=== PATIENT | female | born 1985 | race Caucasian/White ===

== ENCOUNTER → 2016-07-05 | Outpatient (CLI) | payer OTHER ==
[~2016-07-05] MED LIST: ACET-1256 PO; ACET160S78 PO; ALBINS/ INH; ALBU1NEB10 NEB; ALBUAER INH; ASCO100T PO; BUTA1CAP20 PO; CEFT600I IV; CTF50 PO; CYAN10004 PO; CYCL10TA6 PO; DLSUDL60 PO; DOXY100C76 PO; DOXY100T17 PO; DOXYPOW IV; DXY100 PO; ESZO1TAB16 PO; FLUO20CA35 PO; FLUO20CA36 PO; FRCT/ PO; GABA-112 PO; GDN40 PO; GUAI1TAB69 PO; HYDR25CA PO; HYDR25TA5 PO; IBUP-1050 PO; IBUP-1428 PO; LAMO200T PO; LAMO200T38 PO; LEVO1TAB35 PO; MAGN1CAP2 PO; MELATAB2 PO; MELO7.5T5 PO; MULTTAB58 PO; NRN100 PO; PRZ/40 PO; PSEU30TA20 PO; PSEU60TA80 PO; PYRI50TA77 PO; TOPI25TA99 PO; ZIPR1CAP4 PO; ZIPR60CA PO
--- NOTE | 2016-07-12 17:05 | EEG Procedure Note ---
EEG Procedure Note Date of Service Jul 05, 2016. Start / End Times Start Time: 07/05/2016 at 1:49 PM End Time: 07/07/2016 at 10:49 AM Referring Physician Jennifer Fenton History This is a 30-year-old female with episodes of syncope. EEG for further evaluation of possible seizure etiology. Home Medication List Scheduled Ascorbic Acid (Vitamin C), 1 TAB PO HS Eszopiclone (Lunesta), 3 MG PO HS Fluoxetine (Prozac), 20 MG PO DAILY Fluoxetine Hcl (Prozac), 40 MG PO DAILY Magnesium Oxide (Mg Supplement (Magnesium), 400 MG PO DAILY Melatonin (Melatonin Maximum Strengt), 1 TAB PO HS Meloxicam (Mobic), 15 MG PO QAM Multiple Vitamin (Multivitamin), 1 TAB PO DAILY Pyridoxine Hcl (Vitamin B 6), 50 MG PO DAILY Topiramate (Topamax ), 25 MG PO BID Ziprasidone Hcl (Geodon), 40 MG PO QPM Ziprasidone Hcl (Geodon), 60 MG PO QPM Scheduled PRN Acetamin/Butalbital/Caffeine (Fioricet), 1 TAB PO Q4-6 PRN for Migraine Albuterol Soln (Ventolin Soln), 1 VIAL NEB UD PRN for SOB/Wheezing Diclofenac Potassium (Diclofenac Potassium), 50 MG PO Q8 PRN for PRN Hydroxyzine Pamoate (Vistaril), 25 MG PO QID PRN for Anxiety Ibuprofen (Motrin), 800 MG PO Q8H PRN for Pain Description This is a 21 electrode ambulatory EEG with a single channel dedicated to limited EKG. The electrodes were placed in accordance with the International 10- 20 system. Fp1 and Fp2 noted to have disconnection artifact after 7 PM on July 06 and there was multiple lead disconnection artifact after 4 AM on July 07. At the start of the recording the patient was in an awake state. Background was well organized and composed of symmetric mixed alpha and beta frequencies. There was a symmetric well-formed moderate amplitude 11-12 Hz posterior dominant rhythm that was reactive to eye opening and closure. Sleep was indicated by vertex waves, symmetric sleep spindles, and slow wave sleep. Patient journal was returned and reviewed. No clinical events reported. Interpretation This is a normal 48hr ambulatory EEG There was no electrographic seizures or epileptiform discharges. Clinical Correlation A normal EEG does not rule out epilepsy if there is a strong clinical suspicion or for clinical events not captured.
== END | disposition home or self-care (01) ==
LOC: C.NEUR 13:16
PROVIDERS: ATTEND Psychiatry & Neurology Neurology
DX: R55 Syncope and collapse (principal)

== ENCOUNTER 2016-07-10 14:27 | Emergency (ER) | payer OTHER ==
[~2016-07-10] VITALS: Ht 165.1 cm; Wt 120.8 kg
[~2016-07-10 14:27] MED LIST changes: -ACET-1256 PO; -ACET160S78 PO; -ALBINS/ INH; -ALBUAER INH; -BUTA1CAP20 PO; -CEFT600I IV; -CTF50 PO; -CYAN10004 PO; -CYCL10TA6 PO; -DLSUDL60 PO; -DOXY100C76 PO; -DOXY100T17 PO; -DOXYPOW IV; -DXY100 PO; -FLUO20CA36 PO; -GABA-112 PO; -GDN40 PO; -GUAI1TAB69 PO; -HYDR25CA PO; -HYDR25TA5 PO; -IBUP-1050 PO; -LAMO200T PO; -LAMO200T38 PO; -LEVO1TAB35 PO; -MULTTAB58 PO; -NRN100 PO; -PRZ/40 PO; -PSEU30TA20 PO; -PSEU60TA80 PO; -PYRI50TA77 PO
[2016-07-10 14:30] VITALS: TEMP 36.9; Ht 165.1 cm; Wt 120.8 kg
--- NOTE | 2016-07-10 15:48 | EMERGENCY ROOM VISIT NOTE ---
History Report prepared by Mauri: Alfonso Oscar Under the Supervision of: Dr. Roger Mercado M.D. First contact with patient: 15:36 Chief Complaint: HEADACHE Stated Complaint: MIGRAINE, BLURRY VISION History of Present Illness The patient is a 30 year old female who presents to the Emergency Room with complaints of a headache that began last night. She rates her pain a 6/10 in severity. The patient had an anxiety attack last night, which is what started her symptoms. She then took her regular medication Vistaril and felt better. She then began to get a headache when she went to bed. She notes that she then began to feel intoxicated with alcohol even though she did not drink at all. She learned today that she is not supposed to take Lamictal and Vistaril close together, which she did. She tried other medications for her headache with no relief. She denies any fevers. Source of History: patient Onset: last night Position: head Symptom Intensity: 6/10 Quality: ache Timing: other (persistent) Associated Symptoms: No fevers Note: She had a feeling of intoxication. Review of Systems See HPI for pertinent positives & negatives. A total of 10 systems reviewed and were otherwise negative. Past Medical & Surgical Medical Problems: (1) Acute bronchitis (2) Anxiety (3) Asthma, Unspecified (4) Benzodiazepine abuse (5) Bipolar disorder (6) Chronic GERD (7) Contusion of right hip (8) Esophageal Reflux (9) Fall due to slipping on ice or snow (10) MAXIMUS (generalized anxiety disorder) (11) Headache (12) Hyperlipidemia Nec/Nos (13) Low back strain (14) Migraine (15) Migraines (16) Occipital neuralgia (17) Opiate misuse (18) Shortness of breath (19) Syncope and collapse Surgical Problems: (1) Hx of cholecystectomy Family History Cancer Diabetes mellitus FH: heart disease High cholesterol Hypertension Ovarian cyst Social History Smoking Status: Never Smoker Alcohol Use: occasionally Drug Use: none Marital Status: Housing Status: lives with family Occupation Status: unemployed Current/Historical Medications Scheduled Ascorbic Acid (Vitamin C), 1 TAB PO HS Eszopiclone (Lunesta), 3 MG PO HS Fluoxetine (Prozac), 20 MG PO DAILY Fluoxetine Hcl (Prozac), 40 MG PO DAILY Magnesium Oxide (Mg Supplement (Magnesium), 400 MG PO DAILY Melatonin (Melatonin Maximum Strengt), 1 TAB PO HS Meloxicam (Mobic), 15 MG PO QAM Multiple Vitamin (Multivitamin), 1 TAB PO DAILY Pyridoxine Hcl (Vitamin B 6), 50 MG PO DAILY Topiramate (Topamax ), 25 MG PO BID Ziprasidone Hcl (Geodon), 40 MG PO QPM Ziprasidone Hcl (Geodon), 60 MG PO QPM Scheduled PRN Acetamin/Butalbital/Caffeine (Fioricet), 1 TAB PO Q4-6 PRN for Migraine Albuterol Soln (Ventolin Soln), 1 VIAL NEB UD PRN for SOB/Wheezing Diclofenac Potassium (Diclofenac Potassium), 50 MG PO Q8 PRN for PRN Hydroxyzine Pamoate (Vistaril), 25 MG PO QID PRN for Anxiety Ibuprofen (Motrin), 800 MG PO Q8H PRN for Pain Allergies Coded Allergies: Cephalosporins (Verified Allergy, Intermediate, HIVES, 05/31/16) Sumatriptan (Verified Allergy, Intermediate, RASH, 05/31/16) INJ OF IMITREX, RASH @ INJECTION SITE Cephalexin (Verified Allergy, Unknown, HIVES, 05/31/16) Metoclopramide (Verified Allergy, Unknown, ANXIETY, 05/31/16) Physical Exam Vital Signs Date Time Temp Pulse Resp B/P Pulse Ox O2 Delivery O2 Flow Rate FiO2 07/10/16 17:05 86 18 129/90 98 07/10/16 14:30 36.9 109 18 139/89 97 Physical Exam GENERAL: Patient is a healthy-appearing well-nourished HEAD: Normocephalic atraumatic EYES: Ocular movements intact pupils equal and react to light OROPHARYNX mucous membranes are moist no exudates present no erythema or edema present NECK: Supple no nuchal rigidity CHEST: Good equal expansion LUNGS: Clear and equal to auscultation CARDIAC: Normal S1 and S2 ABDOMEN: Soft nontender no guarding BACK: No CVA tenderness EXTREMITIES: No pain upon palpation normal muscle strength in all groups no clubbing cyanosis or edema NEURO: Patient is following commands is answering questions appropriately. Alert and oriented x3 Cranial Nerves 2-12 grossly intact Medical Decision & Procedures Medications Administered Medications (Trade) Dose Ordered Sig/Theodore Route Start Time Stop Time Status Last Admin Dose Admin Sodium Chloride (Nss 1000ml) 1,000 ml @ 999 mls/hr Q1H1M STAT IV 07/10/16 15:51 07/10/16 16:51 DC 07/10/16 16:00 999 MLS/HR Ketorolac Tromethamine (Toradol Inj) 30 mg NOW STAT IV 07/10/16 15:51 07/10/16 15:54 DC 07/10/16 16:01 30 MG Prochlorperazine Edisylate (Compazine Inj) 10 mg NOW STAT IV 07/10/16 15:51 07/10/16 15:54 DC 07/10/16 16:01 10 MG Diphenhydramine HCl (Benadryl Inj) 50 mg NOW STAT IV 07/10/16 15:51 07/10/16 15:54 DC 07/10/16 16:01 50 MG Dexamethasone Sodium Phosphate (Decadron Inj) 10 mg NOW ONCE IV 07/10/16 16:00 07/10/16 16:01 DC 07/10/16 16:00 10 MG ED Course 1536: Past medical records reviewed. The patient was evaluated in room A4. A complete history and physical examination was performed. 1551: Benadryl Inj 50 mg IV, Compazine Inj 10 mg IV, Toradol Inj 30 mg IV, Sodium Chloride 1000 ml @ 999 mls/hr 1600: Decadron Inj 10 mg IV 1700: The patient is feeling better. She would like to go home. 1706: Upon reexamination the patient is resting. I discussed results and treatment plan with the patient. She verbalizes agreement and understanding. The patient is ready for discharge. Medical Decision Etiologies such as migraine headache, meningitis, sinusitis, CO exposure, ICH, SAH, infection, tumor, headache, sinus thrombosis, arterial dissection, as well as others were entertained. This is a 30-year-old female who presents emergency department complaining of a normal migraine headache. The patient has had a history of migraines in the past. She has no evidence of meningitis encephalitis on examination. The patient is requesting her normal migraine cocktail which consisted of Toradol Compazine and Benadryl. She was also given Decadron. I believe the patient as well as to be discharged home for follow-up with her primary care physician. Patient was in agreement with the treatment plan. Impression Primary Impression: Migraine Scribe Attestation The scribe's documentation has been prepared under my direction and personally reviewed by me in its entirety. I confirm that the note above accurately reflects all work, treatment, procedures, and medical decision making performed by me. Departure Information Dispostion Home / Self-Care Referrals Lisa Cervantes DO (PCP) Forms HOME CARE DOCUMENTATION FORM, IMPORTANT VISIT INFORMATION, School Instructions, Work Instructions Patient Instructions ED Headache Migraine, My [facility] Additional Instructions You have been examined and treated today on an emergency basis only. This is not a substitute for, or an effort to provide, complete comprehensive medical care. It is impossible to recognize and treat all injuries or illnesses in a single emergency department visit. It is therefore important that you follow up closely with Dr Cervantes. Call as soon as possible for an appointment. Thank you for your time and consideration. I look forward to speaking with you again soon. Please don't hesitate to call us if you have any questions. Problem Qualifiers Primary Impression: Migraine Migraine type: without aura Status migrainosus presence: without status migrainosus Intractability: not intractable Qualified Codes: G43.009 - Migraine without aura, not intractable, without status migrainosus
[2016-07-10] MEDS ORDERED: KETOROLAC TROMETHAMINE 30 MG/ML VIAL IV STA (15:51)
[2016-07-10] MEDS ORDERED: SODIUM CHLORIDE 0.9% 1000ML 1,000 ML IV STA (15:51)
[2016-07-10] MEDS ORDERED: PROCHLORPERAZINE 5 MG/ML 2 ML VIAL IV STA (15:51)
[2016-07-10] MEDS ORDERED: DiphenhydrAMINE HCL 50 MG/ML VIAL IV STA (15:51)
[2016-07-10] MEDS ORDERED: HYDR25CA PO (15:58)
[2016-07-10] MEDS ORDERED: DEXAMETHASONE SOD INJ 10 MG/ML VIAL IV ONE (16:00)
[2016-07-10 17:05] VITALS: BP 129/90; PULSE 86; O2SAT 98
[2016-12-08] MEDS ORDERED: MULTTAB58 PO (10:42)
[2016-12-08] MEDS ORDERED: PYRI50TA77 PO (15:35)
[2016-12-08] MEDS ORDERED: PRZ/40 PO (18:29)
[2016-12-08] MEDS ORDERED: ACET-1256 PO (19:46)
== END 2016-07-10 17:05 | disposition home or self-care (01) ==
LOC: C.EDB 14:28 → C.EDA 17:05
DX: G43.909 Migraine, unspecified, not intractable, without status migrainosus (principal); J45.909 Unspecified asthma, uncomplicated; K21.9 Gastro-esophageal reflux disease without esophagitis; E78.5 Hyperlipidemia, unspecified; Z79.899 Other long term (current) drug therapy

== ENCOUNTER 2016-07-28 06:59 | Emergency (ER) | payer OTHER ==
[~2016-07-28] VITALS: Ht 165.1 cm; Wt 121.3 kg
[~2016-07-28 06:59] MED LIST changes: +HYDR25CA PO
[2016-07-28 07:05] VITALS: TEMP 36.4; Ht 165.1 cm; Wt 121.3 kg
[2016-07-28] MEDS ORDERED: ALBINS/ INH (07:20)
[2016-07-28] MEDS ORDERED: LAMO200T PO (07:20)
[2016-07-28] MEDS ORDERED: GABA-112 PO (07:20)
[2016-07-28] MEDS ORDERED: KETOROLAC TROMETHAMINE 30 MG/ML VIAL IV STA (07:25)
--- NOTE | 2016-07-28 07:30 | EMERGENCY ROOM VISIT NOTE ---
History Report prepared by Mauri: Clifford Gomez Under the Supervision of: Dr. Robyn Garcia M.D. First contact with patient: 07:09 Chief Complaint: CHEST PAIN Stated Complaint: CHEST PAIN,TROUBLE BREATHING Nursing Triage Summary: Pt presents with substeranl chest pain "shooting into back" that began during the night. Difficulty breathing. Lightheaded, weak, nausea. Pt took Phenegran at midnight without relief. States feels similar to last time she had pnx. "I was hoping it was an asthma attack. I used my inhaler and it didn't work." History of Present Illness The patient is a 30 year old female who presents to the Emergency Room with complaints of persistent chest pain that started last night. The patient also complains of back pain. She notes that both of these are worsened with taking deep breaths. When the symptoms started, the patient thought she was having an asthma flare and used her inhaler. However, this did not help relieve her symptoms. The patient had pneumonia a year and a half ago and notes that her symptoms are similar. She denies control, smoking, chance of , or swelling in her legs. Source of History: patient Onset: last night Position: chest Timing: other (persistent) Modifying Factors (Worsening): breathing (deep breaths) Associated Symptoms: + back pain Note: Denies: swelling in her legs Review of Systems See HPI for pertinent positives & negatives. A total of 10 systems reviewed and were otherwise negative. Past Medical & Surgical Medical Problems: (1) Acute bronchitis (2) Anxiety (3) Asthma, Unspecified (4) Benzodiazepine abuse (5) Bipolar disorder (6) Chronic GERD (7) Contusion of right hip (8) Esophageal Reflux (9) Fall due to slipping on ice or snow (10) MAXIMUS (generalized anxiety disorder) (11) Headache (12) Hyperlipidemia Nec/Nos (13) Low back strain (14) Migraine (15) Migraines (16) Occipital neuralgia (17) Opiate misuse (18) Shortness of breath (19) Syncope and collapse Surgical Problems: (1) Hx of cholecystectomy Family History Cancer Diabetes mellitus FH: heart disease High cholesterol Hypertension Ovarian cyst Social History Smoking Status: Never Smoker Alcohol Use: occasionally Drug Use: none Marital Status: Housing Status: lives with family Occupation Status: unemployed Current/Historical Medications Scheduled Albuterol Sulfate (Proventil Hfa), 2 PUFFS INH Q4H Ascorbic Acid (Vitamin C), 1 TAB PO HS Eszopiclone (Lunesta), 3 MG PO HS Fluoxetine (Prozac), 20 MG PO DAILY Fluoxetine Hcl (Prozac), 40 MG PO DAILY Lamotrigine (Lamictal), 200 MG PO QAM Levofloxacin (Levaquin), 750 MG PO DAILY Magnesium Oxide (Mg Supplement (Magnesium), 400 MG PO DAILY Melatonin (Melatonin Maximum Strengt), 1 TAB PO HS Multiple Vitamin (Multivitamin), 1 TAB PO DAILY Pyridoxine Hcl (Vitamin B 6), 50 MG PO DAILY Ziprasidone Hcl (Geodon), 40 MG PO QPM Scheduled PRN Acetamin/Butalbital/Caffeine (Fioricet), 1 TAB PO Q4-6 PRN for Migraine Albuterol Sulf (Proventil 0.083% 2.5MG/3ML), 1 VIAL INH UD PRN for SOB/Wheezing Diclofenac Potassium (Diclofenac Potassium), 50 MG PO Q8 PRN for PRN Gabapentin (Neurontin), 100 MG PO TID PRN for PRN Allergies Coded Allergies: Cephalosporins (Verified Allergy, Intermediate, HIVES, 05/31/16) Sumatriptan (Verified Allergy, Intermediate, RASH, 05/31/16) INJ OF IMITREX, RASH @ INJECTION SITE Cephalexin (Verified Allergy, Unknown, HIVES, 05/31/16) Metoclopramide (Verified Allergy, Unknown, ANXIETY, 05/31/16) Physical Exam Vital Signs Date Time Temp Pulse Resp B/P Pulse Ox O2 Delivery O2 Flow Rate FiO2 07/28/16 09:21 78 07/28/16 09:10 88 18 111/71 98 Room Air 07/28/16 07:43 99 Room Air 07/28/16 07:43 81 18 130/80 99 Room Air 07/28/16 07:35 83 07/28/16 07:05 36.4 90 18 158/103 98 Room Air Physical Exam Vital signs reviewed. General: Well-appearing, obese, in no significant distress. HEENT: No scleral icterus, PERRLA, neck supple. Atraumatic. Cardiovascular: Regular rate and rhythm, no extra sounds. Pulmonary: Clear to auscultation bilaterally, normal work of breathing. Abdomen: Soft, nontender, nondistended, positive bowel sounds. Musculoskeletal: Atraumatic, no peripheral edema. Neurologic: Patient awake alert and oriented x 3, full strength in all 4 extremities. Cranial nerves 2 through 12 grossly intact. Skin: Warm, dry, no rash Medical Decision & Procedures ER Provider Diagnostic Interpretation: X-ray results as stated below per interpretation by me and the radiologist: CHEST 2 VIEWS ROUTINE CLINICAL HISTORY: cough, back pain dyspnea COMPARISON STUDY: 03/17/2016 FINDINGS: Minimal parenchymal infiltrate medial aspect left base. This assumes a left lower lobe distribution. No consolidative changes. Lungs otherwise are clear. IMPRESSION: Minimal parenchymal infiltrate medial aspect left lower lobe Electronically signed by: Sergio Ahmadi M.D. 07/28/2016 8:26 AM Dictated Date/Time: 07/28/2016 8:25 AM Laboratory Results 07/28/16 07:42 Red Blood Count 4.15, Mean Corpuscular Volume 92.8, Mean Corpuscular Hemoglobin 31.1, Mean Corpuscular Hemoglobin Concent 33.5, Mean Platelet Volume 8.9, Neutrophils (%) (Auto) 68.0, Lymphocytes (%) (Auto) 25.2, Monocytes (%) (Auto) 5.0, Eosinophils (%) (Auto) 1.4, Basophils (%) (Auto) 0.2, Neutrophils # (Auto) 7.39, Lymphocytes # (Auto) 2.73, Monocytes # (Auto) 0.54, Eosinophils # (Auto) 0.15, Basophils # (Auto) 0.02 07/28/16 07:42 Test 07/28/16 07:42 07/28/16 07:51 White Blood Count 10.85 K/uL (4.8-10.8) Red Blood Count 4.15 M/uL (4.2-5.4) Hemoglobin 12.9 g/dL (12.0-16.0) Hematocrit 38.5 % (37-47) Mean Corpuscular Volume 92.8 fL (80-100) Mean Corpuscular Hemoglobin 31.1 pg (25-34) Mean Corpuscular Hemoglobin Concent 33.5 g/dl (32-36) Platelet Count 284 K/uL (130-400) Mean Platelet Volume 8.9 fL (7.4-10.4) Neutrophils (%) (Auto) 68.0 % Lymphocytes (%) (Auto) 25.2 % Monocytes (%) (Auto) 5.0 % Eosinophils (%) (Auto) 1.4 % Basophils (%) (Auto) 0.2 % Neutrophils # (Auto) 7.39 K/uL (1.4-6.5) Lymphocytes # (Auto) 2.73 K/uL (1.2-3.4) Monocytes # (Auto) 0.54 K/uL (0.11-0.59) Eosinophils # (Auto) 0.15 K/uL (0-0.5) Basophils # (Auto) 0.02 K/uL (0-0.2) RDW Standard Deviation 43.1 fL (36.4-46.3) RDW Coefficient of Variation 12.7 % (11.5-14.5) Immature Granulocyte % (Auto) 0.2 % Immature Granulocyte # (Auto) 0.02 K/uL (0.00-0.02) Anion Gap 8.0 mmol/L (3-11) Est Creatinine Clear Calc Drug Dose 143.9 ml/min Estimated GFR () 123.7 Estimated GFR (Non- 106.8 BUN/Creatinine Ratio 14.5 (10-20) Calcium Level 8.8 mg/dl (8.5-10.1) Total Bilirubin 0.2 mg/dl (0.2-1) Direct Bilirubin < 0.1 mg/dl (0-0.2) Aspartate Amino Transf (AST/SGOT) 14 U/L (15-37) Alanine Aminotransferase (ALT/SGPT) 25 U/L (12-78) Alkaline Phosphatase 106 U/L (45-117) Total Protein 7.8 gm/dl (6.4-8.2) Albumin 3.7 gm/dl (3.4-5.0) Human Chorionic Gonadotropin, Qual NEG (NEG) Bedside D-Dimer 219 ng/mlFEU (0-450) Bedside Troponin I 0.000 ng/ml (0-0.045) Laboratory results per my review. Medications Administered Medications (Trade) Dose Ordered Sig/Theodore Route Start Time Stop Time Status Last Admin Dose Admin Ketorolac Tromethamine (Toradol Inj) 30 mg NOW STAT IV 07/28/16 07:25 07/28/16 07:28 DC 07/28/16 07:48 30 MG Levofloxacin (Levaquin Tab) 750 mg NOW ONCE PO 07/28/16 09:00 07/28/16 09:01 DC 07/28/16 09:10 750 MG Acetaminophen/ Hydrocodone Bitart ([place] 5/325 Tab) 2 tab NOW STAT PO 07/28/16 08:54 07/28/16 08:56 DC 07/28/16 09:09 2 TAB ECG Indication: chest pain Rate (beats per minute): 84 Rhythm: normal sinus Findings: no acute ischemic change, no ectopy ED Course 07: Past medical records reviewed. The patient was evaluated in room B9. A complete history and physical examination was performed. 07: Ordered Toradol Inj 30 mg IV. 54: Ordered [place] 5/325 tab 2 tab PO. 899: Ordered Levaquin Tab 750 mg. PO. 913: Upon reevaluation, the patient appeared to have improvement of her symptoms. I discussed findings with her. She verbalized agreement of the treatment plan. The patient was discharged home. Medical Decision Differential diagnosis: Etiologies such as infections, reactive airway disease, pneumonia, pneumothorax , COPD, CHF, cardiac ischemia, pulmonary embolism, musculoskeletal, gastrointestinal, as well as others were entertained. This pt was evaluated and appeared to be in no distress. PE is fairly unrevealing. CXR was performed and is concerning of a L pulmonary infiltrate. WBC is slightly elevated and pt is afebrile. Pt was medicated with IV toradol for pain and oral levaquin 750 mg. She was d/c with a Rx for 6 more days as well as a ventolin inhaler. She will f/u with her PCP this week for reevaluation and return to the ED for worsening of symptoms or any medical concerns. Impression Primary Impression: Pneumonia Scribe Attestation The scribe's documentation has been prepared under my direction and personally reviewed by me in its entirety. I confirm that the note above accurately reflects all work, treatment, procedures, and medical decision making performed by me. Departure Information Dispostion Home / Self-Care Prescriptions Albuterol Sulfate (Proventil Hfa) 108 Mcg/Act Aer 2 PUFFS INH Q4H for 5 Days, #1 INHALER Prov: Robyn Garcia M.D. 07/28/16 Levofloxacin (Levaquin) 750 Mg Tab 750 MG PO DAILY for 6 Days, #6 TAB Prov: Robny Garcia M.D. 07/28/16 Referrals Lisa Casanova DO (PCP) Forms HOME CARE DOCUMENTATION FORM, IMPORTANT VISIT INFORMATION Patient Instructions My [facility] Additional Instructions Diagnosis: Pneumonia Levaquin 750 mg daily for 6 more days. Drink plenty of clear fluids. Albuterol 2 puffs every 4 hours as needed for cough or wheezing. Tylenol 650 mg every 6 hours as needed for pain or fever. Follow-up with your physician this week for reevaluation and return to the ER for worsening of symptoms or any medical concerns. Problem Qualifiers Primary Impression: Pneumonia Pneumonia type: due to unspecified organism Laterality: left Lung location : lower lobe of lung Qualified Codes: J18.1 - Lobar pneumonia, unspecified organism
[2016-07-28 07:43] VITALS: O2SAT 99
[2016-07-28 07:51] LABS: BASO % 0.2 %; BASO ABS # 0.02 K/uL (0-0.2); COMPLETE YES; EOS % 1.4 %; HEMATOCRIT 38.5 % (37-47); IG% 0.2 %; LYMPH % 25.2 %; LYMPH ABS # 2.73 K/uL (1.2-3.4); MEAN CELL VOLUME 92.8 fL (80-100); MEAN CORPUSCULAR HEMOGLOBIN 31.1 pg (25-34); MEAN CORPUSCULAR HGB CONC 33.5 g/dl (32-36); MEAN PLATELET VOLUME 8.9 fL (7.4-10.4); PLATELET COUNT 284 K/uL (130-400); RED BLOOD COUNT 4.15 M/uL (4.2-5.4); WHITE BLOOD COUNT 10.85 K/uL (4.8-10.8)
[2016-07-28 08:03] LABS: ALT/SGPT 25 U/L (12-78); BLOOD UREA NITROGEN 11 mg/dl (7-18); BUN/CREATININE RATIO 14.5 (10-20); CALCIUM 8.8 mg/dl (8.5-10.1); CARBON DIOXIDE 28 mmol/L (21-32); CHLORIDE 104 mmol/L (98-107); CREATININE 0.76 mg/dl (0.60-1.20); GLUCOSE 90 mg/dl (70-99); POTASSIUM 3.9 mmol/L (3.5-5.1); SODIUM 140 mmol/L (136-145)
[2016-07-28 08:06] LABS: ALKALINE PHOSPHATASE 106 U/L (45-117); AST/SGOT 14 U/L (15-37)
[2016-07-28 08:17] LABS: PREG INTERNAL NEGATIVE QC NEG CLEAR BACKGROUND; PREG INTERNAL POSITIVE QC POS CONTROL LINE
--- NOTE | 2016-07-28 08:27 | DIAGNOSTIC IMAGING REPORT ---
CHEST 2 VIEWS ROUTINE CLINICAL HISTORY: cough, back pain dyspnea COMPARISON STUDY: 03/17/2016 FINDINGS: Minimal parenchymal infiltrate medial aspect left base. This assumes a left lower lobe distribution. No consolidative changes. Lungs otherwise are clear. IMPRESSION: Minimal parenchymal infiltrate medial aspect left lower lobe Electronically signed by: Sergio Ahmadi M.D. 07/28/2016 8:26 AM Dictated Date/Time: 07/28/2016 8:25 AM
[2016-07-28] MEDS ORDERED: HYDROCODONE/ACETAMOPHEN 5/325MG TAB PO STA (08:54)
[2016-07-28] MEDS ORDERED: LEVOFLOXACIN 250 MG TAB PO ONE (09:00)
[2016-07-28 09:10] VITALS: BP 111/71; O2SAT 98
[2016-07-28] MEDS ORDERED: ALBUAER INH (09:20)
[2016-07-28] MEDS ORDERED: LEVO1TAB35 PO (09:20)
[2016-07-28 09:21] VITALS: PULSE 78
[2016-12-08] MEDS ORDERED: MULTTAB58 PO (10:42)
[2016-12-08] MEDS ORDERED: PYRI50TA77 PO (15:35)
[2016-12-08] MEDS ORDERED: PRZ/40 PO (18:29)
[2016-12-08] MEDS ORDERED: ACET-1256 PO (19:46)
== END 2016-07-28 09:34 | disposition home or self-care (01) ==
LOC: C.EDB 07:00
DX: J18.1 Lobar pneumonia, unspecified organism (principal); F31.9 Bipolar disorder, unspecified; K21.9 Gastro-esophageal reflux disease without esophagitis; E78.5 Hyperlipidemia, unspecified; Z83.3 Family history of diabetes mellitus; Z82.49 Family history of ischemic heart disease and other diseases of the circulatory system

== ENCOUNTER → 2016-08-03 | Outpatient (CLI) | payer OTHER ==
[~2016-08-03] MED LIST changes: +ACET-1256 PO; +ACET160S78 PO; +ALBINS/ INH; -ALBU1NEB10 NEB; +ALBUAER INH; +BUTA1CAP20 PO; +CEFT600I IV; +CTF50 PO; +CYAN10004 PO; +CYCL10TA6 PO; +DLSUDL60 PO; +DOXY100C76 PO; +DOXY100T17 PO; +DOXYPOW IV; +DXY100 PO; +FLUO20CA36 PO; +GABA-112 PO; +GDN40 PO; +GUAI1TAB69 PO; -HYDR25CA PO; +HYDR25TA5 PO; +IBUP-1050 PO; -IBUP-1428 PO; +LAMO200T PO; +LAMO200T38 PO; +LEVO1TAB35 PO; -MELO7.5T5 PO; +MULTTAB58 PO; +NRN100 PO; +PRZ/40 PO; +PSEU30TA20 PO; +PSEU60TA80 PO; +PYRI50TA77 PO; -TOPI25TA99 PO; -ZIPR60CA PO
[2016-08-03 12:51] LABS: BASO % 0.3 %; BASO ABS # 0.03 K/uL (0-0.2); COMPLETE YES; EOS % 1.1 %; HEMATOCRIT 37.9 % (37-47); IG% 0.2 %; LYMPH % 24.2 %; MEAN CELL VOLUME 93.1 fL (80-100); MEAN CORPUSCULAR HEMOGLOBIN 30.5 pg (25-34); MEAN CORPUSCULAR HGB CONC 32.7 g/dl (32-36); MEAN PLATELET VOLUME 9.5 fL (7.4-10.4); MONO % 5.4 %; NEUT % 68.8 %; PLATELET COUNT 311 K/uL (130-400); RED BLOOD COUNT 4.07 M/uL (4.2-5.4); WHITE BLOOD COUNT 11.55 K/uL (4.8-10.8)
[2016-08-03 13:12] LABS: BLOOD UREA NITROGEN 15 mg/dl (7-18); BUN/CREATININE RATIO 20.8 (10-20); CALCIUM 9.1 mg/dl (8.5-10.1); CARBON DIOXIDE 27 mmol/L (21-32); CHLORIDE 104 mmol/L (98-107); CHOLESTEROL 284 mg/dl (0-200); CREATININE 0.72 mg/dl (0.60-1.20); GLUCOSE 84 mg/dl (70-99); POTASSIUM 3.8 mmol/L (3.5-5.1); SODIUM 141 mmol/L (136-145); TRIGLYCERIDES 190 mg/dl (0-150); VERY LOW DENSITY LIPOPROT CALC 38 mg/dl
[2016-08-03 13:23] LABS: CHOLESTEROL/HDL RATIO 3.8; HDL CHOLESTEROL 75 mg/dl; LDL CHOLESTEROL CALCULATED 171 mg/dl
[2016-08-03 13:51] LABS: ESTIMATED AVERAGE GLUCOSE 105 mg/dl; HA1C FLAG Normal (Normal)
== END | disposition home or self-care (01) ==
LOC: C.LABPBG 07:30
PROVIDERS: ATTEND Psychiatry & Neurology Psychiatry
DX: Z79.899 Other long term (current) drug therapy (principal); Z51.81 Encounter for therapeutic drug level monitoring

== ENCOUNTER 2016-09-17 19:17 | Inpatient (IN) | payer OTHER ==
[~2016-09-17] VITALS: Ht 165.1 cm; Wt 125.0 kg
[~2016-09-17 19:17] MED LIST changes: -ACET-1256 PO; -ACET160S78 PO; -BUTA1CAP20 PO; -CEFT600I IV; -CTF50 PO; -CYAN10004 PO; -CYCL10TA6 PO; -DLSUDL60 PO; -DOXY100C76 PO; -DOXY100T17 PO; -DOXYPOW IV; -DXY100 PO; -FLUO20CA36 PO; -GDN40 PO; -GUAI1TAB69 PO; -HYDR25TA5 PO; -IBUP-1050 PO; -LAMO200T38 PO; -LEVO1TAB35 PO; -MULTTAB58 PO; -NRN100 PO; -PRZ/40 PO; -PSEU30TA20 PO; -PSEU60TA80 PO; -PYRI50TA77 PO
--- NOTE | 2016-09-17 19:36 | EMERGENCY ROOM VISIT NOTE ---
History First contact with patient: 19:24 Chief Complaint: SORETHROAT Stated Complaint: SORE THROAT, SOB History of Present Illness The patient is a 30 year old female who presents to the Emergency Room with complaints of upper respiratory symptoms. The patient states that her symptoms started earlier this week. She reports cough, sore throat and trouble breathing. She states that her children have similar symptoms. She was seen at urgent care earlier this week and had a negative strep test. She has been using her inhaler, nebulizer, ibuprofen and Tylenol. She states that she seems to be worsening. She states she now has laryngitis and is having difficulty breathing. The patient denies any abdominal pain, nausea or vomiting. She denies any extremity pain or swelling. The patient was brought to the emergency department by [facility]. She did have a nebulizer en route. The patient was seen last month and diagnosed with pneumonia. She completed a course of Levaquin. Review of Systems A 10 system review of systems was completed with positives and pertinent negatives listed in the HPI. Past Medical/Surgical History Medical Problems: (1) Acute bronchitis (2) Anxiety (3) Asthma, Unspecified (4) Benzodiazepine abuse (5) Bipolar disorder (6) Chronic GERD (7) Contusion of right hip (8) Esophageal Reflux (9) Fall due to slipping on ice or snow (10) MAXIMUS (generalized anxiety disorder) (11) Headache (12) Hyperlipidemia Nec/Nos (13) Low back strain (14) Migraine (15) Migraines (16) Occipital neuralgia (17) Opiate misuse (18) Shortness of breath (19) Syncope and collapse Surgical Problems: (1) Hx of cholecystectomy Family History Cancer Diabetes mellitus FH: heart disease High cholesterol Hypertension Ovarian cyst Social History Smoking Status: Never Smoker Alcohol Use: occasionally Drug Use: none Marital Status: Housing Status: lives with family Occupation Status: unemployed Current/Historical Medications Scheduled Acetaminophen (Tylenol Children's Susp), 30 ML PO DIRECTED Albuterol Sulfate (Proventil Hfa), 2 PUFFS INH Q4H Ascorbic Acid (Vitamin C), 1 TAB PO HS Dextromethorphan Polymr Complx (Delsym), 10 ML PO DIRECTED Eszopiclone (Lunesta), 3 MG PO HS Fluoxetine (Prozac), 20 MG PO DAILY Fluoxetine Hcl (Prozac), 40 MG PO DAILY Ibuprofen (Advil), 200-600 MG PO Q4H Lamotrigine (Lamictal), 200 MG PO QAM Magnesium Oxide (Mg Supplement (Magnesium), 400 MG PO DAILY Melatonin (Melatonin Maximum Strengt), 1 TAB PO HS Multiple Vitamin (Multivitamin), 1 TAB PO DAILY Pseudoephedrine (Sudafed), 30 MG PO Q12 Pyridoxine Hcl (Vitamin B 6), 50 MG PO DAILY Ziprasidone Hcl (Geodon), 80 MG PO QPM Scheduled PRN Acetamin/Butalbital/Caffeine (Fioricet), 1 TAB PO Q4-6 PRN for Migraine Acetaminophen (Tylenol), 1,000 MG PO DIRECTED PRN for Pain Albuterol Sulf (Proventil 0.083% 2.5MG/3ML), 1 VIAL INH UD PRN for SOB/Wheezing Diclofenac Potassium (Diclofenac Potassium), 50 MG PO Q8 PRN for PRN Gabapentin (Neurontin), 100 MG PO TID PRN for PRN Allergies Coded Allergies: Cephalosporins (Verified Allergy, Intermediate, HIVES, 09/17/16) Sumatriptan (Verified Allergy, Intermediate, RASH, 09/17/16) INJ OF IMITREX, RASH @ INJECTION SITE Cephalexin (Verified Allergy, Unknown, HIVES, 09/17/16) Metoclopramide (Verified Allergy, Unknown, ANXIETY, 09/17/16) Physical Exam Vital Signs Date Time Temp Pulse Resp B/P Pulse Ox O2 Delivery O2 Flow Rate FiO2 09/17/16 22:19 105 18 120/90 98 Room Air 09/17/16 19:43 121 09/17/16 19:27 98 Room Air 09/17/16 19:27 36.9 128 20 132/73 98 Room Air Physical Exam VITALS: Vitals are noted on the nurse's note and reviewed by myself. Vital signs stable. The patient was tachycardic GENERAL: This is a 30-year-old female, in no acute distress, nondiaphoretic, well-developed well-nourished. SKIN: The skin was without rashes, erythema, edema, or bruising. There is no tenting of the skin. Capillary reflex less than 2 seconds. HEAD: Normocephalic atraumatic. EARS: External auditory canals clear, tympanic membranes pearly arndt without erythema or effusion bilaterally. EYES: Pupils equal round and reactive to light and accommodation. Conjunctivae without injection, sclerae without icterus. Extraocular movements intact. NOSE: Patent, turbinates without inflammation or discharge. No sinus tenderness. MOUTH: Mucous membranes moist. Tonsils are not enlarged. Moderate posterior pharyngeal erythema. Uvula midline. Airway patent. Tongue does not deviate. NECK: Supple without nuchal rigidity. No lymphadenopathy. No thyromegaly. Cervical spine is nontender. No JVD. HEART: Regular rate and rhythm without murmurs gallops or rubs. LUNGS: Clear to auscultation bilaterally without wheezes, rales or rhonchi. No retractions or accessory muscle use. MUSCULOSKELETAL: No muscle atrophy, erythema, or edema noted. Full range of motion in all extremities. Normal gait. Strength 5/5 throughout. NEURO: Patient was alert and oriented to person place and time. No focal neurological deficits. Medical Decision & Procedures ER Provider Diagnostic Interpretation: SOFT TISSUE NECK TECHNIQUE: AP and lateral soft tissue neck FINDINGS: Normal prevertebral soft tissues. No distention of the hypopharynx. The epiglottis is normal. IMPRESSION: Normal study. CHEST ONE VIEW PORTABLE CLINICAL HISTORY: dyspnea COMPARISON STUDY: 07/28/2016 FINDINGS: Moderate stable cardiomegaly. Lungs are clear. Diaphragms smooth. IMPRESSION: Moderate stable cardiomegaly. CHEST CTA for PULMONARY ARTERIES CT DOSE: 657.77 mGy.cm HISTORY: Chest pain dyspnea TECHNIQUE: Multiaxial CT images of the chest were performed following the intravenous administration of contrast to evaluate the pulmonary arteries. Maximal intensity projection images were also obtained. COMPARISON STUDY: None. FINDINGS: There is a normal caliber thoracic aorta with no evidence for dissection. There is no evidence for pulmonary embolus. No pleural effusions. No pneumothorax. The liver and spleen are unremarkable. No mediastinal or hilar lymphadenopathy. The central airways are patent. The lungs demonstrate a similar nodular infiltrate infiltrative process of the right upper lobe. This should be followed to resolution. Lungs otherwise appear clear. IMPRESSION: No evidence for pulmonary embolus. Infiltrative change right apical region with an underlying nodular component. An atypical inflammatory process must be considered. Follow-up to resolution with a repeat CT study is suggested. Laboratory Results 09/17/16 19:44 Red Blood Count 3.73, Mean Corpuscular Volume 90.6, Mean Corpuscular Hemoglobin 31.1, Mean Corpuscular Hemoglobin Concent 34.3, Mean Platelet Volume 8.8, Neutrophils (%) (Auto) 84.7, Lymphocytes (%) (Auto) 8.9, Monocytes (%) (Auto) 5.1, Eosinophils (%) (Auto) 0.9, Basophils (%) (Auto) 0.1, Neutrophils # (Auto) 15.34, Lymphocytes # (Auto) 1.62, Monocytes # (Auto) 0.93, Eosinophils # (Auto) 0.16, Basophils # (Auto) 0.02 09/17/16 19:44 Test 09/17/16 19:40 09/17/16 19:44 09/17/16 19:50 Influenza Type A Antigen Neg for Influ A (NEG) Influenza Type B Antigen Neg for Influ B (NEG) White Blood Count 18.12 K/uL (4.8-10.8) Red Blood Count 3.73 M/uL (4.2-5.4) Hemoglobin 11.6 g/dL (12.0-16.0) Hematocrit 33.8 % (37-47) Mean Corpuscular Volume 90.6 fL (80-100) Mean Corpuscular Hemoglobin 31.1 pg (25-34) Mean Corpuscular Hemoglobin Concent 34.3 g/dl (32-36) Platelet Count 241 K/uL (130-400) Mean Platelet Volume 8.8 fL (7.4-10.4) Neutrophils (%) (Auto) 84.7 % Lymphocytes (%) (Auto) 8.9 % Monocytes (%) (Auto) 5.1 % Eosinophils (%) (Auto) 0.9 % Basophils (%) (Auto) 0.1 % Neutrophils # (Auto) 15.34 K/uL (1.4-6.5) Lymphocytes # (Auto) 1.62 K/uL (1.2-3.4) Monocytes # (Auto) 0.93 K/uL (0.11-0.59) Eosinophils # (Auto) 0.16 K/uL (0-0.5) Basophils # (Auto) 0.02 K/uL (0-0.2) RDW Standard Deviation 43.7 fL (36.4-46.3) RDW Coefficient of Variation 13.4 % (11.5-14.5) Immature Granulocyte % (Auto) 0.3 % Immature Granulocyte # (Auto) 0.05 K/uL (0.00-0.02) Dohle Bodies OCCASIONAL Red Blood Cell Morphology Unremarkable Anion Gap 7.0 mmol/L (3-11) Est Creatinine Clear Calc Drug Dose 144.9 ml/min Estimated GFR () 121.8 Estimated GFR (Non- 105.1 BUN/Creatinine Ratio 8.4 (10-20) Calcium Level 9.0 mg/dl (8.5-10.1) Total Bilirubin 0.4 mg/dl (0.2-1) Aspartate Amino Transf (AST/SGOT) 23 U/L (15-37) Alanine Aminotransferase (ALT/SGPT) 36 U/L (12-78) Alkaline Phosphatase 118 U/L (45-117) Total Protein 8.1 gm/dl (6.4-8.2) Albumin 3.8 gm/dl (3.4-5.0) Globulin 4.3 gm/dl (2.5-4.0) Albumin/Globulin Ratio 0.9 (0.9-2) Monoscreen NEG (NEG) Bedside D-Dimer > 450 ng/mlFEU (0-450) Bedside Troponin I 0.000 ng/ml (0-0.045) Date/Time Source Procedure Growth Status 09/17/16 19:30 Throat Group A Streptococcus Screen - Final SPECIMEN POSITIVE FOR GROUP A BETA ST... Complete 09/17/16 19:30 Throat Group A Streptococcus Screen (MARY) - Final Complete Medications Administered Medications (Trade) Dose Ordered Sig/Theodore Route Start Time Stop Time Status Last Admin Dose Admin Ketorolac Tromethamine (Toradol Inj) 30 mg NOW STAT IV 09/17/16 21:39 09/17/16 21:40 DC 09/17/16 22:15 30 MG Piperacillin Sod/ Tazobactam Sod (Zosyn Iv) 3.375 gm NOW STAT IV 09/17/16 21:44 09/17/16 21:45 DC 09/17/16 22:14 3.375 GM Procedure The patient was monitored on a supervisor type photography. This revealed a sinus tachycardia. ECG Indication: chest pain Rate (beats per minute): 119 Rhythm: sinus tachycardia Findings: T-wave inversion (Anterior) Change: T-wave inversion in the anterior leads is new compared to previous ED Course The patient was seen and examined. Previous visits were reviewed. The patient was afebrile. She does have a leukocytosis of 18,000 with a left shift. There are also Dohle bodies present on the CBC. She does not have any significant electrolyte abnormalities. Troponin was not elevated. D-dimer was elevated. Rapid strep was positive. [place] was negative. Influenza was negative. Chest x-ray does not reveal any acute abnormality CT of the chest was negative for PE but does reveal a right apical infiltrative change The patient does meet Sirs criteria. She has a leukocytosis with left shift, tachycardia and findings of infiltrate on CT of the chest. The patient was recently treated with Levaquin for a left basilar pneumonia. She also has a positive strep. She was hydrated with normal saline. She was given IV Zosyn. She was given 30 mg IV Toradol. The patient would benefit from further evaluation and management in the hospital. The case was discussed with Dr. Dumont and he will evaluate the patient The case was also discussed with Dr. Long who agrees with the assessment and management plan Medical Decision DIFFERENTIAL DIAGNOSIS: Aortic dissection, myocarditis, pericarditis, cervical disc disease, costochondritis, herpes zoster, rib fracture, pleuritis, pneumonia , pulmonary embolus, tension pneumothorax, anxiety disorder, somatoform disorder , choledocholithiasis, status, esophagitis, esophageal spasm, esophageal reflux , esophageal rupture, pancreatitis, peptic ulcer disease, cardiac ischemia, ST elevation VT, acute coronary syndrome, arrhythmia, coronary artery vasospasm. vavular heart disease, coronary artery disease, among others. Impression Primary Impression: SIRS (systemic inflammatory response syndrome) Additional Impressions: Pneumonia Strep pharyngitis Departure Information Referrals Lisa Casanova DO (PCP) Patient Instructions My [facility] Problem Qualifiers
[2016-09-17] MEDS ORDERED: ACET160S78 PO (19:46)
[2016-09-17] MEDS ORDERED: DLSUDL60 PO (19:46)
[2016-09-17] MEDS ORDERED: IBUP-1050 PO (19:46)
[2016-09-17] MEDS ORDERED: PSEU30TA20 PO (19:46)
[2016-09-17 19:53] LABS: HEMATOCRIT 33.8 % (37-47); MEAN CELL VOLUME 90.6 fL (80-100); MEAN CORPUSCULAR HEMOGLOBIN 31.1 pg (25-34); MEAN CORPUSCULAR HGB CONC 34.3 g/dl (32-36); MEAN PLATELET VOLUME 8.8 fL (7.4-10.4); PLATELET COUNT 241 K/uL (130-400); RED BLOOD COUNT 3.73 M/uL (4.2-5.4); WHITE BLOOD COUNT 18.12 K/uL (4.8-10.8)
[2016-09-17 20:11] LABS: BUN/CREATININE RATIO 8.4 (10-20); CREATININE 0.77 mg/dl (0.60-1.20); POTASSIUM 3.3 mmol/L (3.5-5.1)
[2016-09-17 20:14] LABS: ALB/GLOB RATIO 0.9 (0.9-2)
[2016-09-17 20:18] LABS: BASO % 0.1 %; BASO ABS # 0.02 K/uL (0-0.2); COMPLETE YES; DOHLE BODIES OCCASIONAL; EOS % 0.9 %; IG% 0.3 %; LYMPH % 8.9 %; LYMPH ABS # 1.62 K/uL (1.2-3.4); MONO % 5.1 %; NEUT % 84.7 %
--- NOTE | 2016-09-17 20:53 | DIAGNOSTIC IMAGING REPORT ---
CHEST CTA for PULMONARY ARTERIES CT DOSE: 657.77 mGy.cm HISTORY: Chest pain dyspnea TECHNIQUE: Multiaxial CT images of the chest were performed following the intravenous administration of contrast to evaluate the pulmonary arteries. Maximal intensity projection images were also obtained. COMPARISON STUDY: None. FINDINGS: There is a normal caliber thoracic aorta with no evidence for dissection. There is no evidence for pulmonary embolus. No pleural effusions. No pneumothorax. The liver and spleen are unremarkable. No mediastinal or hilar lymphadenopathy. The central airways are patent. The lungs demonstrate a similar nodular infiltrate infiltrative process of the right upper lobe. This should be followed to resolution. Lungs otherwise appear clear. IMPRESSION: No evidence for pulmonary embolus. Infiltrative change right apical region with an underlying nodular component. An atypical inflammatory process must be considered. Follow-up to resolution with a repeat CT study is suggested. Electronically signed by: Sergio Ahmadi M.D. 09/17/2016 8:52 PM Dictated Date/Time: 09/17/2016 8:50 PM
[2016-09-17] MEDS ORDERED: OPTIRAY 320 IV PRN (21:00)
--- NOTE | 2016-09-17 21:27 | DIAGNOSTIC IMAGING REPORT ---
CHEST ONE VIEW PORTABLE CLINICAL HISTORY: dyspnea COMPARISON STUDY: 07/28/2016 FINDINGS: Moderate stable cardiomegaly. Lungs are clear. Diaphragms smooth. IMPRESSION: Moderate stable cardiomegaly. Electronically signed by: Sergio Ahmadi M.D. 09/17/2016 9:26 PM Dictated Date/Time: 09/17/2016 9:25 PM
--- NOTE | 2016-09-17 21:29 | DIAGNOSTIC IMAGING REPORT ---
SOFT TISSUE NECK TECHNIQUE: AP and lateral soft tissue neck FINDINGS: Normal prevertebral soft tissues. No distention of the hypopharynx. The epiglottis is normal. IMPRESSION: Normal study. Electronically signed by: Sergio Ahmadi M.D. 09/17/2016 9:28 PM Dictated Date/Time: 09/17/2016 9:27 PM
[2016-09-17] MEDS ORDERED: KETOROLAC TROMETHAMINE 30 MG/ML VIAL IV STA (21:39)
[2016-09-17] MEDS ORDERED: PIPERACILLIN/TAZOBACTAM 3.375 GM/100ML D5W IV STA (21:44)
--- NOTE | 2016-09-17 22:12 | History and Physical ---
History & Physical Date & Time of Service: Sep 17, 2016 at 22:12 Chief Complaint: Sore Throat, Sob Primary Care Physician: Lisa Casanova DO History of Present Illness Source: patient, partner The patient is a 30-year-old female who presents emergency department via ALS with complaint of sore throat, cough and shortness of breath in spite of using her inhaler, nebulizer, ibuprofen and Tylenol. She had been seen in urgent care earlier in the week with a negative strep test, he reports that her children similar symptoms. She was seen in the emergency department on 2016 and treated for left lower lobe pneumonia with levofloxacin which she reports symptoms did resolve. She has not had any recent travel. Past Medical/Surgical History Medical Problems: (1) Acute bronchitis Status: Resolved (2) Anxiety Status: Chronic (3) Benzodiazepine abuse Status: Chronic (4) Bipolar disorder Status: Chronic (5) Chronic GERD Status: Chronic (6) Contusion of right hip Status: Resolved (7) Fall due to slipping on ice or snow Status: Resolved (8) MAXIMUS (generalized anxiety disorder) Status: Chronic (9) Headache Status: Chronic (10) Low back strain Status: Resolved (11) Migraine Status: Chronic (12) Migraines Status: Chronic (13) Occipital neuralgia Status: Resolved (14) Opiate misuse Status: Chronic (15) Shortness of breath Status: Resolved Surgical Problems: (1) Hx of cholecystectomy Status: Resolved Family History Cancer Diabetes mellitus FH: heart disease High cholesterol Hypertension Ovarian cyst Social History Smoking Status: Never Smoker Smokeless Tobacco Use: No Alcohol Use: none Drug Use: none Marital Status: Housing status: lives with family Occupational Status: unemployed Immunizations History of Influenza Vaccine: Yes Influenza Vaccine Date: Apr 24, 2009 History of Tetanus Vaccine?: Unknown History of Pneumococcal: No History of Hepatitis B Vaccine: Unknown Multi-Drug Resistant Organisms History of MDRO: No Allergies Coded Allergies: Cephalosporins (Verified Allergy, Intermediate, HIVES, 09/17/16) Sumatriptan (Verified Allergy, Intermediate, RASH, 09/17/16) INJ OF IMITREX, RASH @ INJECTION SITE Cephalexin (Verified Allergy, Unknown, HIVES, 09/17/16) Metoclopramide (Verified Allergy, Unknown, ANXIETY, 09/17/16) Home Medications Scheduled Acetaminophen (Tylenol Children's Susp), 30 ML PO DIRECTED Albuterol Sulfate (Proventil Hfa), 2 PUFFS INH Q4H Ascorbic Acid (Vitamin C), 1 TAB PO HS Dextromethorphan Polymr Complx (Delsym), 10 ML PO DIRECTED Eszopiclone (Lunesta), 3 MG PO HS Fluoxetine (Prozac), 20 MG PO DAILY Fluoxetine Hcl (Prozac), 40 MG PO DAILY Ibuprofen (Advil), 200-600 MG PO Q4H Lamotrigine (Lamictal), 200 MG PO QAM Magnesium Oxide (Mg Supplement (Magnesium), 400 MG PO DAILY Melatonin (Melatonin Maximum Strengt), 1 TAB PO HS Multiple Vitamin (Multivitamin), 1 TAB PO DAILY Pseudoephedrine (Sudafed), 30 MG PO Q12 Pyridoxine Hcl (Vitamin B 6), 50 MG PO DAILY Ziprasidone Hcl (Geodon), 80 MG PO QPM Scheduled PRN Acetamin/Butalbital/Caffeine (Fioricet), 1 TAB PO Q4-6 PRN for Migraine Acetaminophen (Tylenol), 1,000 MG PO DIRECTED PRN for Pain Albuterol Sulf (Proventil 0.083% 2.5MG/3ML), 1 VIAL INH UD PRN for SOB/Wheezing Diclofenac Potassium (Diclofenac Potassium), 50 MG PO Q8 PRN for PRN Gabapentin (Neurontin), 100 MG PO TID PRN for PRN Review of Systems The patient denies chest pain, palpitations, lower extremity swelling, vision change, hearing change, chills, sweats, weight change, nausea, vomiting, abdominal pain, pelvic pain, blood in urine or stool, dysuria, urinary frequency or urgency, lightheadedness, dizziness, headache, memory loss, rash, abnormal bruising or bleeding, imbalance, focal or generalized weakness, numbness or tingling in arms or legs, arthralgias or myalgias, back or neck pain , night sweats. The review of systems is otherwise negative other than for that already noted above, and at least 10 systems have been reviewed. Physical Exam Vital Signs Date Time Temp Pulse Resp B/P Pulse Ox O2 Delivery O2 Flow Rate FiO2 09/17/16 19:43 121 09/17/16 19:27 98 Room Air 09/17/16 19:27 36.9 128 20 132/73 98 Room Air The patient is awake, well-developed and adequately nourished, alert and oriented 3, normocephalic and atraumatic, lying in bed and in no acute distress. HEENT--PERRL, EOMI, mucous membranes and oropharynx dry and erythematous. Neck--supple, no JVD or bruits, thyroid normal, trachea midline, no adenopathy. Heart--normal S1 and S2, no extra beats, no murmurs, rubs or gallops. Lungs--few coarse breath sounds bilaterally, no respiratory distress, no accessory muscle use. Abdomen--normal bowel sounds and soft, nontender and nondistended, no hernias or masses, no organomegaly. Extremities--no cyanosis, clubbing or edema. There are good distal pulses b/l. Dermatologic--normal skin turgor, normal color, warm and dry, no abnormal lymph nodes, no rash. Neurologic--cranial nerves II through XII grossly intact, motor and sensory examination normal. Rheumatologic--normal range of motion, nontender, muscles and joints. Psychiatric--normal affect. Diagnostics Laboratory Results Results Past 24 Hours Test 09/17/16 19:40 09/17/16 19:44 09/17/16 19:50 Range/Units Influenza Type A Antigen Neg for Influ A NEG Influenza Type B Antigen Neg for Influ B NEG White Blood Count 18.12 4.8-10.8 K/uL Red Blood Count 3.73 4.2-5.4 M/uL Hemoglobin 11.6 12.0-16.0 g/dL Hematocrit 33.8 37-47 % Mean Corpuscular Volume 90.6 80-100 fL Mean Corpuscular Hemoglobin 31.1 25-34 pg Mean Corpuscular Hemoglobin Concent 34.3 32-36 g/dl Platelet Count 241 130-400 K/uL Mean Platelet Volume 8.8 7.4-10.4 fL Neutrophils (%) (Auto) 84.7 % Lymphocytes (%) (Auto) 8.9 % Monocytes (%) (Auto) 5.1 % Eosinophils (%) (Auto) 0.9 % Basophils (%) (Auto) 0.1 % Neutrophils # (Auto) 15.34 1.4-6.5 K/uL Lymphocytes # (Auto) 1.62 1.2-3.4 K/uL Monocytes # (Auto) 0.93 0.11-0.59 K/uL Eosinophils # (Auto) 0.16 0-0.5 K/uL Basophils # (Auto) 0.02 0-0.2 K/uL RDW Standard Deviation 43.7 36.4-46.3 fL RDW Coefficient of Variation 13.4 11.5-14.5 % Immature Granulocyte % (Auto) 0.3 % Immature Granulocyte # (Auto) 0.05 0.00-0.02 K/uL Dohle Bodies OCCASIONAL Red Blood Cell Morphology Unremarkable Sodium Level 142 136-145 mmol/L Potassium Level 3.3 3.5-5.1 mmol/L Chloride Level 104 98-107 mmol/L Carbon Dioxide Level 31 21-32 mmol/L Anion Gap 7.0 3-11 mmol/L Blood Urea Nitrogen 6 7-18 mg/dl Creatinine 0.77 0.60-1.20 mg/dl Est Creatinine Clear Calc Drug Dose 144.9 ml/min Estimated GFR () 121.8 Estimated GFR (Non- 105.1 BUN/Creatinine Ratio 8.4 10-20 Random Glucose 108 70-99 mg/dl Calcium Level 9.0 8.5-10.1 mg/dl Total Bilirubin 0.4 0.2-1 mg/dl Aspartate Amino Transf (AST/SGOT) 23 15-37 U/L Alanine Aminotransferase (ALT/SGPT) 36 12-78 U/L Alkaline Phosphatase 118 45-117 U/L Total Protein 8.1 6.4-8.2 gm/dl Albumin 3.8 3.4-5.0 gm/dl Globulin 4.3 2.5-4.0 gm/dl Albumin/Globulin Ratio 0.9 0.9-2 Monoscreen NEG NEG Bedside D-Dimer > 450 0-450 ng/mlFEU Bedside Troponin I 0.000 0-0.045 ng/ml Microbiology Results 09/17/16 Group A Streptococcus Screen - Final, Complete SPECIMEN POSITIVE FOR GROUP A BETA ST... 09/17/16 Group A Streptococcus Screen (MARY) - Final, Complete Diagnostic Radiology Patient Name: DIRK FINCH Unit Number: [id number] Dictated: 09/17/162126 Transcribed: 09/17/162126 MS Printed Date/Time: [~ rep prt dt]/[~ rep prt tm] [~ rep ct labl] - [~ rep ct ivnm] [facility] [place] [address] Dictated: 09/17/162126 Transcribed: 09/17/162126 MS Printed Date/Time: [~ rep prt dt]/[~ rep prt tm] [~ rep ct labl] - [~ rep ct ivnm] SOFT TISSUE NECK TECHNIQUE: AP and lateral soft tissue neck FINDINGS: Normal prevertebral soft tissues. No distention of the hypopharynx. The epiglottis is normal. IMPRESSION: Normal study. Electronically signed by: Sergio Ahmadi M.D. 09/17/2016 9:28 PM Dictated Date/Time: 09/17/2016 9:27 PM The status of this report is Signed. Draft = Not yet reviewed or approved by Radiologist. Signed = Reviewed and approved by Radiologist. <AttendingPhy></AttendingPhy> <FamilyPhy>Lisa Casanova DO</FamilyPhy> < PrimaryPhy>Lisa Casanova DO</PrimaryPhy> <UnitNumber>[id number]</UnitNumber > <VisitNumber>[id number]</VisitNumber> <PatientName>JOSETTEDIRK</ PatientName> <DateOfBirth>1985</DateOfBirth> <Location>[facility]</Location> < ServiceDate>09/17/16</ServiceDate> <MNE>ESINDI</MNE> <OrderingPhy>Kiana Smith PA-C</OrderingPhy> <OrderingPhyMNE>f rep ord dr bermudez</OrderingPhyMNE > <DictatingPhyMNE>f rep dict dr bermudez</DictatingPhyMNE> <CCListMNE>f rep ct aidan</ CCListMNE> <AdmittingPhyMNE>f pt admit dr bermudez</AdmittingPhyMNE> <AttendingPhyMNE >f pt attend dr bermudez</AttendingPhyMNE> <ConsultingPhyMNE>f pt consult dr bermudez</ConsultingPhyMNE> <FamilyPhyMNE>f pt fam dr bermudez</FamilyPhyMNE> <OtherPhyMNE>f pt other dr bermudez</OtherPhyMNE> < PrimaryPhyMNE>f pt prim care dr bermudez</PrimaryPhyMNE> <ReferringPhyMNE>f pt referring dr bermudez</ReferringPhyMNE> Patient Name: DIRK FINCH Unit Number: [id number] Dictated: 09/17/162124 Transcribed: 09/17/162124 MS Printed Date/Time: [~ rep prt dt]/[~ rep prt tm] [~ rep ct labl] - [~ rep ct ivnm] [facility] [place] [address] Dictated: 09/17/162124 Transcribed: 09/17/162124 MS Printed Date/Time: [~ rep prt dt]/[~ rep prt tm] [~ rep ct labl] - [~ rep ct ivnm] [~ rep ct add3]] CHEST ONE VIEW PORTABLE CLINICAL HISTORY: dyspnea COMPARISON STUDY: 07/28/2016 FINDINGS: Moderate stable cardiomegaly. Lungs are clear. Diaphragms smooth. IMPRESSION: Moderate stable cardiomegaly. Electronically signed by: Sergio Ahmadi M.D. 09/17/2016 9:26 PM Dictated Date/Time: 09/17/2016 9:25 PM The status of this report is Signed. Draft = Not yet reviewed or approved by Radiologist. Signed = Reviewed and approved by Radiologist. <AttendingPhy></AttendingPhy> <FamilyPhy>Lisa Casanova DO</FamilyPhy> < PrimaryPhy>Lisa Casanova, </PrimaryPhy> <UnitNumber>[id number]</UnitNumber > <VisitNumber>[id number]</VisitNumber> <PatientName>DIRK FINCH</ PatientName> <DateOfBirth>1985</DateOfBirth> <Location>[facility]</Location> < ServiceDate>09/17/16</ServiceDate> <MNE>ESINDI</MNE> <OrderingPhy>Kiana Smith PA-C</OrderingPhy> <OrderingPhyMNE>f rep ord dr bermudez</OrderingPhyMNE > <DictatingPhyMNE>f rep dict dr bermudez</DictatingPhyMNE> <CCListMNE>f rep ct mne</ CCListMNE> <AdmittingPhyMNE>f pt admit dr bermudez</AdmittingPhyMNE> <AttendingPhyMNE >f pt attend dr bermudez</AttendingPhyMNE> <ConsultingPhyMNE>f pt consult dr bermudez</ConsultingPhyMNE> <FamilyPhyMNE>f pt fam dr bermudez</FamilyPhyMNE> <OtherPhyMNE>f pt other dr bermudez</OtherPhyMNE> < PrimaryPhyMNE>f pt prim care dr bermudez</PrimaryPhyMNE> <ReferringPhyMNE>f pt referring dr bermudez</ReferringPhyMNE> [~ rep ct add3]] CHEST CTA for PULMONARY ARTERIES CT DOSE: 657.77 mGy.cm HISTORY: Chest pain dyspnea TECHNIQUE: Multiaxial CT images of the chest were performed following the intravenous administration of contrast to evaluate the pulmonary arteries. Maximal intensity projection images were also obtained. COMPARISON STUDY: None. FINDINGS: There is a normal caliber thoracic aorta with no evidence for dissection. There is no evidence for pulmonary embolus. No pleural effusions. No pneumothorax. The liver and spleen are unremarkable. No mediastinal or hilar lymphadenopathy. The central airways are patent. The lungs demonstrate a similar nodular infiltrate infiltrative process of the right upper lobe. This should be followed to resolution. Lungs otherwise appear clear. IMPRESSION: No evidence for pulmonary embolus. Infiltrative change right apical region with an underlying nodular component. An atypical inflammatory process must be considered. Follow-up to resolution with a repeat CT study is suggested. Electronically signed by: Sergio Ahmadi M.D. 09/17/2016 8:52 PM Dictated Date/Time: 09/17/2016 8:50 PM Impression Assessment and Plan Atypical nodular right apical infiltrate--the patient will be admitted to the medical floor in respiratory isolation with droplet precautions. Will place on vancomycin IV per renal dosing, Zosyn 3.375 mg IV every 6 hours, duonebs every 4 hours while awake and every 2 hours when necessary, nasal cannula 2 L O2 titrated to keep pulse ox greater than or equal to 92%. We'll order AFB cultures 3. We'll consult infectious disease and pulmonology. Strep pharyngitis--we will cover with antibiotics as noted above. Bipolar disorder--continue fluoxetine 60 mg by mouth daily, Lamictal 20 mg by mouth every morning, Geodon 80 mg by mouth every afternoon, Lunesta 3 mg by mouth at bedtime, melatonin maximum strength by mouth at bedtime, gabapentin 100 mg by mouth 3 times a day. Migraine--Fioricet 1 by mouth every 4 hours when necessary. Opiate misuse--noted. Benzodiazepine abuse--noted. Level of Care Med/Surg Advanced Directives Existing Advance Directive: No Existing Living Will: No Existing Power of Licensed Audiologist: No Resuscitation Status FULL RESUSCITATION VTE Prophylaxis Risk Level: Low Given or contraindicated: SCD's
[2016-09-17] MEDS ORDERED: TUBERCULIN SKIN TEST 5 TU in SYRINGE 0 ML ID STA (22:42)
[2016-09-17] MEDS ORDERED: ZOLPIDEM TARTRATE 5 MG TAB PO PRN (23:00)
[2016-09-17] MEDS ORDERED: ACETAMINOPHEN INFANTS SOLN 160MG/5ML PO PRN (23:00)
[2016-09-17] MEDS ORDERED: ALBUTEROL 0.083% NEBU SOLN 3 ML VIAL INH PRN (23:00)
[2016-09-17] MEDS ORDERED: BUTALBITAL/ACETAMIN/CAFFEINE TAB PO PRN (23:00)
[2016-09-17] MEDS ORDERED: VANCOMYCIN INJ 1,000 MG in SODIUM CHLORIDE 0.9% 250ML 250 ML IV STA (23:09)
[2016-09-17] MEDS ORDERED: ZIPRASIDONE 80 MG CAP PO STA (23:32)
[2016-09-18] MEDS: ACETAMINOPHEN 325 MG TAB PO PRN ×2 (00:09→05:52)
[2016-09-18] MEDS ORDERED: VANCOMYCIN INJ 2,800 MG in SODIUM CHLORIDE 0.9% 500ML 500 ML IV SCH (00:30)
[2016-09-18] MEDS ORDERED: NURSING VERBAL MED ORDER ONE (00:45)
[2016-09-18] MEDS ORDERED: VANCOMYCIN CONSULT ACTIVE PRN (00:45)
[2016-09-18] MEDS ORDERED: PIPERACILL/TAZOBAC CONSULT ACTIVE PRN (00:45)
[2016-09-18] MEDS: PIPERACILL/TAZOBAC IV 4.5 GM in DEXTROSE 5% 100ML IV SCH ×3 (02:19→17:38)
[2016-09-18] MEDS: ALBUTEROL HFA 8 GM INHALER INH SCH ×6 (02:23→23:21)
[2016-09-18] MEDS ORDERED: SODIUM CHLORIDE 0.65% NA SOLN 45 ML (OCEAN) ONE (02:25)
[2016-09-18] MEDS ORDERED: NURSING DECISION MEDICATION ORDER SCH (02:30)
[2016-09-18 02:33] VITALS: BP 140/82; PULSE 86; TEMP 38; O2SAT 98; Ht 165.1 cm; Wt 125.0 kg
[2016-09-18 02:45] VITALS: TEMP 36.6
[2016-09-18] MEDS ORDERED: SODIUM CHLORIDE 0.65% NA SOLN 45 ML (OCEAN) PRN (02:45)
[2016-09-18] MEDS ORDERED: PIPERACILL/TAZOBAC IV 3.375 GM in DEXTROSE 5% 100ML 100 ML IV SCH (06:00)
[2016-09-18 07:21] VITALS: BP 166/99; PULSE 97; TEMP 37.1; O2SAT 91
--- NOTE | 2016-09-18 08:01 | PULMONARY CONSULTATION ---
DATE OF CONSULTATION: 09/18/2016 HISTORY OF PRESENT ILLNESS: The patient is a 30-year-old female who was admitted to the hospital today and Dr. Calle has asked me to evaluate the patient from a pulmonary standpoint. She has never had any problems with her lungs in the past. Both her 1- and 6-year-old child have been sick with a sore throat and rhinitis. She developed a sore throat Tuesday, about 4 days ago, and was seen at the urgent care center in [place] where her exam including an ear, nose and throat exam was unremarkable. No films were done, no antibiotics were prescribed. She continued to have worsening shortness of breath associated with cough which she developed yesterday which is nonproductive. She does have a history of asthma, has been using her inhalers and the nebulizer with no improvement, and she called the ALS and was brought to the hospital. She was seen by Kiana Smith PA-C, in the Emergency Room, and apparently, she had a negative strep at the urgent care center last Tuesday, 4 days ago. She denies aspiration, hoarseness, hemoptysis, chest pain. She has some mild shortness of breath. Has not had any wheezing or orthopnea. She generally sleeps on the right and left side, does not have any significant vomiting. Her travel history and environmental histories have been unremarkable. She has a cat and a dog at home and several children. No birds. No one has been ill. She states reflux is under good control. In the Emergency Room, her oxygen saturation 98%, pulse is 128 initially, respiratory rate 20. Because of the slight infiltrative process and leukocytosis, she was seen by Dr. Calle and admitted. Presently, the patient is comfortable, respiratory rate is 16, does not appear to be ill. PAST MEDICAL HISTORY: Positive for anxiety, benzodiazepine abuse, obesity, bipolar disorder, chronic reflux is under good control, low back pain, migraine headaches, opiate misuse, syncope, occipital neuralgia. PAST SURGICAL HISTORY: Cholecystectomy. FAMILY HISTORY: Heart disease, hyperlipidemia, and hypertension. SOCIAL HISTORY: She has never been a tobacco or alcohol user. 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 She had a PPD placed today as well. She is not an alcohol user. 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 ALLERGIES: TO CEPHALOSPORINS, SUMATRIPTAN AND METOCLOPRAMIDE. She is not an illicit drug user. There is no history or exposure to tuberculosis or any fungal disease. There has not been any construction around her home. PHYSICAL EXAMINATION: VITAL SIGNS: Temperature is 38, her pulse is 80 and regular, respiratory rate 20, oxygen saturation 98% on room air, blood pressure 140/82. Her weight is 125 kilograms. HEENT: Unremarkable with a small nose, small posterior pharynx, large tongue, normal pendulous uvula, with no evidence of exudate or adenopathy noted. Thyroid nonpalpable. No nodes are palpable. Trachea is midline. HEART: Regular rate and rhythm. No murmurs are heard. LUNGS: Clear. Careful attention to the right upper lobe produced no crackles or rales. ABDOMEN: Soft and massively obese, nontender. EXTREMITIES: She has no cyanosis, clubbing or edema. LABORATORY DATA: White count is 18.12, hemoglobin 11.6, with 85% segmented neutrophils. PRP is unremarkable, potassium of 3.3, glucose of 108, alkaline phosphatase is slightly elevated. D-dimer was elevated. Influenza A and B and mono screens were negative. Chest x-ray was unremarkable. Soft tissues of the neck were normal. CT of the chest was reviewed, shows very minimal nodular density in the right upper lobe, posterior. No significant adenopathy was noted. No other abnormalities were noted. This was quite minimal. Blood cultures are pending. Sputum for AFB is pending. Throat culture last night at 1930 was positive for group A beta strep. IMPRESSION: 1. Right upper lobe pneumonia. This probably is related to strep. It may be just starting of a pneumonia since she has cough, mild shortness of breath, but no other significant symptoms. She has not had any rigors at home. There is no history of aspiration. There is some minimal infiltrate in the right upper lobe. I think it is unlikely this is tuberculosis or an atypical infection. 2. Asthma. 3. Strep pharyngitis. RECOMMENDATIONS: 1. Continue with her present medications. I would think vancomycin and Zosyn give tremendous coverage and may not be needed in the next 24-48 hours depending on the sputum. This appears to be strep and I would think Zithromax intravenously along with metronidazole or even p.o. Levaquin just as a single agent would be appropriate. 2. Antireflux regimen. 3. Follow up on the PPD. 4. Good DVT prophylaxis. From an asthma standpoint, she is stable, I would just continue on her present medications. She has a history of opiate abuse in the past. I see she is on Fioricet and that may need to be followed very carefully. Thanks for asking me to evaluate Ms. Coates and I will be glad to see her again in the future if you desire. If the chest x-ray next week does not reveal resolution of the infiltrative processes or worsening process, then bronchoscopy may be warranted.
[2016-09-18] MEDS: FLUOXETINE HCL 20 MG CAP PO SCH (08:04)
[2016-09-18] MEDS: GABAPENTIN 100 MG CAP PO SCH ×3 (08:05→19:51)
[2016-09-18] MEDS: MAGNESIUM OXIDE 400 MG TAB PO SCH (08:05)
[2016-09-18] MEDS: PYRIDOXINE HCL 50 MG TAB PO SCH (08:05)
[2016-09-18] MEDS: MULTIVITAMIN TAB PO SCH (08:05)
[2016-09-18] MEDS: DEXTROMETHORPHAN POLYMR COMPLX 30MG/5 ML PO PRN ×2 (08:06→19:54)
[2016-09-18] MEDS: ONDANSETRON INJ 2 MG/ML 2 ML VIAL IV PRN ×2 (10:10→15:39)
--- NOTE | 2016-09-18 10:28 | Hospitalist Progress Note ---
Hospitalist Progress Note Date of Service Sep 18, 2016. Subjective Pt evaluation today including: conversation w/ patient, physical exam, chart review, lab review, review of studies, review of inpatient medication list Patient was admitted with +strep pharyngitis and Right upper lung infiltrate. She is receiving IV Zosyn and IV Vanco. She is feeling nauseated this am and vomited which she reports is due to a migraine headache. Fioricet is what she uses at home, but dose her did not relieve. She also complains of pain in b/l throat. She was able to eat breakfast. There is no stridor or airway compromise. Additional Comments: A 10 system review was performed and all were negative. Positives were placed in the subjective section. Objective Vital Signs Date Time Temp Pulse Resp B/P Pulse Ox O2 Delivery O2 Flow Rate FiO2 09/18/16 07:21 37.1 97 16 166/99 91 Room Air 09/18/16 02:45 36.6 09/18/16 02:33 38.0 86 20 140/82 98 Room Air 09/17/16 23:40 36.9 98 18 122/75 98 09/17/16 22:19 105 18 120/90 98 Room Air 09/17/16 19:43 121 09/17/16 19:27 98 Room Air 09/17/16 19:27 36.9 128 20 132/73 98 Room Air Physical Exam Notes: GEN: Awake, alert, and oriented x 3. Not in acute distress HEENT: Tm's intact, no inflammation, EOMI, PERRLA, MMM, erythema posterior pharynx Neck: Soft, supple Lungs: CTA b/l, minimal expiratory wheezes. Heart: REG, nrl S1S2 without murmurs, rubs or gallops Abdomen: Soft, NT, ND, + BS EXT: No C/C/E NEURO: CN's II-XII grossly intact, non-focal Skin: warm, dry, no rashes PSYCH: pleasant, cooperative. Laboratory Results Last 24 Hours Test 09/17/16 19:40 09/17/16 19:44 09/17/16 19:50 Influenza Type A Antigen Neg for Influ A Influenza Type B Antigen Neg for Influ B White Blood Count 18.12 K/uL Red Blood Count 3.73 M/uL Hemoglobin 11.6 g/dL Hematocrit 33.8 % Mean Corpuscular Volume 90.6 fL Mean Corpuscular Hemoglobin 31.1 pg Mean Corpuscular Hemoglobin Concent 34.3 g/dl Platelet Count 241 K/uL Mean Platelet Volume 8.8 fL Neutrophils (%) (Auto) 84.7 % Lymphocytes (%) (Auto) 8.9 % Monocytes (%) (Auto) 5.1 % Eosinophils (%) (Auto) 0.9 % Basophils (%) (Auto) 0.1 % Neutrophils # (Auto) 15.34 K/uL Lymphocytes # (Auto) 1.62 K/uL Monocytes # (Auto) 0.93 K/uL Eosinophils # (Auto) 0.16 K/uL Basophils # (Auto) 0.02 K/uL RDW Standard Deviation 43.7 fL RDW Coefficient of Variation 13.4 % Immature Granulocyte % (Auto) 0.3 % Immature Granulocyte # (Auto) 0.05 K/uL Dohle Bodies OCCASIONAL Red Blood Cell Morphology Unremarkable Sodium Level 142 mmol/L Potassium Level 3.3 mmol/L Chloride Level 104 mmol/L Carbon Dioxide Level 31 mmol/L Anion Gap 7.0 mmol/L Blood Urea Nitrogen 6 mg/dl Creatinine 0.77 mg/dl Est Creatinine Clear Calc Drug Dose 144.9 ml/min Estimated GFR () 121.8 Estimated GFR (Non- 105.1 BUN/Creatinine Ratio 8.4 Random Glucose 108 mg/dl Calcium Level 9.0 mg/dl Total Bilirubin 0.4 mg/dl Aspartate Amino Transf (AST/SGOT) 23 U/L Alanine Aminotransferase (ALT/SGPT) 36 U/L Alkaline Phosphatase 118 U/L Total Protein 8.1 gm/dl Albumin 3.8 gm/dl Globulin 4.3 gm/dl Albumin/Globulin Ratio 0.9 Monoscreen NEG Bedside D-Dimer > 450 ng/mlFEU Bedside Troponin I 0.000 ng/ml Assessment and Plan 1) Right upper lobe pneumonia - IV Zosyn and IV Vancomycin 2) Strep pharyngitis - antibiotics as above. 3) Migraine headache - I added Toradol and Dilaudid prn. She lists allergy to Sumatriptan. Fioricet did not relieve her symptoms. 4) Vomiting - secondary to Migraine 5) Bipolar disorder - seems stable on meds. 6) Obesity DVT prophylaxis TEDs, SCDs and sub-q Lovenox.
[2016-09-18] MEDS: VANCOMYCIN INJ 1,900 MG in SODIUM CHLORIDE 0.9% 500ML 500 ML IV SCH ×2 (10:35→19:50)
[2016-09-18] MEDS: HYDROmorphone INJ 1 MG/ML SYR IV PRN ×2 (11:32→16:30)
[2016-09-18] MEDS: ENOXAPARIN 40 MG/0.4 ML SYR SQ SCH (14:05)
[2016-09-18 15:36] VITALS: BP 135/79; PULSE 97; TEMP 37.5; O2SAT 93
[2016-09-18] MEDS ORDERED: NON-FORMULARY MEDICATION (Melatonin (Melatonin Maximum Strengt) 1 TAB) PO SCH (21:00)
[2016-09-18] MEDS: ESZOPICLONE 1 MG TAB PO SCH (21:01)
[2016-09-18] MEDS: ZIPRASIDONE 80 MG CAP PO SCH (21:01)
[2016-09-18] MEDS: KETOROLAC TROMETHAMINE 30 MG/ML VIAL IV. PRN (21:07)
[2016-09-18 23:39] VITALS: BP 130/83; PULSE 92; TEMP 37.1; O2SAT 90
[2016-09-19] MEDS: PIPERACILL/TAZOBAC IV 4.5 GM in DEXTROSE 5% 100ML IV SCH ×3 (01:46→19:38)
[2016-09-19] MEDS: ALBUTEROL HFA 8 GM INHALER INH SCH ×6 (04:06→23:59)
[2016-09-19] MEDS ORDERED: VANCOMYCIN TROUGH SCH (05:30)
[2016-09-19] MEDS: KETOROLAC TROMETHAMINE 30 MG/ML VIAL IV. PRN ×2 (05:45→21:14)
[2016-09-19] MEDS: VANCOMYCIN INJ 1,900 MG in SODIUM CHLORIDE 0.9% 500ML 500 ML IV SCH ×2 (05:45→16:02)
[2016-09-19 06:23] LABS: BASO % 0.2 %; BASO ABS # 0.02 K/uL (0-0.2); COMPLETE YES; EOS % 2.1 %; HEMATOCRIT 29.6 % (37-47); IG% 0.3 %; LYMPH % 12.8 %; LYMPH ABS # 1.53 K/uL (1.2-3.4); MEAN CELL VOLUME 92.5 fL (80-100); MEAN CORPUSCULAR HEMOGLOBIN 30.6 pg (25-34); MEAN CORPUSCULAR HGB CONC 33.1 g/dl (32-36); MEAN PLATELET VOLUME 9.1 fL (7.4-10.4); MONO % 6.5 %; NEUT % 78.1 %; PLATELET COUNT 239 K/uL (130-400); WHITE BLOOD COUNT 11.93 K/uL (4.8-10.8)
[2016-09-19 06:52] LABS: BUN/CREATININE RATIO 8.1 (10-20); CALCIUM 8.4 mg/dl (8.5-10.1); CREATININE 1.1 mg/dl (0.60-1.20); POTASSIUM 3.2 mmol/L (3.5-5.1)
[2016-09-19 06:55] LABS: ALB/GLOB RATIO 0.8 (0.9-2)
[2016-09-19 07:18] VITALS: BP 123/90; PULSE 86; TEMP 36.9; O2SAT 97
[2016-09-19] MEDS: ONDANSETRON INJ 2 MG/ML 2 ML VIAL IV PRN ×3 (08:10→21:14)
[2016-09-19] MEDS: GABAPENTIN 100 MG CAP PO SCH ×3 (08:10→21:15)
[2016-09-19] MEDS: MULTIVITAMIN TAB PO SCH (08:11)
[2016-09-19] MEDS: FLUOXETINE HCL 20 MG CAP PO SCH (08:11)
[2016-09-19] MEDS: MAGNESIUM OXIDE 400 MG TAB PO SCH (08:11)
[2016-09-19] MEDS: PYRIDOXINE HCL 50 MG TAB PO SCH (08:12)
[2016-09-19] MEDS: DEXTROMETHORPHAN POLYMR COMPLX 30MG/5 ML PO PRN ×2 (10:29→23:58)
[2016-09-19] MEDS: ENOXAPARIN 40 MG/0.4 ML SYR SQ SCH (12:38)
[2016-09-19] MEDS ORDERED: POTASSIUM CHLORIDE 20 MEQ TABCR PO ONE (13:00)
[2016-09-19] MEDS: ACETAMINOPHEN 325 MG TAB PO PRN (13:39)
[2016-09-19 15:46] VITALS: BP 143/89; PULSE 92; TEMP 36.8; O2SAT 91
[2016-09-19] MEDS: HYDROmorphone INJ 1 MG/ML SYR IV PRN (16:02)
--- NOTE | 2016-09-19 17:08 | Hospitalist Progress Note ---
Hospitalist Progress Note Date of Service Sep 19, 2016. Subjective Pt evaluation today including: conversation w/ patient, physical exam, chart review, lab review, review of studies, review of inpatient medication list Patient is feeling much better. Her migraine has resolved. Sore throat is reduced to mild pain. She would like to go home tomorrow if possible. No fever or chills. Additional Comments: A 10 system review was performed and all were negative. Positives were placed in the subjective section. Objective Vital Signs Date Time Temp Pulse Resp B/P Pulse Ox O2 Delivery O2 Flow Rate FiO2 09/19/16 16:00 Room Air 09/19/16 15:46 36.8 92 16 143/89 91 Room Air 09/19/16 08:30 Nasal Cannula 09/19/16 07:18 36.9 86 16 123/90 97 Room Air 09/18/16 23:39 37.1 92 20 130/83 90 Room Air 09/18/16 23:20 Nasal Cannula 2.0 Physical Exam Notes: GEN: Awake, alert, and oriented x 3. Not in acute distress HEENT: Tm's intact, no inflammation, EOMI, PERRLA, MMM Neck: Soft, supple Lungs: CTA b/l, no r/r/w Heart: REG, nrl S1S2 without murmurs, rubs or gallops Abdomen: Soft, NT, ND, + BS EXT: No C/C/E NEURO: CN's II-XII grossly intact, non-focal Skin: warm, dry, no rashes PSYCH: pleasant, cooperative. Laboratory Results Last 24 Hours Test 09/19/16 05:35 White Blood Count 11.93 K/uL Red Blood Count 3.20 M/uL Hemoglobin 9.8 g/dL Hematocrit 29.6 % Mean Corpuscular Volume 92.5 fL Mean Corpuscular Hemoglobin 30.6 pg Mean Corpuscular Hemoglobin Concent 33.1 g/dl Platelet Count 239 K/uL Mean Platelet Volume 9.1 fL Neutrophils (%) (Auto) 78.1 % Lymphocytes (%) (Auto) 12.8 % Monocytes (%) (Auto) 6.5 % Eosinophils (%) (Auto) 2.1 % Basophils (%) (Auto) 0.2 % Neutrophils # (Auto) 9.31 K/uL Lymphocytes # (Auto) 1.53 K/uL Monocytes # (Auto) 0.78 K/uL Eosinophils # (Auto) 0.25 K/uL Basophils # (Auto) 0.02 K/uL RDW Standard Deviation 45.3 fL RDW Coefficient of Variation 13.4 % Immature Granulocyte % (Auto) 0.3 % Immature Granulocyte # (Auto) 0.04 K/uL Sodium Level 140 mmol/L Potassium Level 3.2 mmol/L Chloride Level 102 mmol/L Carbon Dioxide Level 32 mmol/L Anion Gap 6.0 mmol/L Blood Urea Nitrogen 9 mg/dl Creatinine 1.10 mg/dl Est Creatinine Clear Calc Drug Dose 101.2 ml/min Estimated GFR () 79.1 Estimated GFR (Non- 68.3 BUN/Creatinine Ratio 8.1 Random Glucose 102 mg/dl Calcium Level 8.4 mg/dl Total Bilirubin 0.4 mg/dl Aspartate Amino Transf (AST/SGOT) 33 U/L Alanine Aminotransferase (ALT/SGPT) 41 U/L Alkaline Phosphatase 124 U/L Total Protein 7.1 gm/dl Albumin 3.1 gm/dl Globulin 4.0 gm/dl Albumin/Globulin Ratio 0.8 Vancomycin Level Trough 18.2 mcg/ml Assessment and Plan 1) Right upper lobe pneumonia - IV Zosyn and IV Vancomycin 2) Strep pharyngitis - antibiotics as above. 3) Migraine headache - Resolved. 4) Vomiting - resolved. Can advance diet to reg. 5) Bipolar disorder - stable on meds. 6) Obesity DVT prophylaxis TEDs, SCDs and sub-q Lovenox.
--- NOTE | 2016-09-19 17:30 | Pharmacy Progress Note ---
Pharmacy Antibiotic Consult Date of Service: Sep 19, 2016. Pharmacy Dosing Scope Pharmacy is consulted to initiate vancomycin and Zosyn IV dosing therapy, order appropriate labs and adjust drug dose/frequency. Subjective The patient is a 30 year old female admitted on Sep 17, 2016 at 23:01 with pharyngitis and RUL pneumonia. Objective Height (Feet): 5 Height (Inches): 5.00 Weight (Kilograms): 125.000 Lab Results (24hrs): Laboratory Tests Test 09/19/16 05:35 BUN/Creatinine Ratio 8.1 Blood Urea Nitrogen 9 mg/dl Creatinine 1.10 mg/dl White Blood Count 11.93 K/uL Red Blood Count 3.20 M/uL Hemoglobin 9.8 g/dL Hematocrit 29.6 % Mean Corpuscular Volume 92.5 fL Mean Corpuscular Hemoglobin 30.6 pg Mean Corpuscular Hemoglobin Concent 33.1 g/dl Platelet Count 239 K/uL Mean Platelet Volume 9.1 fL Neutrophils (%) (Auto) 78.1 % Lymphocytes (%) (Auto) 12.8 % Monocytes (%) (Auto) 6.5 % Eosinophils (%) (Auto) 2.1 % Basophils (%) (Auto) 0.2 % Neutrophils # (Auto) 9.31 K/uL Lymphocytes # (Auto) 1.53 K/uL Monocytes # (Auto) 0.78 K/uL Eosinophils # (Auto) 0.25 K/uL Basophils # (Auto) 0.02 K/uL Micro Results: 09/17 throat (+) Group A beta strep 09/17 blood - no AFB seen, culture pending 09/18 blood x2 NGTD Recent Pertinent Medications Item Value Date Time Vancomycin HCl 538 ml @ 200 mls/hr 09/18/16 1000 1900 mg/Sodium Q10H/IV 09/19/16 1602 Chloride Piperacillin Sod/ 120 ml @ 30 mls/hr 09/18/16 0200 Tazobactam Sod Q8H/IV 09/19/16 1029 4.5 gm/Dextrose Vancomycin HCl 556 ml @ 200 mls/hr 09/18/16 0030 2800 mg/Sodium TODAY@0030/IV 09/18/16 0055 Chloride Piperacillin Sod/ 3.375 gm 09/17/16 2144 Tazobactam Sod NOW STAT/IV 3/24/17 2214 (Zosyn Iv) Assessment & Plan Loading dose: vancomycin 2800 mg IV X 1 dose (~22 mg/kg) then: vancomycin 1900 mg IV every 10 hours. Goal peak level estimate: between 25-40 mcg/mL. Goal trough level estimate: between 15 - 20 mcg/mL. Trough was ordered for: 09/19/16 before 0600 dose. Trough measured 18.2, which is therapeutic. If vancomycin is to be continued more than a few days, recommend rechecking trough in 3 days to assess for accumulation. Zosyn 3.375 Gm given in ED, then Zosyn 4.5 Gm IV (infused over 4 hr) every 8 hr. for CrCl greater than 20 ml/min. More aggressive regimen recommended for obese patient. Pharmacy will continue to follow and will adjust dose/frequency as necessary. Thank you
--- NOTE | 2016-09-19 18:15 | Medical Consult ---
Consultation Date of Consultation: Sep 19, 2016. Attending Physician: Jimmy Calle M.D. Reason for Consultation: Right apical lung lesion History of Present Illness 30-year-old female with history of bipolar disorder and morbid obesity, otherwise in good health was well until last week when after her 2 young children became ill with fever and respiratory symptoms, she developed severe sore throat, earache, along with cough and fever. She was seen at an urgent care center and told she had upper respiratory virus and was advised symptomatic treatment only. Her symptoms progressively worsened and she came to the emergency department where she was found to have evidence of right upper lobe pneumonia and was admitted to the hospital. She has been treated with combination of vancomycin and Zosyn with clinical improvement. Cultures have been unrevealing so far. She is currently afebrile. No significant travel or other exposure history. Has a dog and cat at home. Past Medical/Surgical History Medical Problems: (1) Abdominal pain Status: Acute (2) Bradycardia Status: Acute (3) Chest pain Status: Acute (4) Contusion of right shoulder Status: Acute (5) Diffuse abdominal pain Status: Acute (6) Headache Status: Chronic (7) Intentional benzodiazepine overdose Status: Acute (8) Knee contusion Status: Acute (9) Left hip pain Status: Acute (10) Leg pain, left Status: Acute (11) Low back pain Status: Acute (12) Nausea vomiting and diarrhea Status: Acute (13) Pneumonia Status: Acute (14) Postconcussion syndrome Status: Acute (15) Postconcussive syndrome Status: Acute (16) SIRS (systemic inflammatory response syndrome) Status: Acute (17) Strep pharyngitis Status: Acute (18) Syncope Status: Acute (19) Syncope Status: Acute (20) Syncope Status: Acute (21) Urinary tract infection Status: Acute Medical Problems: (1) Acute bronchitis (2) Anxiety (3) Asthma, Unspecified (4) Benzodiazepine abuse (5) Bipolar disorder (6) Chronic GERD (7) Contusion of right hip (8) Esophageal Reflux (9) Fall due to slipping on ice or snow (10) MAXIMUS (generalized anxiety disorder) (11) Headache (12) Hyperlipidemia Nec/Nos (13) Low back strain (14) Migraine (15) Migraines (16) Occipital neuralgia (17) Opiate misuse (18) Shortness of breath (19) Syncope and collapse Surgical Problems: (1) Hx of cholecystectomy Family History Cancer Diabetes mellitus FH: heart disease High cholesterol Hypertension Ovarian cyst Social History Smoking Status: Never Smoker Smokeless Tobacco Use: No Alcohol Use: none Drug Use: none Marital Status: Housing Status: lives with family Occupation Status: unemployed Allergies Coded Allergies: Cephalosporins (Verified Allergy, Intermediate, HIVES, 09/17/16) Sumatriptan (Verified Allergy, Intermediate, RASH, 09/17/16) INJ OF IMITREX, RASH @ INJECTION SITE Cephalexin (Verified Allergy, Unknown, HIVES, 09/17/16) Metoclopramide (Verified Allergy, Unknown, ANXIETY, 09/17/16) Current Inpatient Medications Current Inpatient Medications Medications (Trade) Dose Ordered Sig/Theodore Route Start Time Stop Time Status Last Admin Dose Admin Ioversol (Optiray 320) 100 ml UD PRN IV 09/17/16 21:00 09/21/16 20:59 Acetaminophen (Tylenol Tab) 650 mg Q4H PRN PO 09/17/16 23:00 10/17/16 22:59 09/19/16 13:39 650 MG Acetaminophen/ Butalbital/ Caffeine (Fioricet Tab) 1 tab Q4H PRN PO 09/17/16 23:00 10/17/16 22:59 09/18/16 04:14 1 TAB Albuterol Sulfate (Ventolin 0.083% 2.5MG/3ML Neb) 2.5 mg QID PRN INH 09/17/16 23:00 10/17/16 22:59 Albuterol (Ventolin Hfa Inhaler) 2 puffs Q4H INH 09/18/16 04:00 10/18/16 03:59 09/19/16 16:03 2 PUFFS Dextromethorphan Polymer Complex (Delsym Susp) 60 mg Q4H PRN PO 09/17/16 23:00 10/17/16 22:59 09/19/16 10:29 60 MG Eszopiclone (Lunesta Tab) 3 mg HS PO 09/18/16 21:00 10/18/16 20:59 09/18/16 21:01 3 MG Fluoxetine HCl (Prozac Cap) 60 mg DAILY PO 09/18/16 08:00 10/18/16 08:59 09/19/16 08:11 60 MG Gabapentin (Neurontin Cap) 100 mg TID PO 09/18/16 08:00 10/18/16 08:59 09/19/16 13:39 100 MG Multivitamins (Multivitamin Tab) 1 tab DAILY PO 09/18/16 08:00 10/18/16 08:59 09/19/16 08:11 1 TAB Pyridoxine HCl (Vitamin B-6 Tab) 50 mg DAILY PO 09/18/16 08:00 10/18/16 08:59 09/19/16 08:12 50 MG Miscellaneous Information (Order Awaiting Action) 1 ea QS N/A 09/18/16 08:00 10/18/16 07:59 Lamotrigine (Lamictal Tab) 200 mg QAM PO 09/18/16 08:00 10/18/16 08:59 09/19/16 08:11 200 MG Magnesium Oxide (Mag-Ox Tab) 400 mg QAM PO 09/18/16 08:00 10/18/16 08:59 09/19/16 08:11 400 MG Ziprasidone (Geodon Cap) 80 mg QPM PO 09/18/16 21:00 10/18/16 20:59 09/18/16 21:01 80 MG Piperacillin Sod/ Tazobactam Sod (Consult) 1 ea UD PRN N/A 09/18/16 00:45 10/18/16 00:44 Vancomycin HCl 1 ea 1 ea UD PRN N/A 09/18/16 00:45 10/18/16 00:44 Piperacillin Sod/ Tazobactam Sod/ Dextrose (Zosyn Iv/D5 100ml) 120 ml @ 30 mls/hr Q8H IV 09/18/16 02:00 09/25/16 01:59 09/19/16 10:29 30 MLS/HR Diphenhydramine HCl (Benadryl Cap) 75 mg HS PRN PO 09/18/16 00:45 10/18/16 00:44 09/18/16 21:07 75 MG Miscellaneous (Ppd Check) 1 ea Q48H N/A 09/19/16 23:00 09/19/16 23:01 Sodium Chloride 1 sprays 1 sprays PRN PRN NA 09/18/16 02:45 10/18/16 02:44 Vancomycin HCl/ Sodium Chloride (Vancomycin Inj/ Nss 500ml) 538 ml @ 200 mls/hr Q10H IV 09/18/16 10:00 09/25/16 09:59 09/19/16 16:02 200 MLS/HR Ondansetron HCl (Zofran Inj) 4 mg Q4H PRN IV 09/18/16 09:45 10/18/16 09:44 09/19/16 14:24 4 MG Ketorolac Tromethamine (Toradol Inj) 30 mg Q6H PRN IV. 09/18/16 10:15 09/23/16 10:14 09/19/16 05:45 30 MG Hydromorphone HCl (Dilaudid Inj) 1 mg Q3H PRN IV 09/18/16 10:15 10/02/16 10:14 09/19/16 16:02 1 MG Enoxaparin Sodium (Lovenox Inj) 40 mg Q24H SQ 09/18/16 12:00 10/18/16 11:59 09/19/16 12:38 40 MG Review of Systems all systems were reviewed and are negative except as per HPI Physical Exam Date Time Temp Pulse Resp B/P Pulse Ox O2 Delivery O2 Flow Rate FiO2 09/19/16 16:00 Room Air 09/19/16 15:46 36.8 92 16 143/89 91 Room Air 09/19/16 08:30 Nasal Cannula 09/19/16 07:18 36.9 86 16 123/90 97 Room Air 09/18/16 23:39 37.1 92 20 130/83 90 Room Air 09/18/16 23:20 Nasal Cannula 2.0 General Appearance: WD/WN, no apparent distress Head: normocephalic, atraumatic Eyes: normal inspection, sclerae normal ENT: normal ENT inspection, hearing grossly normal, pharynx normal Neck: supple, no adenopathy, thyroid normal, trachea midline Respiratory/Chest: chest non-tender, lungs clear, normal breath sounds, no respiratory distress ( cap) Cardiovascular: regular rate, rhythm ( eadache), no edema, no gallop, no murmur ( help tele) Abdomen/GI: normal bowel sounds, non tender, soft, no organomegaly Back: normal inspection, no CVA tenderness Extremities/Musculoskelatal: normal inspection, no calf tenderness, non-tender Neurologic/Psych: alert, normal mood/affect, oriented x 3 Skin: normal color, warm/dry, no rash Lymphatic: no adenopathy Laboratory Results RUN DATE: 09/17/16 [facility] LAB PAGE 1 RUN TIME: 2008 Specimen Inquiry PATIENT: DIRK FINCH LOC: [facility] U # : [id number] AGE/SX: 30/F ROOM: REG : 09/17/[address]: Joel Long DO : 1985 BED: DIS : STATUS: REG ER TLOC: SPEC #: [id number] MADHAVI: 09/17/16 STATUS: COMP REQ #: [id number] RECD: 09/17/[address]: Kiana Smith PA-C SOURCE: THROAT ENTR: 09/17/[address]: Lisa Casanova DO SPDESC: Joel Long DO ORDERED: GRP A STRP SCN COMMENTS: Has Specimen Been Obtained/Collected? Y Procedure Result Verified Site RAPID GRP A BETA STREP SCREEN Final 09/17/16-2008 SPECIMEN POSITIVE FOR GROUP A BETA STREP. BY RAPID METHOD, NO CULTURE REPORT TO FOLLOW. Phoned results to RENATO MORENO on 09/17/16 at 2007 by Trena Levine. Results were verbalized back to HEATHER. GRP A STREP BACKUP CULTURE Final 09/17/16-2008 Test not performed Last 24 Hours Test 09/19/16 05:35 White Blood Count 11.93 K/uL Red Blood Count 3.20 M/uL Hemoglobin 9.8 g/dL Hematocrit 29.6 % Mean Corpuscular Volume 92.5 fL Mean Corpuscular Hemoglobin 30.6 pg Mean Corpuscular Hemoglobin Concent 33.1 g/dl Platelet Count 239 K/uL Mean Platelet Volume 9.1 fL Neutrophils (%) (Auto) 78.1 % Lymphocytes (%) (Auto) 12.8 % Monocytes (%) (Auto) 6.5 % Eosinophils (%) (Auto) 2.1 % Basophils (%) (Auto) 0.2 % Neutrophils # (Auto) 9.31 K/uL Lymphocytes # (Auto) 1.53 K/uL Monocytes # (Auto) 0.78 K/uL Eosinophils # (Auto) 0.25 K/uL Basophils # (Auto) 0.02 K/uL RDW Standard Deviation 45.3 fL RDW Coefficient of Variation 13.4 % Immature Granulocyte % (Auto) 0.3 % Immature Granulocyte # (Auto) 0.04 K/uL Sodium Level 140 mmol/L Potassium Level 3.2 mmol/L Chloride Level 102 mmol/L Carbon Dioxide Level 32 mmol/L Anion Gap 6.0 mmol/L Blood Urea Nitrogen 9 mg/dl Creatinine 1.10 mg/dl Est Creatinine Clear Calc Drug Dose 101.2 ml/min Estimated GFR () 79.1 Estimated GFR (Non- 68.3 BUN/Creatinine Ratio 8.1 Random Glucose 102 mg/dl Calcium Level 8.4 mg/dl Total Bilirubin 0.4 mg/dl Aspartate Amino Transf (AST/SGOT) 33 U/L Alanine Aminotransferase (ALT/SGPT) 41 U/L Alkaline Phosphatase 124 U/L Total Protein 7.1 gm/dl Albumin 3.1 gm/dl Globulin 4.0 gm/dl Albumin/Globulin Ratio 0.8 Vancomycin Level Trough 18.2 mcg/ml Patient Name: DIRK FINCH Unit Number: [id number] Dictated: 09/17/162049 Transcribed: 09/17/162049 MS Printed Date/Time: [~ rep prt dt]/[~ rep prt tm] [~ rep ct labl] - [~ rep ct ivnm] [facility] [place] [address] Dictated: 09/17/162049 Transcribed: 09/17/162049 MS Printed Date/Time: [~ rep prt dt]/[~ rep prt tm] [~ rep ct labl] - [~ rep ct ivnm] CC: Joel Long, Lisa Drew, Kiana Saucedo PA-C Endcc: [~ rep ct add3]] CHEST CTA for PULMONARY ARTERIES CT DOSE: 657.77 mGy.cm HISTORY: Chest pain dyspnea TECHNIQUE: Multiaxial CT images of the chest were performed following the intravenous administration of contrast to evaluate the pulmonary arteries. Maximal intensity projection images were also obtained. COMPARISON STUDY: None. FINDINGS: There is a normal caliber thoracic aorta with no evidence for dissection. There is no evidence for pulmonary embolus. No pleural effusions. No pneumothorax. The liver and spleen are unremarkable. No mediastinal or hilar lymphadenopathy. The central airways are patent. The lungs demonstrate a similar nodular infiltrate infiltrative process of the right upper lobe. This should be followed to resolution. Lungs otherwise appear clear. IMPRESSION: No evidence for pulmonary embolus. Infiltrative change right apical region with an underlying nodular component. An atypical inflammatory process must be considered. Follow-up to resolution with a repeat CT study is suggested. Electronically signed by: Sergio Ahmadi M.D. 09/17/2016 8:52 PM Dictated Date/Time: 09/17/2016 8:50 PM The status of this report is Signed. Draft = Not yet reviewed or approved by Radiologist. Signed = Reviewed and approved by Radiologist. <AttendingPhy></AttendingPhy> <FamilyPhy>Lisa Casanova DO</FamilyPhy> < PrimaryPhy>Lisa Casanova DO</PrimaryPhy> <UnitNumber>[id number]</UnitNumber > <VisitNumber>[id number]</VisitNumber> <PatientName>DIRK FINCH</ PatientName> <DateOfBirth>1985</DateOfBirth> <Location>[facility]</Location> < ServiceDate>09/17/16</ServiceDate> <MNE>ESINDI</MNE> <OrderingPhy>Kiana Smith PA-C</OrderingPhy> <OrderingPhyMNE>f rep ord dr bermudez</OrderingPhyMNE > <DictatingPhyMNE>f rep dict dr bermudez</DictatingPhyMNE> <CCListMNE>f rep ct aidan</ CCListMNE> <AdmittingPhyMNE>f pt admit dr bermudez</AdmittingPhyMNE> <AttendingPhyMNE >f pt attend dr bermudez</AttendingPhyMNE> <ConsultingPhyMNE>f pt consult dr bermudez</ConsultingPhyMNE> <FamilyPhyMNE>f pt fam dr bermudez</FamilyPhyMNE> <OtherPhyMNE>f pt other dr bermudez</OtherPhyMNE> < PrimaryPhyMNE>f pt prim care dr bermudez</PrimaryPhyMNE> <ReferringPhyMNE>f pt referring dr bermudez</ReferringPhyMNE> Assessment & Plan 30-year-old healthy female with right upper lobe pneumonia, with 2 will children, also complaining of sore throat and earache, raising suspicion for mycoplasma infection. coverage for atypical infection added, and will adjust antibiotics tomorrow depending on clinical response. Appropriate serology ordered. Will follow.
[2016-09-19] MEDS: ZIPRASIDONE 80 MG CAP PO SCH (21:16)
[2016-09-19] MEDS: ESZOPICLONE 1 MG TAB PO SCH (21:32)
[2016-09-19] MEDS: DOXYCYCLINE HYCLATE 100 MG CAP PO SCH (21:33)
[2016-09-19] MEDS ORDERED: PPD CHECK SCH (23:00)
[2016-09-19 23:40] VITALS: BP 153/88; PULSE 95; TEMP 37; O2SAT 94
[2016-09-20 00:13] VITALS: O2SAT 94
[2016-09-20] MEDS: PIPERACILL/TAZOBAC IV 4.5 GM in DEXTROSE 5% 100ML IV SCH ×3 (02:19→18:15)
[2016-09-20] MEDS: VANCOMYCIN INJ 1,900 MG in SODIUM CHLORIDE 0.9% 500ML 500 ML IV SCH ×2 (02:19→13:11)
[2016-09-20] MEDS: ALBUTEROL HFA 8 GM INHALER INH SCH ×6 (04:00→23:43)
[2016-09-20 05:55] LABS: CREATININE 1.5 mg/dl (0.60-1.20)
[2016-09-20 07:03] VITALS: BP 105/68; PULSE 83; TEMP 36.6; O2SAT 93
--- NOTE | 2016-09-20 07:15 | PROGRESS NOTE ---
DATE: 09/19/2016 PULMONARY PROGRESS NOTE HISTORY OF PRESENT ILLNESS: The patient is comfortable this morning. She states she feels fairly well. Her cough is considerably improved, which is nonproductive. She denies any night sweats, not been febrile, slept fairly well. She has no significant symptoms today. PHYSICAL EXAMINATION: VITAL SIGNS: Stable and she is afebrile, oxygen saturation 90% to 93% on room air. Blood pressure 130/83, temperature 37.1, weight is 125 kilograms. I\T\O 2538 in and 2500 out. According to nurses' note, she had a fairly good night last night, had a headache and received some IV Dilaudid. HEENT: Posterior pharynx is unremarkable. NECK: There is no neck vein distention or HJR. HEART: Regular rate and rhythm. No murmurs are heard. LUNGS: Clear. ABDOMEN: Soft and obese, nontender. EXTREMITIES: She has no cyanosis, clubbing or edema. LABORATORY DATA: White count is 11.93 down from 18,000, hemoglobin 9.8, hematocrit 29.6%, low platelet count of 239,000. Chemistry profile is pending. Blood cultures are pending. Throat culture was positive for group B strep. IMPRESSION: 1. Right upper lobe nodular type infiltrates. It is quite minimal on the CT scan. It could be consistent with possible strep pneumonia, hence the symptoms and improvement with IV antibiotics. 2. Strep pharyngitis. RECOMMENDATIONS: 1. Continue with her present medications and activity. 2. We will reevaluate the PPD in 24 hours. The PPD in the right forearm is negative today. I do not think this is tuberculosis. If the PPD is unremarkable, she could be taken out of respiratory isolation. She will be followed by Dr. Peralta starting tomorrow.
[2016-09-20 07:16] VITALS: BP 132/83; PULSE 81; TEMP 36.7; O2SAT 93
[2016-09-20] MEDS: DOXYCYCLINE HYCLATE 100 MG CAP PO SCH ×2 (07:55→20:07)
[2016-09-20] MEDS: PYRIDOXINE HCL 50 MG TAB PO SCH (07:55)
[2016-09-20] MEDS: MULTIVITAMIN TAB PO SCH (07:55)
[2016-09-20] MEDS: MAGNESIUM OXIDE 400 MG TAB PO SCH (07:55)
[2016-09-20] MEDS: GABAPENTIN 100 MG CAP PO SCH ×3 (07:56→20:08)
[2016-09-20] MEDS: FLUOXETINE HCL 20 MG CAP PO SCH (07:57)
[2016-09-20] MEDS: DEXTROMETHORPHAN POLYMR COMPLX 30MG/5 ML PO PRN ×2 (08:03→20:14)
[2016-09-20 08:30] VITALS: O2SAT 93
[2016-09-20] MEDS: ONDANSETRON INJ 2 MG/ML 2 ML VIAL IV PRN (09:44)
--- NOTE | 2016-09-20 12:14 | Pulmonology Progress Note ---
Pulmonary Progress Note Date of Service Sep 20, 2016. Attending Dr. Peralta Subjective Able to expectorate x 1 brown thick sputum yesterday with some relief. Otherwise , continued cough with chest congestion. [place] improved yesterday but more run- down today. Reports significant nausea whenever they "hang that bag" referring to pip-tazo. No fevers, chills, wheeze or dyspnea but reports chest congestion. States her is currently in the ER with same symptoms. Objective 30-yo female admitted through the [facility] ER 09/17/16 with 1-week history of otalgia , pharyngitis, laryngitis, and chest congestion. PMHx: mild intermittent asthma x 15-years provoked with cold air ([facility]OSPITAL NURSING [facility]ISTANT Proventil) , h/o pneumonia annually x 5-years (last LLL 07/2016), GERD, BiPolar, migraine headache, and obesity. On ER evaluation D-dimer elevated and CTA described RUL nodular patchy infiltrative changes. No PE or adenopathy. Soft tissue neck: unremarkable. WBC: 18.12, influenza: negative. She was treated with vancomycin (day #3), pip-tazo (#3) and doxycycline (#2) with ID consult. Respiratory culture: + Group A - Beta Strep. WBC improved to 11.93 on 09/19. Today: - O2: 93-94% RA - Afebrile, HD stable - Creatine elevated 1.5 (from 0.77 on admission) Physical Exam: Constitutional: Well developed obese female lying in hospital bed, no acute distress Head: + facial symmetry Eyes: EOMi, PERRLA, no conjunctival injection Mouth: moist mucous membranes Respiratory: non-labored respirations. No wheeze, rales or rhonchi. No cough on exam. CV: RRR, no MRG appreciated. Warm and perfused peripherally MSK/extremities: Moving and developed symmetrically. Good UE/LE strength. No peripheral edema Neurologic: A&O x 3. Cooperative with appropriate affect. Assessment & Plan 30-yo female with h/o sick contacts and mild intermittent asthma hospital day # 4 with RUL pneumonia. She is clinically improving but course complicated by Cr elevation today and nausea: 1. Narrow ABX - per ID 2. Avoid nephrotoxins 3. Mucinex 600mg BID to aid in expectoration 4. Recommend 1L NSS IVF 5. Will need repeat CXR 6-weeks post discharge Discussed with Dr. Peralta Data Medications: Current Inpatient Medications Medications (Trade) Dose Ordered Sig/Theodore Route Start Time Stop Time Status Last Admin Dose Admin Ioversol (Optiray 320) 100 ml UD PRN IV 09/17/16 21:00 09/21/16 20:59 Acetaminophen (Tylenol Tab) 650 mg Q4H PRN PO 09/17/16 23:00 10/17/16 22:59 09/19/16 13:39 650 MG Acetaminophen/ Butalbital/ Caffeine (Fioricet Tab) 1 tab Q4H PRN PO 09/17/16 23:00 10/17/16 22:59 09/18/16 04:14 1 TAB Albuterol Sulfate (Ventolin 0.083% 2.5MG/3ML Neb) 2.5 mg QID PRN INH 09/17/16 23:00 10/17/16 22:59 Albuterol (Ventolin Hfa Inhaler) 2 puffs Q4H INH 09/18/16 04:00 10/18/16 03:59 09/20/16 07:57 2 PUFFS Dextromethorphan Polymer Complex (Delsym Susp) 60 mg Q4H PRN PO 09/17/16 23:00 10/17/16 22:59 09/20/16 08:03 60 MG Eszopiclone (Lunesta Tab) 3 mg HS PO 09/18/16 21:00 10/18/16 20:59 09/19/16 21:32 3 MG Fluoxetine HCl (Prozac Cap) 60 mg DAILY PO 09/18/16 08:00 10/18/16 08:59 09/20/16 07:57 60 MG Gabapentin (Neurontin Cap) 100 mg TID PO 09/18/16 08:00 10/18/16 08:59 09/20/16 07:56 100 MG Multivitamins (Multivitamin Tab) 1 tab DAILY PO 09/18/16 08:00 10/18/16 08:59 09/20/16 07:55 1 TAB Pyridoxine HCl (Vitamin B-6 Tab) 50 mg DAILY PO 09/18/16 08:00 10/18/16 08:59 09/20/16 07:55 50 MG Miscellaneous Information (Order Awaiting Action) 1 ea QS N/A 09/18/16 08:00 10/18/16 07:59 Lamotrigine (Lamictal Tab) 200 mg QAM PO 09/18/16 08:00 10/18/16 08:59 09/20/16 07:56 200 MG Magnesium Oxide (Mag-Ox Tab) 400 mg QAM PO 09/18/16 08:00 10/18/16 08:59 09/20/16 07:55 400 MG Ziprasidone (Geodon Cap) 80 mg QPM PO 09/18/16 21:00 10/18/16 20:59 09/19/16 21:16 80 MG Piperacillin Sod/ Tazobactam Sod (Consult) 1 ea UD PRN N/A 09/18/16 00:45 10/18/16 00:44 Vancomycin HCl 1 ea 1 ea UD PRN N/A 09/18/16 00:45 10/18/16 00:44 Piperacillin Sod/ Tazobactam Sod/ Dextrose (Zosyn Iv/D5 100ml) 120 ml @ 30 mls/hr Q8H IV 09/18/16 02:00 09/25/16 01:59 09/20/16 09:41 30 MLS/HR Diphenhydramine HCl (Benadryl Cap) 75 mg HS PRN PO 09/18/16 00:45 10/18/16 00:44 09/19/16 21:32 75 MG Sodium Chloride 1 sprays 1 sprays PRN PRN NA 09/18/16 02:45 10/18/16 02:44 Vancomycin HCl/ Sodium Chloride (Vancomycin Inj/ Nss 500ml) 538 ml @ 200 mls/hr Q10H IV 09/18/16 10:00 09/25/16 09:59 09/20/16 02:19 200 MLS/HR Ondansetron HCl (Zofran Inj) 4 mg Q4H PRN IV 09/18/16 09:45 10/18/16 09:44 09/20/16 09:44 4 MG Ketorolac Tromethamine (Toradol Inj) 30 mg Q6H PRN IV. 09/18/16 10:15 09/23/16 10:14 09/19/16 21:14 30 MG Hydromorphone HCl (Dilaudid Inj) 1 mg Q3H PRN IV 09/18/16 10:15 10/02/16 10:14 09/19/16 16:02 1 MG Enoxaparin Sodium (Lovenox Inj) 40 mg Q24H SQ 09/18/16 12:00 10/18/16 11:59 09/19/16 12:38 40 MG Doxycycline Hyclate (Vibramycin Cap) 100 mg BID PO 09/19/16 20:00 09/26/16 19:59 09/20/16 07:55 100 MG I & O: 24-Hour Column 09/20/16 07:59 Intake Total 840 ml Output Total 1000 ml Balance -160 ml Vital Signs: Date Time Temp Pulse Resp B/P Pulse Ox O2 Delivery O2 Flow Rate FiO2 09/20/16 08:30 93 Room Air 09/20/16 07:16 36.7 81 16 132/83 93 Room Air 09/20/16 07:03 09/20/16 00:13 94 Room Air 09/19/16 23:40 37.0 95 16 153/88 94 Room Air 09/19/16 16:00 Room Air 09/19/16 15:46 36.8 92 16 143/89 91 Room Air Laboratory Results: Last 24 Hours Test 09/20/16 04:55 09/20/16 11:50 Creatinine 1.50 mg/dl Est Creatinine Clear Calc Drug Dose 74.2 ml/min Estimated GFR () 54.4 Estimated GFR (Non- 46.9
[2016-09-20] MEDS: KETOROLAC TROMETHAMINE 30 MG/ML VIAL IV. PRN ×2 (12:42→18:18)
[2016-09-20] MEDS: ENOXAPARIN 40 MG/0.4 ML SYR SQ SCH (12:43)
[2016-09-20] MEDS: PROCHLORPERAZINE INJ 10 MG in SYRINGE 8 ML IV PRN ×2 (13:11→20:04)
--- NOTE | 2016-09-20 14:29 | Pharmacy Progress Note ---
Pharmacy Antibiotic Prog Note Date of Service: Sep 20, 2016. Subjective: The patient is currently receiving Vancomycin 1900 mg (~15mg/kg) IV every 10 hours for pneumonia in an obese patient (BMI greater than 35kg/m2; BMI= 46kg/m2) . The patient is currently on day # 4/7 of Vancomycin IV therapy. Objective: Height (Feet): 5 Height (Inches): 5.00 Weight (Kilograms): 125.000 Levels: Item Value Date Time Vancomycin Level Trough 30.1 mcg/ml 09/20/16 1150 Vancomycin Level Trough 18.2 mcg/ml 09/19/16 0535 Lab Results (24hrs): Laboratory Tests Test 09/20/16 04:55 Creatinine 1.50 mg/dl Micro Results: Item Value Date Time Blood Culture - Preliminary Resulted 09/18/16 0136 Blood NO GROWTH TO DATE. Blood Culture - Preliminary Resulted 09/18/16 0129 Blood NO GROWTH TO DATE. Acid Fast Stain - Final Results Pending 09/18/16 0129 Blood Group A Streptococcus Screen - Final Complete 09/17/16 1930 Throat SPECIMEN POSITIVE FOR GROUP A BETA ST... Recent Pertinent Medications: Item Value Date Time Piperacillin Sod/ 3.375 gm 09/17/16 2144 Tazobactam Sod NOW STAT/IV 09/17/16 2214 (Zosyn Iv) Piperacillin Sod/ 120 ml @ 30 mls/hr 09/18/16 0200 Tazobactam Sod Q8H/IV 09/20/16 0941 4.5 gm/Dextrose Vancomycin HCl 556 ml @ 200 mls/hr 09/18/16 0030 2800 mg/Sodium TODAY@0030/IV 09/18/16 0055 Chloride Vancomycin HCl 538 ml @ 200 mls/hr 09/18/16 1000 1900 mg/Sodium Q10H/IV 09/20/16 1311 Chloride Assessment & Plan: Pharmacy has been consulted to dose and monitor Vancomycin for the treatment of pneumonia in an obese patient (BMI greater than 35kg/m2; BMI= 46kg/m2). Vancomycin trough level of 30.1mcg/mL is: Supratherapeutic. * Vancomycin placed on hold as of 09/20/16 @1400. * Serum creat. doubled from 0.77mg/dL to 1.5mg/dL in 3 days, which is attributing to Vancomycin accumulation. * Vancomycin to be on hold until serum concentrations decrease to therapeutic levels (~18mcg/mL). * Goal trough level estimate: between 15 - 20 mcg/mL. * Random level has been ordered for: with AM labs. * Pharmacy to redose Vancomycin once serum concentrations are around 18mcg/mL. Pharmacy will continue to follow and will adjust dose/frequency as necessary. Thank you
[2016-09-20] MEDS ORDERED: SODIUM CHLORIDE 0.9% 1000ML 1,000 ML IV SCH (15:00)
[2016-09-20 15:12] LABS: BUN/CREATININE RATIO 4.1 (10-20); CALCIUM 8.2 mg/dl (8.5-10.1); CREATININE 1.6 mg/dl (0.60-1.20); POTASSIUM 3.5 mmol/L (3.5-5.1)
[2016-09-20 15:52] VITALS: BP 120/69; PULSE 88; TEMP 37.3; O2SAT 92
--- NOTE | 2016-09-20 17:33 | Infectious Disease Progress Nt ---
Progress Note Date of Service Sep 20, 2016. Subjective Pt evaluation today including: conversation w/ patient, physical exam, chart review, lab review, review of studies, conversation w/ datastage consultant, review of inpatient medication list patient complaining of nausea and vomiting after Zosyn. Remains afebrile. White count improved. All Other Systems: Reviewed and Negative Medications Reported Home Medications Medications Dose Route/Sig Max Daily Dose Days Date Category Dose Instructions Tylenol Children's Susp (Acetaminophen) 160 Mg/5 Ml Susp 30 Ml PO DIRECTED 09/17/16 Reported Sudafed (Pseudoephedrine HCl) 30 Mg Tab 30 Mg PO Q12 09/17/16 Reported Delsym (Dextromethorphan Polymr Complx) 60 Mg/10 Ml Liqcr 10 Ml PO DIRECTED 09/17/16 Reported Tylenol (Acetaminophen) 500 Mg Tab 1,000 Mg PO DIRECTED PRN 09/17/16 Reported Advil (Ibuprofen) 200 Mg Tab 200-600 Mg PO Q4H 09/17/16 Reported Proventil Hfa (Albuterol Sulfate) 108 Mcg/Act Aer 2 Puffs INH Q4H 5 07/28/16 Rx Proventil 0.083% 2.5MG/3ML (Albuterol Sulf) 2.5 Mg/3 Ml Nebu 1 Vial INH UD PRN 07/28/16 Reported Lamictal (Lamotrigine) 200 Mg Tab 200 Mg PO QAM 07/28/16 Reported Neurontin (Gabapentin) 100 Mg Cap 100 Mg PO TID PRN 07/28/16 Reported Diclofenac Potassium 50 Mg Tab 50 Mg PO Q8 PRN 05/31/16 Reported Fioricet (Acetaminophen/Butalbital/Caffeine) 1 Ea Tab 1 Tab PO Q4-6 PRN 05/20/16 Reported Vitamin C (Ascorbic Acid) 100 Mg Tab 1 Tab PO HS 05/20/16 Reported Lunesta (Eszopiclone) 3 Mg Tab 3 Mg PO HS 05/20/16 Reported Geodon (Ziprasidone Hcl) 40 Mg Cap 80 Mg PO QPM 04/13/16 Reported with evening meal Prozac (Fluoxetine HCl) 20 Mg Cap 20 Mg PO DAILY 03/02/16 Reported TAKE WITH THE 40MG TABLET FOR A TOTAL DOSE OF 60MG Magnesium (Magnesium Oxide (Mg Supplement) 400 Mg Cap 400 Mg PO DAILY 8/19/16 Reported Melatonin Maximum Strengt (Melatonin) 5 Mg Tab 1 Tab PO HS 30 12/28/15 Reported Prozac (Fluoxetine Hcl) 40 Mg Cap 40 Mg PO DAILY 12/16/15 Reported TAKE WITH THE 20MG TABLET FOR A TOTAL DOSE OF 60MG Vitamin B 6 (Pyridoxine Hcl) 50 Mg Tab 50 Mg PO DAILY 03/28/15 Reported Multivitamin (Multiple Vitamin) 1 Tab Tab 1 Tab PO DAILY 03/27/12 Reported Objective Vital Signs Date Time Temp Pulse Resp B/P Pulse Ox O2 Delivery O2 Flow Rate FiO2 09/20/16 15:52 37.3 88 16 120/69 92 Room Air 09/20/16 15:03 Room Air 09/20/16 08:30 93 Room Air 09/20/16 07:16 36.7 81 16 132/83 93 Room Air 09/20/16 07:03 09/20/16 00:13 94 Room Air 09/19/16 23:40 37.0 95 16 153/88 94 Room Air Physical Exam General Appearance: WD/WN, no apparent distress Eyes: normal inspection, sclerae normal ENT: normal ENT inspection, pharynx normal Neck: supple, no adenopathy, trachea midline Respiratory/Chest: chest non-tender, no respiratory distress, no accessory muscle use Cardiovascular: regular rate, rhythm, no gallop, no murmur Abdomen: normal bowel sounds, non tender, soft, no organomegaly Extremities: non-tender, no calf tenderness Neurologic/Psychiatric: alert, oriented x 3 Skin: normal color, no rash Lymphatic: no adenopathy Laboratory Results Last 24 Hours Test 09/20/16 04:55 09/20/16 11:50 09/20/16 14:44 Creatinine 1.50 mg/dl 1.60 mg/dl Est Creatinine Clear Calc Drug Dose 74.2 ml/min 69.6 ml/min Estimated GFR () 54.4 50.3 Estimated GFR (Non- 46.9 43.4 Vancomycin Level Trough 30.1 mcg/ml Sodium Level 142 mmol/L Potassium Level 3.5 mmol/L Chloride Level 108 mmol/L Carbon Dioxide Level 27 mmol/L Anion Gap 7.0 mmol/L Blood Urea Nitrogen 7 mg/dl BUN/Creatinine Ratio 4.1 Random Glucose 127 mg/dl Calcium Level 8.2 mg/dl Assessment and Plan 30-year-old healthy female with right upper lobe pneumonia, with 2 will children, also complaining of sore throat and earache, raising suspicion for mycoplasma infection But with positive culture for group a strep.. coverage for atypical infection added, She will be continued on current antibiotics pending serologic studies. Will discuss with all involved.
--- NOTE | 2016-09-20 18:59 | Hospitalist Progress Note ---
Hospitalist Progress Note Date of Service Sep 20, 2016. Subjective Pt evaluation today including: conversation w/ patient, physical exam, chart review, lab review, review of studies, review of inpatient medication list The patient is convinced she is having nausea and vomiting with Zosyn. Furthermore Vanco has been held due to increasing creat to 1.6. I am giving her 1L NSS overnight. Sore throat has resolved. No fever or chills. Minimal cough. Thus far no reaction at PPD site. Additional Comments: A 10 system review was performed and all were negative. Positives were placed in the subjective section. Objective Vital Signs Date Time Temp Pulse Resp B/P Pulse Ox O2 Delivery O2 Flow Rate FiO2 09/20/16 15:52 37.3 88 16 120/69 92 Room Air 09/20/16 15:03 Room Air 09/20/16 08:30 93 Room Air 09/20/16 07:16 36.7 81 16 132/83 93 Room Air 09/20/16 07:03 09/20/16 00:13 94 Room Air 09/19/16 23:40 37.0 95 16 153/88 94 Room Air Physical Exam Notes: GEN: Awake, alert, and oriented x 3. Not in acute distress HEENT: Tm's intact, no inflammation, EOMI, PERRLA, MMM Neck: Soft, supple Lungs: CTA b/l, no r/r/w Heart: REG, nrl S1S2 without murmurs, rubs or gallops Abdomen: Soft, NT, ND, + BS EXT: No C/C/E NEURO: CN's II-XII grossly intact, non-focal Skin: warm, dry, no rashes PSYCH: pleasant, cooperative. Laboratory Results Last 24 Hours Test 09/20/16 04:55 09/20/16 11:50 09/20/16 14:44 Creatinine 1.50 mg/dl 1.60 mg/dl Est Creatinine Clear Calc Drug Dose 74.2 ml/min 69.6 ml/min Estimated GFR () 54.4 50.3 Estimated GFR (Non- 46.9 43.4 Vancomycin Level Trough 30.1 mcg/ml Sodium Level 142 mmol/L Potassium Level 3.5 mmol/L Chloride Level 108 mmol/L Carbon Dioxide Level 27 mmol/L Anion Gap 7.0 mmol/L Blood Urea Nitrogen 7 mg/dl BUN/Creatinine Ratio 4.1 Random Glucose 127 mg/dl Calcium Level 8.2 mg/dl Assessment and Plan 1) Right upper lobe pneumonia - IV Zosyn and IV Vancomycin - both on hold at this time will re-evaluate tomorrow. I did acquire consent for PICC line in the event she will need terminal clerk IV antibiotics. 2) Acute kidney injury - likely secondary to Vanco which is held at this time. given 1 L IVF overnight. 3) Migraine headache - Resolved. 4) Vomiting - patient is convinced that it occurs every time that the Zosyn is running in. The vomiting is confirmed by nursing. 5) Bipolar disorder - stable on meds. 6) Obesity DVT prophylaxis TEDs, SCDs and sub-q Lovenox.
[2016-09-20] MEDS: ZIPRASIDONE 80 MG CAP PO SCH (20:07)
[2016-09-20] MEDS: GUAIFENESIN 600 MG TABCR PO SCH (20:07)
[2016-09-20] MEDS: ESZOPICLONE 1 MG TAB PO SCH (20:14)
[2016-09-20] MEDS: ACETAMINOPHEN 325 MG TAB PO PRN (23:43)
[2016-09-21] VITALS (7 sets, daily range): BP systolic 123–169; BP diastolic 74–101; PULSE 84–106; TEMP 36.4–39.5; O2SAT 90–97
[2016-09-21] MEDS: ALBUTEROL HFA 8 GM INHALER INH SCH ×4 (04:00→16:18)
[2016-09-21 06:14] LABS: BASO % 0.3 %; BASO ABS # 0.03 K/uL (0-0.2); COMPLETE YES; EOS % 1.8 %; HEMATOCRIT 29.5 % (37-47); IG% 0.7 %; LYMPH % 14.6 %; LYMPH ABS # 1.72 K/uL (1.2-3.4); MEAN CELL VOLUME 91.6 fL (80-100); MEAN CORPUSCULAR HEMOGLOBIN 30.1 pg (25-34); MEAN CORPUSCULAR HGB CONC 32.9 g/dl (32-36); MEAN PLATELET VOLUME 8.5 fL (7.4-10.4); MONO % 8.4 %; NEUT % 74.2 %; PLATELET COUNT 271 K/uL (130-400); RED BLOOD COUNT 3.22 M/uL (4.2-5.4)
[2016-09-21 06:45] LABS: BUN/CREATININE RATIO 4.4 (10-20); CALCIUM 8.1 mg/dl (8.5-10.1); CREATININE 1.6 mg/dl (0.60-1.20); POTASSIUM 3.5 mmol/L (3.5-5.1)
[2016-09-21] MEDS: KETOROLAC TROMETHAMINE 30 MG/ML VIAL IV. PRN (08:41)
[2016-09-21] MEDS: MULTIVITAMIN TAB PO SCH (08:42)
[2016-09-21] MEDS: MAGNESIUM OXIDE 400 MG TAB PO SCH (08:42)
[2016-09-21] MEDS: GABAPENTIN 100 MG CAP PO SCH ×2 (08:43→12:10)
[2016-09-21] MEDS: DOXYCYCLINE HYCLATE 100 MG CAP PO SCH (08:43)
[2016-09-21] MEDS: GUAIFENESIN 600 MG TABCR PO SCH (08:44)
[2016-09-21] MEDS: PYRIDOXINE HCL 50 MG TAB PO SCH (08:44)
[2016-09-21] MEDS: FLUOXETINE HCL 20 MG CAP PO SCH (08:44)
--- NOTE | 2016-09-21 08:55 | Pharmacy Progress Note ---
Pharmacy Antibiotic Prog Note Date of Service: Sep 21, 2016. Subjective: The patient is currently receiving vancomycin, zosyn, and doxycycline for possible pneumonia The patient is currently on day # 5 of IV therapy. Objective: Height (Feet): 5 Height (Inches): 5.00 Weight (Kilograms): 125.000 Levels: Item Value Date Time Random Vancomycin Level 17.2 mcg/ml 09/21/16 0530 Vancomycin Level Trough 30.1 mcg/ml 09/20/16 1150 Lab Results (24hrs): Laboratory Tests Test 09/20/16 14:44 09/21/16 05:30 BUN/Creatinine Ratio 4.1 4.4 Blood Urea Nitrogen 7 mg/dl 7 mg/dl Creatinine 1.60 mg/dl 1.60 mg/dl White Blood Count 11.80 K/uL Red Blood Count 3.22 M/uL Hemoglobin 9.7 g/dL Hematocrit 29.5 % Mean Corpuscular Volume 91.6 fL Mean Corpuscular Hemoglobin 30.1 pg Mean Corpuscular Hemoglobin Concent 32.9 g/dl Platelet Count 271 K/uL Mean Platelet Volume 8.5 fL Neutrophils (%) (Auto) 74.2 % Lymphocytes (%) (Auto) 14.6 % Monocytes (%) (Auto) 8.4 % Eosinophils (%) (Auto) 1.8 % Basophils (%) (Auto) 0.3 % Neutrophils # (Auto) 8.77 K/uL Lymphocytes # (Auto) 1.72 K/uL Monocytes # (Auto) 0.99 K/uL Eosinophils # (Auto) 0.21 K/uL Basophils # (Auto) 0.03 K/uL Assessment & Plan: Pharmacy receiving vancomycin, zosyn and doxycycline (oral) for possible pneumonia. ID is consulted to follow the patient. Vancomycin: * Random level this am was therapeutic at ~17 mcg/ml (goal 15-20 mcg/ml for PNA) * Trough level yesterday am was supratherapeutic at ~30 therefore further doses were put on hold; last dose patient received was 09/20 at @1300 after level was collected * Will now redose patient since level therapeutic, will give vancomycin 1500 mg (~12mg/kg) iv q 14 hrs to achieve an estimated trough ~16 mcg/ml * Estimated kinetics based upon previous trough: t1/2~12 hrs, ke~0.054 hr-1, CrCl ~70 ml/min * Patient also with elevated BMI ~46 kg/m2 (>35 kg/m2) therefore at risk for accumulation * Will plan to recheck a level 09/22 prior to the 1300 dose to ensure therapeutic ; will continue to monitor Scr as it is still continuing to increase Pharmacy will continue to follow and will adjust dose/frequency as necessary. Thank you
[2016-09-21] MEDS ORDERED: VANCOMYCIN INJ 1,500 MG in SODIUM CHLORIDE 0.9% 500ML 500 ML IV SCH (09:00)
[2016-09-21] MEDS: HYDROmorphone INJ 1 MG/ML SYR IV PRN ×2 (10:15→16:17)
--- NOTE | 2016-09-21 11:15 | PULMONARY PROGRESS NOTE ---
DATE: 09/21/2016 TIME: 10:30 a.m. SUBJECTIVE: The patient states that she was short of breath this morning. She thought it was from lying back. She states they had to call for a breathing treatment. She is not expectorating any sputum. She has been running a fever today. Her temperature overnight peaked at 39.5. She did not complain of any specific problems related to the fever. She is not having chest pains. OBJECTIVE: GENERAL: The patient looks comfortable. She is mildly flushed. Current temperature is 38 degrees. She does have a large neck. No lymph nodes palpable. VITAL SIGNS: Heart rate was 90 per minute. The rhythm was regular. Most recent blood pressure 142/80. LUNGS: Lung kendall were clear bilaterally. I heard no wheezes, rales or rhonchi. Her respiratory rate was 18 breaths per minute. The saturation was 96% on room air. EXTREMITIES: Showed no cyanosis, clubbing or edema. LABORATORY DATA: White count today is 11.8. On the 24th, it had been 18.12. Hemoglobin is down to 9.7. On the 24th, it was 11.6. Platelets are 271,000. Electrolytes show sodium 145, potassium 3.5, chloride 110, and bicarb 28. BUN is ____ with a creatinine of 1.6. The random vancomycin level today was 17.2. The immunoglobulins, cold agglutinins, and mycoplasma titers are pending. IMPRESSIONS: 1. Pneumonia, right upper lobe. 2. Fevers overnight -- etiology unclear. 3. Asthma by history. 4. Renal insufficiency. COMMENTS AND RECOMMENDATIONS: The patient seems clinically well on exam. However, she has been spiking fevers overnight. The exact etiology is not clear. I would be reluctant to discharge her currently in light of these fevers. She is on vancomycin and doxycycline. Infectious disease is taking care of the antibiotic therapy. I would give consideration to some IV hydration in light of the creatinine levels. Would follow the fever pattern carefully. We will repeat an x-ray today since it has been 4 days since her last one. The patient is still in respiratory isolation. Her PPD reportedly was negative. I am doubtful that the isolation is necessary at present.
[2016-09-21] MEDS: ENOXAPARIN 40 MG/0.4 ML SYR SQ SCH (12:10)
--- NOTE | 2016-09-21 12:14 | DIAGNOSTIC IMAGING REPORT ---
CHEST 2 VIEWS ROUTINE CLINICAL HISTORY: f/u on pneumonia pneumonia COMPARISON STUDY: 09/17/2016 FINDINGS: Interval development of a right midlung parenchymal infiltrative process. Slight increased accentuation left basilar parenchymal markings. Diaphragms are smooth.. IMPRESSION: Interval development of a parenchymal infiltrate right mid lung and to a lesser extent left base. Electronically signed by: Sergio Ahmadi M.D. 09/21/2016 12:13 PM Dictated Date/Time: 09/21/2016 12:12 PM
--- NOTE | 2016-09-21 16:03 | Infectious Disease Progress Nt ---
Progress Note Date of Service Sep 21, 2016. 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 Some shortness of breath this morning, improved now. No other new complaints. All Other Systems: Reviewed and Negative Medications Current Inpatient Medications Medications (Trade) Dose Ordered Sig/Theodore Route Start Time Stop Time Status Last Admin Dose Admin Ioversol (Optiray 320) 100 ml UD PRN IV 09/17/16 21:00 09/21/16 20:59 Acetaminophen (Tylenol Tab) 650 mg Q4H PRN PO 09/17/16 23:00 10/17/16 22:59 09/20/16 23:43 650 MG Acetaminophen/ Butalbital/ Caffeine (Fioricet Tab) 1 tab Q4H PRN PO 09/17/16 23:00 10/17/16 22:59 09/18/16 04:14 1 TAB Albuterol Sulfate (Ventolin 0.083% 2.5MG/3ML Neb) 2.5 mg QID PRN INH 09/17/16 23:00 10/17/16 22:59 09/21/16 06:00 2.5 MG Albuterol (Ventolin Hfa Inhaler) 2 puffs Q4H INH 09/18/16 04:00 10/18/16 03:59 09/21/16 12:10 2 PUFFS Dextromethorphan Polymer Complex (Delsym Susp) 60 mg Q4H PRN PO 09/17/16 23:00 10/17/16 22:59 09/20/16 20:14 60 MG Eszopiclone (Lunesta Tab) 3 mg HS PO 09/18/16 21:00 10/18/16 20:59 09/20/16 20:14 3 MG Fluoxetine HCl (Prozac Cap) 60 mg DAILY PO 09/18/16 08:00 10/18/16 08:59 09/21/16 08:44 60 MG Gabapentin (Neurontin Cap) 100 mg TID PO 09/18/16 08:00 10/18/16 08:59 09/21/16 12:10 100 MG Multivitamins (Multivitamin Tab) 1 tab DAILY PO 09/18/16 08:00 10/18/16 08:59 09/21/16 08:42 1 TAB Pyridoxine HCl (Vitamin B-6 Tab) 50 mg DAILY PO 09/18/16 08:00 10/18/16 08:59 09/21/16 08:44 50 MG Miscellaneous Information (Order Awaiting Action) 1 ea QS N/A 09/18/16 08:00 10/18/16 07:59 Lamotrigine (Lamictal Tab) 200 mg QAM PO 09/18/16 08:00 10/18/16 08:59 09/21/16 08:42 200 MG Magnesium Oxide (Mag-Ox Tab) 400 mg QAM PO 09/18/16 08:00 10/18/16 08:59 09/21/16 08:42 400 MG Ziprasidone (Geodon Cap) 80 mg QPM PO 09/18/16 21:00 10/18/16 20:59 09/20/16 20:07 80 MG Piperacillin Sod/ Tazobactam Sod (Consult) 1 ea UD PRN N/A 09/18/16 00:45 10/18/16 00:44 Future Hold Vancomycin HCl 1 ea 1 ea UD PRN N/A 09/18/16 00:45 10/18/16 00:44 Piperacillin Sod/ Tazobactam Sod/ Dextrose (Zosyn Iv/D5 100ml) 120 ml @ 30 mls/hr Q8H IV 09/18/16 02:00 09/25/16 01:59 Future Hold 09/20/16 09:41 30 MLS/HR Diphenhydramine HCl (Benadryl Cap) 75 mg HS PRN PO 09/18/16 00:45 10/18/16 00:44 09/20/16 20:13 75 MG Sodium Chloride (Davison Nasal [place]) 1 sprays PRN PRN NA 09/18/16 02:45 10/18/16 02:44 Ondansetron HCl (Zofran Inj) 4 mg Q4H PRN IV 09/18/16 09:45 10/18/16 09:44 09/20/16 09:44 4 MG Ketorolac Tromethamine (Toradol Inj) 30 mg Q6H PRN IV. 09/18/16 10:15 09/23/16 10:14 09/21/16 08:41 30 MG Hydromorphone HCl (Dilaudid Inj) 1 mg Q3H PRN IV 09/18/16 10:15 10/02/16 10:14 09/21/16 10:15 1 MG Enoxaparin Sodium (Lovenox Inj) 40 mg Q24H SQ 09/18/16 12:00 10/18/16 11:59 09/21/16 12:10 40 MG Doxycycline Hyclate 100 mg 100 mg BID PO 09/19/16 20:00 09/26/16 19:59 09/21/16 08:43 100 MG Prochlorperazine Edisylate/Syringe (Compazine Inj/ Syringe) 10 ml @ 5 mls/min Q6 PRN IV 09/20/16 12:15 10/20/16 12:14 09/20/16 20:04 5 MLS/MIN Guaifenesin 600 mg 600 mg Q12 PO 09/20/16 21:00 10/20/16 20:59 09/21/16 08:44 600 MG Vancomycin HCl/ Sodium Chloride (Vancomycin Inj/ Nss 500ml) 530 ml @ 200 mls/hr Q14H IV 09/21/16 09:00 09/25/16 08:59 09/21/16 12:06 200 MLS/HR Objective Vital Signs Date Time Temp Pulse Resp B/P Pulse Ox O2 Delivery O2 Flow Rate FiO2 09/21/16 15:29 37.1 104 20 154/95 97 Room Air 09/21/16 08:30 Room Air 09/21/16 07:33 38.0 99 18 142/80 96 Room Air 09/21/16 06:00 84 16 97 Room Air 09/21/16 06:00 36.4 09/21/16 03:00 37.0 09/21/16 00:30 39.5 99 22 123/74 90 Room Air 09/21/16 00:00 Room Air 09/20/16 20:00 Room Air Physical Exam General Appearance: WD/WN, no apparent distress Eyes: normal inspection, EOMI, sclerae normal ENT: normal ENT inspection, hearing grossly normal, pharynx normal Neck: supple, no adenopathy, trachea midline Respiratory/Chest: lungs clear, no respiratory distress, + rales Cardiovascular: regular rate, rhythm, no gallop, no murmur Abdomen: normal bowel sounds, non tender, soft, no organomegaly Extremities: non-tender, no calf tenderness Neurologic/Psychiatric: alert, oriented x 3 Skin: normal color, no rash Lymphatic: no adenopathy Laboratory Results Last 24 Hours Test 09/21/16 05:30 White Blood Count 11.80 K/uL Red Blood Count 3.22 M/uL Hemoglobin 9.7 g/dL Hematocrit 29.5 % Mean Corpuscular Volume 91.6 fL Mean Corpuscular Hemoglobin 30.1 pg Mean Corpuscular Hemoglobin Concent 32.9 g/dl Platelet Count 271 K/uL Mean Platelet Volume 8.5 fL Neutrophils (%) (Auto) 74.2 % Lymphocytes (%) (Auto) 14.6 % Monocytes (%) (Auto) 8.4 % Eosinophils (%) (Auto) 1.8 % Basophils (%) (Auto) 0.3 % Neutrophils # (Auto) 8.77 K/uL Lymphocytes # (Auto) 1.72 K/uL Monocytes # (Auto) 0.99 K/uL Eosinophils # (Auto) 0.21 K/uL Basophils # (Auto) 0.03 K/uL RDW Standard Deviation 44.9 fL RDW Coefficient of Variation 13.4 % Immature Granulocyte % (Auto) 0.7 % Immature Granulocyte # (Auto) 0.08 K/uL Sodium Level 145 mmol/L Potassium Level 3.5 mmol/L Chloride Level 110 mmol/L Carbon Dioxide Level 28 mmol/L Anion Gap 7.0 mmol/L Blood Urea Nitrogen 7 mg/dl Creatinine 1.60 mg/dl Est Creatinine Clear Calc Drug Dose 69.6 ml/min Estimated GFR () 50.3 Estimated GFR (Non- 43.4 BUN/Creatinine Ratio 4.4 Random Glucose 88 mg/dl Calcium Level 8.1 mg/dl Random Vancomycin Level 17.2 mcg/ml Assessment and Plan 30-year-old healthy female with right upper lobe pneumonia, with 2 will children, also complaining of sore throat and earache, raising suspicion for mycoplasma infection but with positive culture for group A strep. Now with recurrent fever after several days of being afebrile. This raises suspicion for potential of drug fever. Agree with discontinuation of Zosyn, and I have substituted levofloxacin for doxycycline to provide broader coverage. Hopefully will be able to transition to oral therapy soon. Await further cultures.
--- NOTE | 2016-09-21 16:52 | Discharge Summary ---
Discharge Summary Date of Service Sep 21, 2016. Discharge Summary Admission Date: Sep 17, 2016 at 23:01 Discharge Date: Sep 21, 2016 Discharge Disposition: Home Principal Diagnosis: Strep pharyngitis Problems/Secondary Diagnoses: (1) Headache Status: Chronic Immunizations: Have You Had Influenza Vaccine: Yes Influenza Vaccine Date: Apr 24, 2009 History of Tetanus Vaccine?: Unknown History of Pneumococcal: No History of Hepatitis B Vaccine: Unknown Consultations: ID and Pulmonary Medication Reconciliation Continued Medications: Acetamin/Butalbital/Caffeine (Fioricet) 1 Ea Tab 1 TAB PO Q4-6 PRN for Migraine, TAB Acetaminophen (Tylenol) 500 Mg Tab 1000 MG PO DIRECTED PRN for Pain, TAB Albuterol Sulfate (Proventil Hfa) 108 Mcg/Act Aer 2 PUFFS INH Q4H for 5 Days, #1 INHALER Ascorbic Acid (Vitamin C) 100 Mg Tab 1 TAB PO HS Dextromethorphan Polymr Complx (Delsym) 60 Mg/10 Ml Liqcr 10 ML PO DIRECTED Diclofenac Potassium (Diclofenac Potassium) 50 Mg Tab 50 MG PO Q8 PRN for PRN, #30 Eszopiclone (Lunesta) 3 Mg Tab 3 MG PO HS, TAB Fluoxetine (Prozac) 20 Mg Cap 20 MG PO DAILY, CAP TAKE WITH THE 40MG TABLET FOR A TOTAL DOSE OF 60MG Fluoxetine Hcl (Prozac) 40 Mg Cap 40 MG PO DAILY TAKE WITH THE 20MG TABLET FOR A TOTAL DOSE OF 60MG Gabapentin (Neurontin) 100 Mg Cap 100 MG PO TID PRN for PRN, CAP Lamotrigine (Lamictal) 200 Mg Tab 200 MG PO QAM, TAB Magnesium Oxide (Mg Supplement (Magnesium) 400 Mg Cap 400 MG PO DAILY Melatonin (Melatonin Maximum Strengt) 5 Mg Tab 1 TAB PO HS for 30 Days, #30 TAB 1 Refill Multiple Vitamin (Multivitamin) 1 Tab Tab 1 TAB PO DAILY, TAB Pseudoephedrine (Sudafed) 30 Mg Tab 30 MG PO Q12, TAB Pyridoxine Hcl (Vitamin B 6) 50 Mg Tab 50 MG PO DAILY Ziprasidone Hcl (Geodon) 40 Mg Cap 80 MG PO QPM, CAP with evening meal Discontinued Medications: Acetaminophen (Tylenol Children's Susp) 160 Mg/5 Ml Susp 30 ML PO DIRECTED Albuterol Sulf (Proventil 0.083% 2.5MG/3ML) 2.5 Mg/3 Ml Nebu 1 VIAL INH UD PRN for SOB/Wheezing, EA Ibuprofen (Advil) 200 Mg Tab 200-600 MG PO Q4H, TAB Discharge Exam Physical Exam: General Appearance: WD/WN, no apparent distress Eyes: normal inspection, PERRL, EOMI ENT: normal ENT inspection, hearing grossly normal, TMs normal Neck: supple, no adenopathy, thyroid normal Respiratory/Chest: chest non-tender, lungs clear, normal breath sounds, no respiratory distress Cardiovascular: regular rate, rhythm, no edema, no gallop, no JVD, no murmur Abdomen / GI: normal bowel sounds, non tender, soft Extremities: normal inspection, no calf tenderness, normal capillary refill Neurologic/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 She had been seen in urgent care earlier in the week with a negative strep test, he reports that her children similar symptoms. She was seen in the emergency department on 2016 and treated for left lower lobe pneumonia with levofloxacin which she reports symptoms did resolve. She has not had any recent travel. Pt rapid Strep throat was + and hence she was started on IV Vancocin and IV Ceftriaxone. Pt symptoms responded well to antibiotics and she was dc'ed on oral doxycycline 100mg bid (14 day course) and recommended follow up with ID and Pulmonary medicine CT chest was negative for PE. Total Time Spent: Greater than 30 minutes This includes examination of the patient, discharge planning, medication reconciliation, and communication with other providers. Discharge Instructions Please refer to the electronic Patient Visit Report (Discharge Instructions) for additional information.
[2016-09-21] MEDS ORDERED: LEVOFLOXACIN / D5W 750 MG in PREMIXED IN D5W 150 ML IV SCH (17:00)
--- NOTE | 2016-09-21 18:50 | Discharge Instructions ---
Discharge Instructions Date of Service Sep 21, 2016. Admission Reason for Admission: Pneumonia, Sirs Discharge Discharge Diagnosis / Problem: Strep. pharyngitis Discharge Goals Goal(s): Improve function Activity Recommendations Activity Limitations: resume your previous activity Lifting Limitations: none Exercise/Sports Limitations: none May Resume Sexual Activity: when tolerated Shower/Bathe: no limitations Driving or Machine Use: no limitations . Current Hospital Diet Patient's current hospital diet: Regular Diet Discharge Diet Recommended Diet: AHA Diet (Heart Healthy) Pending Studies Studies pending at discharge: no Laboratory Results Hemoglobin A1c Test 08/03/16 07:33 Range/Units Estimated Average Glucose 105 mg/dl Hemoglobin A1c 5.3 4.5-5.6 % Lipid Panel Test 08/03/16 07:33 Range/Units Triglycerides Level 190 H 0-150 mg/dl Cholesterol Level 284 H 0-200 mg/dl HDL Cholesterol 75 mg/dl Cholesterol/HDL Ratio 3.8 LDL Cholesterol, Calculated 171 mg/dl Medical Emergencies . Who to Call and When: Medical Emergencies: If at any time you feel your situation is an emergency, please call 911 immediately. . Non-Emergent Contact Non-Emergency issues call your: Primary Care Provider . . "Provider Documentation" section prepared by Shiv Cortez. VTE Core Measure Inpt VTE Proph given/why not?: SCD's
[2016-09-22] MEDS ORDERED: VANCOMYCIN TROUGH ONE (12:30)
[2016-09-22] MEDS ORDERED: PSEU60TA80 PO (13:34)
[2016-09-22] MEDS ORDERED: DOXY100C76 PO (13:34)
[2016-09-22] MEDS ORDERED: GUAI1TAB69 PO (13:36)
[2016-12-08] MEDS ORDERED: MULTTAB58 PO (10:42)
[2016-12-08] MEDS ORDERED: PYRI50TA77 PO (15:35)
[2016-12-08] MEDS ORDERED: PRZ/40 PO (18:29)
[2016-12-08] MEDS ORDERED: ACET-1256 PO (19:46)
== END 2016-09-21 19:15 | disposition home or self-care (01) | DRG 194 ==
LOC: ENRESERVDT → ENRESERVTM → EDBD 19:17 → C.EDA 19:20 → C.4E 23:01
PROVIDERS: ADMIT Hospitalist; ATTEND Hospitalist
DX: J18.9 Pneumonia, unspecified organism (principal); Z68.42 Body mass index [BMI] 45.0-49.9, adult; N17.9 Acute kidney failure, unspecified; J02.0 Streptococcal pharyngitis; T36.8X5A Adverse effect of other systemic antibiotics, initial encounter; Y92.230 Patient room in hospital as the place of occurrence of the external cause; G43.909 Migraine, unspecified, not intractable, without status migrainosus; R11.11 Vomiting without nausea; J45.20 Mild intermittent asthma, uncomplicated; K21.9 Gastro-esophageal reflux disease without esophagitis; F31.9 Bipolar disorder, unspecified; F41.9 Anxiety disorder, unspecified; F13.10 Sedative, hypnotic or anxiolytic abuse, uncomplicated; F11.90 Opioid use, unspecified, uncomplicated; E66.01 Morbid (severe) obesity due to excess calories; Z79.899 Other long term (current) drug therapy

== ENCOUNTER 2016-09-22 13:03 | Inpatient (IN) | payer OTHER ==
[~2016-09-22] VITALS: Ht 165.1 cm; Wt 125.0 kg
[~2016-09-22 13:03] MED LIST changes: -ALBINS/ INH; -ASCO100T PO; +ASCO100T4 PO; +DLSUDL60 PO; +PSEU30TA20 PO
[2016-09-22] MEDS ORDERED: DOXY100C76 PO (13:34)
[2016-09-22] MEDS ORDERED: PSEU60TA80 PO (13:34)
[2016-09-22] MEDS ORDERED: GUAI1TAB69 PO (13:36)
[2016-09-22] MEDS ORDERED: ONDANSETRON INJ 2 MG/ML 2 ML VIAL IV STA (13:44)
[2016-09-22] MEDS ORDERED: SODIUM CHLORIDE 0.9% 1000ML 1,000 ML IV STA (13:44)
[2016-09-22 14:17] LABS: BASO % 0.2 %; BASO ABS # 0.02 K/uL (0-0.2); COMPLETE YES; EOS % 2.4 %; HEMATOCRIT 26.7 % (37-47); IG% 0.6 %; LYMPH % 12.1 %; LYMPH ABS # 1.43 K/uL (1.2-3.4); MEAN CELL VOLUME 92.1 fL (80-100); MEAN CORPUSCULAR HGB CONC 33.7 g/dl (32-36); MEAN PLATELET VOLUME 8.2 fL (7.4-10.4); MONO % 5.1 %; NEUT % 79.6 %; PLATELET COUNT 258 K/uL (130-400); WHITE BLOOD COUNT 11.81 K/uL (4.8-10.8)
--- NOTE | 2016-09-22 14:34 | DIAGNOSTIC IMAGING REPORT ---
TWO VIEW CHEST CLINICAL HISTORY: Cough and fever. FINDINGS: PA and lateral chest radiographs are compared to study dated 09/21/2016 and correlated with chest CT dated 09/17/2016. The examination is degraded by large body habitus. The cardiomediastinal silhouette is unremarkable. Patchy airspace consolidation is again seen in the right upper lobe and at the left lung base. No pleural effusion is identified. There is no pneumothorax. The bony thorax appears intact. IMPRESSION: Patchy airspace consolidation is again seen in the right upper lobe and at the left lung base. This is typical for pneumonia and not significantly changed from yesterday's examination. Electronically signed by: Willy Romo M.D. 09/22/2016 2:32 PM Dictated Date/Time: 09/22/2016 2:31 PM
[2016-09-22 14:42] LABS: BUN/CREATININE RATIO 5.6 (10-20); CALCIUM 8.2 mg/dl (8.5-10.1); CREATININE 1.4 mg/dl (0.60-1.20); POTASSIUM 3.5 mmol/L (3.5-5.1)
[2016-09-22] MEDS ORDERED: OPTIRAY 320 IV PRN (15:00)
[2016-09-22] MEDS ORDERED: KETOROLAC TROMETHAMINE 30 MG/ML VIAL IV STA (15:47)
[2016-09-22] MEDS ORDERED: ALBUTEROL 0.083% NEBU SOLN 3 ML VIAL INH STA (15:47)
--- NOTE | 2016-09-22 16:07 | DIAGNOSTIC IMAGING REPORT ---
CT ANGIOGRAPHY OF THE CHEST, PULMONARY EMBOLUS PROTOCOL CLINICAL HISTORY: Shortness of breath and chest discomfort. Elevated d-dimer. COMPARISON STUDY: Chest radiograph performed earlier today and chest CT September 17, 2016. TECHNIQUE: Following IV administration of 96 mL of Optiray-320, helical axial images of the chest were obtained utilizing the pulmonary embolus protocol. Maximal intensity projections and sagittal and coronal reformats were viewed on an independent 3D workstation. IV contrast was administered without complication. CT DOSE: 810.79 mGy.cm FINDINGS: No pulmonary emboli are identified. The heart is mildly enlarged. There is no pericardial effusion. No enlarged thoracic lymph nodes are present. A few prominent right hilar lymph nodes are likely reactive. There has been significant progression of consolidation within the posterior segment of the right upper lobe. This has progressed since exam of September 17, 2016. There has been interval development of mild right lower lobe airspace opacity. Trace bilateral pleural effusions have developed. Upper abdomen is unremarkable. Bony thorax is unremarkable. IMPRESSION: 1. No pulmonary emboli identified. 2. Significant progression of consolidation within the posterior segment of the right upper lobe since chest CT of September 17, 2016 and interval development of mild right middle and lower lobe airspace opacity. The findings represent multifocal pneumonia. 3. Trace bilateral pleural effusions. Electronically signed by: Tushar Vera M.D. 09/22/2016 4:05 PM Dictated Date/Time: 09/22/2016 3:53 PM
[2016-09-22] MEDS ORDERED: PIPERACILLIN/TAZOBACTAM 4.5 GM/100ML D5W IV STA (17:55)
--- NOTE | 2016-09-22 18:29 | History and Physical ---
History & Physical Date & Time of Service: Sep 22, 2016 at 18:22 Chief Complaint: Sob/Chest Discomfort Primary Care Physician: Lisa Casanova DO History of Present Illness Source: patient Patient is a30 yr old woman with a PMH significant for recent PNA, bipolar admitted to the hospital for evaluation of worsening SOB and reduced exer.tolerance. Recent admit for PNA and discharged on oral antibiotics. Post dc c/o DURAN , reduced ex.tolerance. Denies fevers, wheezing, abd pain, diarrhea. Min non prod cough. No hemoptysis. In ER CT chest done shows no PE, worsening consolidation (see below) Past Medical/Surgical History Medical Problems: (1) Acute bronchitis Status: Resolved (2) Anxiety Status: Chronic (3) Benzodiazepine abuse Status: Chronic (4) Bipolar disorder Status: Chronic (5) Chronic GERD Status: Chronic (6) Contusion of right hip Status: Resolved (7) Fall due to slipping on ice or snow Status: Resolved (8) MAXIMUS (generalized anxiety disorder) Status: Chronic (9) Headache Status: Chronic (10) Low back strain Status: Resolved (11) Migraine Status: Chronic (12) Migraines Status: Chronic (13) Occipital neuralgia Status: Resolved (14) Opiate misuse Status: Chronic (15) Shortness of breath Status: Resolved Surgical Problems: (1) Hx of cholecystectomy Status: Resolved Family History Cancer Diabetes mellitus FH: heart disease High cholesterol Hypertension Ovarian cyst Social History Smoking Status: Never Smoker Drug Use: none Marital Status: Housing status: lives with family Occupational Status: unemployed Immunizations History of Influenza Vaccine: Yes Influenza Vaccine Date: Apr 24, 2009 History of Tetanus Vaccine?: Unknown History of Pneumococcal: No History of Hepatitis B Vaccine: Unknown Multi-Drug Resistant Organisms History of MDRO: No Allergies Coded Allergies: Cephalosporins (Verified Allergy, Intermediate, HIVES, 09/22/16) Sumatriptan (Verified Allergy, Intermediate, RASH, 09/22/16) INJ OF IMITREX, RASH @ INJECTION SITE Cephalexin (Verified Allergy, Unknown, HIVES, 09/22/16) Metoclopramide (Verified Allergy, Unknown, ANXIETY, 09/22/16) Home Medications Scheduled Albuterol Sulfate (Proventil Hfa), 2 PUFFS INH Q4H Ascorbic Acid (Vitamin C), 1 TAB PO HS Dextromethorphan Polymr Complx (Delsym), 10 ML PO DIRECTED Doxycycline Monohydrate (Monodox), 100 MG PO BID Eszopiclone (Lunesta), 3 MG PO HS Fluoxetine (Prozac), 20 MG PO DAILY Fluoxetine Hcl (Prozac), 40 MG PO DAILY Guaifenesin (Mucinex Maximum Strength), 1 TAB PO Q4H Lamotrigine (Lamictal), 200 MG PO QAM Magnesium Oxide (Mg Supplement (Magnesium), 400 MG PO DAILY Melatonin (Melatonin Maximum Strengt), 1 TAB PO HS Multiple Vitamin (Multivitamin), 1 TAB PO DAILY Pseudoephedrine (Sudafed), 30 MG PO Q12 Pyridoxine Hcl (Vitamin B 6), 50 MG PO DAILY Ziprasidone Hcl (Geodon), 80 MG PO QPM Scheduled PRN Acetamin/Butalbital/Caffeine (Fioricet), 1 TAB PO Q4-6 PRN for Migraine Acetaminophen (Tylenol), 1,000 MG PO DIRECTED PRN for Pain Diclofenac Potassium (Diclofenac Potassium), 50 MG PO Q8 PRN for PRN Gabapentin (Neurontin), 100 MG PO TID PRN for PRN Review of Systems Constitutional: + fatigue, + weakness Eyes: No diplopia, No discharge, No eye pain, No problem reported, No redness, No worsening of vision ENT: No dental problems, No hearing loss, No nasal symptoms, No problem reported, No sore throat, No tinnitus, No trouble swallowing, No unusual epistaxis Respiratory: + dyspnea on exertion Cardiovascular: No PND, No chest pain, No claudication, No edema, No orthopnea , No palpitations, No problem reported Abdomen: No GI bleeding, No constipation, No diarrhea, No nausea, No pain, No problem reported, No vomiting Musculoskeletal: No calf pain, No joint pain, No muscle pain, No problem reported, No swelling Genitourinary - Female: No dysmenorrhea, No dysuria, No hematuria, No menorrhagia, No metrorrhagia, No , No problem reported, No rash, No urinary frequency, No urinary incontinence, No urinary retention, No urinary urgency, No vaginal bleeding, No vaginal discharge, No vaginal itching, No vulvodynia Neurologic: No balance problems, No memory loss, No numbness/tingling, No paralysis, No problem reported, No vertigo, No weakness Psychiatric: No anhedonism, No anxiety, No depression symptoms, No insomnia, No problem reported, No substance abuse Endocrine: No excessive thirst, No excessive urination, No fatigue, No problem reported Hematologic / Lymphatic: No abnormal bleeding/bruising, No clotting problems, No night sweats, No problem reported, No swollen lymph nodes Integumentary: No bleeding, No color change, No itch, No new/changing skin lesions, No problem reported, No rash Physical Exam Vital Signs Date Time Temp Pulse Resp B/P Pulse Ox O2 Delivery O2 Flow Rate FiO2 09/22/16 16:06 75 20 148/100 93 Room Air 09/22/16 14:10 83 16 149/94 94 Room Air 09/22/16 13:30 86 09/22/16 13:21 36.6 84 16 137/90 95 Room Air General Appearance: WD/WN Head: normocephalic Eyes: normal inspection ENT: normal ENT inspection, hearing grossly normal Neck: supple, no adenopathy Respiratory/Chest: chest non-tender, lungs clear Cardiovascular: regular rate, rhythm, no edema, no gallop, no JVD Abdomen/GI: normal bowel sounds, non tender, soft, no organomegaly Back: normal inspection Extremities/Musculoskelatal: normal inspection 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, oriented x 3 Skin: warm/dry Diagnostics Laboratory Results Results Past 24 Hours Test 09/22/16 14:05 Range/Units White Blood Count 11.81 4.8-10.8 K/uL Red Blood Count 2.90 4.2-5.4 M/uL Hemoglobin 9.0 12.0-16.0 g/dL Hematocrit 26.7 37-47 % Mean Corpuscular Volume 92.1 80-100 fL Mean Corpuscular Hemoglobin 31.0 25-34 pg Mean Corpuscular Hemoglobin Concent 33.7 32-36 g/dl Platelet Count 258 130-400 K/uL Mean Platelet Volume 8.2 7.4-10.4 fL Neutrophils (%) (Auto) 79.6 % Lymphocytes (%) (Auto) 12.1 % Monocytes (%) (Auto) 5.1 % Eosinophils (%) (Auto) 2.4 % Basophils (%) (Auto) 0.2 % Neutrophils # (Auto) 9.41 1.4-6.5 K/uL Lymphocytes # (Auto) 1.43 1.2-3.4 K/uL Monocytes # (Auto) 0.60 0.11-0.59 K/uL Eosinophils # (Auto) 0.28 0-0.5 K/uL Basophils # (Auto) 0.02 0-0.2 K/uL RDW Standard Deviation 45.2 36.4-46.3 fL RDW Coefficient of Variation 13.5 11.5-14.5 % Immature Granulocyte % (Auto) 0.6 % Immature Granulocyte # (Auto) 0.07 0.00-0.02 K/uL D-Dimer 1780 0-500 ug/L FEU Sodium Level 143 136-145 mmol/L Potassium Level 3.5 3.5-5.1 mmol/L Chloride Level 108 98-107 mmol/L Carbon Dioxide Level 29 21-32 mmol/L Anion Gap 6.0 3-11 mmol/L Blood Urea Nitrogen 8 7-18 mg/dl Creatinine 1.40 0.60-1.20 mg/dl Est Creatinine Clear Calc Drug Dose 79.5 ml/min Estimated GFR () 59.1 Estimated GFR (Non- 51.0 BUN/Creatinine Ratio 5.6 10-20 Random Glucose 85 70-99 mg/dl Calcium Level 8.2 8.5-10.1 mg/dl Total Bilirubin 0.6 0.2-1 mg/dl Direct Bilirubin 0.1 0-0.2 mg/dl Aspartate Amino Transf (AST/SGOT) 16 15-37 U/L Alanine Aminotransferase (ALT/SGPT) 38 12-78 U/L Alkaline Phosphatase 109 45-117 U/L Troponin I 0.022 0-0.045 ng/ml Total Protein 7.0 6.4-8.2 gm/dl Albumin 3.0 3.4-5.0 gm/dl Diagnostic Radiology Patient Name: DIRK FINCH Unit Number: [id number] Dictated: 09/22/[id number] Transcribed: 09/22/161552 RIVER Printed Date/Time: [~ rep prt dt]/[~ rep prt tm] [~ rep ct labl] - [~ rep ct ivnm] [facility] [place] [address] Dictated: 09/22/161552 Transcribed: 09/22/16 1553 JA Printed Date/Time: [~ rep prt dt]/[~ rep prt tm] [~ rep ct labl] - [~ rep ct ivnm] [~ rep ct add3]] CT ANGIOGRAPHY OF THE CHEST, PULMONARY EMBOLUS PROTOCOL CLINICAL HISTORY: Shortness of breath and chest discomfort. Elevated d-dimer. COMPARISON STUDY: Chest radiograph performed earlier today and chest CT September 17, 2016. TECHNIQUE: Following IV administration of 96 mL of Optiray-320, helical axial images of the chest were obtained utilizing the pulmonary embolus protocol. Maximal intensity projections and sagittal and coronal reformats were viewed on an independent 3D workstation. IV contrast was administered without complication. CT DOSE: 810.79 mGy.cm FINDINGS: No pulmonary emboli are identified. The heart is mildly enlarged. There is no pericardial effusion. No enlarged thoracic lymph nodes are present. A few prominent right hilar lymph nodes are likely reactive. There has been significant progression of consolidation within the posterior segment of the right upper lobe. This has progressed since exam of September 17, 2016. There has been interval development of mild right lower lobe airspace opacity. Trace bilateral pleural effusions have developed. Upper abdomen is unremarkable. Bony thorax is unremarkable. IMPRESSION: 1. No pulmonary emboli identified. 2. Significant progression of consolidation within the posterior segment of the right upper lobe since chest CT of September 17, 2016 and interval development of mild right middle and lower lobe airspace opacity. The findings represent multifocal pneumonia. 3. Trace bilateral pleural effusions. Electronically signed by: Tushar Vera M.D. 09/22/2016 4:05 PM Dictated Date/Time: 09/22/2016 3:53 PM The status of this report is Signed. Draft = Not yet reviewed or approved by Radiologist. Signed = Reviewed and approved by Radiologist. <AttendingPhy></AttendingPhy> <FamilyPhy>Lisa Casanova, DO</FamilyPhy> < PrimaryPhy>Lisa Casanova, DO</PrimaryPhy> <UnitNumber>[id number]</UnitNumber > <VisitNumber>[id number]</VisitNumber> <PatientName>DIRK FINCH</ PatientName> <DateOfBirth>1985</DateOfBirth> <Location>[facility]</Location> < ServiceDate>09/22/16</ServiceDate> <MNE>ESINDI</MNE> <OrderingPhy>Jason Cervantes DO</OrderingPhy> <OrderingPhyMNE>f rep ord dr bermudez</OrderingPhyMNE> < DictatingPhyMNE>f rep dict dr bermudez</DictatingPhyMNE> <CCListMNE>f rep ct mne</ CCListMNE> <AdmittingPhyMNE>f pt admit dr bermudez</AdmittingPhyMNE> <AttendingPhyMNE >f pt attend dr bermudez</AttendingPhyMNE> <ConsultingPhyMNE>f pt consult dr bermudez</ConsultingPhyMNE> <FamilyPhyMNE>f pt fam dr bermudez</FamilyPhyMNE> <OtherPhyMNE>f pt other dr bermudez</OtherPhyMNE> < PrimaryPhyMNE>f pt prim care dr bermudez</PrimaryPhyMNE> <ReferringPhyMNE>f pt referring dr bermudez</ReferringPhyMNE> Normal EKG, other (non specific T wave abnormality) Impression Assessment and Plan RML PNA Will readmit to [facility]. IV Zosyn, Nebs, Oxygen. Blood and sputum cultures. Consult ID DVT prophylaxis Restart all other OP medications.
[2016-09-22] MEDS ORDERED: ZOLPIDEM TARTRATE 5 MG TAB PO PRN (18:45)
[2016-09-22] MEDS ORDERED: ACETAMINOPHEN 325 MG TAB PO PRN (18:45)
[2016-09-22] MEDS: ALBUTEROL 0.083% NEBU SOLN 3 ML VIAL INH SCH (21:00)
--- NOTE | 2016-09-22 21:20 | EMERGENCY ROOM VISIT NOTE ---
History Report prepared by Mauri: Kiana Miller Under the Supervision of: Dr. Jason Cervantes D.O. First contact with patient: 13:32 Chief Complaint: SHORTNESS OF BREATH Stated Complaint: SOB/CHEST DISCOMFORT Nursing Triage Summary: pt here with increased sob, non prod cough, chest discomfort. pt was discharged from here last pm after being admitted on tuesday for pneumonia. lungs diminished History of Present Illness The patient is a 30 year old female who presents to the Emergency Room with complaints of persistent shortness of breath that began several days ago. She currently rates her discomfort as a 6/10 in severity. The patient states that she was evaluated in the hospital since Tuesday for pneumonia and strep throat, noting that she was also tachycardic. She states that she was discharged from the hospital last evening, but states prior to discharge she began experiencing chest tightness. The patient states that she thought it was related to her bra strap, but states that even after she took her bra off, her pain persisted. She associates lightheadedness and dizziness. The patient notes difficulty keeping her food down, but states that she has been keeping up on her fluids. The patient states that she felt syncopal today when she went to get up to get Gatorade. She notes a history of asthma and states that this is her second bout with pneumonia. The patient states that she is unsure when her last bowel movement was. She associates fevers and a productive cough bringing up brown sputum. The patient states that she took a breathing treatment without relief of her symptoms today. Pt denies headache, change in vision, nausea, vomiting, diarrhea, pain with urination, and melena. Source of History: patient Onset: several days ago Position: other (global) Symptom Intensity: 6/10 Quality: other (shortness of breath) Timing: other (persistent) Associated Symptoms: + chest pain, + cough, + fevers Note: Associated Symptoms: lightheadedness, dizziness Review of Systems See HPI for pertinent positives & negatives. A total of 10 systems reviewed and were otherwise negative. Past Medical & Surgical Medical Problems: (1) Acute bronchitis (2) Anxiety (3) Asthma, Unspecified (4) Benzodiazepine abuse (5) Bipolar disorder (6) Chronic GERD (7) Contusion of right hip (8) Esophageal Reflux (9) Fall due to slipping on ice or snow (10) MAXIMUS (generalized anxiety disorder) (11) Headache (12) Hyperlipidemia Nec/Nos (13) Low back strain (14) Migraine (15) Migraines (16) Occipital neuralgia (17) Opiate misuse (18) Shortness of breath (19) Syncope and collapse Surgical Problems: (1) Hx of cholecystectomy Family History Cancer Diabetes mellitus FH: heart disease High cholesterol Hypertension Ovarian cyst Social History Smoking Status: Never Smoker Alcohol Use: occasionally Drug Use: none Marital Status: Housing Status: lives with family Occupation Status: unemployed Current/Historical Medications Scheduled Albuterol Sulfate (Proventil Hfa), 2 PUFFS INH Q4H Ascorbic Acid (Vitamin C), 1 TAB PO HS Dextromethorphan Polymr Complx (Delsym), 10 ML PO DIRECTED Doxycycline Monohydrate (Monodox), 100 MG PO BID Eszopiclone (Lunesta), 3 MG PO HS Fluoxetine (Prozac), 20 MG PO DAILY Fluoxetine Hcl (Prozac), 40 MG PO DAILY Guaifenesin (Mucinex Maximum Strength), 1 TAB PO Q4H Lamotrigine (Lamictal), 200 MG PO QAM Magnesium Oxide (Mg Supplement (Magnesium), 400 MG PO DAILY Melatonin (Melatonin Maximum Strengt), 1 TAB PO HS Multiple Vitamin (Multivitamin), 1 TAB PO DAILY Pseudoephedrine (Sudafed), 30 MG PO Q12 Pyridoxine Hcl (Vitamin B 6), 50 MG PO DAILY Ziprasidone Hcl (Geodon), 80 MG PO QPM Scheduled PRN Acetamin/Butalbital/Caffeine (Fioricet), 1 TAB PO Q4-6 PRN for Migraine Acetaminophen (Tylenol), 1,000 MG PO DIRECTED PRN for Pain Diclofenac Potassium (Diclofenac Potassium), 50 MG PO Q8 PRN for PRN Gabapentin (Neurontin), 100 MG PO TID PRN for PRN Allergies Coded Allergies: Cephalosporins (Verified Allergy, Intermediate, HIVES, 09/22/16) Sumatriptan (Verified Allergy, Intermediate, RASH, 09/22/16) INJ OF IMITREX, RASH @ INJECTION SITE Cephalexin (Verified Allergy, Unknown, HIVES, 09/22/16) Metoclopramide (Verified Allergy, Unknown, ANXIETY, 09/22/16) Physical Exam Vital Signs Date Time Temp Pulse Resp B/P Pulse Ox O2 Delivery O2 Flow Rate FiO2 3/29/17 20:00 100 20 162/98 97 Room Air 09/22/16 18:05 91 20 140/108 95 Room Air 09/22/16 16:06 75 20 148/100 93 Room Air 09/22/16 14:10 83 16 149/94 94 Room Air 09/22/16 13:30 86 09/22/16 13:21 36.6 84 16 137/90 95 Room Air Physical Exam GENERAL: Sitting up in bed, obese, disheveled, nontoxic, alert. EYE EXAM: normal conjunctiva. OROPHARYNX: no exudate, no erythema, lips, buccal mucosa, and tongue normal and mucous membranes are moist NECK: supple, no nuchal rigidity, no adenopathy, non-tender LUNGS: Clear to auscultation. Normal chest wall mechanics HEART: Distant heart sounds. no murmurs, S1 normal and S2 normal ABDOMEN: abdomen soft, non-tender, normo-active bowel sounds, no masses, no rebound or guarding. BACK: Back is symmetrical on inspection and there is no deformity, no midline tenderness, no CVA tenderness. RECTAL: Heme negative scant stool. SKIN: no rashes and no bruising UPPER EXTREMITIES: upper extremities are grossly normal. LOWER EXTREMITIES: No pitting edema. Calves are equal bilaterally. NEURO EXAM: Normal sensorium, cranial nerves II-XII grossly intact, normal speech, no gross weakness of arms, no gross weakness of legs. Medical Decision & Procedures ER Provider Diagnostic Interpretation: Xray results per the radiologist and my interpretation. Other results have been interpreted by the radiologist and reviewed by me. CT ANGIOGRAPHY OF THE CHEST, PULMONARY EMBOLUS PROTOCOL CLINICAL HISTORY: Shortness of breath and chest discomfort. Elevated d-dimer. COMPARISON STUDY: Chest radiograph performed earlier today and chest CT September 17, 2016. TECHNIQUE: Following IV administration of 96 mL of Optiray-320, helical axial images of the chest were obtained utilizing the pulmonary embolus protocol. Maximal intensity projections and sagittal and coronal reformats were viewed on an independent 3D workstation. IV contrast was administered without complication. CT DOSE: 810.79 mGy.cm FINDINGS: No pulmonary emboli are identified. The heart is mildly enlarged. There is no pericardial effusion. No enlarged thoracic lymph nodes are present. A few prominent right hilar lymph nodes are likely reactive. There has been significant progression of consolidation within the posterior segment of the right upper lobe. This has progressed since exam of September 17, 2016. There has been interval development of mild right lower lobe airspace opacity. Trace bilateral pleural effusions have developed. Upper abdomen is unremarkable. Bony thorax is unremarkable. IMPRESSION: 1. No pulmonary emboli identified. 2. Significant progression of consolidation within the posterior segment of the right upper lobe since chest CT of September 17, 2016 and interval development of mild right middle and lower lobe airspace opacity. The findings represent multifocal pneumonia. 3. Trace bilateral pleural effusions. Electronically signed by: Tushar Vera M.D. 09/22/2016 4:05 PM Dictated Date/Time: 09/22/2016 3:53 PM TWO VIEW CHEST CLINICAL HISTORY: Cough and fever. FINDINGS: PA and lateral chest radiographs are compared to study dated 09/21/2016 and correlated with chest CT dated 09/17/2016. The examination is degraded by large body habitus. The cardiomediastinal silhouette is unremarkable. Patchy airspace consolidation is again seen in the right upper lobe and at the left lung base. No pleural effusion is identified. There is no pneumothorax. The bony thorax appears intact. IMPRESSION: Patchy airspace consolidation is again seen in the right upper lobe and at the left lung base. This is typical for pneumonia and not significantly changed from yesterday's examination. Electronically signed by: Willy Romo M.D. 09/22/2016 2:32 PM Dictated Date/Time: 09/22/2016 2:31 PM The status of this report is Signed. Draft = Not yet reviewed or approved by Radiologist. Signed = Reviewed and approved by Radiologist. Laboratory Results 09/22/16 14:05 Red Blood Count 2.90, Mean Corpuscular Volume 92.1, Mean Corpuscular Hemoglobin 31.0, Mean Corpuscular Hemoglobin Concent 33.7, Mean Platelet Volume 8.2, Neutrophils (%) (Auto) 79.6, Lymphocytes (%) (Auto) 12.1, Monocytes (%) (Auto) 5.1, Eosinophils (%) (Auto) 2.4, Basophils (%) (Auto) 0.2, Neutrophils # (Auto) 9.41, Lymphocytes # (Auto) 1.43, Monocytes # (Auto) 0.60, Eosinophils # (Auto) 0.28, Basophils # (Auto) 0.02 09/22/16 14:05 Test 09/22/16 14:05 White Blood Count 11.81 K/uL (4.8-10.8) Red Blood Count 2.90 M/uL (4.2-5.4) Hemoglobin 9.0 g/dL (12.0-16.0) Hematocrit 26.7 % (37-47) Mean Corpuscular Volume 92.1 fL (80-100) Mean Corpuscular Hemoglobin 31.0 pg (25-34) Mean Corpuscular Hemoglobin Concent 33.7 g/dl (32-36) Platelet Count 258 K/uL (130-400) Mean Platelet Volume 8.2 fL (7.4-10.4) Neutrophils (%) (Auto) 79.6 % Lymphocytes (%) (Auto) 12.1 % Monocytes (%) (Auto) 5.1 % Eosinophils (%) (Auto) 2.4 % Basophils (%) (Auto) 0.2 % Neutrophils # (Auto) 9.41 K/uL (1.4-6.5) Lymphocytes # (Auto) 1.43 K/uL (1.2-3.4) Monocytes # (Auto) 0.60 K/uL (0.11-0.59) Eosinophils # (Auto) 0.28 K/uL (0-0.5) Basophils # (Auto) 0.02 K/uL (0-0.2) RDW Standard Deviation 45.2 fL (36.4-46.3) RDW Coefficient of Variation 13.5 % (11.5-14.5) Immature Granulocyte % (Auto) 0.6 % Immature Granulocyte # (Auto) 0.07 K/uL (0.00-0.02) D-Dimer 1780 ug/L FEU (0-500) Anion Gap 6.0 mmol/L (3-11) Est Creatinine Clear Calc Drug Dose 79.5 ml/min Estimated GFR () 59.1 Estimated GFR (Non- 51.0 BUN/Creatinine Ratio 5.6 (10-20) Calcium Level 8.2 mg/dl (8.5-10.1) Total Bilirubin 0.6 mg/dl (0.2-1) Direct Bilirubin 0.1 mg/dl (0-0.2) Aspartate Amino Transf (AST/SGOT) 16 U/L (15-37) Alanine Aminotransferase (ALT/SGPT) 38 U/L (12-78) Alkaline Phosphatase 109 U/L (45-117) Troponin I 0.022 ng/ml (0-0.045) Total Protein 7.0 gm/dl (6.4-8.2) Albumin 3.0 gm/dl (3.4-5.0) Laboratory results per my review. Medications Administered Medications (Trade) Dose Ordered Sig/Theodore Route Start Time Stop Time Status Last Admin Dose Admin Sodium Chloride (Nss 1000ml) 1,000 ml @ 999 mls/hr Q1H1M STAT IV 09/22/16 13:44 09/22/16 14:44 DC 09/22/16 14:10 999 MLS/HR Ondansetron HCl (Zofran Inj) 4 mg NOW STAT IV 09/22/16 13:44 09/22/16 13:46 DC 09/22/16 14:09 4 MG Ketorolac Tromethamine (Toradol Inj) 30 mg NOW STAT IV 09/22/16 15:47 09/22/16 15:48 DC 09/22/16 16:06 30 MG Albuterol Sulfate (Ventolin 0.083% 2.5MG/3ML Neb) 2.5 mg NOW STAT INH 09/22/16 15:47 09/22/16 15:48 DC 09/22/16 16:06 2.5 MG Piperacillin Sod/ Tazobactam Sod (Zosyn Iv) 4.5 gm NOW STAT IV 09/22/16 17:55 09/22/16 17:57 DC 09/22/16 18:52 4.5 GM ECG Indication: chest pain, SOB/dyspnea Rate (beats per minute): 84 Rhythm: sinus rhythm Findings: other (normal axis, poor baseline, flipped T wave anterior leads) Comparison ECG Date: 09/17/16 Change: When compared to EKG done on 09/17/16 flipped T waves are old and ST changes have improved. ED Course ED COURSE: Vital signs were reviewed and showed normal vitals The patients medical record was reviewed The above diagnostic studies were performed and reviewed. ED treatments and interventions as stated above. 1334: The patient was evaluated in room A12B. A complete history and physical examination was performed. 1344: Ordered Zofran INj 4 mg IV, Sodium Chloride 1000 ml @ 999 mls/hr IV. 1547: Ordered Albuterol Sulfate 2.5 mg INH, Toradol Inj 30 mg IV. 1610: I reevaluated the patient at this time and she is resting comfortably. She states that she exerted herself more than usual yesterday in hopes to getting back to normal and that is when her shortness of breath worsened. I did a rectal exam at this time. See procedure note for further detail. 1755: Upon reevaluation, the patient is resting comfortably.I discussed my findings with the patient and she understands and agrees with the treatment plan. Based on the patients age, coexisting illnesses, exam and lab findings the decision to treat as an inpatient was made. The patient remained stable while under my care. The patient will be evaluated for further management. Ordered Zosyn IV 4.5 gm IV. 180: I discussed the patient's case with KATHERINE Palma. She is going to evaluate the patient for further treatment. Medical Decision Differential diagnoses includes but is not limited to pneumonia, bronchitis, COPD/Asthma exacerbation, pneumothorax, pulmonary embolism, congestive heart failure, acute coronary syndrome Patient is a 30-year-old female who was recently admitted to the hospital and discharged for pneumonia and strep throat. She has a history of asthma. Today she notes that she has become significant and more short of breath with ambulation. Labs show a mild leukocytosis of 11.8 thousand. Hemoglobin history down to 9 from her baseline of 12. Rectal was heme-negative. BMP along with LFTs bilirubin and troponin were unremarkable. D-dimer was elevated consequently CT PE was performed which showed worsening of her bilateral pneumonia. She was given a dose of cefepime and admitted to internal medicine with worsening bilateral pneumonia. Consults Time Called: 1757 Consulting Physician: KATHERINE Palma Returned Call: [phone] I discussed the patient's case with KATHERINE Palma. She is going to evaluate the patient for further treatment. Impression Primary Impression: Bilateral pneumonia Additional Impression: Chronic anemia Scribe Attestation The scribe's documentation has been prepared under my direction and personally reviewed by me in its entirety. I confirm that the note above accurately reflects all work, treatment, procedures, and medical decision making performed by me. Departure Information Dispostion Being Evaluated By Hospitalist Lisa Andre., DO (PCP) Problem Qualifiers Primary Impression: Bilateral pneumonia Pneumonia type: due to unspecified organism Lung location: unspecified part of lung Qualified Codes: J18.9 - Pneumonia, unspecified organism
[2016-09-22 21:58] VITALS: BP 140/88; PULSE 74; TEMP 36.7; O2SAT 96
[2016-09-22] MEDS ORDERED: NON-FORMULARY MEDICATION (Melatonin (Melatonin Maximum Strengt) 1 TAB) PO SCH (22:00)
[2016-09-22] MEDS ORDERED: LEVOFLOXACIN / D5W 750 MG in PREMIXED IN D5W 150 ML IV SCH (22:00)
[2016-09-22] MEDS ORDERED: DEXTROMETHORPHAN POLYMR COMPLX 60 MG/10 ML UDP PO PRN (22:00)
[2016-09-22] MEDS ORDERED: ACETAMINOPHEN 500 MG TAB PO PRN (22:00)
[2016-09-22] MEDS ORDERED: ALBUTEROL HFA 8 GM INHALER INH PRN (22:00)
[2016-09-22] MEDS: ALUMINUM/MAGNESIUM/SIMETH (MAALOX MAX) 30 ML UDC PO PRN (22:11)
[2016-09-22] MEDS: MAGNESIUM HYDROXIDE SUSP 30 ML UDC PO PRN (22:11)
[2016-09-22 23:35] VITALS: BP 154/97; PULSE 93; TEMP 36.6; O2SAT 96
[2016-09-22] MEDS: ESZOPICLONE 3 MG TAB PO SCH (23:35)
[2016-09-22] MEDS: BUTALBITAL/ACETAMIN/CAFFEINE TAB PO PRN (23:35)
[2016-09-22] MEDS: ZIPRASIDONE 80 MG CAP PO SCH (23:36)
[2016-09-22 23:48] VITALS: BP 154/97; PULSE 93; TEMP 36.6; O2SAT 96; Ht 165.1 cm; Wt 125.0 kg
[2016-09-23] MEDS ORDERED: NURSING VERBAL MED ORDER ONE ×2 (00:15)
[2016-09-23] MEDS ORDERED: DEXTROMETHORPHAN POLYMR COMPLX 60 MG/10 ML UDP PO PRN (00:45)
[2016-09-23] MEDS: PROCHLORPERAZINE INJ 10 MG in SYRINGE 8 ML IV PRN ×4 (01:04→22:16)
[2016-09-23] MEDS: ALBUTEROL 0.083% NEBU SOLN 3 ML VIAL INH SCH ×4 (02:01→20:00)
[2016-09-23] MEDS: DOXYCYCLINE IV 100 MG in DEXTROSE 5% 100ML 100 ML IV SCH ×2 (05:03→16:04)
[2016-09-23] MEDS: ALUMINUM/MAGNESIUM/SIMETH (MAALOX MAX) 30 ML UDC PO PRN (05:11)
[2016-09-23 07:03] VITALS: BP 136/85; PULSE 70; TEMP 36.9; O2SAT 93
[2016-09-23 07:55] VITALS: PULSE 61; O2SAT 98
[2016-09-23] MEDS ORDERED: FLUOXETINE HCL 20 MG CAP PO SCH (08:00)
[2016-09-23] MEDS: FLUOXETINE HCL 20 MG CAP PO SCH (09:03)
[2016-09-23] MEDS: PSEUDOEPHEDRINE HCL 30 MG TAB PO SCH ×2 (09:03→21:41)
[2016-09-23] MEDS: GUAIFENESIN 600 MG TABCR PO SCH ×2 (09:03→21:41)
[2016-09-23] MEDS: MAGNESIUM HYDROXIDE SUSP 30 ML UDC PO PRN (11:00)
--- NOTE | 2016-09-23 11:44 | Medical Consult ---
Consultation Date of Consultation: Sep 23, 2016. Attending Physician: Shiv Cortez M.D. Reason for Consultation: pneumonia History of Present Illness 30-year-old female well known to me from recent hospitalization, with history of asthma and bipolar disorder, recently diagnosed with pneumonia, discharged on oral antibiotics after improvement, but now readmitted with 1 day history of progressively worsening chest tightness and shortness of breath with difficulty breathing. She has not had fever since discharge. No significant sputum production. Has been started on doxycycline. As per recent consultation, patient has no significant travel history, but did have 2 ill children with respiratory infections prior to onset of her illness. Both are improving. Past Medical/Surgical History Medical Problems: (1) Abdominal pain Status: Acute (2) Bilateral pneumonia Status: Acute (3) Bradycardia Status: Acute (4) Chest pain Status: Acute (5) Chronic anemia Status: Acute (6) Contusion of right shoulder Status: Acute (7) Diffuse abdominal pain Status: Acute (8) Headache Status: Chronic (9) Intentional benzodiazepine overdose Status: Acute (10) Knee contusion Status: Acute (11) Left hip pain Status: Acute (12) Leg pain, left Status: Acute (13) Low back pain Status: Acute (14) Nausea vomiting and diarrhea Status: Acute (15) Postconcussion syndrome Status: Acute (16) Postconcussive syndrome Status: Acute (17) SIRS (systemic inflammatory response syndrome) Status: Acute (18) Strep pharyngitis Status: Acute (19) Syncope Status: Acute (20) Syncope Status: Acute (21) Syncope Status: Acute (22) Urinary tract infection Status: Acute Medical Problems: (1) Acute bronchitis (2) Anxiety (3) Asthma, Unspecified (4) Benzodiazepine abuse (5) Bipolar disorder (6) Chronic GERD (7) Contusion of right hip (8) Esophageal Reflux (9) Fall due to slipping on ice or snow (10) MAXIMUS (generalized anxiety disorder) (11) Headache (12) Hyperlipidemia Nec/Nos (13) Low back strain (14) Migraine (15) Migraines (16) Occipital neuralgia (17) Opiate misuse (18) Shortness of breath (19) Syncope and collapse Surgical Problems: (1) Hx of cholecystectomy Family History Cancer Diabetes mellitus FH: heart disease High cholesterol Hypertension Ovarian cyst Social History Smoking Status: Never Smoker Drug Use: none Marital Status: Housing Status: lives with family Occupation Status: unemployed Allergies Coded Allergies: Cephalosporins (Verified Allergy, Intermediate, HIVES, 09/22/16) Sumatriptan (Verified Allergy, Intermediate, RASH, 09/22/16) INJ OF IMITREX, RASH @ INJECTION SITE Cephalexin (Verified Allergy, Unknown, HIVES, 09/22/16) Metoclopramide (Verified Allergy, Unknown, ANXIETY, 09/22/16) Current Inpatient Medications Current Inpatient Medications Medications (Trade) Dose Ordered Sig/Theodore Route Start Time Stop Time Status Last Admin Dose Admin Ioversol (Optiray 320) 125 ml UD PRN IV 09/22/16 15:00 09/26/16 14:59 Albuterol Sulfate (Ventolin 0.083% 2.5MG/3ML Neb) 2.5 mg Q6R INH 09/22/16 21:00 10/22/16 20:59 09/23/16 07:53 2.5 MG Acetaminophen (Tylenol Tab) 650 mg Q4H PRN PO 09/22/16 18:45 10/22/16 18:44 Al Hydrox/Mg Hydrox/Simethicone (Maalox Max Susp) 15 ml Q4H PRN PO 09/22/16 18:45 10/22/16 18:44 09/23/16 05:11 15 ML Magnesium Hydroxide (Milk Of Magnesia Susp) 30 ml Q6H PRN PO 09/22/16 18:45 10/22/16 18:44 09/23/16 11:00 30 ML Zolpidem Tartrate (Ambien Tab) 5 mg HSZ PRN PO 09/22/16 18:45 10/22/16 18:44 09/23/16 01:11 5 MG Acetaminophen/ Butalbital/ Caffeine (Fioricet Tab) 1 tab Q6H PRN PO 09/22/16 22:00 10/22/16 21:59 09/22/16 23:35 1 TAB Albuterol (Ventolin Hfa Inhaler) 2 puffs Q4H PRN INH 09/22/16 22:00 10/22/16 21:59 Eszopiclone (Lunesta Tab) 3 mg HS PO 09/22/16 22:00 10/22/16 21:59 3/29/17 23:35 3 MG Fluoxetine HCl (Prozac Cap) 60 mg DAILY PO 09/23/16 08:00 10/23/16 07:59 09/23/16 09:03 60 MG Gabapentin (Neurontin Cap) 100 mg TID PRN PO 09/22/16 22:00 10/22/16 21:59 Pseudoephedrine HCl (Sudafed Tab) 30 mg Q12 PO 09/23/16 09:00 10/23/16 08:59 09/23/16 09:03 30 MG Guaifenesin (Mucinex Contr Rel Tab) 1,200 mg Q12 PO 09/23/16 09:00 10/23/16 08:59 09/23/16 09:03 1,200 MG Lamotrigine (Lamictal Tab) 200 mg QAM PO 09/23/16 08:00 10/23/16 07:59 09/23/16 09:03 200 MG Ziprasidone 80 mg 80 mg HS PO 09/23/16 22:00 10/23/16 21:59 09/22/16 23:36 80 MG Doxycycline Hyclate 100 mg/ Dextrose 110 ml @ 50 mls/hr Q12H IV 09/23/16 04:00 09/30/16 03:59 09/23/16 05:03 50 MLS/HR Prochlorperazine Edisylate/Syringe (Compazine Inj/ Syringe) 10 ml @ 5 mls/min Q6H PRN IV 09/23/16 00:45 10/23/16 00:44 09/23/16 07:35 5 MLS/MIN Diphenhydramine HCl (Benadryl Cap) 25 mg HS PRN PO 09/23/16 00:45 10/23/16 00:44 09/23/16 01:08 25 MG Dextromethorphan Polymer Complex (Delsym Susp) 60 mg DAILY PRN PO 09/23/16 00:45 10/23/16 00:44 09/23/16 01:08 60 MG Review of Systems Patient with episode of nausea and vomiting, otherwise all systems were reviewed and are negative except as per HPI Physical Exam Date Time Temp Pulse Resp B/P Pulse Ox O2 Delivery O2 Flow Rate FiO2 09/23/16 07:55 61 12 98 Room Air 09/23/16 07:45 Room Air 09/23/16 07:03 36.9 70 16 136/85 93 Room Air 09/23/16 01:44 Room Air 09/22/16 23:48 36.6 93 20 154/97 96 Room Air 09/22/16 23:35 36.6 93 20 154/97 96 Room Air 09/22/16 21:58 36.7 74 18 140/88 96 Room Air 09/22/16 20:00 100 20 162/98 97 Room Air 09/22/16 18:05 91 20 140/108 95 Room Air 09/22/16 16:06 75 20 148/100 93 Room Air 09/22/16 14:10 83 16 149/94 94 Room Air 09/22/16 13:30 86 09/22/16 13:21 36.6 84 16 137/90 95 Room Air General Appearance: WD/WN, no apparent distress, + obese Head: normocephalic, atraumatic Eyes: normal inspection, EOMI, sclerae normal ENT: normal ENT inspection, hearing grossly normal, pharynx normal Neck: supple, no adenopathy, trachea midline Respiratory/Chest: chest non-tender, no respiratory distress, + rales Cardiovascular: regular rate, rhythm, no gallop, no murmur Abdomen/GI: normal bowel sounds, non tender, soft, no organomegaly Back: normal inspection, no CVA tenderness Extremities/Musculoskelatal: normal inspection, no calf tenderness, non-tender Neurologic/Psych: alert, oriented x 3 Skin: normal color, warm/dry, no rash Lymphatic: no adenopathy Laboratory Results Date/Time Source Procedure Growth Status 09/22/16 19:47 Blood Blood Culture Pending Received 09/22/16 19:40 Blood Blood Culture Pending Received Last 24 Hours Test 09/22/16 14:05 White Blood Count 11.81 K/uL Red Blood Count 2.90 M/uL Hemoglobin 9.0 g/dL Hematocrit 26.7 % Mean Corpuscular Volume 92.1 fL Mean Corpuscular Hemoglobin 31.0 pg Mean Corpuscular Hemoglobin Concent 33.7 g/dl Platelet Count 258 K/uL Mean Platelet Volume 8.2 fL Neutrophils (%) (Auto) 79.6 % Lymphocytes (%) (Auto) 12.1 % Monocytes (%) (Auto) 5.1 % Eosinophils (%) (Auto) 2.4 % Basophils (%) (Auto) 0.2 % Neutrophils # (Auto) 9.41 K/uL Lymphocytes # (Auto) 1.43 K/uL Monocytes # (Auto) 0.60 K/uL Eosinophils # (Auto) 0.28 K/uL Basophils # (Auto) 0.02 K/uL RDW Standard Deviation 45.2 fL RDW Coefficient of Variation 13.5 % Immature Granulocyte % (Auto) 0.6 % Immature Granulocyte # (Auto) 0.07 K/uL D-Dimer 1780 ug/L FEU Sodium Level 143 mmol/L Potassium Level 3.5 mmol/L Chloride Level 108 mmol/L Carbon Dioxide Level 29 mmol/L Anion Gap 6.0 mmol/L Blood Urea Nitrogen 8 mg/dl Creatinine 1.40 mg/dl Est Creatinine Clear Calc Drug Dose 79.5 ml/min Estimated GFR () 59.1 Estimated GFR (Non- 51.0 BUN/Creatinine Ratio 5.6 Random Glucose 85 mg/dl Calcium Level 8.2 mg/dl Total Bilirubin 0.6 mg/dl Direct Bilirubin 0.1 mg/dl Aspartate Amino Transf (AST/SGOT) 16 U/L Alanine Aminotransferase (ALT/SGPT) 38 U/L Alkaline Phosphatase 109 U/L Troponin I 0.022 ng/ml Total Protein 7.0 gm/dl Albumin 3.0 gm/dl [~ rep ct add3]] CT ANGIOGRAPHY OF THE CHEST, PULMONARY EMBOLUS PROTOCOL CLINICAL HISTORY: Shortness of breath and chest discomfort. Elevated d-dimer. COMPARISON STUDY: Chest radiograph performed earlier today and chest CT September 17, 2016. TECHNIQUE: Following IV administration of 96 mL of Optiray-320, helical axial images of the chest were obtained utilizing the pulmonary embolus protocol. Maximal intensity projections and sagittal and coronal reformats were viewed on an independent 3D workstation. IV contrast was administered without complication. CT DOSE: 810.79 mGy.cm FINDINGS: No pulmonary emboli are identified. The heart is mildly enlarged. There is no pericardial effusion. No enlarged thoracic lymph nodes are present. A few prominent right hilar lymph nodes are likely reactive. There has been significant progression of consolidation within the posterior segment of the right upper lobe. This has progressed since exam of September 17, 2016. There has been interval development of mild right lower lobe airspace opacity. Trace bilateral pleural effusions have developed. Upper abdomen is unremarkable. Bony thorax is unremarkable. IMPRESSION: Assessment & Plan 30-year-old female with history of asthma now with progressive infiltrates, clinically not responding to prior antibiotic therapy. I have added IV ceftaroline to cover typical community-acquired pathogens as her cephalosporin allergy is actually gastrointestinal upset with oral cephalexin. Waiting serologic studies from recent admission. We will continue to follow.
[2016-09-23] MEDS: CEFTAROLINE FOSAMIL INJ 600 MG in SODIUM CHLORIDE 0.9% 250ML 250 ML IV SCH (12:49)
[2016-09-23 14:40] VITALS: PULSE 61; O2SAT 98
[2016-09-23 14:51] VITALS: BP 131/78; PULSE 75; TEMP 36.8; O2SAT 96
[2016-09-23] MEDS: HYDROmorphone INJ 1 MG/ML SYR IV PRN ×2 (15:32→22:38)
--- NOTE | 2016-09-23 17:29 | Hospitalist Progress Note ---
Hospitalist Progress Note Date of Service Sep 23, 2016. Subjective Pt evaluation today including: conversation w/ patient Respiratory: + cough, + dyspnea on exertion Cardiovascular: No PND, No chest pain, No claudication, No edema, No orthopnea, No palpitations, No problem reported, No see HPI Abdomen: No GI bleeding, No constipation, No diarrhea, No nausea, No pain, No problem reported, No see HPI, No vomiting Medications Medications (Trade) Dose Ordered Sig/Theodore Route Start Time Stop Time Status Last Admin Dose Admin Piperacillin Sod/ Tazobactam Sod (Zosyn Iv) 4.5 gm NOW STAT IV 09/22/16 17:55 09/22/16 17:57 DC 09/22/16 18:52 4.5 GM Albuterol Sulfate (Ventolin 0.083% 2.5MG/3ML Neb) 2.5 mg Q6R INH 09/22/16 21:00 10/22/16 20:59 09/23/16 14:40 2.5 MG Al Hydrox/Mg Hydrox/Simethicone (Maalox Max Susp) 15 ml Q4H PRN PO 09/22/16 18:45 10/22/16 18:44 09/23/16 05:11 15 ML Magnesium Hydroxide (Milk Of Magnesia Susp) 30 ml Q6H PRN PO 09/22/16 18:45 10/22/16 18:44 09/23/16 11:00 30 ML Zolpidem Tartrate 5 mg 5 mg HSZ PRN PO 09/22/16 18:45 10/22/16 18:44 09/23/16 01:11 5 MG Levofloxacin/Prmx (Levaquin / D5W/ Premixed D5W) 150 ml @ 100 mls/hr Q24H IV 09/22/16 22:00 09/23/16 02:58 DC 09/22/16 22:11 100 MLS/HR Acetaminophen/ Butalbital/ Caffeine (Fioricet Tab) 1 tab Q6H PRN PO 09/22/16 22:00 10/22/16 21:59 09/22/16 23:35 1 TAB Eszopiclone (Lunesta Tab) 3 mg HS PO 09/22/16 22:00 10/22/16 21:59 09/22/16 23:35 3 MG Fluoxetine HCl (Prozac Cap) 60 mg DAILY PO 09/23/16 08:00 10/23/16 07:59 09/23/16 09:03 60 MG Pseudoephedrine HCl (Sudafed Tab) 30 mg Q12 PO 09/23/16 09:00 10/23/16 08:59 09/23/16 09:03 30 MG Guaifenesin (Mucinex Contr Rel Tab) 1,200 mg Q12 PO 09/23/16 09:00 10/23/16 08:59 09/23/16 09:03 1,200 MG Lamotrigine (Lamictal Tab) 200 mg QAM PO 09/23/16 08:00 10/23/16 07:59 09/23/16 09:03 200 MG Ziprasidone 80 mg 80 mg HS PO 09/23/16 22:00 10/23/16 21:59 09/22/16 23:36 80 MG Doxycycline Hyclate 100 mg/ Dextrose 110 ml @ 50 mls/hr Q12H IV 09/23/16 04:00 09/30/16 03:59 09/23/16 16:04 50 MLS/HR Prochlorperazine Edisylate/Syringe (Compazine Inj/ Syringe) 10 ml @ 5 mls/min Q6H PRN IV 09/23/16 00:45 10/23/16 00:44 09/23/16 15:31 5 MLS/MIN Diphenhydramine HCl (Benadryl Cap) 25 mg HS PRN PO 09/23/16 00:45 10/23/16 00:44 09/23/16 01:08 25 MG Dextromethorphan Polymer Complex 60 mg 60 mg DAILY PRN PO 09/23/16 00:45 10/23/16 00:44 09/23/16 01:08 60 MG Ceftaroline Fosamil/Sodium Chloride (Teflaro Inj/Nss 250ml) 270 ml @ 250 mls/hr Q12H IV 09/23/16 12:00 09/30/16 11:44 09/23/16 12:49 250 MLS/HR Hydromorphone HCl (Dilaudid Inj) 1 mg Q4HWA PRN IV 09/23/16 14:30 10/07/16 14:29 09/23/16 15:32 1 MG Objective Vital Signs Date Time Temp Pulse Resp B/P Pulse Ox O2 Delivery O2 Flow Rate FiO2 09/23/16 16:00 Room Air 09/23/16 14:51 36.8 75 16 131/78 96 Room Air 09/23/16 14:40 61 12 98 Room Air 09/23/16 07:55 61 12 98 Room Air 09/23/16 07:45 Room Air 09/23/16 07:03 36.9 70 16 136/85 93 Room Air 09/23/16 01:44 Room Air 09/22/16 23:48 36.6 93 20 154/97 96 Room Air 09/22/16 23:35 36.6 93 20 154/97 96 Room Air 09/22/16 21:58 36.7 74 18 140/88 96 Room Air 09/22/16 20:00 100 20 162/98 97 Room Air 09/22/16 18:05 91 20 140/108 95 Room Air Physical Exam General Appearance: WD/WN Eyes: normal inspection ENT: normal ENT inspection, hearing grossly normal Neck: supple, no adenopathy Respiratory/Chest: chest non-tender, lungs clear, normal breath sounds Cardiovascular: regular rate, rhythm, no edema, no gallop Abdomen: normal bowel sounds, non tender, soft Extremities: normal range of motion 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 IV Ceftaroline, Nebs, Oxygen. Blood and sputum cultures. ID consult appreciated. DVT prophylaxis
[2016-09-23 20:01] VITALS: PULSE 76; O2SAT 96
[2016-09-23] MEDS: ZIPRASIDONE 80 MG CAP PO SCH (21:41)
[2016-09-23] MEDS: ESZOPICLONE 3 MG TAB PO SCH (21:41)
[2016-09-23] MEDS: GABAPENTIN 100 MG CAP PO PRN (21:41)
[2016-09-24 00:22] VITALS: BP 163/95; PULSE 82; TEMP 36.5; O2SAT 95
[2016-09-24] MEDS: CEFTAROLINE FOSAMIL INJ 600 MG in SODIUM CHLORIDE 0.9% 250ML 250 ML IV SCH ×2 (00:38→11:25)
[2016-09-24] MEDS: ALBUTEROL 0.083% NEBU SOLN 3 ML VIAL INH SCH ×4 (01:38→19:10)
[2016-09-24] MEDS: DOXYCYCLINE IV 100 MG in DEXTROSE 5% 100ML 100 ML IV SCH ×2 (04:42→16:45)
[2016-09-24] MEDS: FLUOXETINE HCL 20 MG CAP PO SCH (08:11)
[2016-09-24] MEDS: GUAIFENESIN 600 MG TABCR PO SCH ×2 (08:12→21:17)
[2016-09-24] MEDS: PSEUDOEPHEDRINE HCL 30 MG TAB PO SCH ×2 (08:12→21:18)
[2016-09-24 08:50] VITALS: BP 143/84; PULSE 62; TEMP 36.7; O2SAT 94
[2016-09-24] MEDS: HYDROmorphone INJ 1 MG/ML SYR IV PRN ×2 (11:23→18:27)
--- NOTE | 2016-09-24 14:11 | Infectious Disease Progress Nt ---
Progress Note Date of Service Sep 24, 2016. Subjective Pt evaluation today including: conversation w/ patient, physical exam, chart review, lab review, review of studies, conversation w/ travel sales consultant, review of inpatient medication list Feels much better today. Less cough, less SOB. Tolerating Abx. No fever. No other new complaints. All Other Systems: Reviewed and Negative Medications Current Inpatient Medications Medications (Trade) Dose Ordered Sig/Theodore Route Start Time Stop Time Status Last Admin Dose Admin Ioversol (Optiray 320) 125 ml UD PRN IV 09/22/16 15:00 09/26/16 14:59 Albuterol Sulfate (Ventolin 0.083% 2.5MG/3ML Neb) 2.5 mg Q6R INH 09/22/16 21:00 10/22/16 20:59 09/23/16 20:00 2.5 MG Acetaminophen (Tylenol Tab) 650 mg Q4H PRN PO 09/22/16 18:45 10/22/16 18:44 Al Hydrox/Mg Hydrox/Simethicone (Maalox Max Susp) 15 ml Q4H PRN PO 09/22/16 18:45 10/22/16 18:44 09/23/16 05:11 15 ML Magnesium Hydroxide (Milk Of Magnesia Susp) 30 ml Q6H PRN PO 09/22/16 18:45 10/22/16 18:44 09/23/16 11:00 30 ML Zolpidem Tartrate (Ambien Tab) 5 mg HSZ PRN PO 09/22/16 18:45 10/22/16 18:44 09/23/16 01:11 5 MG Acetaminophen/ Butalbital/ Caffeine (Fioricet Tab) 1 tab Q6H PRN PO 09/22/16 22:00 10/22/16 21:59 09/22/16 23:35 1 TAB Albuterol (Ventolin Hfa Inhaler) 2 puffs Q4H PRN INH 09/22/16 22:00 10/22/16 21:59 Eszopiclone (Lunesta Tab) 3 mg HS PO 09/22/16 22:00 10/22/16 21:59 09/23/16 21:41 3 MG Fluoxetine HCl (Prozac Cap) 60 mg DAILY PO 09/23/16 08:00 10/23/16 07:59 09/24/16 08:11 60 MG Gabapentin (Neurontin Cap) 100 mg TID PRN PO 09/22/16 22:00 10/22/16 21:59 09/23/16 21:41 100 MG Pseudoephedrine HCl (Sudafed Tab) 30 mg Q12 PO 09/23/16 09:00 10/23/16 08:59 09/24/16 08:12 30 MG Guaifenesin (Mucinex Contr Rel Tab) 1,200 mg Q12 PO 09/23/16 09:00 10/23/16 08:59 09/24/16 08:12 1,200 MG Lamotrigine (Lamictal Tab) 200 mg QAM PO 09/23/16 08:00 10/23/16 07:59 09/24/16 08:11 200 MG Ziprasidone 80 mg 80 mg HS PO 09/23/16 22:00 10/23/16 21:59 09/23/16 21:41 80 MG Doxycycline Hyclate 100 mg/ Dextrose 110 ml @ 50 mls/hr Q12H IV 09/23/16 04:00 09/30/16 03:59 09/24/16 04:42 50 MLS/HR Prochlorperazine Edisylate/Syringe (Compazine Inj/ Syringe) 10 ml @ 5 mls/min Q6H PRN IV 09/23/16 00:45 10/23/16 00:44 09/23/16 22:16 5 MLS/MIN Dextromethorphan Polymer Complex 60 mg 60 mg DAILY PRN PO 09/23/16 00:45 10/23/16 00:44 09/23/16 01:08 60 MG Ceftaroline Fosamil/Sodium Chloride (Teflaro Inj/Nss 250ml) 270 ml @ 250 mls/hr Q12H IV 09/23/16 12:00 09/30/16 11:44 09/24/16 11:25 250 MLS/HR Hydromorphone HCl (Dilaudid Inj) 1 mg Q4HWA PRN IV 09/23/16 14:30 10/07/16 14:29 09/24/16 11:23 1 MG Diphenhydramine HCl (Benadryl Cap) 75 mg HS PRN PO 09/23/16 22:00 10/23/16 21:59 09/23/16 21:41 75 MG Objective Vital Signs Date Time Temp Pulse Resp B/P Pulse Ox O2 Delivery O2 Flow Rate FiO2 09/24/16 08:50 36.7 62 15 143/84 94 Room Air 09/24/16 08:05 Room Air 09/24/16 00:22 36.5 82 16 163/95 95 Room Air 09/24/16 00:00 Room Air 09/23/16 20:01 76 16 96 Room Air 09/23/16 16:00 Room Air 09/23/16 14:51 36.8 75 16 131/78 96 Room Air 09/23/16 14:40 61 12 98 Room Air Physical Exam General Appearance: WD/WN, no apparent distress Eyes: normal inspection, EOMI, sclerae normal ENT: normal ENT inspection, hearing grossly normal, pharynx normal Neck: supple, no adenopathy, trachea midline Respiratory/Chest: chest non-tender, lungs clear, normal breath sounds, no respiratory distress Cardiovascular: regular rate, rhythm, no gallop, no murmur Abdomen: normal bowel sounds, non tender, soft, no organomegaly Extremities: non-tender, no calf tenderness Neurologic/Psychiatric: alert, normal mood/affect, oriented x 3 Skin: normal color, warm/dry, no rash Lymphatic: no adenopathy Laboratory Results Date/Time Source Procedure Growth Status 09/23/16 17:30 Nasal MRSA DNA Surveillance Screen - Final Specimen Negative for MRSA by DNA Probe Complete 09/24/16 08:57 Sputum Expectorated Sputum Gram Stain - Final Resulted 09/24/16 08:57 Sputum Expectorated Sputum Sputum Culture Pending Resulted Last 24 Hours Test 09/24/16 07:53 Bedside Glucose 109 mg/dl Assessment and Plan 30-year-old female with history of asthma with progressive infiltrates, clinically not responding to prior antibiotic therapy, now responding to combination of ceftaroline and doxycycline. Would recommend 7 day course. See no contraindication for home antibiotic therapy if can be arranged. Will discuss.
[2016-09-24 15:40] VITALS: BP 164/104; PULSE 71; TEMP 36.7; O2SAT 92
[2016-09-24 15:47] VITALS: BP 142/98
[2016-09-24] MEDS: PROCHLORPERAZINE INJ 10 MG in SYRINGE 8 ML IV PRN (16:40)
--- NOTE | 2016-09-24 17:37 | Hospitalist Progress Note ---
Hospitalist Progress Note Date of Service Sep 24, 2016. Subjective Pt evaluation today including: conversation w/ patient, physical exam, chart review Medications Medications (Trade) Dose Ordered Sig/Theodore Route Start Time Stop Time Status Last Admin Dose Admin Ziprasidone (Geodon Cap) 80 mg HS PO 09/23/16 22:00 10/23/16 21:59 09/23/16 21:41 80 MG Diphenhydramine HCl (Benadryl Cap) 75 mg HS PRN PO 09/23/16 22:00 10/23/16 21:59 09/23/16 21:41 75 MG Objective Vital Signs Date Time Temp Pulse Resp B/P Pulse Ox O2 Delivery O2 Flow Rate FiO2 09/24/16 15:47 142/98 09/24/16 15:40 36.7 71 16 164/104 92 Room Air 09/24/16 08:50 36.7 62 15 143/84 94 Room Air 09/24/16 08:05 Room Air 09/24/16 00:22 36.5 82 16 163/95 95 Room Air 09/24/16 00:00 Room Air 09/23/16 20:01 76 16 96 Room Air Physical Exam General Appearance: WD/WN Eyes: normal inspection ENT: normal ENT inspection Neck: supple, no adenopathy, thyroid normal, no JVD Respiratory/Chest: chest non-tender, lungs clear, normal breath sounds Cardiovascular: regular rate, rhythm, no edema, no gallop Abdomen: normal bowel sounds Extremities: normal range of motion 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 Blood and sputum cultures. ID consult appreciated. DVT prophylaxis
[2016-09-24] MEDS: ESZOPICLONE 3 MG TAB PO SCH (21:18)
[2016-09-24] MEDS: ZIPRASIDONE 80 MG CAP PO SCH (21:18)
[2016-09-24 23:06] VITALS: BP 119/82; PULSE 84; TEMP 36.7; O2SAT 95
[2016-09-25] MEDS: CEFTAROLINE FOSAMIL INJ 600 MG in SODIUM CHLORIDE 0.9% 250ML 250 ML IV SCH ×2 (00:13→11:33)
[2016-09-25] MEDS: ALBUTEROL 0.083% NEBU SOLN 3 ML VIAL INH SCH ×4 (01:48→19:55)
[2016-09-25] MEDS: DOXYCYCLINE IV 100 MG in DEXTROSE 5% 100ML 100 ML IV SCH ×2 (04:39→16:29)
[2016-09-25] MEDS: BUTALBITAL/ACETAMIN/CAFFEINE TAB PO PRN (07:41)
[2016-09-25 08:00] VITALS: O2SAT 95
[2016-09-25 08:12] LABS: HEMATOCRIT 27.2 % (37-47); MEAN CORPUSCULAR HEMOGLOBIN 30.4 pg (25-34); MEAN CORPUSCULAR HGB CONC 33.5 g/dl (32-36); MEAN PLATELET VOLUME 8.1 fL (7.4-10.4); PLATELET COUNT 368 K/uL (130-400); RED BLOOD COUNT 2.99 M/uL (4.2-5.4); WHITE BLOOD COUNT 10.57 K/uL (4.8-10.8)
[2016-09-25 08:13] LABS: BASO % 0.4 %; BASO ABS # 0.04 K/uL (0-0.2); COMPLETE YES; EOS % 3.4 %; IG% 1.3 %; LARGE PLATELETS 1+; LYMPH % 16.5 %; LYMPH ABS # 1.74 K/uL (1.2-3.4); MONO % 5.2 %; NEUT % 73.2 %
[2016-09-25 08:14] VITALS: BP_SYST 162; BP_SYST 163; BP_DIAS 106; BP_DIAS 110; PULSE 73; TEMP 36.7; O2SAT 90
[2016-09-25 08:16] LABS: BUN/CREATININE RATIO 6.4 (10-20); CALCIUM 8.9 mg/dl (8.5-10.1); CREATININE 1.4 mg/dl (0.60-1.20); POTASSIUM 3.6 mmol/L (3.5-5.1)
[2016-09-25] MEDS: FLUOXETINE HCL 20 MG CAP PO SCH (08:23)
[2016-09-25] MEDS: PSEUDOEPHEDRINE HCL 30 MG TAB PO SCH ×2 (08:23→21:17)
[2016-09-25] MEDS: GUAIFENESIN 600 MG TABCR PO SCH ×2 (08:24→21:17)
[2016-09-25] MEDS: PROCHLORPERAZINE INJ 10 MG in SYRINGE 8 ML IV PRN ×2 (10:46→18:01)
[2016-09-25] MEDS: HYDROmorphone INJ 1 MG/ML SYR IV PRN ×2 (10:46→18:03)
[2016-09-25 11:47] VITALS: BP 154/104; PULSE 76; TEMP 36.8; O2SAT 95
--- NOTE | 2016-09-25 13:50 | Hospitalist Progress Note ---
Hospitalist Progress Note Date of Service Sep 25, 2016. Subjective Pt evaluation today including: conversation w/ patient, physical exam, chart review Constitutional: No chills, No fatigue, No fever, No problem reported, No see HPI, No sweats, No weakness, No weight loss ENT: No dental problems, No hearing loss, No nasal symptoms, No problem reported, No see HPI, No sore throat, No tinnitus, No trouble swallowing, No unusual epistaxis Respiratory: No cough, No dyspnea at rest, No dyspnea on exertion, No hemoptysis, No problem reported, No see HPI, No shortness of breath, No sputum, No wheezing Cardiovascular: No PND, No chest pain, No claudication, No edema, No orthopnea, No palpitations, No problem reported, No see HPI Objective Vital Signs Date Time Temp Pulse Resp B/P Pulse Ox O2 Delivery O2 Flow Rate FiO2 09/25/16 11:47 36.8 76 18 154/104 95 Room Air 09/25/16 08:14 36.7 73 20 163/110 90 Room Air 162/106 09/25/16 08:00 95 Room Air 09/25/16 00:00 Room Air 09/24/16 23:06 36.7 84 18 119/82 95 Room Air 09/24/16 16:00 Room Air 09/24/16 15:47 142/98 09/24/16 15:40 36.7 71 16 164/104 92 Room Air Physical Exam General Appearance: WD/WN, no apparent distress Eyes: normal inspection, PERRL, EOMI ENT: normal ENT inspection, hearing grossly normal Neck: supple, no adenopathy, thyroid normal, no JVD Respiratory/Chest: chest non-tender, lungs clear, normal breath sounds Cardiovascular: regular rate, rhythm, no edema, no gallop, no murmur Abdomen: normal bowel sounds, non tender, soft Extremities: normal range of motion, non-tender, normal inspection 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, alert, oriented x 3 Laboratory Results Last 24 Hours Test 09/25/16 07:15 White Blood Count 10.57 K/uL Red Blood Count 2.99 M/uL Hemoglobin 9.1 g/dL Hematocrit 27.2 % Mean Corpuscular Volume 91.0 fL Mean Corpuscular Hemoglobin 30.4 pg Mean Corpuscular Hemoglobin Concent 33.5 g/dl Platelet Count 368 K/uL Mean Platelet Volume 8.1 fL Neutrophils (%) (Auto) 73.2 % Lymphocytes (%) (Auto) 16.5 % Monocytes (%) (Auto) 5.2 % Eosinophils (%) (Auto) 3.4 % Basophils (%) (Auto) 0.4 % Neutrophils # (Auto) 7.74 K/uL Lymphocytes # (Auto) 1.74 K/uL Monocytes # (Auto) 0.55 K/uL Eosinophils # (Auto) 0.36 K/uL Basophils # (Auto) 0.04 K/uL RDW Standard Deviation 44.2 fL RDW Coefficient of Variation 13.4 % Immature Granulocyte % (Auto) 1.3 % Immature Granulocyte # (Auto) 0.14 K/uL Large Platelets 1+ Sodium Level 143 mmol/L Potassium Level 3.6 mmol/L Chloride Level 108 mmol/L Carbon Dioxide Level 27 mmol/L Anion Gap 8.0 mmol/L Blood Urea Nitrogen 9 mg/dl Creatinine 1.40 mg/dl Est Creatinine Clear Calc Drug Dose 79.5 ml/min Estimated GFR () 59.1 Estimated GFR (Non- 51.0 BUN/Creatinine Ratio 6.4 Random Glucose 90 mg/dl Calcium Level 8.9 mg/dl Assessment and Plan RML PNA Reports improvement in symptoms IV Ceftaroline, Doxycycline Nebs, Oxygen. Blood and sputum cultures are negative so far. ID consult appreciated. Consider DC home today and complete course of oral antibiotics. DVT prophylaxis
[2016-09-25 15:21] VITALS: BP 140/92; PULSE 68; TEMP 36.9; O2SAT 95
[2016-09-25 16:00] VITALS: O2SAT 95
--- NOTE | 2016-09-25 20:05 | DIAGNOSTIC IMAGING REPORT ---
CHEST ONE VIEW PORTABLE CLINICAL HISTORY: Right PICC. COMPARISON STUDY: Chest radiograph and chest CT September 22, 2016. FINDINGS: The tip of the right PICC projects over the proximal SVC. There is no pneumothorax. Multifocal right lung airspace opacities persist. Cardiomediastinal silhouette is stable. IMPRESSION: 1. Tip of right PICC projects over the proximal SVC. 2. Right lung airspace opacities which suggest pneumonia, as shown on prior chest CT. Electronically signed by: Tushar Vera M.D. 09/25/2016 8:04 PM Dictated Date/Time: 09/25/2016 8:03 PM
[2016-09-25] MEDS: ZIPRASIDONE 80 MG CAP PO SCH (21:16)
[2016-09-25] MEDS: ESZOPICLONE 3 MG TAB PO SCH (21:17)
[2016-09-25 23:49] VITALS: BP 158/85; PULSE 73; TEMP 36.6; O2SAT 97
[2016-09-26] VITALS (7 sets, daily range): BP systolic 139–160; BP diastolic 86–104; PULSE 61–87; TEMP 36.5–36.9; O2SAT 91–96
[2016-09-26] MEDS: CEFTAROLINE FOSAMIL INJ 600 MG in SODIUM CHLORIDE 0.9% 250ML 250 ML IV SCH ×3 (00:08→23:50)
[2016-09-26] MEDS: HYDROmorphone INJ 1 MG/ML SYR IV PRN ×3 (00:09→21:57)
[2016-09-26] MEDS: PROCHLORPERAZINE INJ 10 MG in SYRINGE 8 ML IV PRN ×2 (00:09→22:37)
[2016-09-26] MEDS: ALBUTEROL 0.083% NEBU SOLN 3 ML VIAL INH SCH ×3 (01:58→14:18)
[2016-09-26] MEDS: DOXYCYCLINE IV 100 MG in DEXTROSE 5% 100ML 100 ML IV SCH ×2 (04:40→16:00)
[2016-09-26] MEDS: FLUOXETINE HCL 20 MG CAP PO SCH (08:38)
[2016-09-26] MEDS: GUAIFENESIN 600 MG TABCR PO SCH ×2 (08:38→20:53)
[2016-09-26] MEDS: PSEUDOEPHEDRINE HCL 30 MG TAB PO SCH ×2 (08:39→20:53)
--- NOTE | 2016-09-26 14:44 | Hospitalist Progress Note ---
Hospitalist Progress Note Date of Service Sep 26, 2016. Subjective Pt evaluation today including: conversation w/ patient, physical exam, chart review Voiding: no voiding problems Objective Vital Signs Date Time Temp Pulse Resp B/P Pulse Ox O2 Delivery O2 Flow Rate FiO2 09/26/16 07:14 36.5 74 18 139/87 91 Room Air 09/26/16 00:42 36.6 09/26/16 00:37 95 Room Air 09/25/16 23:49 36.6 73 20 158/85 97 Room Air 09/25/16 16:00 95 Room Air 09/25/16 15:21 36.9 68 16 140/92 95 Room Air 09/25/16 11:47 36.8 76 18 154/104 95 Room Air 09/25/16 08:14 36.7 73 20 163/110 90 Room Air 162/106 09/25/16 08:00 95 Room Air Physical Exam General Appearance: WD/WN, no apparent distress Eyes: normal inspection, PERRL ENT: normal ENT inspection, hearing grossly normal Neck: supple, no adenopathy, thyroid normal Respiratory/Chest: chest non-tender, lungs clear, normal breath sounds Cardiovascular: regular rate, rhythm, no edema, no gallop Abdomen: normal bowel sounds, non tender, soft Extremities: normal range of motion, non-tender, normal inspection 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, 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 Laboratory Results 09/25/16 07:15 Red Blood Count 2.99, Mean Corpuscular Volume 91.0, Mean Corpuscular Hemoglobin 30.4, Mean Corpuscular Hemoglobin Concent 33.5, Mean Platelet Volume 8.1, Neutrophils (%) (Auto) 73.2, Lymphocytes (%) (Auto) 16.5, Monocytes (%) (Auto) 5.2, Eosinophils (%) (Auto) 3.4, Basophils (%) (Auto) 0.4, Neutrophils # (Auto) 7.74, Lymphocytes # (Auto) 1.74, Monocytes # (Auto) 0.55, Eosinophils # (Auto) 0.36, Basophils # (Auto) 0.04 09/25/16 07:15 Test 09/22/16 14:05 09/24/16 07:53 09/25/16 07:15 D-Dimer 1780 ug/L FEU (0-500) Total Bilirubin 0.6 mg/dl (0.2-1) Direct Bilirubin 0.1 mg/dl (0-0.2) Aspartate Amino Transf (AST/SGOT) 16 U/L (15-37) Alanine Aminotransferase (ALT/SGPT) 38 U/L (12-78) Alkaline Phosphatase 109 U/L (45-117) Troponin I 0.022 ng/ml (0-0.045) Total Protein 7.0 gm/dl (6.4-8.2) Albumin 3.0 gm/dl (3.4-5.0) Bedside Glucose 109 mg/dl (70-90) White Blood Count 10.57 K/uL (4.8-10.8) Red Blood Count 2.99 M/uL (4.2-5.4) Hemoglobin 9.1 g/dL (12.0-16.0) Hematocrit 27.2 % (37-47) Mean Corpuscular Volume 91.0 fL (80-100) Mean Corpuscular Hemoglobin 30.4 pg (25-34) Mean Corpuscular Hemoglobin Concent 33.5 g/dl (32-36) Platelet Count 368 K/uL (130-400) Mean Platelet Volume 8.1 fL (7.4-10.4) Neutrophils (%) (Auto) 73.2 % Lymphocytes (%) (Auto) 16.5 % Monocytes (%) (Auto) 5.2 % Eosinophils (%) (Auto) 3.4 % Basophils (%) (Auto) 0.4 % Neutrophils # (Auto) 7.74 K/uL (1.4-6.5) Lymphocytes # (Auto) 1.74 K/uL (1.2-3.4) Monocytes # (Auto) 0.55 K/uL (0.11-0.59) Eosinophils # (Auto) 0.36 K/uL (0-0.5) Basophils # (Auto) 0.04 K/uL (0-0.2) RDW Standard Deviation 44.2 fL (36.4-46.3) RDW Coefficient of Variation 13.4 % (11.5-14.5) Immature Granulocyte % (Auto) 1.3 % Immature Granulocyte # (Auto) 0.14 K/uL (0.00-0.02) Large Platelets 1+ Anion Gap 8.0 mmol/L (3-11) Est Creatinine Clear Calc Drug Dose 79.5 ml/min Estimated GFR () 59.1 Estimated GFR (Non- 51.0 BUN/Creatinine Ratio 6.4 (10-20) Calcium Level 8.9 mg/dl (8.5-10.1) Date/Time Source Procedure Growth Status 09/22/16 19:47 Blood Blood Culture - Preliminary NO GROWTH TO DATE. Resulted 09/23/16 17:30 Nasal MRSA DNA Surveillance Screen - Final Specimen Negative for MRSA by DNA Probe Complete 09/24/16 08:57 Sputum Expectorated Sputum Gram Stain - Final Complete 09/24/16 08:57 Sputum Expectorated Sputum Sputum Culture - Final SCANT NORMAL JOSHUA. Complete Assessment and Plan RML PNA Reports improvement in symptoms IV Ceftaroline, Doxycycline Nebs, Oxygen. Blood and sputum cultures are negative so far. ID consult appreciated. Consider DC home tomorrow and complete course of oral antibiotics. DVT prophylaxis
[2016-09-26] MEDS ORDERED: ALBUTEROL 0.083% NEBU SOLN 3 ML VIAL INH PRN (18:00)
[2016-09-26] MEDS: ZIPRASIDONE 80 MG CAP PO SCH (20:53)
[2016-09-26] MEDS: ESZOPICLONE 3 MG TAB PO SCH (21:17)
[2016-09-27] MEDS: DOXYCYCLINE IV 100 MG in DEXTROSE 5% 100ML 100 ML IV SCH ×2 (03:44→14:40)
[2016-09-27 07:51] VITALS: BP 128/76; PULSE 98; TEMP 36.8; O2SAT 94
[2016-09-27] MEDS: PROCHLORPERAZINE INJ 10 MG in SYRINGE 8 ML IV PRN (08:32)
[2016-09-27] MEDS: FLUOXETINE HCL 20 MG CAP PO SCH (08:33)
[2016-09-27] MEDS: PSEUDOEPHEDRINE HCL 30 MG TAB PO SCH (08:33)
[2016-09-27] MEDS: BUTALBITAL/ACETAMIN/CAFFEINE TAB PO PRN (08:33)
[2016-09-27] MEDS: GUAIFENESIN 600 MG TABCR PO SCH (08:34)
[2016-09-27 10:19] LABS: HEMATOCRIT 29.4 % (37-47); MEAN CELL VOLUME 90.2 fL (80-100); MEAN CORPUSCULAR HEMOGLOBIN 30.4 pg (25-34); MEAN CORPUSCULAR HGB CONC 33.7 g/dl (32-36); MEAN PLATELET VOLUME 8.1 fL (7.4-10.4); PLATELET COUNT 332 K/uL (130-400); RED BLOOD COUNT 3.26 M/uL (4.2-5.4); WHITE BLOOD COUNT 12.25 K/uL (4.8-10.8)
[2016-09-27] MEDS ORDERED: KETOROLAC TROMETHAMINE 30 MG/ML VIAL IV PRN (10:30)
[2016-09-27] MEDS: GABAPENTIN 100 MG CAP PO PRN (10:42)
[2016-09-27 10:52] LABS: BUN/CREATININE RATIO 9.5 (10-20); CALCIUM 9.1 mg/dl (8.5-10.1); CREATININE 1.3 mg/dl (0.60-1.20); POTASSIUM 3.8 mmol/L (3.5-5.1)
[2016-09-27] MEDS: CEFTAROLINE FOSAMIL INJ 600 MG in SODIUM CHLORIDE 0.9% 250ML 250 ML IV SCH (11:35)
[2016-09-27] MEDS ORDERED: DOXYPOW IV (12:01)
[2016-09-27] MEDS ORDERED: CEFT600I IV (12:01)
--- NOTE | 2016-09-27 12:06 | Discharge Instructions ---
Discharge Instructions Date of Service Sep 27, 2016. Admission Reason for Admission: Pneumonia Discharge Discharge Diagnosis / Problem: Pneumonia Discharge Goals Goal(s): Decrease discomfort, Improve function, Increase independence Activity Recommendations Activity Limitations: as noted below Lifting Limitations: gradually increase as tolerated Exercise/Sports Limitations: as tolerated May Resume Sexual Activity: when tolerated Shower/Bathe: no limitations . Instructions / Follow-Up Instructions / Follow-Up Pneumonia: - You will be continued on antibiotics by the intravenous line in your arm. - The prescription has been given to the agency to continue as this has given you adequate response. PICC Line: - Be sure to keep this PICC line clean and dry - Watch this area for increased pain, warmth, redness, or discharge that may represent infection. -- If you see any of these signs please come to the emergency department. Follow-Up: - Recommend follow-up with your family doctor in 7-10 days Current Hospital Diet Patient's current hospital diet: Regular Diet Discharge Diet Recommended Diet: Regular Diet Pending Studies Studies pending at discharge: no Laboratory Results Hemoglobin A1c Test 08/03/16 07:33 Range/Units Estimated Average Glucose 105 mg/dl Hemoglobin A1c 5.3 4.5-5.6 % Lipid Panel Test 08/03/16 07:33 Range/Units Triglycerides Level 190 H 0-150 mg/dl Cholesterol Level 284 H 0-200 mg/dl HDL Cholesterol 75 mg/dl Cholesterol/HDL Ratio 3.8 LDL Cholesterol, Calculated 171 mg/dl Medical Emergencies . Who to Call and When: Medical Emergencies: If at any time you feel your situation is an emergency, please call 911 immediately. . Non-Emergent Contact Non-Emergency issues call your: Primary Care Provider Call Non-Emergent contact if: you have a fever, your pain is concerning you, you have any medication questions . . "Provider Documentation" section prepared by Jusitne Craig. VTE Core Measure Inpt VTE Proph given/why not?: Brittney Meredith, SCD's
--- NOTE | 2016-09-27 13:42 | Discharge Summary ---
Discharge Summary Date of Service Sep 27, 2016. (Justine Craig, LOLIS) Discharge Summary Admission Date: Sep 22, 2016 at 18:35 Discharge Date: Sep 27, 2016 Discharge Disposition: Home Principal Diagnosis: Pneumonia Problems/Secondary Diagnoses: (1) Headache Status: Chronic Immunizations: Have You Had Influenza Vaccine: Yes Influenza Vaccine Date: Apr 24, 2009 History of Tetanus Vaccine?: Unknown History of Pneumococcal: No History of Hepatitis B Vaccine: Unknown Procedures: 1. TWO VIEW CHEST CLINICAL HISTORY: Cough and fever. FINDINGS: PA and lateral chest radiographs are compared to study dated 09/21/2016 and correlated with chest CT dated 09/17/2016. The examination is degraded by large body habitus. The cardiomediastinal silhouette is unremarkable. Patchy airspace consolidation is again seen in the right upper lobe and at the left lung base. No pleural effusion is identified. There is no pneumothorax. The bony thorax appears intact. IMPRESSION: Patchy airspace consolidation is again seen in the right upper lobe and at the left lung base. This is typical for pneumonia and not significantly changed from yesterday's examination. 2. CT ANGIOGRAPHY OF THE CHEST, PULMONARY EMBOLUS PROTOCOL CLINICAL HISTORY: Shortness of breath and chest discomfort. Elevated d-dimer. COMPARISON STUDY: Chest radiograph performed earlier today and chest CT September 17, 2016. TECHNIQUE: Following IV administration of 96 mL of [id number], helical axial images of the chest were obtained utilizing the pulmonary embolus protocol. Maximal intensity projections and sagittal and coronal reformats were viewed on an independent 3D workstation. IV contrast was administered without complication. CT DOSE: 810.79 mGy.cm FINDINGS: No pulmonary emboli are identified. The heart is mildly enlarged. There is no pericardial effusion. No enlarged thoracic lymph nodes are present. A few prominent right hilar lymph nodes are likely reactive. There has been significant progression of consolidation within the posterior segment of the right upper lobe. This has progressed since exam of September 17, 2016. There has been interval development of mild right lower lobe airspace opacity. Trace bilateral pleural effusions have developed. Upper abdomen is unremarkable. Bony thorax is unremarkable. IMPRESSION: 1. No pulmonary emboli identified. 2. Significant progression of consolidation within the posterior segment of the right upper lobe since chest CT of September 17, 2016 and interval development of mild right middle and lower lobe airspace opacity. The findings represent multifocal pneumonia. 3. Trace bilateral pleural effusions. 3. CHEST ONE VIEW PORTABLE CLINICAL HISTORY: Right PICC. COMPARISON STUDY: Chest radiograph and chest CT September 22, 2016. FINDINGS: The tip of the right PICC projects over the proximal SVC. There is no pneumothorax. Multifocal right lung airspace opacities persist. Cardiomediastinal silhouette is stable. IMPRESSION: 1. Tip of right PICC projects over the proximal SVC. 2. Right lung airspace opacities which suggest pneumonia, as shown on prior chest CT. Consultations: 1. Infectious Disease (Justine Craig, LOLIS) Medication Reconciliation Continued Medications: Acetamin/Butalbital/Caffeine (Fioricet) 1 Ea Tab 1 TAB PO Q4-6 PRN for Migraine, TAB Acetaminophen (Tylenol) 500 Mg Tab 1000 MG PO DIRECTED PRN for Pain, TAB Albuterol Sulfate (Proventil Hfa) 108 Mcg/Act Aer 2 PUFFS INH Q4H for 5 Days, #1 INHALER Ascorbic Acid (Vitamin C) 100 Mg Tab 1 TAB PO HS Ceftaroline Fosamil (Teflaro) 600 Mg Inj 600 MG IV BID for 4 Days Dextromethorphan Polymr Complx (Delsym) 60 Mg/10 Ml Liqcr 10 ML PO DIRECTED Diclofenac Potassium (Diclofenac Potassium) 50 Mg Tab 50 MG PO Q8 PRN for PRN, #30 Doxycycline Hyclate (Doxycycline Hyclate) 1 Pow Pow 100 MG IV BID for 4 Days Eszopiclone (Lunesta) 3 Mg Tab 3 MG PO HS, TAB Fluoxetine (Prozac) 20 Mg Cap 20 MG PO DAILY, CAP TAKE WITH THE 40MG TABLET FOR A TOTAL DOSE OF 60MG Fluoxetine Hcl (Prozac) 40 Mg Cap 40 MG PO DAILY TAKE WITH THE 20MG TABLET FOR A TOTAL DOSE OF 60MG Gabapentin (Neurontin) 100 Mg Cap 100 MG PO TID PRN for PRN, CAP Guaifenesin (Mucinex Maximum Strength) 1,200 Mg Tab 1 TAB PO Q4H Lamotrigine (Lamictal) 200 Mg Tab 200 MG PO QAM, TAB Magnesium Oxide (Mg Supplement (Magnesium) 400 Mg Cap 400 MG PO DAILY Melatonin (Melatonin Maximum Strengt) 5 Mg Tab 1 TAB PO HS for 30 Days, #30 TAB 1 Refill Multiple Vitamin (Multivitamin) 1 Tab Tab 1 TAB PO DAILY, TAB Pseudoephedrine (Sudafed) 30 Mg Tab 30 MG PO Q12, TAB Pyridoxine Hcl (Vitamin B 6) 50 Mg Tab 50 MG PO DAILY Ziprasidone Hcl (Geodon) 40 Mg Cap 80 MG PO QPM, CAP with evening meal Discontinued Medications: Doxycycline Monohydrate (Monodox) 100 Mg Cap 100 MG PO BID, CAP Discharge Exam Review of Systems: Constitutional: + problem reported (headache), No chills, No fever Eyes: No worsening of vision ENT: No nasal symptoms, No sore throat, No trouble swallowing Respiratory: + cough, No shortness of breath Cardiovascular: No chest pain Abdomen: No constipation, No diarrhea, No nausea, No pain, No vomiting Musculoskeletal: No calf pain, No swelling Genitourinary - Female: No dysuria Physical Exam: General Appearance: WD/WN, no apparent distress, + obese Eyes: sclerae normal ENT: hearing grossly normal Neck: supple, no JVD, trachea midline Respiratory/Chest: lungs clear, normal breath sounds, no respiratory distress, no accessory muscle use Cardiovascular: regular rate, rhythm, no gallop, no murmur Abdomen / GI: normal bowel sounds, non tender, soft Extremities: no calf tenderness, no pedal edema Neurologic/Psychiatric: alert, oriented x 3 Skin: normal color, warm/dry (Justine Craig, EARLC) Hospital Course ADMISSION: Patient is a30 yr old woman with a PMH significant for recent PNA, bipolar admitted to the hospital for evaluation of worsening SOB and reduced exer.tolerance. Recent admit for PNA and discharged on oral antibiotics. Post dc c/o DURAN , reduced ex.tolerance. Denies fevers, wheezing, abd pain, diarrhea. Min non prod cough. No hemoptysis. In ER CT chest done shows no PE, worsening consolidation (see below) HOSPITAL COURSE: Ms. Coates was admitted for worsening right middle lobe pneumonia. On previous admission she was discharged home on doxycycline 100 mg BID and reports worsening of symptoms. CTA of the chest negative for pulmonary embolism however shows progression of consolidation. Please see procedure for official imaging reports. She was started on IV antibiotic therapy and infectious disease was consulted. PICC line inserted in RUE and home IV antibiotics instituted through [facility]. Recommendations to continue Ceftaroline 600 mg IV Q12H via PICC line. A prescription was provided for doxycycline 100 mg po BID to cover for atypicals. Antibiotic therapy plan to continue until 09/30/2016. Patient is afebrile and reporting marked improvement in symptoms. Blood cultures are with NGTD. Patient had pre-established PCP follow-up for 10/01/2016. Patient is optimal for discharge home at this time. Total Time Spent: Greater than 30 minutes This includes examination of the patient, discharge planning, medication reconciliation, and communication with other providers. (Justine Craig PA-C) i personally examined pt and verified all hendrix points w A Rafa PAC feeling better wants to go home IV abx being set up - per case management, appears today should be OK for discharge vitals noted, nad breathing unlabored, no pallor pneumonia refractory to previous outpt treatment - home on IV ceftalorine, on doxy as per ID outpt f/u (Jason Sanders D.O.) Discharge Instructions Please refer to the electronic Patient Visit Report (Discharge Instructions) for additional information. (Justine Craig, EARLC) Additional Copies To Lisa Casanova,
[2016-09-27] MEDS ORDERED: DXY100 PO (14:12)
[2016-09-27 14:19] VITALS: BP 128/76; PULSE 98; TEMP 36.8; O2SAT 94
[2016-12-08] MEDS ORDERED: MULTTAB58 PO (10:42)
[2016-12-08] MEDS ORDERED: PYRI50TA77 PO (15:35)
[2016-12-08] MEDS ORDERED: PRZ/40 PO (18:29)
[2016-12-08] MEDS ORDERED: ACET-1256 PO (19:46)
== END 2016-09-27 17:15 | disposition home health service (06) | DRG 195 ==
LOC: ENRESERVDT → ENRESERVTM → EDBD 13:03 → C.EDA 13:05 → C.MS4W 18:35 → C.MED 09-25 11:46
PROVIDERS: ADMIT Internal Medicine; ATTEND Family Medicine
PROC: 05HB33Z Insertion of Infusion Device into Right Basilic Vein, Percutaneous Approach (ICD-10-PCS; principal; 2016-09-25)
DX: J18.9 Pneumonia, unspecified organism (principal); J45.909 Unspecified asthma, uncomplicated; F31.9 Bipolar disorder, unspecified; Z83.3 Family history of diabetes mellitus; Z82.49 Family history of ischemic heart disease and other diseases of the circulatory system

== ENCOUNTER → 2016-10-26 | Outpatient (CLI) | payer OTHER ==
[~2016-10-26] MED LIST changes: +ACET-1256 PO; +AMT25 PO; +BUTA1CAP20 PO; +CEFT600I IV; +CTF50 PO; +CYAN10004 PO; +CYCL10TA6 PO; +DOXY100T17 PO; +DXY100 PO; +FLUO20CA36 PO; +GDN40 PO; +GUAI1TAB69 PO; +HYDR1CAP85 PO; +HYDR25TA5 PO; +LAMO200T38 PO; +METR0.757 PV; +MULTTAB58 PO; +NRN100 PO; +PRZ/40 PO; +PYRI50TA77 PO
--- NOTE | 2016-10-26 12:39 | DIAGNOSTIC IMAGING REPORT ---
CHEST 2 VIEWS ROUTINE CLINICAL HISTORY: J18.9 Pneumonia pneumonia COMPARISON STUDY: 09/25/2016 FINDINGS: Lungs are now considered clear. Mild stable cardiomegaly. Diaphragms are smooth. IMPRESSION: Lungs are now considered clear. No acute infiltrate. Electronically signed by: Sergio Ahmadi M.D. 10/26/2016 12:37 PM Dictated Date/Time: 10/26/2016 12:37 PM
== END | disposition home or self-care (01) ==
LOC: C.RAD 11:51
PROVIDERS: ATTEND Nurse Practitioner Family
DX: J18.9 Pneumonia, unspecified organism (principal)

== ENCOUNTER → 2016-11-02 | Outpatient (CLI) | payer OTHER ==
[2016-11-02 17:55] LABS: ALKALINE PHOSPHATASE 104 U/L (45-117); ALT/SGPT 26 U/L (12-78); AST/SGOT 14 U/L (15-37); BLOOD UREA NITROGEN 6 mg/dl (7-18); BUN/CREATININE RATIO 6.8 (10-20); CALCIUM 8.9 mg/dl (8.5-10.1); CARBON DIOXIDE 33 mmol/L (21-32); CHLORIDE 102 mmol/L (98-107); CREATININE 0.84 mg/dl (0.60-1.20); GLUCOSE 93 mg/dl (70-99); MAGNESIUM 2.4 mg/dl (1.8-2.4); POTASSIUM 3.2 mmol/L (3.5-5.1); SODIUM 140 mmol/L (136-145)
== END | disposition home or self-care (01) ==
LOC: C.LABPBG 11:30
PROVIDERS: ATTEND Nurse Practitioner Family
DX: R03.0 Elevated blood-pressure reading, without diagnosis of hypertension (principal)

== ENCOUNTER 2016-12-08 21:37 | Emergency (ER) | payer OTHER ==
[~2016-12-08] VITALS: Ht 165.1 cm; Wt 122.0 kg
[~2016-12-08 21:37] MED LIST changes: -AMT25 PO; -BUTA1CAP20 PO; -CTF50 PO; -CYAN10004 PO; -CYCL10TA6 PO; -DOXY100T17 PO; -FLUO20CA36 PO; -GDN40 PO; -HYDR1CAP85 PO; -HYDR25TA5 PO; -LAMO200T38 PO; -METR0.757 PV; -NRN100 PO
[2016-12-08 21:43] VITALS: TEMP 36.9; Ht 165.1 cm; Wt 122.0 kg
[2016-12-08] MEDS ORDERED: SODIUM CHLORIDE 0.9% 1000ML 1,000 ML, SODIUM CHLORIDE 0.9% 1000ML 1,000 ML IV ONE (22:15)
[2016-12-08 22:27] LABS: BASO % 0.2 %; BASO ABS # 0.02 K/uL (0-0.2); COMPLETE YES; EOS % 1.5 %; HEMATOCRIT 35.5 % (37-47); IG% 0.3 %; LYMPH % 28.2 %; LYMPH ABS # 3.31 K/uL (1.2-3.4); MEAN CORPUSCULAR HEMOGLOBIN 29.5 pg (25-34); MEAN CORPUSCULAR HGB CONC 32.1 g/dl (32-36); MEAN PLATELET VOLUME 8.7 fL (7.4-10.4); MONO % 4.4 %; NEUT % 65.4 %; PLATELET COUNT 381 K/uL (130-400); RED BLOOD COUNT 3.86 M/uL (4.2-5.4); WHITE BLOOD COUNT 11.72 K/uL (4.8-10.8)
[2016-12-08] MEDS ORDERED: CTF50 PO (22:28)
--- NOTE | 2016-12-08 22:37 | DIAGNOSTIC IMAGING REPORT ---
CHEST ONE VIEW PORTABLE CLINICAL HISTORY: Vague chest pain/weakness chest pain. Weakness. COMPARISON STUDY: 10/26/2016 FINDINGS: Mild stable cardiomegaly. Lungs are clear. Diaphragms smooth. IMPRESSION: Mild stable cardiomegaly. Electronically signed by: Sergio Ahmadi M.D. 12/08/2016 10:35 PM Dictated Date/Time: 12/08/2016 10:35 PM
[2016-12-08 22:39] LABS: POINT OF CARE TROPONIN I < 0.030 ng/ml (0-0.045)
[2016-12-08 22:39] LABS: PARTIAL THROMBOPLASTIN RATIO 1.1; PROTHROMBIN TIME (PATIENT) 10.6 SECONDS (9.0-12.0)
[2016-12-08 22:49] LABS: ALT/SGPT 22 U/L (12-78); AST/SGOT 16 U/L (15-37); BLOOD UREA NITROGEN 6 mg/dl (7-18); CALCIUM 9.1 mg/dl (8.5-10.1); CARBON DIOXIDE 29 mmol/L (21-32); CHLORIDE 103 mmol/L (98-107); CREATININE 0.93 mg/dl (0.60-1.20); GLUCOSE 93 mg/dl (70-99); MAGNESIUM 2.2 mg/dl (1.8-2.4); POTASSIUM 3.4 mmol/L (3.5-5.1); SODIUM 141 mmol/L (136-145)
--- NOTE | 2016-12-08 22:57 | DIAGNOSTIC IMAGING REPORT ---
HEAD CT NONCONTRAST CT DOSE: 537.48 mGy.cm HISTORY: Weakness/confusion TECHNIQUE: Multiaxial CT images of the head were performed without the use of intravenous contrast. Comparison: None. Findings: The paranasal sinuses and mastoid air cells are clear. The calvarium and skull base are intact. The ventricles and sulci are within normal limits. There is no mass, hematoma, midline shift, or acute infarct. Impression: No acute intracranial abnormality. Electronically signed by: Sergio Ahmadi M.D. 12/08/2016 10:56 PM Dictated Date/Time: 12/08/2016 10:55 PM
[2016-12-08 22:59] LABS: ALKALINE PHOSPHATASE 85 U/L (45-117)
[2016-12-08] MEDS ORDERED: DOXY100T17 PO (22:59)
[2016-12-08] MEDS ORDERED: GDN40 PO (22:59)
[2016-12-08] MEDS ORDERED: HYDR25TA5 PO (22:59)
[2016-12-08] MEDS ORDERED: LAMO200T38 PO (22:59)
[2016-12-08] MEDS ORDERED: FLUO20CA36 PO (22:59)
[2016-12-08] MEDS ORDERED: NRN100 PO (22:59)
[2016-12-08] MEDS ORDERED: BUTA1CAP20 PO (22:59)
[2016-12-08] MEDS ORDERED: CYAN10004 PO (23:07)
[2016-12-08] MEDS ORDERED: ALBUAER INH (23:07)
[2016-12-08 23:19] LABS: URINE APPEARANCE CLEAR (CLEAR); URINE BILIRUBIN NEG (NEG); URINE COLOR YELLOW; URINE NITRITE NEG (NEG); URINE PH 6.5 (4.5-7.5); URINE SPECIFIC GRAVITY 1.011 (1.000-1.030); UROBILINOGEN NEG (NEG); ZZUR CULT IF INDIC CLEAN CATCH NO
[2016-12-08 23:19] LABS: LYME DISEASE AB IGG NEG (NEG); LYME DISEASE AB IGM NEG (NEG)
[2016-12-08 23:22] LABS: MANUAL MICROSCOPIC REQUIRED? NO; REVIEW REQ? NO
[2016-12-08 23:38] LABS: BENZODIAZEPINE, URINE NEG (NEG); COCAINE,URINE NEG (NEG); PHENCYCLIDINE, URINE NEG (NEG)
[2016-12-08] MEDS ORDERED: ACETAMINOPHEN 500 MG TAB PO STA (23:41)
[2016-12-09 00:55] VITALS: BP 131/72; PULSE 73; O2SAT 96
--- NOTE | 2016-12-09 02:50 | EMERGENCY ROOM VISIT NOTE ---
History First contact with patient: 22:04 Chief Complaint: NEURO SYMPTOMS Stated Complaint: BLURRED VISION, CONFUSION, CHEST PAIN, L ARM NUMB Nursing Triage Summary: patient c/o not remembering events that occurred today besides the last forty five minutes. states she feels confused. patient also c/o left sided chest discomfort . patient's boyfriend also report patient is being treated for staph infection that began in right armpit. patient currently awake and alert . History of Present Illness The patient is a 31 year old female who presents to the Emergency Room with multiple complaints. The patient is accompanied to the facility by her boyfriend who provides much of the history. The patient was outside in the heat most of the day, and began feeling ill. She was reportedly confused and complaining of chest pain according to her boyfriend. The patient voiced a desire to go inside and rest. The patient did drink water once getting inside, and this did not immediately improve her symptoms. The boyfriend states that he became worried, and now brings her to the emergency department for evaluation of the confusion and chest pain. The patient herself states that she has not been feeling well for the past 45 minutes. She states that she is with history of anxiety and depression. She is on doxycycline for an axillary abscess. Today is her seventh day of the medication, and she has been tolerating this well. She rates her overall discomfort a 5/10. No recent travel history. Review of Systems More than 10 systems were reviewed and otherwise negative with the exception of history of present illness. Past Medical/Surgical History Medical Problems: (1) Acute bronchitis (2) Anxiety (3) Asthma, Unspecified (4) Benzodiazepine abuse (5) Bipolar disorder (6) Chronic GERD (7) Contusion of right hip (8) Esophageal Reflux (9) Fall due to slipping on ice or snow (10) MAXIMUS (generalized anxiety disorder) (11) Headache (12) Hyperlipidemia Nec/Nos (13) Low back strain (14) Migraine (15) Migraines (16) Occipital neuralgia (17) Opiate misuse (18) Shortness of breath (19) Syncope and collapse Surgical Problems: (1) Hx of cholecystectomy Family History Cancer Diabetes mellitus FH: heart disease High cholesterol Hypertension Ovarian cyst Social History Smoking Status: Never Smoker Alcohol Use: occasionally Drug Use: none Marital Status: Housing Status: lives with family Occupation Status: unemployed Current/Historical Medications Scheduled Cyanocobalamin (Vitamin B-12 1000 Mcg), 1,000 MCG PO DAILY Doxycycline (Monohydrate) (Doxycycline Monohydrate), 100 MG PO BID Fluoxetine HCl (Fluoxetine HCl), 20 MG PO DAILY Fluoxetine Hcl (Prozac), 40 MG PO DAILY Gabapentin (Gabapentin), 300 MG PO BID Hydrochlorothiazide (Hydrochlorothiazide), 25 MG PO DAILY Lamotrigine (Lamictal), 200 MG PO QAM Multiple Vitamin (Multivitamin), 1 TAB PO DAILY Pyridoxine Hcl (Vitamin B 6), 50 MG PO DAILY Ziprasidone (Ziprasidone HCl), 80 MG PO QPM Scheduled PRN Acetaminophen (Tylenol), 1,000 MG PO UD PRN for Pain Albuterol Sulfate (Proventil Hfa), 2 PUFFS INH Q4H PRN for SOB/Wheezing Dzimiyyudu-Qydnzntncqowp-Fzecp (Butalbital/APAP/Caffeine 50-300-40 mg), 1 CAP PO Q4-6HRS PRN for Migraine Diclofenac Potassium (Diclofenac Potassium), 50 MG PO Q8 PRN for Pain Allergies Coded Allergies: Cephalosporins (Verified Allergy, Intermediate, HIVES, 09/22/16) Sumatriptan (Verified Allergy, Intermediate, RASH, 09/22/16) INJ OF IMITREX, RASH @ INJECTION SITE Cephalexin (Verified Allergy, Unknown, HIVES, 09/22/16) Metoclopramide (Verified Allergy, Unknown, ANXIETY, 09/22/16) Physical Exam Vital Signs Date Time Temp Pulse Resp B/P (MAP) Pulse Ox O2 Delivery O2 Flow Rate FiO2 12/09/16 00:55 73 20 131/72 96 Room Air 12/08/16 23:46 95 18 143/95 97 Room Air 12/08/16 22:34 86 20 126/77 95 Room Air 12/08/16 22:10 88 12/08/16 21:43 36.9 100 18 111/75 94 Room Air Pain Rating (0-10): 6.0 Physical Exam VITALS: Vitals are noted on the nurse's note and reviewed by myself. Vital signs stable. GENERAL: Well-developed, well-nourished, white female, who is in no acute distress and resting comfortably. Patient is cooperative with the examination. HEAD: Normocephalic atraumatic. EARS: External ear normal. External auditory canals clear, tympanic membranes pearly arndt without erythema or effusion bilaterally. EYES: Pupils equal round and reactive to light and accommodation. Conjunctivae without injection, sclerae without icterus. Extraocular movements intact. NOSE: Patent, turbinates without inflammation or discharge. MOUTH: Mucous membranes moist. Tonsils are not enlarged. Pharynx without erythema, blood, or exudate. Uvula midline. Airway patent. NECK: Supple without nuchal rigidity. No lymphadenopathy. No thyromegaly. Cervical spine is nontender. HEART: Regular rate and rhythm without murmurs gallops or rubs. LUNGS: Clear to auscultation bilaterally without wheezes, rales or rhonchi. No retractions or accessory muscle use. ABDOMEN: Positive normal bowel sounds x 4. Soft, nontender, without masses or organomegaly. No guarding or rebound tenderness. MUSCULOSKELETAL: No muscle atrophy, erythema, or edema noted. Full range of motion without joint tenderness in all extremities. No tenderness to palpation. Normal gait. Strength 5/5 throughout. NEURO: Patient was alert and oriented to person place and time. CN II through XII grossly intact. Medical Decision & Procedures ER Provider Diagnostic Interpretation: CHEST ONE VIEW PORTABLE CLINICAL HISTORY: Vague chest pain/weakness chest pain. Weakness. COMPARISON STUDY: 10/26/2016 FINDINGS: Mild stable cardiomegaly. Lungs are clear. Diaphragms smooth. IMPRESSION: Mild stable cardiomegaly. HEAD CT NONCONTRAST CT DOSE: 537.48 mGy.cm HISTORY: Weakness/confusion TECHNIQUE: Multiaxial CT images of the head were performed without the use of intravenous contrast. Comparison: None. Findings: The paranasal sinuses and mastoid air cells are clear. The calvarium and skull base are intact. The ventricles and sulci are within normal limits. There is no mass, hematoma, midline shift, or acute infarct. Impression: No acute intracranial abnormality. Laboratory Results 12/08/16 22:10 Red Blood Count 3.86, Mean Corpuscular Volume 92.0, Mean Corpuscular Hemoglobin 29.5, Mean Corpuscular Hemoglobin Concent 32.1, Mean Platelet Volume 8.7, Neutrophils (%) (Auto) 65.4, Lymphocytes (%) (Auto) 28.2, Monocytes (%) (Auto) 4.4, Eosinophils (%) (Auto) 1.5, Basophils (%) (Auto) 0.2, Neutrophils # (Auto) 7.67, Lymphocytes # (Auto) 3.31, Monocytes # (Auto) 0.51, Eosinophils # (Auto) 0.17, Basophils # (Auto) 0.02 12/08/16 22:10 Test 12/08/16 21:55 12/08/16 22:10 12/08/16 22:15 12/08/16 22:20 Bedside Glucose 93 mg/dl (70-90) White Blood Count 11.72 K/uL (4.8-10.8) Red Blood Count 3.86 M/uL (4.2-5.4) Hemoglobin 11.4 g/dL (12.0-16.0) Hematocrit 35.5 % (37-47) Mean Corpuscular Volume 92.0 fL (80-100) Mean Corpuscular Hemoglobin 29.5 pg (25-34) Mean Corpuscular Hemoglobin Concent 32.1 g/dl (32-36) Platelet Count 381 K/uL (130-400) Mean Platelet Volume 8.7 fL (7.4-10.4) Neutrophils (%) (Auto) 65.4 % Lymphocytes (%) (Auto) 28.2 % Monocytes (%) (Auto) 4.4 % Eosinophils (%) (Auto) 1.5 % Basophils (%) (Auto) 0.2 % Neutrophils # (Auto) 7.67 K/uL (1.4-6.5) Lymphocytes # (Auto) 3.31 K/uL (1.2-3.4) Monocytes # (Auto) 0.51 K/uL (0.11-0.59) Eosinophils # (Auto) 0.17 K/uL (0-0.5) Basophils # (Auto) 0.02 K/uL (0-0.2) RDW Standard Deviation 44.3 fL (36.4-46.3) RDW Coefficient of Variation 13.3 % (11.5-14.5) Immature Granulocyte % (Auto) 0.3 % Immature Granulocyte # (Auto) 0.04 K/uL (0.00-0.02) Prothrombin Time 10.6 SECONDS (9.0-12.0) Prothromb Time International Ratio 1.0 (0.9-1.1) Activated Partial Thromboplast Time 27.5 SECONDS (21.0-31.0) Partial Thromboplastin Ratio 1.1 Anion Gap 9.0 mmol/L (3-11) Est Creatinine Clear Calc Drug Dose 117.0 ml/min Estimated GFR () 96.3 Estimated GFR (Non- 83.1 BUN/Creatinine Ratio 6.0 (10-20) Calcium Level 9.1 mg/dl (8.5-10.1) Magnesium Level 2.2 mg/dl (1.8-2.4) Total Bilirubin 0.3 mg/dl (0.2-1) Aspartate Amino Transf (AST/SGOT) 16 U/L (15-37) Alanine Aminotransferase (ALT/SGPT) 22 U/L (12-78) Alkaline Phosphatase 85 U/L (45-117) Total Creatine Kinase 72 U/L (26-192) Creatine Kinase MB < 0.5 ng/ml (0.5-3.6) Creatine Kinase MB Ratio (0-3.0) Total Protein 7.5 gm/dl (6.4-8.2) Albumin 3.7 gm/dl (3.4-5.0) Globulin 3.8 gm/dl (2.5-4.0) Albumin/Globulin Ratio 1.0 (0.9-2) Lipase 112 U/L (73-393) Thyroid Stimulating Hormone (TSH) 1.380 uIu/ml (0.300-4.500) Lyme Disease IgG Antibody NEG (NEG) Lyme Disease IgM Antibody NEG (NEG) Bedside Lactic Acid Venous 1.24 mmol/L (0.90-1.70) Bedside D-Dimer 220 ng/mlFEU (0-450) Bedside Troponin I < 0.030 ng/ml (0-0.045) Test 12/08/16 22:39 12/08/16 23:05 Ethyl Alcohol mg/dL < 3.0 mg/dl (0-3) Urine Color YELLOW Urine Appearance CLEAR (CLEAR) Urine pH 6.5 (4.5-7.5) Urine Specific [place] 1.011 (1.000-1.030) Urine Protein NEG (NEG) Urine Glucose (UA) NEG (NEG) Urine Ketones NEG (NEG) Urine Occult Blood NEG (NEG) Urine Nitrite NEG (NEG) Urine Bilirubin NEG (NEG) Urine Urobilinogen NEG (NEG) Urine Leukocyte Esterase NEG (NEG) Urine Test NEG (NEG) Urine Opiates Screen NEG (NEG) Urine Methadone, Qualitative NEG (NEG) Urine Barbiturates POS (NEG) Urine Phencyclidine (PCP) Level NEG (NEG) Ur Amphetamine/Methamphetamine NEG (NEG) MDMA (Ecstasy) Screen NEG (NEG) Urine Benzodiazepines Screen NEG (NEG) Urine Cocaine Metabolite NEG (NEG) Urine Marijuana (THC) NEG (NEG) Medications Administered Medications (Trade) Dose Ordered Sig/Theodore Route Start Time Stop Time Status Last Admin Dose Admin Sodium Chloride/ Sodium Chloride 2,000 ml @ 999 mls/hr Q2H1M ONCE IV 12/08/16 22:15 12/09/16 00:15 DC 12/08/16 22:15 999 MLS/HR Acetaminophen (Tylenol Tab) 1,000 mg NOW STAT PO 12/08/16 23:41 12/08/16 23:42 DC 12/08/16 23:46 1,000 MG ED Course Physical exam and history were performed. Nursing notes and EMR were reviewed. Patient appears to have several vague complaints bring her to the emergency department today. The primary complaint is a vague weakness and some confusion. On examination the patient appears well and certainly nontoxic. IV access was established and labs were obtained. EKG was normal sinus rhythm. The patient was hydrated with normal saline and given oral Tylenol. The patient was placed on the monitoring analyst. The patient's blood work is as above and was reviewed. She does not have a significantly elevated white blood cell count, gross anemia, bandemia, or significant electrolyte imbalance. Lipase and transaminases are nondiagnostic. Urine is without evidence of infection or drugs of abuse. Troponin and d- dimer are both negative. CT scan of the head was without acute findings. The patient was reevaluated multiple times with course of her stay. She did not have any worsening of her symptoms while under our care. She and I had a lengthy discussion regarding options of care. Overall she feels well for discharge home. She does not appear to have an acute life-threatening process. The patient will need to follow-up with her primary care physician a short interval for a recheck. Her symptoms today certainly could have been related to dehydration or heat exhaustion. The patient was pleased with this plan and rated her discomfort a 0/10 at the time of departure. The chart was completed utilizing Dragon Speech Voice Recognition Software. Grammatical errors, random word insertions, pronoun errors, and incomplete sentences are an occasional consequence of this system due to software limitations, ambient noise, and hardware issues. Any formal questions or concerns about the content, text, or information contained within the body of this dictation should be directly addressed to the provider for clarification. . Medical Decision Differential diagnosis: Etiologies such as metabolic, infection, hypo/hyperglycemia, electrolyte abnormalities, cardiac sources, intracerebral event, toxicologic, neurologic, as well as others were entertained. Impression Primary Impression: Malaise and fatigue Departure Information Dispostion Home / Self-Care Condition GOOD Forms HOME CARE DOCUMENTATION FORM, IMPORTANT VISIT INFORMATION Patient Instructions My [facility] Additional Instructions You were seen and evaluated today on an emergency basis only. This is not a substitute for, or an effort to provide, complete comprehensive medical care. It is not possible to recognize and treat all injuries or illnesses in a single emergency department visit. For this reason it is recommended that you followup with your primary care physician in the next 12-36 hours for recheck of your condition. Drink plenty of fluids and remain well hydrated. For baseline pain relief you may alternate ibuprofen and acetaminophen every 4 hours for pain control. Take 600 mg ibuprofen (Advil) and then 4 hours later take 1000 mg acetaminophen (Tylenol). Do not take more than 3000 mg acetaminophen in a single day. You are welcome to return to the emergency department anytime with new, worsening, or concerning symptoms.
== END 2016-12-09 01:02 | disposition home or self-care (01) ==
LOC: C.EDB 21:40 → C.EDC 12-09 01:02
DX: R53.83 Other fatigue (principal); F31.9 Bipolar disorder, unspecified; E78.5 Hyperlipidemia, unspecified; K21.9 Gastro-esophageal reflux disease without esophagitis; J45.909 Unspecified asthma, uncomplicated; F41.1 Generalized anxiety disorder; Z91.81 History of falling; Z90.49 Acquired absence of other specified parts of digestive tract; Z79.899 Other long term (current) drug therapy; Z88.8 Allergy status to other drugs, medicaments and biological substances; Z80.9 Family history of malignant neoplasm, unspecified; Z83.3 Family history of diabetes mellitus; Z82.49 Family history of ischemic heart disease and other diseases of the circulatory system

== ENCOUNTER → 2016-12-17 | Outpatient (CLI) | payer OTHER ==
[~2016-12-17] MED LIST changes: +AMT25 PO; -ASCO100T4 PO; +BUTA1CAP20 PO; -CEFT600I IV; +CTF50 PO; +CYAN10004 PO; +CYCL10TA6 PO; -DLSUDL60 PO; +DOXY100T17 PO; -DXY100 PO; -ESZO1TAB16 PO; -FLUO20CA35 PO; +FLUO20CA36 PO; -FRCT/ PO; -GABA-112 PO; +GDN40 PO; -GUAI1TAB69 PO; +HYDR1CAP85 PO; +HYDR25TA5 PO; -LAMO200T PO; +LAMO200T38 PO; -MAGN1CAP2 PO; -MELATAB2 PO; +METR0.757 PV; +NRN100 PO; -PSEU30TA20 PO; -ZIPR1CAP4 PO
[2016-12-17 16:27] LABS: IMMUNOGLOBULN M 31.8 mg/dL (40-230)
== END | disposition home or self-care (01) ==
LOC: C.LAB1850 14:27
PROVIDERS: ATTEND Internal Medicine Pulmonary Disease
DX: J18.9 Pneumonia, unspecified organism (principal)

== ENCOUNTER 2016-12-30 22:04 | Emergency (ER) | payer OTHER ==
[~2016-12-30] VITALS: Ht 165.1 cm; Wt 126.4 kg
[~2016-12-30 22:04] MED LIST changes: -AMT25 PO; -CYCL10TA6 PO; -HYDR1CAP85 PO; -METR0.757 PV
[2016-12-30 22:10] VITALS: TEMP 36.7; Ht 165.1 cm; Wt 126.4 kg
[2016-12-30] MEDS ORDERED: KETOROLAC TROMETHAMINE 60 MG/2 ML VIAL IM STA (22:46)
[2016-12-30] MEDS ORDERED: HYDROmorphone INJ 1 MG/ML SYR IM STA (22:46)
[2016-12-30] MEDS ORDERED: FLEXERIL HOME PACK 10 MG VIAL PO ONE (23:45)
[2016-12-30] MEDS ORDERED: CYCL10TA6 PO (23:57)
--- NOTE | 2016-12-30 23:58 | EMERGENCY ROOM VISIT NOTE ---
History First contact with patient: 22:17 Chief Complaint: BACK PAIN Stated Complaint: BACK PAIN History of Present Illness The patient is a 31 year old female who presents to the Emergency Room with complaints of back pain. The patient states that she has a history of chronic back pain due to a tailbone fracture which occurred several years ago. The patient states that she had been watching a parade a few days ago and sitting on a hard chair, which she feels exacerbated her pain. Tonight, the patient states that she shifted her weight and heard 3 pops in her back. She reports pain in the middle of the back. She initially had some tingling in her arms and legs but this has resolved. The pain as a 9/10 and is worse with movement. She denies numbness, weakness, or incontinence. There was no specific trauma to the back. The patient has not taken anything at home for the pain. Review of Systems A complete 10 point review of systems was reviewed with the patient with pertinent positives and negatives as per history of present illness. All else were negative. Past Medical/Surgical History Medical Problems: (1) Acute bronchitis (2) Anxiety (3) Asthma, Unspecified (4) Benzodiazepine abuse (5) Bipolar disorder (6) Chronic GERD (7) Contusion of right hip (8) Esophageal Reflux (9) Fall due to slipping on ice or snow (10) MAXIMUS (generalized anxiety disorder) (11) Headache (12) Hyperlipidemia Nec/Nos (13) Low back strain (14) Migraine (15) Migraines (16) Occipital neuralgia (17) Opiate misuse (18) Shortness of breath (19) Syncope and collapse Surgical Problems: (1) Hx of cholecystectomy Family History Cancer Diabetes mellitus FH: heart disease High cholesterol Hypertension Ovarian cyst Social History Smoking Status: Never Smoker Alcohol Use: occasionally Drug Use: none Marital Status: Housing Status: lives with family Occupation Status: unemployed Current/Historical Medications Scheduled Cyanocobalamin (Vitamin B-12 1000 Mcg), 1,000 MCG PO DAILY Cyclobenzaprine Hcl (Flexeril), 10 MG PO TID Fluoxetine HCl (Fluoxetine HCl), 20 MG PO DAILY Fluoxetine Hcl (Prozac), 40 MG PO DAILY Gabapentin (Gabapentin), 300 MG PO BID Hydrochlorothiazide (Hydrochlorothiazide), 25 MG PO DAILY Lamotrigine (Lamictal), 200 MG PO QAM Multiple Vitamin (Multivitamin), 1 TAB PO DAILY Pyridoxine Hcl (Vitamin B 6), 50 MG PO DAILY Ziprasidone (Ziprasidone HCl), 80 MG PO QPM Scheduled PRN Acetaminophen (Tylenol), 1,000 MG PO UD PRN for Pain Albuterol Sulfate (Proventil Hfa), 2 PUFFS INH Q4H PRN for SOB/Wheezing Srhxqqiire-Msxxyczrpsmhg-Boghn (Butalbital/APAP/Caffeine 50-300-40 mg), 1 CAP PO Q4-6HRS PRN for Migraine Diclofenac Potassium (Diclofenac Potassium), 50 MG PO Q8 PRN for Migraine Allergies Coded Allergies: Cephalosporins (Verified Allergy, Intermediate, HIVES, 09/22/16) Sumatriptan (Verified Allergy, Intermediate, RASH, 09/22/16) INJ OF IMITREX, RASH @ INJECTION SITE Cephalexin (Verified Allergy, Unknown, HIVES, 09/22/16) Metoclopramide (Verified Allergy, Unknown, ANXIETY, 09/22/16) Physical Exam Vital Signs Date Time Temp Pulse Resp B/P (MAP) Pulse Ox O2 Delivery O2 Flow Rate FiO2 12/31/16 00:05 74 18 128/62 97 12/30/16 22:10 36.7 79 20 130/77 93 Room Air Physical Exam VITALS: Vitals are noted on the nurse's note and reviewed by myself. Vital signs stable. GENERAL: This is a 31-year-old female, in no acute distress, nondiaphoretic, well-developed well-nourished. SKIN: No rashes noted. HEART: Regular rate and rhythm without murmurs gallops or rubs. LUNGS: Clear to auscultation bilaterally without wheezes, rales or rhonchi. ABDOMEN: Soft, nontender to palpation. MUSCULOSKELETAL: There is generalized tenderness to palpation in the lumbar and thoracic regions. Range of motion is full. Strength 5/5 in bilateral lower extremities. NEURO: Patient was alert and oriented to person place and time. Normal sensation. Medical Decision & Procedures Medications Administered Medications (Trade) Dose Ordered Sig/Theodore Route Start Time Stop Time Status Last Admin Dose Admin Hydromorphone HCl (Dilaudid Inj) 1 mg NOW STAT IM 12/30/16 22:46 12/30/16 22:48 DC 12/30/16 23:06 1 MG Ketorolac Tromethamine (Toradol Inj) 60 mg NOW STAT IM 12/30/16 22:46 12/30/16 22:48 DC 12/30/16 23:06 60 MG Medical Decision Differential diagnosis includes muscle spasm, muscle strain, compression fracture, among others. The patient is a 31-year-old female who presents today complaining of back pain. The pain had a sudden onset after positional change and seems consistent with a muscular spasm. Patient was treated with IM Dilaudid and Toradol with some relief and increased range of motion. She requested muscle relaxers for her symptoms. She states she has taken Flexeril before with relief. She was given a short course of this and instructed to follow-up with her primary care provider for further evaluation of her back pain. Based on the patient's presentation and work up, I feel the patient is stable for outpatient treatment. The patient was educated to return to the emergency department for any worsening of their current condition or new/concerning symptoms. She will follow up with her PCP. Medication reconciliation: I attest that I have personally reviewed the patient 's current medication list. Blood Pressure Screening: Patient was found to have a slightly elevated blood pressure due to circumstances. I do not believe that the patient requires hypertension monitoring. Impression Primary Impression: Thoracic back pain Departure Information Dispostion Home / Self-Care Condition GOOD Prescriptions Cyclobenzaprine Hcl (FLEXERIL) 10 Mg Tab 10 MG PO TID, #9 TAB Prov: Starr Cardona PA-C 12/30/16 Referrals Lisa Casanova DO (PCP) Patient Instructions My [facility] Additional Instructions You have been treated in the Emergency Department for Back Pain. You have received pain medicine in the emergency department which impairs your ability to operate a vehicle. It is illegal for you to drive after receiving these medicines. You have been prescribed Flexeril (cyclobenzaprine) 1-2 tabs orally, three times per day. Do NOT exceed 30 mg (6 tabs) per day. Take your first dose at bedtime as it can make you drowsy. Always take all medications as prescribed. For pain control, you can use the following eqhi-acl-rpqrfyu medicines (if >12 yo): - Regular strength (325mg/tab) Tylenol (acetaminophen) 2 tabs every 4-6 hours as needed. Do not exceed 12 tablets in a 24 hour period. Avoid taking more than 4 grams (4000 mg) of Tylenol per day. This includes any other sources of acetaminophen you may take on a regular basis. - Regular strength (200 mg/tab) Advil (ibuprofen) 1-2 tabs every 4-6 hours as needed. Do not exceed a dose of 3200 mg per day. If this is an acute injury, ice can be applied to the area of pain for the first 3 days to help decrease pain and inflammation. After the first 3 days, a heating pad can be used over the area for continued soothing relief. You should schedule a follow-up appointment in 2-3 days with your Primary Care Provider for further evaluation and treatment of your back pain. Return to the Emergency Department if your current symptoms worsen despite treatment course outlined above, or if you develop any of the following symptoms : intractable pain despite aforementioned treatment course, loss of control of your bowel or bladder, numbness or tingling in your groin, or development of a fever. Problem Qualifiers Primary Impression: Thoracic back pain Chronicity: acute Back pain laterality: midline Qualified Codes: M54.6 - Pain in thoracic spine
[2016-12-31 00:05] VITALS: BP 128/62; PULSE 74; O2SAT 97
== END 2016-12-31 00:03 | disposition home or self-care (01) ==
LOC: EDBD 22:04 → C.EDB 22:05
DX: M54.6 Pain in thoracic spine (principal); F31.9 Bipolar disorder, unspecified; F41.1 Generalized anxiety disorder; Z79.899 Other long term (current) drug therapy

== ENCOUNTER 2017-01-01 13:23 | Emergency (ER) | payer OTHER ==
[~2017-01-01] VITALS: Ht 165.1 cm; Wt 123.6 kg
[~2017-01-01 13:23] MED LIST changes: +CYCL10TA6 PO; -DOXY100T17 PO
[2017-01-01 13:27] VITALS: TEMP 37.3; Ht 165.1 cm; Wt 123.6 kg
--- NOTE | 2017-01-01 14:13 | DIAGNOSTIC IMAGING REPORT ---
RIGHT ELBOW MIN 3 VIEWS ROUTINE CLINICAL HISTORY: Right elbow pain status post trauma COMPARISON: None. DISCUSSION: The fat pads are not displaced. No fractures or dislocations are visualized. IMPRESSION: No fractures identified. Electronically signed by: Barber Phillips M.D. 01/01/2017 2:12 PM Dictated Date/Time: 01/01/2017 2:11 PM
--- NOTE | 2017-01-01 14:15 | DIAGNOSTIC IMAGING REPORT ---
RIGHT SHOULDER MIN 2 VIEWS ROUTINE CLINICAL HISTORY: Right shoulder pain status post trauma COMPARISON: 05/24/2016 DISCUSSION: No acute fractures or dislocations are visualized. There is a faint periarticular/tendonis calcification present. IMPRESSION: No acute fractures or dislocations identified. Electronically signed by: Barber Phillips M.D. 01/01/2017 2:14 PM Dictated Date/Time: 01/01/2017 2:12 PM
--- NOTE | 2017-01-01 14:16 | DIAGNOSTIC IMAGING REPORT ---
THORACIC SPINE 3 VIEWS ROUTINE CLINICAL HISTORY: fall, mid back pain COMPARISON STUDY: Chest x-ray dated 11-10 FINDINGS: The paraspinal line is not displaced. No acute fractures or traumatic subluxations are visualized. IMPRESSION: No fractures or subluxations identified. Electronically signed by: Barber Phillips M.D. 01/01/2017 2:15 PM Dictated Date/Time: 01/01/2017 2:14 PM
--- NOTE | 2017-01-01 14:19 | EMERGENCY ROOM VISIT NOTE ---
History First contact with patient: 13:38 Chief Complaint: BACK PAIN Stated Complaint: BACK AND RIGHT ARM PAIN History of Present Illness The patient is a 31 year old female who presents to the Emergency Room with complaints of fall, right shoulder and right elbow pain. The patient was seen here 2 days ago for mid back pain and spasm. She has been taking Flexeril. The patient also saw her family doctor who gave her Voltaren gel. The patient states that last night she slipped in the bathroom and fell, striking her right shoulder and elbow on the bathtub. She states that the pain in her mid back is slightly improved but is still present. She rates her discomfort an 8/10. She denies striking her head or have loss of consciousness. She denies any chest pain or trouble breathing. She denies weakness in the upper or lower extremities. She denies any low back pain. She denies any abdominal pain, nausea or vomiting. Review of Systems A 10 system review of systems was completed with positives and pertinent negatives listed in the HPI. Past Medical/Surgical History Medical Problems: (1) Acute bronchitis (2) Anxiety (3) Asthma, Unspecified (4) Benzodiazepine abuse (5) Bipolar disorder (6) Chronic GERD (7) Contusion of right hip (8) Esophageal Reflux (9) Fall due to slipping on ice or snow (10) MAXIMUS (generalized anxiety disorder) (11) Headache (12) Hyperlipidemia Nec/Nos (13) Low back strain (14) Migraine (15) Migraines (16) Occipital neuralgia (17) Opiate misuse (18) Shortness of breath (19) Syncope and collapse Surgical Problems: (1) Hx of cholecystectomy Family History Cancer Diabetes mellitus FH: heart disease High cholesterol Hypertension Ovarian cyst Social History Smoking Status: Never Smoker Alcohol Use: occasionally Drug Use: none Marital Status: Housing Status: lives with family Occupation Status: unemployed Current/Historical Medications Scheduled Cyanocobalamin (Vitamin B-12 1000 Mcg), 1,000 MCG PO DAILY Cyclobenzaprine Hcl (Flexeril), 10 MG PO TID Fluoxetine HCl (Fluoxetine HCl), 20 MG PO DAILY Fluoxetine Hcl (Prozac), 40 MG PO DAILY Gabapentin (Gabapentin), 300 MG PO BID Hydrochlorothiazide (Hydrochlorothiazide), 25 MG PO DAILY Lamotrigine (Lamictal), 200 MG PO QAM Multiple Vitamin (Multivitamin), 1 TAB PO DAILY Pyridoxine Hcl (Vitamin B 6), 50 MG PO DAILY Ziprasidone (Ziprasidone HCl), 80 MG PO QPM Scheduled PRN Acetaminophen (Tylenol), 1,000 MG PO UD PRN for Pain Albuterol Sulfate (Proventil Hfa), 2 PUFFS INH Q4H PRN for SOB/Wheezing Whwkstbkcp-Fyqdgetkscgvu-Nngxo (Butalbital/APAP/Caffeine 50-300-40 mg), 1 CAP PO Q4-6HRS PRN for Migraine Diclofenac Potassium (Diclofenac Potassium), 50 MG PO Q8 PRN for Migraine Allergies Coded Allergies: Cephalosporins (Verified Allergy, Intermediate, HIVES, 01/01/17) Sumatriptan (Verified Allergy, Intermediate, RASH, 01/01/17) INJ OF IMITREX, RASH @ INJECTION SITE Cephalexin (Verified Allergy, Unknown, HIVES, 01/01/17) Metoclopramide (Verified Allergy, Unknown, ANXIETY, 01/01/17) Physical Exam Vital Signs Date Time Temp Pulse Resp B/P (MAP) Pulse Ox O2 Delivery O2 Flow Rate FiO2 01/01/17 14:34 87 131/92 96 01/01/17 13:27 37.3 99 18 134/97 94 Room Air Physical Exam VITALS: Vitals are noted on the nurse's note and reviewed by myself. Vital signs stable. GENERAL: This is a 31-year-old female , who is sitting crosslegged in the bed in no acute distress or obvious discomfort, in no acute distress, nondiaphoretic , well-developed well-nourished. SKIN: The skin was without rashes, erythema, edema, or bruising. There is no tenting of the skin. Capillary reflex less than 2 seconds. HEAD: Normocephalic atraumatic. EARS: External auditory canals clear, tympanic membranes pearly arndt without erythema or effusion bilaterally. EYES: Pupils equal round and reactive to light and accommodation. Conjunctivae without injection, sclerae without icterus. Extraocular movements intact. NOSE: Patent, turbinates without inflammation or discharge. MOUTH: Mucous membranes moist. Tonsils are not enlarged. Pharynx without erythema or exudate. Uvula midline. Airway patent. Tongue does not deviate. NECK: Supple without nuchal rigidity. No lymphadenopathy. No thyromegaly. Cervical spine is nontender. No JVD. HEART: Regular rate and rhythm without murmurs gallops or rubs. LUNGS: Clear to auscultation bilaterally without wheezes, rales or rhonchi. No retractions or accessory muscle use. ABDOMEN: Positive bowel sounds x 4. Normal tympanic percussion. Soft, nontender, without masses or organomegaly. Herrmann sign negative. MUSCULOSKELETAL: No muscle atrophy, erythema, or edema noted. Full range of motion in all extremities. There is tenderness to palpation over the entire thoracic spine, entire right shoulder and right elbow. There is no external sign of trauma, no abrasion, ecchymosis, edema. Normal gait. Strength 5/5 throughout. NEURO: Patient was alert and oriented to person place and time. No focal neurological deficits. Medical Decision & Procedures ER Provider Diagnostic Interpretation: RIGHT ELBOW MIN 3 VIEWS ROUTINE CLINICAL HISTORY: Right elbow pain status post trauma COMPARISON: None. DISCUSSION: The fat pads are not displaced. No fractures or dislocations are visualized. IMPRESSION: No fractures identified. RIGHT SHOULDER MIN 2 VIEWS ROUTINE CLINICAL HISTORY: Right shoulder pain status post trauma COMPARISON: 05/24/2016 DISCUSSION: No acute fractures or dislocations are visualized. There is a faint periarticular/tendonis calcification present. IMPRESSION: No acute fractures or dislocations identified. THORACIC SPINE 3 VIEWS ROUTINE CLINICAL HISTORY: fall, mid back pain COMPARISON STUDY: Chest x-ray dated 11-10 FINDINGS: The paraspinal line is not displaced. No acute fractures or traumatic subluxations are visualized. IMPRESSION: No fractures or subluxations identified. Medications Administered Medications (Trade) Dose Ordered Sig/Theodore Route Start Time Stop Time Status Last Admin Dose Admin Acetaminophen/ Hydrocodone Bitart ([place] 5/325mg Home Pack) 1 homepack UD ONCE PO 01/01/17 14:30 01/01/17 14:31 DC 01/01/17 14:27 1 HOMEPACK ED Course The patient was seen and examined. Previous visits were reviewed. The patient does not have a fever. She complains of a fall with right shoulder and right elbow pain. There is no outward signs of trauma, no abrasion, ecchymosis, edema. She has also had mid back pain that has been ongoing. X-rays do not reveal any acute abnormality. She does not have any neurologic deficit on exam or by history. She has not had head or neck injury. The patient is encouraged to try Tylenol or ibuprofen. She stated she has been trying these without relief. I advised her that she should try conservative management. I did agree to give her a take-home pack of [place]. She should follow with her family doctor for further evaluation and management. She should return with any worsening symptoms. Medical Decision The differential diagnosis includes fracture, contusion, spasm, among others Impression Primary Impression: Back strain Additional Impressions: Shoulder contusion Elbow contusion Fall Departure Information Dispostion Home / Self-Care Condition GOOD Referrals No Doctor, Assigned (PCP) Patient Instructions My [facility] Additional Instructions Ibuprofen 600 mg every 6-8 hours for moderate pain [place] 1 tablet every 6 hours if needed for worse pain. Do not drink or drive while taking [place] and do not take with Tylenol. Contact your family doctor for further evaluation and management Return with worsening symptoms Problem Qualifiers Primary Impression: Back strain Encounter type: initial encounter Qualified Codes: S39.012A - Strain of muscle, fascia and tendon of lower back, initial encounter Additional Impressions: Shoulder contusion Encounter type: initial encounter Laterality: right Qualified Codes: S40.011A - Contusion of right shoulder, initial encounter Elbow contusion Encounter type: initial encounter Laterality: right Qualified Codes: S50.01XA - Contusion of right elbow, initial encounter Fall Encounter type: initial encounter Qualified Codes: W19.XXXA - Unspecified fall, initial encounter
[2017-01-01] MEDS ORDERED: NORCO 5/325MG HOME PACK PO ONE (14:30)
[2017-01-01 14:34] VITALS: BP 131/92; PULSE 87; O2SAT 96
== END 2017-01-01 14:35 | disposition home or self-care (01) ==
LOC: C.EDB 13:24 → C.EDD 14:35
DX: S39.012A Strain of muscle, fascia and tendon of lower back, initial encounter (principal); S40.011A Contusion of right shoulder, initial encounter; S50.01XA Contusion of right elbow, initial encounter; E78.5 Hyperlipidemia, unspecified; F31.9 Bipolar disorder, unspecified; F41.9 Anxiety disorder, unspecified; K21.9 Gastro-esophageal reflux disease without esophagitis; Z79.899 Other long term (current) drug therapy; Z87.09 Personal history of other diseases of the respiratory system; Z87.828 Personal history of other (healed) physical injury and trauma; Z82.49 Family history of ischemic heart disease and other diseases of the circulatory system; Z83.3 Family history of diabetes mellitus; Z84.89 Family history of other specified conditions; W01.190A Fall on same level from slipping, tripping and stumbling with subsequent striking against furniture, initial encounter; Y92.002 Bathroom of unspecified non-institutional (private) residence as the place of occurrence of the external cause

== ENCOUNTER → 2017-01-14 | Outpatient (CLI) | payer OTHER ==
[~2017-01-14] MED LIST changes: -CYCL10TA6 PO
[2017-01-14 17:17] LABS: URINE APPEARANCE CLOUDY (CLEAR); URINE BILIRUBIN NEG (NEG); URINE COLOR YELLOW; URINE EPITHELIAL CELL AUTO >30 /lpf (0-5); URINE NITRITE NEG (NEG); URINE PH 5.5 (4.5-7.5); URINE SPECIFIC GRAVITY 1.013 (1.000-1.030); UROBILINOGEN NEG (NEG); ZZUR CULT IF INDIC CLEAN CATCH YES
[2017-01-14 17:26] LABS: MANUAL MICROSCOPIC REQUIRED? NO; REVIEW REQ? NO
== END | disposition home or self-care (01) ==
LOC: C.LABSPEC 17:02
PROVIDERS: ATTEND Physician Assistant
DX: R30.0 Dysuria (principal)

== ENCOUNTER → 2017-02-04 | Outpatient (CLI) | payer OTHER ==
--- NOTE | 2017-02-04 11:32 | EEG Procedure Note ---
EEG Procedure Note Date of Service Feb 04, 2017. Start / End Times Start Time: 9:08 AM End Time: 10:08 AM Referring Physician Jennifer Fenton History This is a 31-year-old female who presents for repeat episodes of syncope concerning for possible seizures. Extended 1 hour EEG for further evaluation of possible seizure etiology. Home Medication List Scheduled Cyanocobalamin (Vitamin B-12 1000 Mcg), 1,000 MCG PO DAILY Fluoxetine HCl (Fluoxetine HCl), 20 MG PO DAILY Fluoxetine Hcl (Prozac), 40 MG PO DAILY Gabapentin (Gabapentin), 300 MG PO BID Hydrochlorothiazide (Hydrochlorothiazide), 25 MG PO DAILY Lamotrigine (Lamictal), 200 MG PO QAM Multiple Vitamin (Multivitamin), 1 TAB PO DAILY Pyridoxine Hcl (Vitamin B 6), 50 MG PO DAILY Ziprasidone (Ziprasidone HCl), 80 MG PO QPM Scheduled PRN Acetaminophen (Tylenol), 1,000 MG PO UD PRN for Pain Albuterol Sulfate (Proventil Hfa), 2 PUFFS INH Q4H PRN for SOB/Wheezing Fzeopppwzn-Unqwhxwfixcyo-Cpaoq (Butalbital/APAP/Caffeine 50-300-40 mg), 1 CAP PO Q4-6HRS PRN for Migraine Diclofenac Potassium (Diclofenac Potassium), 50 MG PO Q8 PRN for Migraine Description This is a 21 electrode EEG with a single channel dedicated to limited EKG. The electrodes were placed in accordance with the International 10-20 system. At the start of the recording the patient was in an awake state. Background was well organized and composed of symmetric mixed alpha and beta frequencies. There was a symmetric well-formed moderate amplitude 9-10 Hz posterior dominant rhythm that was reactive to eye opening and closure. Hyperventilation was not done. Intermittent photic stimulation at various frequencies produced no abnormalities. Sleep was indicated by vertex waves and symmetric sleep spindles Interpretation This is a normal one hour extended EEG. There was no electrographic seizures or epileptiform discharges. Clinical Correlation A normal EEG does not rule out epilepsy if there is a strong clinical suspicion.
== END | disposition home or self-care (01) ==
LOC: C.NEUR 08:38
PROVIDERS: ATTEND Psychiatry & Neurology Neurology
DX: R55 Syncope and collapse (principal)

== ENCOUNTER → 2017-02-21 | Outpatient (CLI) | payer OTHER ==
[2017-02-21 12:18] LABS: CHOLESTEROL/HDL RATIO 5.1
== END | disposition home or self-care (01) ==
LOC: C.LABPBG 08:40
PROVIDERS: ATTEND Family Medicine
DX: E78.5 Hyperlipidemia, unspecified (principal)

== ENCOUNTER 2017-03-23 02:20 | Emergency (ER) | payer OTHER ==
[~2017-03-23] VITALS: Ht 165.1 cm; Wt 119.7 kg
[2017-03-23 02:24] VITALS: TEMP 36.7; Ht 165.1 cm; Wt 119.7 kg
[2017-03-23] MEDS ORDERED: ZIPRASIDONE 80 MG CAP PO ONE (02:45)
[2017-03-23 03:00] VITALS: BP 128/80; PULSE 77; O2SAT 96
--- NOTE | 2017-03-23 23:20 | EMERGENCY ROOM VISIT NOTE ---
History First contact with patient: 02:29 Chief Complaint: ALLERGIC REACTION Stated Complaint: MEDICATION REACTION Nursing Triage Summary: Pt states she took Visteril 25 mg @ 1400 yesterday for an anxiety attack. Tonight at 2230 pt couldn't sleep and she took Benadryl 25 mg. Pt states she thinks she is having an allergic reaction by mixing the 2 meds and is having severe insomnia tonight. Last time she took the 2 meds together she was up for 2 days. History of Present Illness The patient is a 31 year old female who presents to the Emergency Room with complaints of increasing anxiety symptoms for the past 2-3 hours. The patient states that she takes Geodon at night to help with sleep, and she forgot to fill her prescription today. The patient states that she has a prescription at the pharmacy, but has yet to pick it up. She has difficulty sleeping without the Geodon, and took increased dose of melatonin, as well as some oral Benadryl. The patient states that this had the opposite reaction, and she is now very hyper and concerned about sleeping. She has had episodes like this in the past, and states that she was awake for 2 consecutive days. She does not wish for this to happen again. She does not have suicidal or homicidal ideation. She is unsure what she is able to do for her symptoms. Review of Systems More than 10 systems were reviewed and otherwise negative with the exception of history of present illness. Past Medical/Surgical History Medical Problems: (1) Acute bronchitis (2) Anxiety (3) Asthma, Unspecified (4) Benzodiazepine abuse (5) Bipolar disorder (6) Chronic GERD (7) Contusion of right hip (8) Esophageal Reflux (9) Fall due to slipping on ice or snow (10) MAXIMUS (generalized anxiety disorder) (11) Headache (12) Hyperlipidemia Nec/Nos (13) Low back strain (14) Migraine (15) Migraines (16) Occipital neuralgia (17) Opiate misuse (18) Shortness of breath (19) Syncope and collapse Surgical Problems: (1) Hx of cholecystectomy Family History Cancer Diabetes mellitus FH: heart disease High cholesterol Hypertension Ovarian cyst Social History Smoking Status: Never Smoker Alcohol Use: occasionally Drug Use: none Marital Status: Housing Status: lives with family Occupation Status: unemployed Current/Historical Medications Scheduled Cyanocobalamin (Vitamin B-12 1000 Mcg), 1,000 MCG PO DAILY Fluoxetine HCl (Fluoxetine HCl), 20 MG PO DAILY Fluoxetine Hcl (Prozac), 40 MG PO DAILY Gabapentin (Gabapentin), 300 MG PO BID Hydrochlorothiazide (Hydrochlorothiazide), 25 MG PO DAILY Lamotrigine (Lamictal), 200 MG PO QAM Multiple Vitamin (Multivitamin), 1 TAB PO DAILY Pyridoxine Hcl (Vitamin B 6), 50 MG PO DAILY Ziprasidone (Ziprasidone HCl), 80 MG PO QPM Scheduled PRN Acetaminophen (Tylenol), 1,000 MG PO UD PRN for Pain Albuterol Sulfate (Proventil Hfa), 2 PUFFS INH Q4H PRN for SOB/Wheezing Prvmfjapdd-Bnzlfupxfztgw-Wicta (Butalbital/APAP/Caffeine 50-300-40 mg), 1 CAP PO Q4-6HRS PRN for Migraine Diclofenac Potassium (Diclofenac Potassium), 50 MG PO Q8 PRN for Migraine Physical Exam Vital Signs Date Time Temp Pulse Resp B/P (MAP) Pulse Ox O2 Delivery O2 Flow Rate FiO2 03/23/17 03:00 77 20 128/80 96 Room Air 03/23/17 02:24 36.7 88 20 142/96 98 Room Air Physical Exam VITALS: Vitals are noted on the nurse's note and reviewed by myself. Vital signs stable. GENERAL: Well-developed, well-nourished, white female, who is in no acute distress and resting comfortably. Patient is cooperative with the examination. HEART: Regular rate and rhythm without murmurs gallops or rubs. LUNGS: Clear to auscultation bilaterally without wheezes, rales or rhonchi. No retractions or accessory muscle use. ABDOMEN: Positive normal bowel sounds x 4. Soft, nontender, without masses or organomegaly. No guarding or rebound tenderness. MUSCULOSKELETAL: No muscle atrophy, erythema, or edema noted. Full range of motion without joint tenderness in all extremities. No tenderness to palpation. Normal gait. Strength 5/5 throughout. NEURO: Patient was alert and oriented to person place and time. CN II through XII grossly intact. Medical Decision & Procedures Medications Administered Medications (Trade) Dose Ordered Sig/Theodore Route Start Time Stop Time Status Last Admin Dose Admin Ziprasidone (Geodon Cap) 80 mg NOW ONCE PO 03/23/17 02:45 03/23/17 02:46 DC 03/23/17 02:58 80 MG ED Course Physical exam and history were performed. Nursing notes, EMR, and Medication List were personally reviewed. Patient appears to have some difficulty sleeping tonight because she both forgot to pickers material handlers her Geodon and took Benadryl tonight. On examination the patient appears well. She is not suicidal or homicidal. She does not request mental health evaluation for her symptoms. Overall she appears well and I do feel comfortable providing her a dose of her Geodon here from the department, as she has been on this medication for a long time. I will have the patient go home and try to rest tonight. She is to pickers material handlers her prescription in the morning. She was certainly invited back to the ER if she has any new, worsening , or concerning symptoms. She was pleased with this plan voiced understanding. She rated her discomfort a 1/10 at the time of departure. The chart was completed utilizing [employer] Voice Recognition Software. Grammatical errors, random word insertions, pronoun errors, and incomplete sentences are an occasional consequence of this system due to software limitations, ambient noise, and hardware issues. Any formal questions or concerns about the content, text, or information contained within the body of this dictation should be directly addressed to the provider for clarification. . Medical Decision Differential diagnosis: Etiologies such as medication reaction, allergic reaction, mood disorder, infection, hypoglycemia, electrolyte abnormalities, cardiac sources, intracerebral event, toxicologic, neurologic, as well as others were entertained. Impression Primary Impression: Adverse reaction to drug Departure Information Dispostion Home / Self-Care Condition GOOD Referrals Lisa Casanova DO (PCP) Forms HOME CARE DOCUMENTATION FORM, IMPORTANT VISIT INFORMATION Patient Instructions My [facility] Additional Instructions You were seen and evaluated today on an emergency basis only. This is not a substitute for, or an effort to provide, complete comprehensive medical care. It is not possible to recognize and treat all injuries or illnesses in a single emergency department visit. For this reason it is recommended that you followup with your primary care physician with any ongoing or persistent symptoms. You are welcome to return to the emergency department anytime with new, worsening, or concerning symptoms.
== END 2017-03-23 03:08 | disposition home or self-care (01) ==
LOC: C.EDB 02:21 → C.EDA 03:08
DX: T43.595A Adverse effect of other antipsychotics and neuroleptics, initial encounter (principal); F31.9 Bipolar disorder, unspecified; K21.9 Gastro-esophageal reflux disease without esophagitis; F41.1 Generalized anxiety disorder; E78.5 Hyperlipidemia, unspecified; J45.909 Unspecified asthma, uncomplicated; Z87.828 Personal history of other (healed) physical injury and trauma; Z91.81 History of falling; Z90.49 Acquired absence of other specified parts of digestive tract; Z79.899 Other long term (current) drug therapy; Z80.9 Family history of malignant neoplasm, unspecified; Z83.3 Family history of diabetes mellitus; Z82.49 Family history of ischemic heart disease and other diseases of the circulatory system

== ENCOUNTER → 2017-04-07 | Outpatient (CLI) | payer OTHER | END | disposition home or self-care (01) | LOC: C.LABSPEC 17:25 | PROVIDERS: ATTEND Physician Assistant | DX: N94.10 Unspecified dyspareunia (principal) ==

== ENCOUNTER 2017-04-13 16:35 | Emergency (ER) | payer OTHER ==
[~2017-04-13] VITALS: Ht 165.1 cm; Wt 118.8 kg
[2017-04-13 16:44] VITALS: Ht 165.1 cm; Wt 118.8 kg
[2017-04-13] MEDS ORDERED: SODIUM CHLORIDE 0.9% 1000ML 1,000 ML IV STA (16:51)
[2017-04-13] MEDS ORDERED: ONDANSETRON INJ 2 MG/ML 2 ML VIAL IV STA (16:51)
[2017-04-13] MEDS ORDERED: MoRPHine SULFATE 4 MG/ML 1 ML CARP\\VIAL IV STA (17:07)
[2017-04-13 17:16] LABS: URINE APPEARANCE CLEAR (CLEAR); URINE BILIRUBIN NEG (NEG); URINE COLOR YELLOW; URINE NITRITE NEG (NEG); URINE SPECIFIC GRAVITY 1.014 (1.000-1.030); UROBILINOGEN NEG (NEG); ZZUR CULT IF INDIC CLEAN CATCH NO
[2017-04-13 17:23] LABS: MANUAL MICROSCOPIC REQUIRED? NO; REVIEW REQ? NO
[2017-04-13 17:26] LABS: BASO % 0.4 %; BASO ABS # 0.04 K/uL (0-0.2); COMPLETE YES; EOS % 2.4 %; HEMATOCRIT 37.9 % (37-47); IG% 0.2 %; LYMPH % 32.3 %; LYMPH ABS # 2.92 K/uL (1.2-3.4); MEAN CELL VOLUME 89.2 fL (80-100); MEAN CORPUSCULAR HEMOGLOBIN 29.4 pg (25-34); MONO % 3.8 %; NEUT % 60.9 %; PLATELET COUNT 303 K/uL (130-400); RED BLOOD COUNT 4.25 M/uL (4.2-5.4); WHITE BLOOD COUNT 9.04 K/uL (4.8-10.8)
[2017-04-13] MEDS ORDERED: AMT25 PO (17:32)
[2017-04-13] MEDS ORDERED: METR0.757 PV (17:32)
[2017-04-13] MEDS ORDERED: HYDR1CAP85 PO (17:32)
[2017-04-13 17:50] LABS: ALT/SGPT 20 U/L (12-78); BLOOD UREA NITROGEN 10 mg/dl (7-18); BUN/CREATININE RATIO 13.3 (10-20); CALCIUM 9.2 mg/dl (8.5-10.1); CARBON DIOXIDE 26 mmol/L (21-32); CHLORIDE 105 mmol/L (98-107); CREATININE 0.77 mg/dl (0.60-1.20); GLUCOSE 93 mg/dl (70-99); POTASSIUM 3.8 mmol/L (3.5-5.1); SODIUM 138 mmol/L (136-145)
[2017-04-13 17:57] LABS: ALKALINE PHOSPHATASE 108 U/L (45-117); AST/SGOT 15 U/L (15-37)
--- NOTE | 2017-04-13 18:33 | DIAGNOSTIC IMAGING REPORT ---
ULTRASOUND OF THE PELVIS CLINICAL HISTORY: Right pelvic pain. COMPARISON STUDY: Pelvic CT dated 05/31/2016. TECHNIQUE: Real-time, grayscale, and color flow sonography of the pelvis is performed both transabdominally and endovaginally. Images are reviewed in the transverse and longitudinal planes. FINDINGS: Uterus: The uterus is normal in size and heterogeneous in echotexture, measuring 8.2 x 4.4 x 5.6 cm. Endometrium: The endometrium is normal in appearance, and the endometrial stripe is normal in thickness measuring up to 0.4 cm. Ovaries: The ovaries are normal in size and morphology. The right ovary measures 3.8 x 2.0 x 2.8 cm and the left ovary measures 2.9 x 1.8 x 2.1 cm. Small follicles are seen bilaterally. Normal Doppler waveforms are shown within both ovaries. Pelvis: There is no free fluid in the cul-de-sac. No concerning adnexal lesion is seen. IMPRESSION: Unremarkable sonographic assessment of the pelvis. Electronically signed by: Willy Romo M.D. 04/13/2017 6:32 PM Dictated Date/Time: 04/13/2017 6:30 PM
[2017-04-13] MEDS ORDERED: HYDROmorphone INJ 1 MG/ML SYR IV STA (18:34)
[2017-04-13] MEDS ORDERED: ACETAMINOPHEN 500 MG TAB PO STA (18:35)
[2017-04-13] MEDS ORDERED: KETOROLAC TROMETHAMINE 30 MG/ML VIAL IV STA (18:35)
[2017-04-13] MEDS ORDERED: OPTIRAY 320 IV PRN (18:45)
[2017-04-13 19:09] VITALS: TEMP 37.1
--- NOTE | 2017-04-13 19:50 | DIAGNOSTIC IMAGING REPORT ---
CT SCAN OF THE ABDOMEN AND PELVIS WITH IV CONTRAST CLINICAL HISTORY: Right lower quadrant abdominal pain. COMPARISON STUDY: Pelvic ultrasound dated 04/13/2017. Abdominal CT dated 05/31/2016. TECHNIQUE: Following the IV administration of 116 cc of Optiray 320, CT scan of the abdomen and pelvis is performed from the lung bases to the proximal femora. Images are reviewed in the axial, sagittal, and coronal planes. IV contrast was administered without complication. A dose lowering technique was utilized adhering to the principles of ALARA. CT DOSE: 1632.24 mGy.cm FINDINGS: Lung bases: The heart is normal in size and without pericardial effusion. Trace pleural effusions are identified and there is dependent atelectasis. The lung bases are otherwise clear. Liver: The contrast-enhanced liver is enlarged, measuring 22.6 cm in length. The liver demonstrates diffusely diminished attenuation consistent with hepatic steatosis. There is minimal central intrahepatic biliary ductal dilatation. The hepatic veins and portal veins are patent. Gallbladder: Surgically absent noting clips in the gallbladder fossa. Spleen: Normal in size and attenuation. Pancreas: Unremarkable. Adrenal glands: Unremarkable. Kidneys: The contrast enhanced kidneys are normal in size and without hydronephrosis. The kidneys enhance symmetrically. There is a circumaortic left renal vein. Abdominal vasculature: The abdominal aorta is normal in course and caliber. Bowel: The small bowel and colon are normal in course and caliber. The appendix is well-visualized and normal. Peritoneum: There is no intraperitoneal free air or abdominal ascites. There is a fat-containing umbilical hernia. Lymphadenopathy: None. Pelvic viscera: The bladder, uterus, and adnexa are normal as visualized. Bilateral ovarian follicles are observed. Skeletal structures: No lytic or blastic lesions are seen. IMPRESSION: 1. There are no acute infectious or inflammatory findings in the abdomen or pelvis. 2. Hepatomegaly and hepatic steatosis. 3. Trace pleural effusions. Electronically signed by: Willy Romo M.D. 04/13/2017 7:49 PM Dictated Date/Time: 04/13/2017 7:44 PM
--- NOTE | 2017-04-13 20:07 | EMERGENCY ROOM VISIT NOTE ---
History Report prepared by Sandyibaidan: Galindo Gibson Under the Supervision of: Dr. Cesar Santos M.D. First contact with patient: 16:48 Chief Complaint: ABDOMINAL PAIN Stated Complaint: SEVERE ABDOMINAL PAIN History of Present Illness The patient is a 31 year old white female with a past medical history of ruptured ovarian cyst and tubal ligation who presents to the ED with a cc of constant right lower abdominal pain beginning yesterday. Positive nausea and low back pain. History of similar symptoms with previous ovarian cyst. Pain worsened with standing. Multiple ovarian cysts seen previously when her ruptured cyst was identified. Previous ruptured cyst was on right side. Saw OBGYN last week for yearly check up. Negative vomiting, urinary symptoms. LNMP was last week. No recent falls or trauma. No recent travel. No recent antibiotic use. Has not eaten today. Source of History: patient Onset: Yesterday Position: abdomen (right lower) Timing: constant Modifying Factors (Worsening): other (standing) Associated Symptoms: + nausea, + back pain (low), No vomiting, No urinary symptoms Review of Systems See HPI for pertinent positives and negatives. A total of ten systems were reviewed and were otherwise negative. Past Medical & Surgical Medical Problems: (1) Acute bronchitis (2) Anxiety (3) Asthma, Unspecified (4) Benzodiazepine abuse (5) Bipolar disorder (6) Chronic GERD (7) Contusion of right hip (8) Esophageal Reflux (9) Fall due to slipping on ice or snow (10) MAXIMUS (generalized anxiety disorder) (11) Headache (12) Hyperlipidemia Nec/Nos (13) Low back strain (14) Migraine (15) Migraines (16) Occipital neuralgia (17) Opiate misuse (18) Shortness of breath (19) Syncope and collapse Surgical Problems: (1) Hx of cholecystectomy Family History Cancer Diabetes mellitus FH: heart disease High cholesterol Hypertension Ovarian cyst Social History Smoking Status: Never Smoker Alcohol Use: occasionally Drug Use: none Marital Status: Housing Status: lives with family Occupation Status: unemployed Current/Historical Medications Scheduled Amitriptyline HCl (Amitriptyline HCl), 1 TAB PO HS Fluoxetine HCl (Fluoxetine HCl), 20 MG PO DAILY Fluoxetine Hcl (Prozac), 40 MG PO DAILY Gabapentin (Gabapentin), 300 MG PO BID Hydrochlorothiazide (Hydrochlorothiazide), 25 MG PO DAILY Lamotrigine (Lamictal), 200 MG PO QAM Metronidazole Vaginal (Metronidazole Vaginal), 1 APPLN PV UD Multiple Vitamin (Multivitamin), 1 TAB PO DAILY Ziprasidone (Ziprasidone HCl), 80 MG PO QPM Scheduled PRN Acetaminophen (Tylenol), 1,000 MG PO UD PRN for Pain Albuterol Sulfate (Proventil Hfa), 2 PUFFS INH Q4H PRN for SOB/Wheezing Nqiisrgrqk-Yopmkpcsnfjdb-Bckpe (Butalbital/APAP/Caffeine 50-300-40 mg), 1 CAP PO Q4-6HRS PRN for Migraine Hydroxyzine Pamoate (Vistaril), 1 TAB PO for Anxiety Allergies Coded Allergies: Cephalosporins (Verified Allergy, Intermediate, HIVES, 04/13/17) Sumatriptan (Verified Allergy, Intermediate, RASH, 04/13/17) INJ OF IMITREX, RASH @ INJECTION SITE Cephalexin (Verified Allergy, Unknown, HIVES, 04/13/17) Metoclopramide (Verified Allergy, Unknown, ANXIETY, 04/13/17) Physical Exam Vital Signs Date Time Temp Pulse Resp B/P (MAP) Pulse Ox O2 Delivery O2 Flow Rate FiO2 04/13/17 20:18 70 18 127/82 97 04/13/17 19:09 37.1 90 18 128/87 94 Room Air 04/13/17 18:28 90 18 151/98 97 Room Air 04/13/17 16:44 37.1 110 20 136/79 96 Room Air Physical Exam GENERAL: Awake, alert, well-appearing, NAD HENT: Normocephalic, atraumatic. EYES: Normal conjunctiva. Sclera non-icteric. NECK: Supple. No nuchal rigidity. FROM. RESPIRATORY: CTAB, no rhonchi, wheezing, crackles CARDIAC: RRR, no MRG ABDOMEN: Obese, soft, ND, BS+. Lower midline suprapubic TTP. Right sided pelvic pain. Negative obturators. Negative Psoas. No erythema or intertrigo noted. No CVA TTP. MSK: No chest wall TTP, no LE edema NEURO: GCS 15, CN 2-12 intact, moves all 4s on command SKIN: No rash or jaundice noted. Medical Decision & Procedures ER Provider Diagnostic Interpretation: Radiology results as stated below per my review and radiologist interpretation: ULTRASOUND OF THE PELVIS FINDINGS: Uterus: The uterus is normal in size and heterogeneous in echotexture, measuring 8.2 x 4.4 x 5.6 cm. Endometrium: The endometrium is normal in appearance, and the endometrial stripe is normal in thickness measuring up to 0.4 cm. Ovaries: The ovaries are normal in size and morphology. The right ovary measures 3.8 x 2.0 x 2.8 cm and the left ovary measures 2.9 x 1.8 x 2.1 cm. Small follicles are seen bilaterally. Normal Doppler waveforms are shown within both ovaries. Pelvis: There is no free fluid in the cul-de-sac. No concerning adnexal lesion is seen. IMPRESSION: Unremarkable sonographic assessment of the pelvis. Electronically signed by: Willy Romo M.D. 04/13/2017 6:[address] SCAN OF THE ABDOMEN AND PELVIS WITH IV CONTRAST FINDINGS: Lung bases: The heart is normal in size and without pericardial effusion. Trace pleural effusions are identified and there is dependent atelectasis. The lung bases are otherwise clear. Liver: The contrast-enhanced liver is enlarged, measuring 22.6 cm in length. The liver demonstrates diffusely diminished attenuation consistent with hepatic steatosis. There is minimal central intrahepatic biliary ductal dilatation. The hepatic veins and portal veins are patent. Gallbladder: Surgically absent noting clips in the gallbladder fossa. Spleen: Normal in size and attenuation. Pancreas: Unremarkable. Adrenal glands: Unremarkable. Kidneys: The contrast enhanced kidneys are normal in size and without hydronephrosis. The kidneys enhance symmetrically. There is a circumaortic left renal vein. Abdominal vasculature: The abdominal aorta is normal in course and caliber. Bowel: The small bowel and colon are normal in course and caliber. The appendix is well-visualized and normal. Peritoneum: There is no intraperitoneal free air or abdominal ascites. There is a fat-containing umbilical hernia. Lymphadenopathy: None. Pelvic viscera: The bladder, uterus, and adnexa are normal as visualized. Bilateral ovarian follicles are observed. Skeletal structures: No lytic or blastic lesions are seen. IMPRESSION: 1. There are no acute infectious or inflammatory findings in the abdomen or pelvis. 2. Hepatomegaly and hepatic steatosis. 3. Trace pleural effusions. Electronically signed by: Willy Romo M.D. 04/13/2017 7:49 PM Laboratory Results 04/13/17 16:56 Red Blood Count 4.25, Mean Corpuscular Volume 89.2, Mean Corpuscular Hemoglobin 29.4, Mean Corpuscular Hemoglobin Concent 33.0, Mean Platelet Volume 9.0, Neutrophils (%) (Auto) 60.9, Lymphocytes (%) (Auto) 32.3, Monocytes (%) (Auto) 3.8, Eosinophils (%) (Auto) 2.4, Basophils (%) (Auto) 0.4, Neutrophils # (Auto) 5.50, Lymphocytes # (Auto) 2.92, Monocytes # (Auto) 0.34, Eosinophils # (Auto) 0.22, Basophils # (Auto) 0.04 04/13/17 16:56 Test 04/13/17 16:50 04/13/17 16:56 Urine Color YELLOW Urine Appearance CLEAR (CLEAR) Urine pH 7.0 (4.5-7.5) Urine Specific [place] 1.014 (1.000-1.030) Urine Protein NEG (NEG) Urine Glucose (UA) NEG (NEG) Urine Ketones NEG (NEG) Urine Occult Blood NEG (NEG) Urine Nitrite NEG (NEG) Urine Bilirubin NEG (NEG) Urine Urobilinogen NEG (NEG) Urine Leukocyte Esterase NEG (NEG) Urine Test NEG (NEG) White Blood Count 9.04 K/uL (4.8-10.8) Red Blood Count 4.25 M/uL (4.2-5.4) Hemoglobin 12.5 g/dL (12.0-16.0) Hematocrit 37.9 % (37-47) Mean Corpuscular Volume 89.2 fL (80-100) Mean Corpuscular Hemoglobin 29.4 pg (25-34) Mean Corpuscular Hemoglobin Concent 33.0 g/dl (32-36) Platelet Count 303 K/uL (130-400) Mean Platelet Volume 9.0 fL (7.4-10.4) Neutrophils (%) (Auto) 60.9 % Lymphocytes (%) (Auto) 32.3 % Monocytes (%) (Auto) 3.8 % Eosinophils (%) (Auto) 2.4 % Basophils (%) (Auto) 0.4 % Neutrophils # (Auto) 5.50 K/uL (1.4-6.5) Lymphocytes # (Auto) 2.92 K/uL (1.2-3.4) Monocytes # (Auto) 0.34 K/uL (0.11-0.59) Eosinophils # (Auto) 0.22 K/uL (0-0.5) Basophils # (Auto) 0.04 K/uL (0-0.2) RDW Standard Deviation 43.6 fL (36.4-46.3) RDW Coefficient of Variation 13.4 % (11.5-14.5) Immature Granulocyte % (Auto) 0.2 % Immature Granulocyte # (Auto) 0.02 K/uL (0.00-0.02) Anion Gap 7.0 mmol/L (3-11) Est Creatinine Clear Calc Drug Dose 139.1 ml/min Estimated GFR () 120.9 Estimated GFR (Non- 104.3 BUN/Creatinine Ratio 13.3 (10-20) Calcium Level 9.2 mg/dl (8.5-10.1) Total Bilirubin 0.3 mg/dl (0.2-1) Direct Bilirubin < 0.1 mg/dl (0-0.2) Aspartate Amino Transf (AST/SGOT) 15 U/L (15-37) Alanine Aminotransferase (ALT/SGPT) 20 U/L (12-78) Alkaline Phosphatase 108 U/L (45-117) Total Protein 7.9 gm/dl (6.4-8.2) Albumin 4.0 gm/dl (3.4-5.0) Lipase 117 U/L (73-393) Laboratory results reviewed by me Medications Administered Medications (Trade) Dose Ordered Sig/Theodore Route Start Time Stop Time Status Last Admin Dose Admin Sodium Chloride 1,000 ml @ 999 mls/hr Q1H1M STAT IV 04/13/17 16:51 04/13/17 17:51 DC 04/13/17 17:09 999 MLS/HR Ondansetron HCl (Zofran Inj) 4 mg NOW STAT IV 04/13/17 16:51 04/13/17 16:53 DC 04/13/17 17:20 4 MG Morphine Sulfate (MoRPHine SULFATE INJ) 4 mg NOW STAT IV 04/13/17 17:07 04/13/17 17:10 DC 04/13/17 17:21 4 MG Hydromorphone HCl (Dilaudid Inj) 1 mg NOW STAT IV 04/13/17 18:34 04/13/17 18:35 DC 04/13/17 18:57 1 MG Ketorolac Tromethamine (Toradol Inj) 30 mg NOW STAT IV 04/13/17 18:35 04/13/17 18:36 DC 04/13/17 18:57 30 MG Acetaminophen (Tylenol Tab) 1,000 mg NOW STAT PO 04/13/17 18:35 04/13/17 18:36 DC 04/13/17 18:56 1,000 MG ED Course 1701: The patient was evaluated in room B11B. A complete history and physical exam was performed. 1650: Ordered Zofran Inj 4 mg IV, Sodium Chloride 1000 ml @ 999 mls/hr IV. 1706: Ordered Morphine Sulfate 4 mg IV. 1833: Ordered Dilaudid Inj 1 mg IV, Tylenol Tab 1000 mg PO, Toradol Inj 30 mg IV. 1952: I reevaluated the patient. Discussed results and discharge instructions: she verbalized understanding and agreement. The patient is ready for discharge. Medical Decision The patient is a 31 year old white female with a past medical history of ruptured ovarian cyst and tubal ligation who presents to the ED with a cc of constant lower abdominal pain beginning yesterday. Differential diagnosis: Etiologies such as appendicitis, diverticulitis, PUD, biliary pathology, UTI, pancreatitis, obstruction, mesenteric ischemia, aortic pathology, infections, inflammatory bowel disease, renal colic, as well as others were entertained. Patient was seen and evaluated at the bedside. Patient had been in complaining of some right-sided pelvic pain. She does state that she felt this is more pelvic pain related to right abdominal pain. She stated it was fairly severe sharp in nature. Patient states she does take gabapentin for chronic abdominal pain. Patient was recently seen by her RESERVATIONS SPECIALIST but did not have any physical complaints. Patient was being treated for bacterial infection which she receiving some sort of intravaginal cream. Patient denies any vaginal discharge or bleeding. Patient denied any urinary symptoms. Patient symptoms are similar to when she had a ruptured ovarian cyst prior. Patient did have blood work that was completed. Patient's white blood cell count was within normal limits. Patient had good kidney function. Patient's LFTs and lipase fairly benign. Patient did have a pelvic ultrasound completed that was fairly unremarkable. Patient furthermore had a CT of the abdomen pelvis and additional pain control given that her pain was not improved. His pain was mildly improved thereafter and a CT the abdomen pelvis did not show any acute abnormality that required any surgical intervention or medical management. Patient was told of these findings total follow-up with her PCP and or her OB/ DIESEL MECHANIC APPRENTICE. Patient was agreeable with plan of care. Patient vital signs stable afebrile. Patient was safely discharged home. Medication Reconcilliation Current Medication List: was personally reviewed by me Blood Pressure Screening Patient's blood pressure: Elevated blood pressure Blood pressure disposition: Elevated BP felt to be situational Impression Primary Impression: Right lower quadrant abdominal pain Scribe Attestation The scribe's documentation has been prepared under my direction and personally reviewed by me in its entirety. I confirm that the note above accurately reflects all work, treatment, procedures, and medical decision making performed by me. Departure Information Dispostion Home / Self-Care Referrals Lisa Casanova DO (PCP) Patient Instructions Abdominal Pain - [facility], Formerly [facility], [facility]–1983 Additional Instructions Please return to the emergency department if you have worsening or recurrent symptoms not amenable to at-home treatment. Please call for a follow-up appointment with her primary care physician. Please take your medications as prescribed. If you have other concerns and/or complaints please feel free to also call your primary care physician's office or return the ED for further evaluation, management, and treatment. You may take 600 mg Ibuprofen every 6 hours as needed for pain with food for no more than 2 consecutive days. You may take tylenol 1000mg every 6 hours as needed for pain. You may take motrin and tylenol separately or at the same time. You have been examined and treated today on an emergency basis only. This is not a substitute for, or an effort to provide, complete comprehensive medical care. It is impossible to recognize and treat all injuries or illnesses in a single emergency department visit. It is therefore important that you follow up closely with [facility]. Call as soon as possible for an appointment. Thank you for your time and consideration. I look forward to speaking with you again soon. Please don't hesitate to call us if you have any questions.
[2017-04-13 20:18] VITALS: BP 127/82; PULSE 70; O2SAT 97
== END 2017-04-13 20:19 | disposition home or self-care (01) ==
LOC: C.EDB 16:36
DX: R10.31 Right lower quadrant pain (principal); N83.209 Unspecified ovarian cyst, unspecified side; E78.5 Hyperlipidemia, unspecified; F41.1 Generalized anxiety disorder; F31.9 Bipolar disorder, unspecified; K21.9 Gastro-esophageal reflux disease without esophagitis; J45.909 Unspecified asthma, uncomplicated; Z90.49 Acquired absence of other specified parts of digestive tract; Z79.899 Other long term (current) drug therapy; Z88.8 Allergy status to other drugs, medicaments and biological substances; Z80.9 Family history of malignant neoplasm, unspecified; Z83.3 Family history of diabetes mellitus; Z82.49 Family history of ischemic heart disease and other diseases of the circulatory system

== ENCOUNTER → 2017-05-21 | Outpatient (CLI) | payer OTHER ==
[~2017-05-21] MED LIST changes: +AMT25 PO; -CTF50 PO; -CYAN10004 PO; +HYDR1CAP85 PO; +METR0.757 PV; -PYRI50TA77 PO
--- NOTE | 2017-05-21 16:21 | DIAGNOSTIC IMAGING REPORT ---
KNEES, AP STANDING CLINICAL HISTORY: Bilateral knee pain. COMPARISON: MRI of the left knee December 01, 2015 and left knee radiograph February 13, 2016. FINDINGS: An AP radiograph of the knees demonstrates no abnormality. Joint spaces are preserved within the medial and lateral compartments. No fracture or suspicious osseous lesion is identified. IMPRESSION: No abnormality on standing AP radiograph of the knee. Electronically signed by: Tushar Vera M.D. 05/21/2017 4:20 PM Dictated Date/Time: 05/21/2017 4:19 PM
--- NOTE | 2017-05-21 16:25 | DIAGNOSTIC IMAGING REPORT ---
R KNEE 1 OR 2 VIEWS ROUTINE CLINICAL HISTORY: Bilateral knee pain. COMPARISON: None FINDINGS: This study is viewed in conjunction with the AP exam which was performed concurrently. No fracture or osseous lesion is identified. No joint effusion is identified. There is minimal osteophytosis of the right knee. IMPRESSION: 1. No acute fracture or joint effusion of the right knee. 2. Preserved joint spaces with minimal osteophytosis. Electronically signed by: Tushar Vera M.D. 05/21/2017 4:24 PM Dictated Date/Time: 05/21/2017 4:23 PM
--- NOTE | 2017-05-21 16:30 | DIAGNOSTIC IMAGING REPORT ---
L KNEE 1 OR 2 VIEWS ROUTINE CLINICAL HISTORY: Bilateral knee pain. COMPARISON: Left knee radiographs October 06, 2015. FINDINGS: This study is viewed in conjunction with the standing AP exam which was performed concurrently. Alignment of the left knee is anatomic. There is no acute fracture or joint effusion. No osseous lesion is identified. Joint spaces are preserved. There is minimal osteophytosis of the patellofemoral compartment with slight lateral patellar tilt. IMPRESSION: 1. No acute fracture or joint effusion of the left knee. 2. Preserved joint spaces with mild osteophytosis within the patellofemoral compartment. Electronically signed by: uTshar Vera M.D. 05/21/2017 4:28 PM Dictated Date/Time: 05/21/2017 4:27 PM
== END | disposition home or self-care (01) ==
LOC: C.RAD 14:07
PROVIDERS: ATTEND Physician Assistant
DX: M25.561 Pain in right knee (principal); M25.562 Pain in left knee

== ENCOUNTER → 2017-05-31 | Outpatient (CLI) | payer OTHER ==
--- NOTE | 2017-05-31 13:49 | DIAGNOSTIC IMAGING REPORT ---
ULTRASOUND LEFT LOWER EXTREMITY VENOUS CLINICAL HISTORY: Left leg pain. COMPARISON STUDY: No priors. TECHNIQUE: Real-time, grayscale, and color Doppler sonography of the deep veins of the left lower extremity was performed from the inguinal crease to the calf. Compression and augmentation were utilized. FINDINGS: There is no sonographic evidence of deep venous thrombosis identified in the left lower extremity. The common femoral, superficial femoral, and popliteal veins are patent and normally compressible. The greater saphenous vein and the profunda femoris vein at the junction with the common femoral vein are clear. The visualized calf veins are patent. IMPRESSION: There is no sonographic evidence of deep venous thrombosis identified in the left lower extremity. Electronically signed by: Willy Romo M.D. 05/31/2017 1:48 PM Dictated Date/Time: 05/31/2017 1:47 PM
== END | disposition home or self-care (01) ==
LOC: C.ULTRBC 13:16
PROVIDERS: ATTEND Family Medicine
DX: M79.605 Pain in left leg (principal)

== ENCOUNTER 2017-07-08 20:38 | Emergency (ER) | payer OTHER ==
[~2017-07-08] VITALS: Ht 165.1 cm; Wt 123.8 kg
[~2017-07-08 20:38] MED LIST changes: -BUTA1CAP20 PO; -GDN40 PO; -LAMO200T38 PO; -NRN100 PO
[2017-07-08 20:52] VITALS: TEMP 36.7; Ht 165.1 cm; Wt 123.8 kg
[2017-07-08] MEDS ORDERED: VNTHFA/IN INH (21:06)
[2017-07-08] MEDS ORDERED: MEDR150I19 IM (21:06)
[2017-07-08] MEDS ORDERED: MELO15TA4 PO (21:06)
[2017-07-08] MEDS ORDERED: RBX500 PO (21:07)
[2017-07-08] MEDS ORDERED: DIAZEPAM INJ 5 MG/ML 2 ML CARP IM STA (21:17)
[2017-07-08] MEDS ORDERED: KETOROLAC TROMETHAMINE 60 MG/2 ML VIAL IM STA (21:17)
[2017-07-08] MEDS ORDERED: KETOROLAC TROMETHAMINE 30 MG/ML VIAL IV STA (21:20)
--- NOTE | 2017-07-08 21:23 | EMERGENCY ROOM VISIT NOTE ---
ED Visit Note First contact with patient: 21:06 CHIEF COMPLAINT: Back pain HISTORY OF PRESENT ILLNESS: This 31-year-old female presents to the emergency department via EMS with complaints of pain in her upper and lower back began immediately after her 35 pound toddler jumped on her back around 5 PM today. She states that she was lying on her stomach in her bed her toddler jumped on her back, hitting her lower back with his knees, and hitting her upper back with his head and hands. She experienced some "popping" in her upper back and immediate pain all over the back. She took Mobic with minimal relief. She did not try any ice or heat or any other medications. She reports since the injury that her pain has gotten worse, spasming and shooting in all directions, worse with movement, better with rest and serum positioning, 8/10. She reports some associated tingling in her hands and feet since the injury. She reports a history of chronic back pain, she has received physical therapy for this, but she denies any back surgeries, back fractures, or disc problems. She has been able to walk since the injury, but states she has a lot of pain. She states that EMS gave her fentanyl on the way here, which did help her pain somewhat. She denies any bowel or bladder difficulties. There has been no leg numbness or weakness, no saddle paresthesias. No vomiting or abdominal pain. No other associated injuries. REVIEW OF SYSTEMS: NA complete 10 point review of systems was reviewed with the patient with pertinent positives and negatives as per history of present illness. All else were negative. PMH: Reviewed in chart SOCIAL HISTORY: Patient lives at home. She denies tobacco use, alcohol or recreational drug use. PHYSICAL EXAM: Vital Signs: Reviewed Nurse's notes. CONSTITUTIONAL: Pleasant and cooperative. No acute distress, but appears uncomfortable and in pain throughout the exam. HEENT: Normocephalic, atraumatic. Pupils equal, round and reactive to light, EOMI. TMs normal. Pharynx normal. NECK: Supple, full active range of motion without discomfort. RESPIRATORY: Clear to auscultation bilaterally with no wheezing, crackles, rhonchi or stridor. Equal expansion bilaterally. CARDIOVASCULAR: Regular rate and rhythm with no murmurs, rubs or gallops. Normal peripheral perfusion. No edema. GASTROINTESTINAL: Soft, nontender, nondistended. No palpable masses or HSM. Bowel sounds present in all quadrants. BACK: There is diffuse midline and paraspinous tenderness extending from the top of the thoracic spine all the way to the sacrum, no pointed area of tenderness, no step-offs, no crepitus, no ecchymosis or abrasions,swelling. Limited range of motion of the back due to pain. LEGS: Normal strength including dorsi-flexion and plantar flexion of the feet. Negative bilateral straight leg raising, normal and symmetrical knee and ankle reflexes. MUSCULOSKELETAL: Full range of motion of all joints without discomfort. INTEGUMENTARY: No rash or other significant dermatologic conditions noted. NEUROLOGIC: Alert and oriented X 4 with normal affect. Cranial nerves II-XII grossly intact. No focal neurologic deficits noted. Sensation intact to all 4 extremities to light touch. EMERGENCY DEPARTMENT COURSE: I examined the patient. Differential diagnosis includes back sprain/strain, contusion, muscle spasm, vertebral fracture, subluxation, among others. Patient was given a dose of fentanyl for her pain by EMS, she still complains of severe pain. There is diffuse tenderness of the upper and lower back to palpation, no pointed area of tenderness or step-off of the spine to concern for fracture, and mechanism of injury seems very low. I had this discussion with the patient, decision was made not to do any imaging at this time, as her pain is diffuse and her neurologic exam is normal. Patient was given IV Toradol and IM Valium. Nursing staff notified me that the patient is now complaining of pointed tenderness in the middle of her back, I reassessed her, she states that her overall pain is improving after medications , but now she feels one spot that is more painful and she would like to have an x-ray done. Thoracic spine x-ray was ordered and reviewed by myself, no acute fractures or subluxations noted, good alignment. Formal radiologist's read pending. I discussed all results with the patient, she states that her pain is improved. Rx for Valium provided for continued management of back spasms and pain, and she was educated on its use. I encouraged her to follow closely with her primary care provider if her symptoms do not improve in the next few days, and that she may benefit from physical therapy. I also gave her strict return precautions should her symptoms worsen, she verbalized understanding. The patient was discharged home in stable condition and ambulatory. Problem List Medical Problems: (1) Acute bronchitis Status: Resolved (2) Anxiety Status: Chronic (3) Benzodiazepine abuse Status: Chronic (4) Bipolar disorder Status: Chronic (5) Chronic GERD Status: Chronic (6) Contusion of right hip Status: Resolved (7) Fall due to slipping on ice or snow Status: Resolved (8) MAXIMUS (generalized anxiety disorder) Status: Chronic (9) Headache Status: Chronic (10) Low back strain Status: Resolved (11) Migraine Status: Chronic (12) Migraines Status: Chronic (13) Occipital neuralgia Status: Resolved (14) Opiate misuse Status: Chronic (15) Shortness of breath Status: Resolved Surgical Problems: (1) Hx of cholecystectomy Status: Resolved Current/Historical Medications Scheduled Amitriptyline HCl (Amitriptyline HCl), 25 MG PO HS Diazepam (Valium), 5 MG PO TID Fluoxetine Hcl (Prozac), 80 MG PO DAILY Gabapentin (Gabapentin), 300 MG PO BID Lamotrigine (Lamictal), 200 MG PO QAM Medroxyprogesterone Acetate (C (Medroxyprogesterone Aceta), 150 MG IM UD Meloxicam (Meloxicam), 15 MG PO DAILY Multiple Vitamin (Multivitamin), 1 TAB PO DAILY Ziprasidone (Ziprasidone HCl), 80 MG PO QPM Scheduled PRN Albuterol Hfa (Ventolin Hfa), 2 PUFFS INH Q4H PRN for SOB/Wheezing Rfcikqmolf-Mnklwcaormkkg-Xqymv (Butalbital/APAP/Caffeine 50-300-40 mg), 1 CAP PO Q4-6HRS PRN for Migraine Hydroxyzine Pamoate (Vistaril), 25 MG PO DAILY PRN for Anxiety Methocarbamol (Methocarbamol), 500 MG PO UD PRN for Muscle Spasm Allergies Coded Allergies: Cephalosporins (Verified Allergy, Intermediate, HIVES, 04/13/17) Sumatriptan (Verified Allergy, Intermediate, RASH, 04/13/17) INJ OF IMITREX, RASH @ INJECTION SITE Cephalexin (Verified Allergy, Unknown, HIVES, 04/13/17) Metoclopramide (Verified Allergy, Unknown, ANXIETY, 04/13/17) Vital Signs Date Time Temp Pulse Resp B/P (MAP) Pulse Ox O2 Delivery O2 Flow Rate FiO2 07/08/17 23:15 99 18 122/80 95 07/08/17 20:52 36.7 104 18 127/85 94 Room Air Medications Administered Medications (Trade) Dose Ordered Sig/Theodore Route Start Time Stop Time Status Last Admin Dose Admin Diazepam (Valium Inj) 10 mg NOW STAT IM 07/08/17 21:17 07/08/17 21:19 DC 07/08/17 21:28 10 MG Ketorolac Tromethamine (Toradol Inj) 15 mg NOW STAT IV 07/08/17 21:20 07/08/17 21:22 DC 07/08/17 21:27 15 MG Departure Information Impression Primary Impression: Back contusion Dispostion Home / Self-Care Condition GOOD Prescriptions Diazepam (Valium) 5 Mg Tab 5 MG PO TID for Muscle Spasms, #10 TAB Prov: Rosita Rodriguez, INVERTEBRATE PALEONTOLOGIST 07/08/17 Referrals Lisa Casanova DO (PCP) Patient Instructions ED Contusion Back, ED Exercises Lumbar Muscles, [facility] Additional Instructions Take it easy for the next few days, no strenuous activity, heavy lifting, or bending/twisting motions, to allow your back to rest. Alternate heat and ice for comfort. After heat, you may do gentle stretching and massage to the low back. Take your prescribed Mobic as directed once a day for the next two weeks to treat your pain and inflammation in your back. Do not take other NSAIDs while you are taking this medication. Valium muscle relaxer as prescribed, as needed for muscle tightness and spasms. This may make you drowsy. Do not drive or drink alcohol while taking. Follow up with your PCP in the next few days for further management. You may benefit from additional treatment or physical therapy. Please return to the ER if any problems with bowel or bladder function, numbness in your groin, high fevers, severe abdominal pain or worsening back pain, or if loss of feeling/movement of arms or legs. Work Instructions Return To Work: 2 days Problem Qualifiers Primary Impression: Back contusion Encounter type: initial encounter Laterality: unspecified laterality Qualified Codes: S20.229A - Contusion of unspecified back wall of thorax, initial encounter
[2017-07-08] MEDS ORDERED: DIAZ-165 PO (22:58)
[2017-07-08] MEDS ORDERED: LAMO200T35 PO (22:59)
[2017-07-08] MEDS ORDERED: GDN40 PO (22:59)
[2017-07-08] MEDS ORDERED: BUTA1CAP20 PO (22:59)
[2017-07-08] MEDS ORDERED: NRN100 PO (22:59)
[2017-07-08 23:15] VITALS: BP 122/80; PULSE 99; O2SAT 95
--- NOTE | 2017-07-08 23:21 | DIAGNOSTIC IMAGING REPORT ---
THORACIC SPINE 3 VIEWS HISTORY: midline back pain between T8-T12, eval fx COMPARISON: Thoracic spine 01/01/2017. FINDINGS: There is no fracture. No subluxation. Mild degenerative disease within the upper thoracic spine. IMPRESSION: No fracture or subluxation within the thoracic spine. Electronically signed by: Harpal Mosquera M.D. 07/08/2017 11:20 PM Dictated Date/Time: 07/08/2017 11:19 PM
== END 2017-07-08 23:16 | disposition home or self-care (01) ==
LOC: EDBD 20:38 → C.EDB 20:40
DX: S20.229A Contusion of unspecified back wall of thorax, initial encounter (principal); X58.XXXA Exposure to other specified factors, initial encounter; K21.9 Gastro-esophageal reflux disease without esophagitis; F41.1 Generalized anxiety disorder; Z87.828 Personal history of other (healed) physical injury and trauma; Z91.81 History of falling; Z90.49 Acquired absence of other specified parts of digestive tract; Z79.899 Other long term (current) drug therapy; Z88.8 Allergy status to other drugs, medicaments and biological substances

== ENCOUNTER 2017-07-24 19:38 | Emergency (ER) | payer OTHER ==
[~2017-07-24] VITALS: Ht 165.1 cm; Wt 126.3 kg
[~2017-07-24 19:38] MED LIST changes: -ACET-1256 PO; -ALBUAER INH; +BUTA1CAP20 PO; +DIAZ-165 PO; -FLUO20CA36 PO; +GDN40 PO; -HYDR25TA5 PO; +LAMO200T35 PO; +MEDR150I19 IM; +MELO15TA4 PO; -METR0.757 PV; +NRN100 PO; +RBX500 PO; +VNTHFA/IN INH
[2017-07-24 19:45] VITALS: TEMP 36.3; Ht 165.1 cm; Wt 126.3 kg
[2017-07-24] MEDS ORDERED: DIPH1TAB87 PO (19:52)
[2017-07-24] MEDS ORDERED: MELA1TAB3 PO (19:52)
[2017-07-24] MEDS ORDERED: HYDROmorphone INJ 1 MG/ML SYR IV ONE ×2 (20:15→22:15)
--- NOTE | 2017-07-24 20:29 | EMERGENCY ROOM VISIT NOTE ---
History First contact with patient: 19:57 Chief Complaint: FALL Stated Complaint: FALL, BACK, ARM & LEG PAIN History of Present Illness The patient is a 31 year old female who presents to the Emergency Room with complaints of 2 falls prior to arrival. The first fall was down 5 wooden steps. She reports hitting her head. There is no loss of consciousness. The patient is experiencing left-sided arm and leg pain. She also complains of low back pain. After her fall, she felt lightheaded and dizzy and fell down striking her head off of the cabinet. This fall was witnessed. She denies any chest pain or difficulty breathing at any point. She reports a moderate migraine headache, which she has chronically. She reports numbness and tingling in her lower extremities. No saddle paresthesias. No urinary or bowel incontinence. The patient came to the emergency department by ALS. She received 100 g of fentanyl with minimal relief. Review of Systems 10 system review performed and negative unless noted in HPI or below Past Medical/Surgical History Medical Problems: (1) Acute bronchitis (2) Anxiety (3) Asthma, Unspecified (4) Benzodiazepine abuse (5) Bipolar disorder (6) Chronic GERD (7) Contusion of right hip (8) Esophageal Reflux (9) Fall due to slipping on ice or snow (10) MAXIMUS (generalized anxiety disorder) (11) Headache (12) Hyperlipidemia Nec/Nos (13) Low back strain (14) Migraine (15) Migraines (16) Occipital neuralgia (17) Opiate misuse (18) Shortness of breath (19) Syncope and collapse Surgical Problems: (1) Hx of cholecystectomy Family History Cancer Diabetes mellitus FH: heart disease High cholesterol Hypertension Ovarian cyst Social History Smoking Status: Never Smoker Alcohol Use: occasionally Drug Use: none Marital Status: Housing Status: lives with family Occupation Status: unemployed Current/Historical Medications Scheduled Amitriptyline HCl (Amitriptyline HCl), 25 MG PO HS Cyclobenzaprine Hcl (Flexeril), 10 MG PO TID Diphenhydramine Hcl (Benadryl Allergy), 50 MG PO HS Fluoxetine Hcl (Prozac), 40 MG PO BID Gabapentin (Gabapentin), 400 MG PO BID Lamotrigine (Lamictal), 200 MG PO QAM Melatonin-Pyridoxine (Melatonin), 10 MG PO HS Meloxicam (Meloxicam), 15 MG PO DAILY Multiple Vitamin (Multivitamin), 1 TAB PO DAILY Ziprasidone (Ziprasidone HCl), 80 MG PO QPM Scheduled PRN Albuterol Hfa (Ventolin Hfa), 2 PUFFS INH Q4H PRN for SOB/Wheezing Zzexzipdhi-Gkpbeumdgtimj-Eqbhd (Butalbital/APAP/Caffeine 50-300-40 mg), 1 CAP PO Q4-6HRS PRN for Migraine Hydroxyzine Pamoate (Vistaril), 25 MG PO DAILY PRN for Anxiety Methocarbamol (Methocarbamol), 500 MG PO UD PRN for Muscle Spasm Oxycodone/Acetaminophen 5MG/325MG (Percocet 5MG/325MG), 1 TAB PO Q4H PRN for Pain Physical Exam Vital Signs Date Time Temp Pulse Resp B/P (MAP) Pulse Ox O2 Delivery O2 Flow Rate FiO2 07/25/17 00:01 94 18 135/94 97 Room Air 07/24/17 22:42 84 18 160/120 96 Room Air 07/24/17 21:55 94 18 161/109 97 Room Air 07/24/17 19:45 36.3 73 18 147/91 97 Room Air Physical Exam VITALS: Vitals are noted on the nurse's note and reviewed by myself. Vital signs stable. GENERAL: 31-year-old female, cervical collar in place, on a backboard, SKIN: The skin was without rashes, erythema, edema, or bruising. HEAD: Normocephalic atraumatic. EYES: Pupils equal round and reactive to light and accommodation. Conjunctivae without injection, sclerae without icterus. Extraocular movements intact. MOUTH: Mucous membranes moist. NECK: Supple without nuchal rigidity. . Cervical spine is nontender. HEART: Regular rate and rhythm without murmurs gallops or rubs. No tenderness over the thorax appreciated LUNGS: Clear to auscultation bilaterally without wheezes, rales or rhonchi. No accessory muscle use. ABDOMEN: Positive bowel sounds x 4.Soft, nontender, without organomegaly. No guarding or rebound tenderness. MUSCULOSKELETAL: Mild tenderness over the thoracic and lumbar spinous processes. No ecchymosis noted. Strength 5/5 throughout. DP pulse and radial pulses +2 and equal bilaterally. Mild tenderness over the left wrist. NEURO: Patient was alert and oriented to person place and time. Normal sensation to touch. No focal neurological deficits. Medical Decision & Procedures ER Provider Diagnostic Interpretation: Pelvis x-ray IMPRESSION: No fracture or dislocation within the pelvis or hips. Lumbar spine CT IMPRESSION: No fractures within the thoracic or lumbar spine. Electronically signed by: Harpal Mosquera M.D. 07/24/2017 9:[address] Impression: No acute intracranial abnormality. Electronically signed by: Harpal Mosquera M.D. 07/24/2017 9:32 PM Chest x-ray IMPRESSION: No acute process. Electronically signed by: Harpal Mosquera M.D. 07/24/2017 9:49 PM Dictated Date/Time: 07/24/2017 9:[address] IMPRESSION: No fractures within the thoracic or lumbar spine. Electronically signed by: Harpal Mosquera M.D. 07/24/2017 9:39 PM Left wrist x-ray IMPRESSION: No fractures. Electronically signed by: Harpal Mosquera M.D. Laboratory Results 07/24/17 20:40 Red Blood Count 4.08, Mean Corpuscular Volume 90.0, Mean Corpuscular Hemoglobin 29.4, Mean Corpuscular Hemoglobin Concent 32.7, Mean Platelet Volume 8.8, Neutrophils (%) (Auto) 64.8, Lymphocytes (%) (Auto) 29.3, Monocytes (%) (Auto) 3.8, Eosinophils (%) (Auto) 1.6, Basophils (%) (Auto) 0.2, Neutrophils # (Auto) 7.25, Lymphocytes # (Auto) 3.27, Monocytes # (Auto) 0.42, Eosinophils # (Auto) 0.18, Basophils # (Auto) 0.02 07/24/17 20:40 Test 07/24/17 20:40 07/24/17 23:00 White Blood Count 11.17 K/uL (4.8-10.8) Red Blood Count 4.08 M/uL (4.2-5.4) Hemoglobin 12.0 g/dL (12.0-16.0) Hematocrit 36.7 % (37-47) Mean Corpuscular Volume 90.0 fL (80-100) Mean Corpuscular Hemoglobin 29.4 pg (25-34) Mean Corpuscular Hemoglobin Concent 32.7 g/dl (32-36) Platelet Count 287 K/uL (130-400) Mean Platelet Volume 8.8 fL (7.4-10.4) Neutrophils (%) (Auto) 64.8 % Lymphocytes (%) (Auto) 29.3 % Monocytes (%) (Auto) 3.8 % Eosinophils (%) (Auto) 1.6 % Basophils (%) (Auto) 0.2 % Neutrophils # (Auto) 7.25 K/uL (1.4-6.5) Lymphocytes # (Auto) 3.27 K/uL (1.2-3.4) Monocytes # (Auto) 0.42 K/uL (0.11-0.59) Eosinophils # (Auto) 0.18 K/uL (0-0.5) Basophils # (Auto) 0.02 K/uL (0-0.2) RDW Standard Deviation 43.5 fL (36.4-46.3) RDW Coefficient of Variation 13.2 % (11.5-14.5) Immature Granulocyte % (Auto) 0.3 % Immature Granulocyte # (Auto) 0.03 K/uL (0.00-0.02) Anion Gap 7.0 mmol/L (3-11) Est Creatinine Clear Calc Drug Dose 129.1 ml/min Estimated GFR () 105.8 Estimated GFR (Non- 91.3 BUN/Creatinine Ratio 16.0 (10-20) Calcium Level 9.1 mg/dl (8.5-10.1) Troponin I < 0.015 ng/ml (0-0.045) Human Chorionic Gonadotropin, Qual NEG (NEG) Urine Color YELLOW Urine Appearance CLEAR (CLEAR) Urine pH 6.5 (4.5-7.5) Urine Specific Agate 1.019 (1.000-1.030) Urine Protein NEG (NEG) Urine Glucose (UA) NEG (NEG) Urine Ketones NEG (NEG) Urine Occult Blood 2+ (NEG) Urine Nitrite NEG (NEG) Urine Bilirubin NEG (NEG) Urine Urobilinogen NEG (NEG) Urine Leukocyte Esterase SMALL (NEG) Medications Administered Medications (Trade) Dose Ordered Sig/Theodore Route Start Time Stop Time Status Last Admin Dose Admin Hydromorphone HCl (Dilaudid Inj) 1 mg ONE ONCE IV 1/28/18 20:15 07/24/17 20:18 DC 07/24/17 20:40 1 MG Hydromorphone HCl (Dilaudid Inj) 1 mg ONE ONCE IV 07/24/17 22:15 07/24/17 22:16 DC 07/24/17 22:40 1 MG Ketorolac Tromethamine (Toradol Inj) 30 mg NOW STAT IV 07/24/17 22:11 07/24/17 22:13 DC 07/24/17 22:39 30 MG Cyclobenzaprine HCl (Flexeril Tab) 10 mg NOW STAT PO 07/24/17 22:11 07/24/17 22:13 DC 07/24/17 22:39 10 MG Cyclobenzaprine HCl (FLEXERIL 10MG Home Pack) 1 homepack UD ONCE PO 07/24/17 22:15 07/24/17 22:16 DC 07/24/17 23:40 1 HOMEPACK Oxycodone/ Acetaminophen (Percocet 5/ 325MG Home Pack) 1 homepack UD ONCE PO 07/24/17 22:15 07/24/17 22:16 DC 07/24/17 23:40 1 HOMEPACK ECG Indication: weakness Rate (beats per minute): 72 Rhythm: normal sinus ED Course Patient was seen and examined Vital signs including blood pressure were reviewed medications list was verified with patient Labs were obtained, and a saline lock was established An EKG was performed and reviewed by myself. The patient was put on a monitor. She was medicated with Dilaudid Imaging was performed Upon reevaluation, the patient was still complaining of pain. She was given a dose of Flexeril. She was also given a dose of Dilaudid 1 mg IV. We discussed her workup. She voiced understanding. The patient was able to provide a urine sample. She was able to get up and move around. She was given a home pack of Flexeril and Percocet. She was happy with this plan of care. I reviewed discharge instructions the patient. They voiced understanding and had no further questions. Medical Decision Differential diagnosis: Spine fracture, ligamentous injury, subluxation, spondylolisthesis, spondylosis, herniated disc, contusion, muscle spasm, intracranial injury, skull fracture, wrist injury, pelvis fracture, hip dislocation This patient is a 31-year-old female that presents to the emergency department with complaints of back pain and left-sided pain after 2 falls. One was mechanical. The other one was precipitated by lightheadedness and dizziness after the first fall. On exam, she is neurologically intact. She had some tenderness over the thoracic and lumbar spinous processes. She also had some tenderness over the left wrist and pelvis. The patient's imaging is unremarkable. There are no acute fractures or dislocations. Her chest x-ray is clear. Her EKG shows normal sinus rhythm with no signs of ischemia or infarction. She did have a mild white count. This appears normal for her. There are no signs of infection. I believe she is stable to be discharged home. She was sent home with a short course of narcotics and muscle relaxants. She will rest for the next 24 hours. She was encouraged to follow-up with her primary care physician in the next 1-2 days for recheck. She agrees to return to the emergency department with any new, worsening or concerning symptoms. This chart was completed in part utilizing [employer] Speech Voice Recognition software. Attempts were made to minimize the grammatical errors, random word insertions, pronoun errors and incomplete sentences. Any formal questions or concerns about the content, text or information contained within the body of this dictation should be directly addressed to the provider for clarification. Medication Reconcilliation Current Medication List: was personally reviewed by me Blood Pressure Screening Patient's blood pressure: Elevated blood pressure Blood pressure disposition: Elevated BP felt to be situational Impression Primary Impression: Fall Departure Information Dispostion Home / Self-Care Condition GOOD Prescriptions Cyclobenzaprine Hcl (FLEXERIL) 10 Mg Tab 10 MG PO TID for Muscle Spasms, #12 TAB Prov: Enid Guerra PA-C 07/24/17 Oxycodone/Acetaminophen 5MG/325MG (PERCOCET 5MG/325MG) Tab 1 TAB PO Q4H Y for Pain, #9 TAB For Initial Treatment Prov: Enid Guerra PA-C 07/24/17 Referrals Lisa Casanova DO (PCP) Patient Instructions ED Fall Uncertain Cause, My [facility] Additional Instructions You were evaluated in the emergency department after a fall. Imaging did not show any signs of acute fracture or injury. Ibuprofen 600 mg every 6 hours Percocet 1-2 tabs every 4 hours for severe pain. Do not drink alcohol or drive while taking this medication. This may be taken with ibuprofen, but avoid Tylenol. Flexeril every 8 hours as needed for muscle spasm/pain. Please also do not drink alcohol or drive while taking this medication. Please apply ice for 20 minute intervals to the affected areas for the next 24 hours It is very important to follow up with her primary care physician within the next 24-48 hours for recheck. Do not hesitate to return to the emergency department with any new, worsening or concerning symptoms Work Instructions Return To Work: 1 day
[2017-07-24 20:54] LABS: BASO % 0.2 %; BASO ABS # 0.02 K/uL (0-0.2); EOS % 1.6 %; EOS ABS # 0.18 K/uL (0-0.5); HEMATOCRIT 36.7 % (37-47); IG# 0.03 K/uL (0.00-0.02); LYMPH % 29.3 %; LYMPH ABS # 3.27 K/uL (1.2-3.4); MEAN CORPUSCULAR HEMOGLOBIN 29.4 pg (25-34); MEAN CORPUSCULAR HGB CONC 32.7 g/dl (32-36); MEAN PLATELET VOLUME 8.8 fL (7.4-10.4); MONO % 3.8 %; MONO ABS # 0.42 K/uL (0.11-0.59); NEUT % 64.8 %; NEUT ABS # 7.25 K/uL (1.4-6.5); PLATELET COUNT 287 K/uL (130-400); RED CELL DISTRIBUTION WIDTH CV 13.2 % (11.5-14.5); RED CELL DISTRIBUTION WIDTH SD 43.5 fL (36.4-46.3); WHITE BLOOD COUNT 11.17 K/uL (4.8-10.8)
[2017-07-24 21:06] LABS: BLOOD UREA NITROGEN 14 mg/dl (7-18); CALCIUM 9.1 mg/dl (8.5-10.1); CARBON DIOXIDE 28 mmol/L (21-32); CREATININE 0.86 mg/dl (0.60-1.20); GLUCOSE 94 mg/dl (70-99); POTASSIUM 3.8 mmol/L (3.5-5.1); SODIUM 139 mmol/L (136-145)
--- NOTE | 2017-07-24 21:33 | DIAGNOSTIC IMAGING REPORT ---
HEAD CT NONCONTRAST CT DOSE: HISTORY: dizziness s/p fall head injury TECHNIQUE: Multiaxial CT images of the head were performed without the use of intravenous contrast. Automated exposure control was utilized for this study. A dose lowering technique was utilized adhering to the principles of ALARA. Comparison: Head CT 12/08/2016. Findings: The paranasal sinuses and mastoid air cells are clear. The calvarium and skull base are intact. The ventricles and sulci are within normal limits. There is no mass, hematoma, midline shift, or acute infarct. Impression: No acute intracranial abnormality. Electronically signed by: Harpal Mosquera M.D. 07/24/2017 9:32 PM Dictated Date/Time: 07/24/2017 9:28 PM
--- NOTE | 2017-07-24 21:40 | DIAGNOSTIC IMAGING REPORT ---
THORACIC AND LUMBAR SPINE CT CT DOSE: 5277.27 mGy.cm HISTORY: mid and lower back pain status post fall TECHNIQUE: Multiaxial CT images of the thoracic and lumbar spine were performed and reformatted in the sagittal and coronal plane without the use of contrast. A dose lowering technique was utilized adhering to the principles of ALARA. COMPARISON: Lumbar spine MRI 04/08/2010. FINDINGS: No fractures. No subluxation. Paraspinal soft tissues are unremarkable. IMPRESSION: No fractures within the thoracic or lumbar spine. Electronically signed by: Harpal Mosquera M.D. 07/24/2017 9:39 PM Dictated Date/Time: 07/24/2017 9:32 PM
--- NOTE | 2017-07-24 21:50 | DIAGNOSTIC IMAGING REPORT ---
CHEST ONE VIEW PORTABLE HISTORY: dizziness/fall COMPARISON: Chest 12/08/2016. FINDINGS: The lungs are clear. Cardiac silhouette is normal in size. No pleural effusions. No pneumothorax. IMPRESSION: No acute process. Electronically signed by: Harpal Mosquera M.D. 07/24/2017 9:49 PM Dictated Date/Time: 07/24/2017 9:48 PM
--- NOTE | 2017-07-24 21:51 | DIAGNOSTIC IMAGING REPORT ---
PELVIS 1 OR 2 VIEW ROUTINE CLINICAL HISTORY: bilateral hip pain, sacral pain. Fall. COMPARISON STUDY: Pelvis 02/02/2016. FINDINGS: No fracture or dislocation within the pelvis or hips. The sacrum appears intact. Soft tissues are unremarkable. Cartilage spaces are maintained. IMPRESSION: No fracture or dislocation within the pelvis or hips. Electronically signed by: Harpal Mosquera M.D. 07/24/2017 9:50 PM Dictated Date/Time: 07/24/2017 9:49 PM
--- NOTE | 2017-07-24 21:52 | DIAGNOSTIC IMAGING REPORT ---
LEFT WRIST 4 VIEWS HISTORY: FALL L WRIST PAIN COMPARISON: None. FINDINGS: There is no fracture or dislocation. Soft tissues are unremarkable. No radiopaque foreign bodies. IMPRESSION: No fractures. Electronically signed by: Harpal Mosquera M.D. 07/24/2017 9:51 PM Dictated Date/Time: 07/24/2017 9:50 PM
[2017-07-24] MEDS ORDERED: KETOROLAC TROMETHAMINE 30 MG/ML VIAL IV STA (22:11)
[2017-07-24] MEDS ORDERED: CYCLOBENZAPRINE HCL 10 MG TAB PO STA (22:11)
[2017-07-24] MEDS ORDERED: PERCOCET HOME PACK PO ONE (22:15)
[2017-07-24] MEDS ORDERED: FLEXERIL HOME PACK 10 MG VIAL PO ONE (22:15)
[2017-07-24] MEDS ORDERED: OXYC-57 PO (23:20)
[2017-07-24] MEDS ORDERED: CYCL10TA6 PO (23:20)
[2017-07-25 00:01] VITALS: BP 135/94; PULSE 94; O2SAT 97
== END 2017-07-25 00:03 | disposition home or self-care (01) ==
LOC: EDBD 19:38 → C.EDB 19:39
DX: M79.602 Pain in left arm (principal); M79.605 Pain in left leg; M54.5 Low back pain; R42 Dizziness and giddiness; R51 Headache; E78.5 Hyperlipidemia, unspecified; R20.0 Anesthesia of skin; F31.9 Bipolar disorder, unspecified; J45.909 Unspecified asthma, uncomplicated; K21.9 Gastro-esophageal reflux disease without esophagitis; Z79.899 Other long term (current) drug therapy; Z87.09 Personal history of other diseases of the respiratory system; Z87.828 Personal history of other (healed) physical injury and trauma; Z82.49 Family history of ischemic heart disease and other diseases of the circulatory system; Z83.3 Family history of diabetes mellitus; Z84.89 Family history of other specified conditions; W19.XXXA Unspecified fall, initial encounter

== ENCOUNTER → 2017-08-09 | Outpatient (CLI) | payer OTHER ==
[~2017-08-09] MED LIST changes: -DIAZ-165 PO; +DIPH1TAB87 PO; -MEDR150I19 IM; +MELA1TAB3 PO; +MELO-83 PO; -MELO15TA4 PO; +OXYC-57 PO
== END | disposition home or self-care (01) ==
LOC: C.RDSM 10:00
PROVIDERS: ATTEND Orthopaedic Surgery Sports Medicine
DX: M25.569 Pain in unspecified knee (principal)

== ENCOUNTER 2017-09-21 15:21 | Emergency (ER) | payer OTHER ==
[~2017-09-21] VITALS: Ht 165.1 cm; Wt 123.0 kg
[~2017-09-21 15:21] MED LIST changes: -BUTA1CAP20 PO; -GDN40 PO; -HYDR1CAP85 PO; -LAMO200T35 PO; -MELA1TAB3 PO; -MELO-83 PO; -PRZ/40 PO; -RBX500 PO; -VNTHFA/IN INH
[2017-09-21 15:26] VITALS: TEMP 37.1; Ht 165.1 cm; Wt 123.0 kg
[2017-09-21] MEDS ORDERED: KETOROLAC TROMETHAMINE 60 MG/2 ML VIAL IM STA (15:41)
[2017-09-21] MEDS ORDERED: ACETAMINOPHEN 500 MG TAB PO STA (15:41)
[2017-09-21] MEDS ORDERED: GABA-1219 PO (16:18)
[2017-09-21] MEDS ORDERED: CLON0.5T3 PO (16:18)
[2017-09-21] MEDS ORDERED: AMT/50 PO (16:18)
[2017-09-21 16:38] VITALS: BP 137/77; PULSE 78; O2SAT 98
--- NOTE | 2017-09-21 16:47 | DIAGNOSTIC IMAGING REPORT ---
HEAD WITHOUT CONTRAST (CT) CT DOSE: 638.56 mGycm HISTORY: Trauma Fall. Head injury TECHNIQUE: Multiaxial CT images of the head were performed without the use of intravenous contrast. A dose lowering technique was utilized adhering to the principles of ALARA. Comparison: 07/24/2014 Findings: The paranasal sinuses and mastoid air cells are clear. The calvarium and skull base are intact. The ventricles and sulci are within normal limits. There is no mass, hematoma, midline shift, or acute infarct. Impression: No acute intracranial abnormality. The above report was generated using voice recognition software. It may contain grammatical, syntax or spelling errors. Electronically signed by: Sergio Ahmadi M.D. 09/21/2017 4:45 PM Dictated Date/Time: 09/21/2017 4:44 PM
[2017-09-21] MEDS ORDERED: HYDR1CAP85 PO (17:32)
--- NOTE | 2017-09-21 17:43 | DIAGNOSTIC IMAGING REPORT ---
L WRIST MIN 3 VIEWS ROUTINE CLINICAL HISTORY: Fall. Left wrist injury trauma. Pain. COMPARISON: None. DISCUSSION: The bones and joint spaces appear intact. There is no evidence of fracture, dislocation or bony disease. There is no evidence for soft tissue swelling. IMPRESSION: Negative study. The above report was generated using voice recognition software. It may contain grammatical, syntax or spelling errors. Electronically signed by: Sergio Ahmadi M.D. 09/21/2017 5:41 PM Dictated Date/Time: 09/21/2017 5:41 PM
--- NOTE | 2017-09-21 17:43 | DIAGNOSTIC IMAGING REPORT ---
L-SPINE MIN 4 VIEWS ROUTINE HISTORY: Trauma Fall. Low back pain COMPARISON: 02/02/2016 FINDINGS: There is no fracture. No subluxation. Disc spaces are preserved. IMPRESSION: No fracture or subluxation within the lumbar spine. The above report was generated using voice recognition software. It may contain grammatical, syntax or spelling errors. Electronically signed by: Sergio Ahmadi M.D. 09/21/2017 5:42 PM Dictated Date/Time: 09/21/2017 5:42 PM
[2017-09-21] MEDS ORDERED: PRZ/40 PO (18:29)
[2017-09-21] MEDS ORDERED: MELA1TAB3 PO (19:52)
[2017-09-21] MEDS ORDERED: VNTHFA/IN INH (21:06)
[2017-09-21] MEDS ORDERED: MELO-83 PO (21:06)
[2017-09-21] MEDS ORDERED: RBX500 PO (21:07)
--- NOTE | 2017-09-21 22:05 | EMERGENCY ROOM VISIT NOTE ---
History First contact with patient: 15:32 Chief Complaint: FALL Stated Complaint: DIZZY, IMPAIRED VISION, FELL - HIT HEAD, BACK ARM History of Present Illness The patient is a 31 year old female who presents to the Emergency Room with complaints of head, wrist, and back pain after a fall at home. The patient states that she was walking through her living room, when she slipped awkwardly , and landed on her back. Patient states that she attempted to stand when she lost balance a second time, and fell onto her left wrist. The patient rates her overall discomfort an 8/10 that worsens with certain range of motion. She does not take blood thinners. She does take Mobic and gabapentin for pain, and states that she took these as prescribed this morning. She has not taken any additional medication. No reports of neck pain, chest pain, shortness of breath , numbness, or paresthesias before or after the episode. Please note the patient was seen in part during an episode of [employer] downtime. Additional information may be scanned into the chart regarding this encounter. Review of Systems More than 10 systems were reviewed and otherwise negative with the exception of history of present illness. Past Medical/Surgical History Medical Problems: (1) Acute bronchitis (2) Anxiety (3) Asthma, Unspecified (4) Benzodiazepine abuse (5) Bipolar disorder (6) Chronic GERD (7) Contusion of right hip (8) Esophageal Reflux (9) Fall due to slipping on ice or snow (10) MAXIMUS (generalized anxiety disorder) (11) Headache (12) Hyperlipidemia Nec/Nos (13) Low back strain (14) Migraine (15) Migraines (16) Occipital neuralgia (17) Opiate misuse (18) Shortness of breath (19) Syncope and collapse Surgical Problems: (1) Hx of cholecystectomy Family History Cancer Diabetes mellitus FH: heart disease High cholesterol Hypertension Ovarian cyst Social History Smoking Status: Never Smoker Alcohol Use: occasionally Drug Use: none Marital Status: Housing Status: lives with family Occupation Status: unemployed Current/Historical Medications Scheduled Amitriptyline HCl (Amitriptyline HCl), 50 MG PO DAILY Clonazepam (Klonopin), 1 TAB PO PRN UD Diphenhydramine Hcl (Benadryl Allergy), 50 MG PO PRN Fluoxetine Hcl (Prozac), 40 MG PO BID Gabapentin (Gabapentin), 600 MG PO BID Lamotrigine (Lamictal), 200 MG PO QAM Melatonin-Pyridoxine (Melatonin), 10 MG PO HS Meloxicam (Meloxicam), 15 MG PO DAILY Multiple Vitamin (Multivitamin), 1 TAB PO DAILY Ziprasidone (Ziprasidone HCl), 80 MG PO QPM Scheduled PRN Albuterol Hfa (Ventolin Hfa), 2 PUFFS INH Q4H PRN for SOB/Wheezing Ecuzkbjxfb-Biavwzxeatqpu-Rpzux (Butalbital/APAP/Caffeine 50-300-40 mg), 1 CAP PO Q4-6HRS PRN for Migraine Hydroxyzine Pamoate (Vistaril), 25 MG PO DAILY PRN for Anxiety Methocarbamol (Methocarbamol), 500 MG PO UD PRN for Muscle Spasm Physical Exam Vital Signs Date Time Temp Pulse Resp B/P (MAP) Pulse Ox O2 Delivery O2 Flow Rate FiO2 09/21/17 16:38 78 18 137/77 98 Room Air 09/21/17 15:26 37.1 95 21 133/91 97 Room Air Physical Exam VITALS: Vitals are noted on the nurse's note and reviewed by myself. Vital signs stable. GENERAL: Well-developed, well-nourished, white female, who is in no acute distress and resting comfortably. Patient is cooperative with the examination. HEAD: Normocephalic atraumatic. EARS: External ear normal. External auditory canals clear, tympanic membranes pearly arndt without erythema or effusion bilaterally. EYES: Pupils equal round and reactive to light and accommodation. Conjunctivae without injection, sclerae without icterus. Extraocular movements intact. NOSE: Patent, turbinates without inflammation or discharge. MOUTH: Mucous membranes moist. Tonsils are not enlarged. Pharynx without erythema, blood, or exudate. Uvula midline. Airway patent. NECK: Supple without nuchal rigidity. No lymphadenopathy. No thyromegaly. Cervical spine is nontender. HEART: Regular rate and rhythm without murmurs gallops or rubs. LUNGS: Clear to auscultation bilaterally without wheezes, rales or rhonchi. No retractions or accessory muscle use. ABDOMEN: Positive normal bowel sounds x 4. Soft, nontender, without masses or organomegaly. No guarding or rebound tenderness. MUSCULOSKELETAL: No muscle atrophy, erythema, or edema noted. Full range of motion in all extremities. Mild tenderness appreciated over the distal aspect of the left radius without deformity. Rcp strength is 5/5. No other injuries noted on examination. There is no significant lower lumbar tenderness. Negative straight leg raise. NEURO: Patient was alert and oriented to person place and time. CN II through XII grossly intact. No focal neurological deficits. Deep tendon reflexes 2+ throughout. SKIN: The skin was without rashes, erythema, edema, or bruising. Capillary refill less than 2 seconds. Medical Decision & Procedures ER Provider Diagnostic Interpretation: HEAD WITHOUT CONTRAST (CT) CT DOSE: 638.56 mGycm HISTORY: Trauma Fall. Head injury TECHNIQUE: Multiaxial CT images of the head were performed without the use of intravenous contrast. A dose lowering technique was utilized adhering to the principles of ALARA. Comparison: 07/24/2014 Findings: The paranasal sinuses and mastoid air cells are clear. The calvarium and skull base are intact. The ventricles and sulci are within normal limits. There is no mass, hematoma, midline shift, or acute infarct. Impression: No acute intracranial abnormality. L-SPINE MIN 4 VIEWS ROUTINE HISTORY: Trauma Fall. Low back pain COMPARISON: 02/02/2016 FINDINGS: There is no fracture. No subluxation. Disc spaces are preserved. IMPRESSION: No fracture or subluxation within the lumbar spine. L WRIST MIN 3 VIEWS ROUTINE CLINICAL HISTORY: Fall. Left wrist injury trauma. Pain. COMPARISON: None. DISCUSSION: The bones and joint spaces appear intact. There is no evidence of fracture, dislocation or bony disease. There is no evidence for soft tissue swelling. IMPRESSION: Negative study. Medications Administered Medications (Trade) Dose Ordered Sig/Theodore Route Start Time Stop Time Status Last Admin Dose Admin Acetaminophen (Tylenol Tab) 1,000 mg NOW STAT PO 09/21/17 15:41 09/21/17 15:43 DC 09/21/17 15:49 1,000 MG Ketorolac Tromethamine (Toradol Inj) 60 mg NOW STAT IM 09/21/17 15:41 09/21/17 15:43 DC 09/21/17 15:50 60 MG ED Course Physical exam and history were performed. Nursing notes, EMR, and Medication List were personally reviewed. Patient appears to have fallen at home with injuries to her head, wrist, and back. On examination the patient appears well and nontoxic. She was given Tylenol and IM Toradol here in the department. CT scan and x-rays were performed. The patient's x-rays are as above and were reviewed. She does not have a fracture or dislocation. Her CT scan does not show evidence of acute process. On reevaluation the patient felt much better and seems well for discharge home. She does not have any worsening or evolution of her symptoms. The patient will need to follow with her primary care physician for further care and management. She may continue her at-home medications. She was otherwise pretty back to the ER with any new, worsening, or concerning symptoms. The chart was completed utilizing [employer] Speech Voice Recognition Software. Grammatical errors, random word insertions, pronoun errors, and incomplete sentences are an occasional consequence of this system due to software limitations, ambient noise, and hardware issues. Any formal questions or concerns about the content, text, or information contained within the body of this dictation should be directly addressed to the provider for clarification. . Medical Decision Differential diagnosis includes, but is not limited to: Fall, concussion, intracranial bleed, sprain, strain, fracture, dislocation, subluxation, contusion, and others Impression Primary Impression: Fall Additional Impression: Contusion of multiple sites Departure Information Referrals Lisa Casanova DO (PCP) Patient Instructions [facility] Problem Qualifiers
[2017-09-21] MEDS ORDERED: GDN40 PO (22:59)
[2017-09-21] MEDS ORDERED: LAMO200T35 PO (22:59)
[2017-09-21] MEDS ORDERED: BUTA1CAP20 PO (22:59)
== END 2017-09-21 18:30 | disposition home or self-care (01) ==
LOC: C.EDB 15:23
DX: T14.8XXA Other injury of unspecified body region, initial encounter (principal); W01.198A Fall on same level from slipping, tripping and stumbling with subsequent striking against other object, initial encounter; Y93.01 Activity, walking, marching and hiking; Y99.8 Other external cause status; Y92.008 Other place in unspecified non-institutional (private) residence as the place of occurrence of the external cause; J45.909 Unspecified asthma, uncomplicated; F31.9 Bipolar disorder, unspecified; F41.1 Generalized anxiety disorder; Z91.81 History of falling; Z90.49 Acquired absence of other specified parts of digestive tract; Z83.3 Family history of diabetes mellitus; Z82.49 Family history of ischemic heart disease and other diseases of the circulatory system; Z83.49 Family history of other endocrine, nutritional and metabolic diseases; Z84.2 Family history of other diseases of the genitourinary system; Z79.899 Other long term (current) drug therapy

== ENCOUNTER 2017-11-09 14:29 | Emergency (ER) | payer OTHER ==
[~2017-11-09] VITALS: Ht 165.1 cm; Wt 127.0 kg
[~2017-11-09 14:29] MED LIST changes: +AMT/50 PO; -AMT25 PO; +BUTA1CAP20 PO; +CLON0.5T3 PO; +GABA-1219 PO; +GDN40 PO; +HYDR1CAP85 PO; +LAMO200T35 PO; +MELA1TAB3 PO; +MELO-83 PO; -NRN100 PO; -OXYC-57 PO; +PRZ/40 PO; +RBX500 PO; +VNTHFA/IN INH
[2017-11-09 14:37] VITALS: TEMP 36.9; Ht 165.1 cm; Wt 127.0 kg
[2017-11-09] MEDS ORDERED: CYCLOBENZAPRINE HCL 5 MG TAB PO SCH (16:15)
[2017-11-09] MEDS ORDERED: MIRT1TAB27 PO (16:42)
[2017-11-09] MEDS ORDERED: LAMO100T PO (16:42)
--- NOTE | 2017-11-09 17:01 | DIAGNOSTIC IMAGING REPORT ---
LUMBAR SPINE 5 VIEWS, PELVIS ONE VIEW HISTORY: back pain s/p stretching COMPARISON: Lumbar spine 09/13/2017. FINDINGS: There is no fracture. No subluxation. Disc spaces are preserved. L5 appears to be a transitional vertebra with a hypoplastic L5-S1 disc space. The sacrum appears intact. No fracture or dislocation within the pelvis or hips. Cholecystectomy. IMPRESSION: No fracture or subluxation within the lumbar spine, pelvis, hips. Electronically signed by: Harpal Mosquera M.D. 11/09/2017 5:00 PM Dictated Date/Time: 11/09/2017 4:58 PM
[2017-11-09] MEDS ORDERED: IBUPROFEN 800 MG TAB PO STA (17:09)
--- NOTE | 2017-11-09 17:15 | EMERGENCY ROOM VISIT NOTE ---
History Report prepared by Mauri: Galindo Gibson Under the Supervision of: Dr. Stuart Hook M.D. First contact with patient: 14:44 Chief Complaint: HIP PAIN Stated Complaint: BACK PAIN History of Present Illness The patient is a 31 year old female who presents to the Emergency Room by EMS with complaints of constant left hip pain s/p fall occurring 2.5 hours ago. She states that she fell immediately after standing up. She notes that she had just cracked her back while stretching prior to standing. The patient states that she felt dizzy and lost her balance. She did not hit her head on the fall. She states that she fell onto her left elbow and hip. The patient states that she has not been able to bear weight on her left leg since the fall. She has a history of tubal ligation. She is on Lamictal for bipolar disorder. Source of History: patient Onset: Shortly prior to arrival Position: pelvis (left hip) Quality: other (pain s/p fall) Timing: constant Associated Symptoms: No LOC Review of Systems See HPI for pertinent positives and negatives. A total of ten systems were reviewed and were otherwise negative. Past Medical & Surgical Medical Problems: (1) Acute bronchitis (2) Anxiety (3) Asthma, Unspecified (4) Benzodiazepine abuse (5) Bipolar disorder (6) Chronic GERD (7) Contusion of right hip (8) Esophageal Reflux (9) Fall due to slipping on ice or snow (10) MAXIMUS (generalized anxiety disorder) (11) Headache (12) Hyperlipidemia Nec/Nos (13) Low back strain (14) Migraine (15) Migraines (16) Occipital neuralgia (17) Opiate misuse (18) Shortness of breath (19) Syncope and collapse Surgical Problems: (1) Hx of cholecystectomy Family History Cancer Diabetes mellitus FH: heart disease High cholesterol Hypertension Ovarian cyst Social History Smoking Status: Never Smoker Alcohol Use: occasionally Drug Use: none Marital Status: Housing Status: lives with family Occupation Status: unemployed Current/Historical Medications Scheduled Clonazepam (Klonopin), 1 TAB PO PRN UD Cyclobenzaprine Hcl (Flexeril), 5 MG PO TID Fluoxetine Hcl (Prozac), 40 MG PO BID Gabapentin (Gabapentin), 600 MG PO BID Lamotrigine (Lamictal), 100 MG PO AMPM Melatonin-Pyridoxine (Melatonin), 10 MG PO HS Meloxicam (Meloxicam), 15 MG PO DAILY Mirtazapine (Mirtazapine), 7.5 MG PO DAILY Ziprasidone (Ziprasidone HCl), 80 MG PO QPM Scheduled PRN Albuterol Hfa (Ventolin Hfa), 2 PUFFS INH Q4H PRN for SOB/Wheezing Tmcgefklst-Cwyascuozjuup-Nyhkn (Butalbital/APAP/Caffeine 50-300-40 mg), 1 CAP PO Q4-6HRS PRN for Migraine Hydroxyzine Pamoate (Vistaril), 25 MG PO DAILY PRN for Anxiety Methocarbamol (Methocarbamol), 500 MG PO UD PRN for Muscle Spasm Allergies Coded Allergies: Cephalosporins (Verified Allergy, Intermediate, HIVES, 11/09/17) Sumatriptan (Verified Allergy, Intermediate, RASH, 11/09/17) INJ OF IMITREX, RASH @ INJECTION SITE Cephalexin (Verified Allergy, Unknown, HIVES, 11/09/17) Metoclopramide (Verified Allergy, Unknown, ANXIETY, 11/09/17) Diazepam (Verified Adverse Reaction, Unknown, EXTREME ANGER, 11/09/17) Levofloxacin (Verified Adverse Reaction, Unknown, INTERACTS BADLY WITHN PSYCH DRUGS, 11/09/17) Physical Exam Vital Signs Date Time Temp Pulse Resp B/P (MAP) Pulse Ox O2 Delivery O2 Flow Rate FiO2 11/09/17 17:28 85 18 138/84 97 Room Air 11/09/17 16:26 76 15 95 Room Air 11/09/17 14:37 36.9 92 17 129/89 97 Room Air Physical Exam Physical Exam GENERAL: She is oriented to person, place, and time. She appears well- developed and well-nourished. She does not appear distressed. ____ HENT: Exam performed. Head: Normocephalic and atraumatic. Right Ear: External ear normal. No mastoid tenderness. Left Ear: External ear normal. No mastoid tenderness. Mouth/Throat: The oropharynx is clear and moist. No trismus in the jaw. No dental abscesses or uvula swelling. No oropharyngeal exudate or tonsillar abscesses. ____ EYES: Conjunctivae and EOM are normal. Pupils are equal, round, and reactive to light. Right eye exhibits no discharge. Left eye exhibits no discharge. No scleral icterus. ____ NECK: Normal range of motion. Neck supple. No JVD present. No spinous process tenderness present. No carotid bruit present. No rigidity. No tracheal deviation and normal range of motion present. No Brudzinski's sign and no Kernig 's sign noted. ____ CV: Normal rate, regular rhythm, normal heart sounds and intact distal pulses. There is no peripheral edema. Palpable radial pulses bue. ____ PULM/CHEST: Effort normal and breath sounds normal. No respiratory distress. No stridor. She has no wheezes. She has no rales. Chest Wall: She exhibits no tenderness. ____ ABD: The abdomen is soft. Bowel sounds are normal. She has no distension. No mass is present. There is no tenderness. There is no rebound, no guarding, no Herrmann's sign and no tenderness at McBurney's point. Rovsig negative MUSC/SKEL: Pain over palpation of the L4-L5 area. Normal range of motion all joints of the body.. There is no peripheral edema, or deformity. LYMPH: No cervical adenopathy. ____ NEURO: She is alert and oriented to person, place, and time. She has normal strength. No saddle anesthesia or paresthesias. Strength in bilateral lower extremities is equal. No cranial nerve deficit or sensory deficit. Coordination and gait normal. GCS eye subscore is 4. GCS verbal subscore is 5. GCS motor subscore is 6. Cerebellar tests wnl. ____ SKIN: Skin is warm and dry. She is not diaphoretic. ____ PSYCH: She has a normal mood and affect. Her behavior is normal. Judgment and thought content normal. ____ Medical Decision & Procedures ER Provider Diagnostic Interpretation: Radiology results as stated below per my review and radiologist interpretation: LUMBAR SPINE 5 VIEWS, PELVIS ONE VIEW FINDINGS: There is no fracture. No subluxation. Disc spaces are preserved. L5 appears to be a transitional vertebra with a hypoplastic L5-S1 disc space. The sacrum appears intact. No fracture or dislocation within the pelvis or hips. Cholecystectomy. IMPRESSION: No fracture or subluxation within the lumbar spine, pelvis, hips. Electronically signed by: Harpal Mosquera M.D. 11/09/2017 5:00 PM LUMBAR SPINE 5 VIEWS, PELVIS ONE VIEW FINDINGS: There is no fracture. No subluxation. Disc spaces are preserved. L5 appears to be a transitional vertebra with a hypoplastic L5-S1 disc space. The sacrum appears intact. No fracture or dislocation within the pelvis or hips. Cholecystectomy. IMPRESSION: No fracture or subluxation within the lumbar spine, pelvis, hips. Electronically signed by: Harpal Mosquera M.D. 11/09/2017 5:00 PM Laboratory Results Test 11/09/17 15:45 Urine Test NEG (NEG) Laboratory results reviewed by me Medications Administered Medications (Trade) Dose Ordered Sig/Theodore Route Start Time Stop Time Status Last Admin Dose Admin Cyclobenzaprine HCl (Flexeril Tab) 5 mg ONE PO 11/09/17 16:15 12/09/17 16:14 11/09/17 16:24 5 MG Ibuprofen (Motrin Tab) 800 mg NOW STAT PO 11/09/17 17:09 11/09/17 17:11 DC 11/09/17 17:26 800 MG ED Course 1451: The patient was evaluated in room B4B. A complete history and physical exam was performed. 1615: Ordered Flexeril Tab 5 mg PO. 1709: Ordered Motrin Tab 800 mg PO. 1710: The patient's vitals are stable. She reports that her pain is better after Flexeril. X-rays are within normal limits. No signs or symptoms concerning for cord compression. Patient will follow up with her PCP. DISCHARGE - Plan of care discussed with patient and questions answered. The patient was given both verbal and printed discharge instructions. The patient verbalized understanding and ability to comply. The patient is to seek outpatient follow up as noted in the discharge instructions. The patient verbalized understanding and ability to comply. The patient is discharged in stable condition. The patient was instructed to return for worsening symptoms. Medical Decision The patient's vitals are stable. She reports that her pain is better after Flexeril. X-rays are within normal limits. No signs or symptoms concerning for cord compression. Patient will follow up with her PCP. DISCHARGE - Plan of care discussed with patient and questions answered. The patient was given both verbal and printed discharge instructions. The patient verbalized understanding and ability to comply. The patient is to seek outpatient follow up as noted in the discharge instructions. The patient verbalized understanding and ability to comply. The patient is discharged in stable condition. The patient was instructed to return for worsening symptoms. Medication Reconcilliation Current Medication List: was personally reviewed by me Blood Pressure Screening Patient's blood pressure: Normal blood pressure Blood pressure disposition: Did not require urgent referral Impression Primary Impression: Back pain Scribe Attestation The scribe's documentation has been prepared under my direction and personally reviewed by me in its entirety. I confirm that the note above accurately reflects all work, treatment, procedures, and medical decision making performed by me. The chart was completed utilizing [email or web address] Speech voice recognition software. Grammatical errors, random word insertions, pronoun errors, and incomplete sentences are an occasional consequence of this system due to software limitations, ambient noise, and hardware issues. Any formal questions or concerns about the content, text, or information contained within the body of this dictation should be directly addressed to the physician for clarification. Departure Information Dispostion Home / Self-Care Prescriptions Cyclobenzaprine Hcl (FLEXERIL) 5 Mg Tab 5 MG PO TID, #21 TAB PRN Prov: Stuart Hook M.D. 11/09/17 Referrals Lisa Casanova DO (PCP) Forms HOME CARE DOCUMENTATION FORM, IMPORTANT VISIT INFORMATION, WORK / SCHOOL INSTRUCTIONS Patient Instructions Back Pain - [facility], ED Exercises Lumbar Muscles, Exercises Back Exten Elbow Press , Exercises Back Pelvic Tilt, Exercises Back Seated Rotation, Exercises Back Side Stretch, Exercises Lower Back Rotation, [employer] Additional Instructions Return to the emergency department if you develop fever greater than 100.4, blood in your urine, urinary incontinence (urinate on herself), or loose sensation between her legs. Problem Qualifiers Primary Impression: Back pain Back pain location: back pain in unspecified location Chronicity: acute Back pain laterality: unspecified Qualified Codes: M54.9 - Dorsalgia, unspecified
[2017-11-09] MEDS ORDERED: CYCL5TAB PO (17:19)
[2017-11-09 17:28] VITALS: BP 138/84; PULSE 85; O2SAT 97
== END 2017-11-09 17:35 | disposition home or self-care (01) ==
LOC: C.EDB 14:29 → EDBD 14:29 → C.EDB 17:35
DX: M54.9 Dorsalgia, unspecified (principal); M25.552 Pain in left hip; W19.XXXA Unspecified fall, initial encounter; Z98.51 Tubal ligation status; F31.9 Bipolar disorder, unspecified; Z79.899 Other long term (current) drug therapy; J45.909 Unspecified asthma, uncomplicated; K21.9 Gastro-esophageal reflux disease without esophagitis; F41.1 Generalized anxiety disorder; E78.5 Hyperlipidemia, unspecified; Z90.49 Acquired absence of other specified parts of digestive tract; Z80.9 Family history of malignant neoplasm, unspecified; Z83.3 Family history of diabetes mellitus; Z82.49 Family history of ischemic heart disease and other diseases of the circulatory system; Z88.1 Allergy status to other antibiotic agents; Z88.8 Allergy status to other drugs, medicaments and biological substances

== ENCOUNTER 2018-02-14 22:54 | Emergency (ER) | payer OTHER ==
[~2018-02-14] VITALS: Ht 165.1 cm; Wt 129.0 kg
[~2018-02-14 22:54] MED LIST changes: -AMT/50 PO; +ATOR-22 PO; -CLON0.5T3 PO; -DIPH1TAB87 PO; +FLUO20CA36 PO; +FLX/5 PO; +GABA-1218 PO; -GABA-1219 PO; +KLN/5 PO; -MULTTAB58 PO; +PANT40TA2 PO; +RMR15 PO
[2018-02-14 23:01] VITALS: TEMP 36.7; Ht 165.1 cm; Wt 129.0 kg
[2018-02-14] MEDS ORDERED: SODIUM CHLORIDE 0.9% 1000ML 1,000 ML IV STA (23:19)
[2018-02-14] MEDS ORDERED: PROCHLORPERAZINE 5 MG/ML 2 ML VIAL IV STA (23:19)
[2018-02-14] MEDS ORDERED: KETOROLAC TROMETHAMINE 30 MG/ML VIAL IV STA (23:19)
[2018-02-14 23:42] LABS: BASO % 0.3 %; BASO ABS # 0.02 K/uL (0-0.2); EOS % 2.6 %; EOS ABS # 0.18 K/uL (0-0.5); HEMATOCRIT 33.7 % (37-47); HEMOGLOBIN 11.1 g/dL (12.0-16.0); IG# 0.01 K/uL (0.00-0.02); LYMPH % 28.8 %; LYMPH ABS # 1.96 K/uL (1.2-3.4); MEAN CELL VOLUME 90.1 fL (80-100); MEAN CORPUSCULAR HEMOGLOBIN 29.7 pg (25-34); MEAN CORPUSCULAR HGB CONC 32.9 g/dl (32-36); MEAN PLATELET VOLUME 9.1 fL (7.4-10.4); MONO % 6.8 %; MONO ABS # 0.46 K/uL (0.11-0.59); NEUT % 61.4 %; NEUT ABS # 4.18 K/uL (1.4-6.5); PLATELET COUNT 233 K/uL (130-400); RED CELL DISTRIBUTION WIDTH CV 13.4 % (11.5-14.5); RED CELL DISTRIBUTION WIDTH SD 44.3 fL (36.4-46.3); WHITE BLOOD COUNT 6.81 K/uL (4.8-10.8)
[2018-02-14 23:58] LABS: PTT PATIENT 26.4 SECONDS (21.0-31.0)
[2018-02-15 00:10] LABS: ALBUMIN 3.5 gm/dl (3.4-5.0); CALCIUM 8.6 mg/dl (8.5-10.1); CREATININE 0.8 mg/dl (0.60-1.20); POTASSIUM 3.5 mmol/L (3.5-5.1); TOTAL PROTEIN 7.3 gm/dl (6.4-8.2)
[2018-02-15] MEDS ORDERED: MAGNESIUM SULFATE 1GM / D5W 100 ML IV STA (00:32)
[2018-02-15] MEDS ORDERED: DEXAMETHASONE **PF** INJ 10 MG/ML VIAL IV STA (00:32)
[2018-02-15] MEDS ORDERED: DEXAMETHASONE SOD INJ 10 MG/ML VIAL ONE (00:59)
[2018-02-15] MEDS ORDERED: PRED20TA PO (01:05)
--- NOTE | 2018-02-15 01:05 | EMERGENCY ROOM VISIT NOTE ---
ED Visit Note First contact with patient: 23:09 CHIEF COMPLAINT: Migraine headache HISTORY OF PRESENT ILLNESS: This 32-year-old female patient presented to the emergency department, ambulatory, with a gradual onset of a severe generalized headache that started 1 week ago. T the patient states on Tuesday night, she slept outside, and Tuesday awoke with severe congestion. She states she believes this may be worsening her migraine symptoms. She states she is not expansive migraine this bad in the recent past. She describes losing her balance, causing her to fall and hit her head on the tub this evening. She has been taking Fioricet and Klonopin without relief of her symptoms. She is also tried cool compresses, warm compresses, and dimming the lights without relief. She denies any recent illness or fever. She denies any abdominal pain, chest pain, or dyspnea. She does report some mild visual disturbances which she describes as blurriness. She also reports associated nausea. He patient states the migraine is similar to their typical migraines, however much worse and with worse vision changes. She states she has never fallen before associated with her migraines. There is no weakness or numbness of the extremities. There is no difficulty with speech. No trauma to the head with the exception of the fall this evening and no neck pain. The pain is severe, constant, and it is slowly increasing in severity. The patient rates the pain as throbbing and 8/10. This is not the worst headache of the life. REVIEW OF SYSTEMS: A 10 system review of systems was performed with positives and pertinent negatives listed in the history of present illness. All other systems were reviewed and are negative. ALLERGIES: Cephalexin, diazepam, Reglan, sumatriptan, levofloxacin, cephalosporin MEDICATIONS: Albuterol, Lipitor, Fioricet, Klonopin, fluoxetine, gabapentin, Vistaril, Lamictal, melatonin, methocarbamol, mirtazapine, pantoprazole, ziprasidone PMH: Chronic migraines, hyperlipidemia, anxiety, depression, bipolar disorder, GERD SOCIAL HISTORY: The patient lives locally with family. She denies drug, alcohol , tobacco use. PHYSICAL EXAM: Vital Signs: Reviewed Nurse's notes, vital signs stable. GENERAL : This is a 32-year-old white female, who appears in pain, but non toxic in appearance and in no acute distress. MENTAL STATUS: Alert, oriented, and coherent. HEENT: Normocephalic. PERRLA. EOMI. Nares patent without edema, erythema, or drainage. Tympanic membranes pearly arndt without erythema. Effusion noted bilaterally. Mucous membranes moist. NECK: Supple, no nuchal rigidity, nontender, no lymphadenopathy. HEART: Regular rhythm and normal rate without murmurs, ectopy, gallops, or rubs. LUNGS: Clear to auscultation bilaterally without wheezes, rales or rhonchi. No dullness to percussion. No accessory muscle use. No retractions. SKIN: Normal. NEUROLOGICAL: Pupils are round, equal and react to light. The optic fundi are normal and the discs are flat. The patient moves all extremities well and the gait is normal. RADIOLOGY: CT Head without contrast: No acute intracranial findings (as reported by [facility] ) EMERGENCY DEPARTMENT COURSE: I examined the patient. IV access obtained, labs drawn. Because the patient's symptoms are different than her normal migraines, CT scan of the head was performed. This was reviewed by myself and radiologist as above. The patient was given an initial migraine cocktail of normal saline solution, Compazine, and Toradol. The patient states she cannot take Benadryl with Vistaril, which she had taken earlier tonight. She states it causes her to stay awake for 3 days straight. The patient was reassessed and I discussed with her the findings of the CT scan. She states her migraine is no better. Of note, the patient is sitting upright in the bed, having a conversation with her boyfriend. She is comfortable appearing and refuses when I ask if I should turn off the lights. She was given magnesium sulfate and dexamethasone at this time. I did consider valproate sodium, however there is an interaction with the patient's Lamictal and I did not feel that this was safe. The patient requested multiple times for her "nighttime meds." She states they were due at 9 PM and she did not take them prior to coming to the emergency department. The patient was given her Remeron and Geodon at her request. Discharge instructions reviewed with the patient prior to sign-out. The patient was signed out to Isreal Long PA-C pending repeat evaluation after medication administration. The differential diagnosis includes acute intracranial bleed, meningitis, encephalitis, mass or mass effect, sinusitis, infection, tumor, headache, temporal arteritis and carbon monoxide exposure, and migraine. The patient was discharged home in stable condition with [] driving. I attest that I have personally reviewed the patient's current medication list. Patient was found to have normal blood pressure on screening and does not require follow-up. DIAGNOSIS: Migraine headache The chart was completed utilizing [employer] Speech voice recognition software. Grammatical errors, random word insertions, pronoun errors, and incomplete sentences are an occasional consequence of this system due to software limitations, ambient noise, and hardware issues. Any formal questions or concerns about the content, text, or information contained within the body of this dictation should be directly addressed to the provider for clarification. Problem List Medical Problems: (1) Acute bronchitis Status: Resolved (2) Anxiety Status: Chronic (3) Benzodiazepine abuse Status: Chronic (4) Bipolar disorder Status: Chronic (5) Chronic GERD Status: Chronic (6) Contusion of right hip Status: Resolved (7) Fall due to slipping on ice or snow Status: Resolved (8) MAXIMUS (generalized anxiety disorder) Status: Chronic (9) Headache Status: Chronic (10) Low back strain Status: Resolved (11) Migraine Status: Chronic (12) Migraines Status: Chronic (13) Occipital neuralgia Status: Resolved (14) Opiate misuse Status: Chronic (15) Shortness of breath Status: Resolved Surgical Problems: (1) Hx of cholecystectomy Status: Resolved Current/Historical Medications Scheduled Atorvastatin (Lipitor), 20 MG PO DAILY Fluoxetine HCl (Fluoxetine HCl), 20 MG PO AFTERNOON Fluoxetine Hcl (Prozac), 40 MG PO QAM Gabapentin (Neurontin), 600 MG PO BID Lamotrigine (Lamictal), 100 MG PO BID Melatonin-Pyridoxine (Melatonin), 10 MG PO HS Meloxicam (Meloxicam), 15 MG PO DAILY Mirtazapine (Mirtazapine), 15 MG PO HS Pantoprazole (Pantoprazole Sodium), 30 MG PO DAILY Ziprasidone (Ziprasidone HCl), 80 MG PO QPM Scheduled PRN Albuterol Hfa (Ventolin Hfa), 2 PUFFS INH Q4H PRN for SOB/Wheezing Ucbltkdjwv-Nogyeplojelai-Gulaj (Butalbital/APAP/Caffeine 50-300-40 mg), 1 CAP PO Q4-6HRS PRN for Migraine Clonazepam (Klonopin), 1 TAB PO UD PRN for Migraine Cyclobenzaprine HCl (Cyclobenzaprine HCl), 5 MG PO TID PRN for Muscle Spasm Hydroxyzine Pamoate (Vistaril), 25 MG PO DAILY PRN for Anxiety Methocarbamol (Methocarbamol), 500 MG PO UD PRN for Muscle Spasm Allergies Coded Allergies: Cephalosporins (Verified Allergy, Intermediate, HIVES, 02/15/18) Sumatriptan (Verified Allergy, Intermediate, RASH, 02/15/18) INJ OF IMITREX, RASH @ INJECTION SITE Cephalexin (Verified Allergy, Unknown, HIVES, 02/15/18) Metoclopramide (Verified Allergy, Unknown, ANXIETY, 02/15/18) Diazepam (Verified Adverse Reaction, Unknown, EXTREME ANGER, 02/15/18) Levofloxacin (Verified Adverse Reaction, Unknown, INTERACTS BADLY WITHN PSYCH DRUGS, 02/15/18) Vital Signs Date Time Temp Pulse Resp B/P (MAP) Pulse Ox O2 Delivery O2 Flow Rate FiO2 02/15/18 02:30 78 18 131/80 96 02/15/18 02:01 76 18 128/77 96 Room Air 02/14/18 23:44 71 20 148/92 97 Room Air 74 144/90 85 155/91 02/14/18 23:01 36.7 87 18 132/85 97 Room Air Laboratory Results 02/14/18 23:36 Red Blood Count 3.74, Mean Corpuscular Volume 90.1, Mean Corpuscular Hemoglobin 29.7, Mean Corpuscular Hemoglobin Concent 32.9, Mean Platelet Volume 9.1, Neutrophils (%) (Auto) 61.4, Lymphocytes (%) (Auto) 28.8, Monocytes (%) (Auto) 6.8, Eosinophils (%) (Auto) 2.6, Basophils (%) (Auto) 0.3, Neutrophils # (Auto) 4.18, Lymphocytes # (Auto) 1.96, Monocytes # (Auto) 0.46, Eosinophils # (Auto) 0.18, Basophils # (Auto) 0.02 02/14/18 23:36 Test 02/14/18 23:36 02/15/18 00:00 White Blood Count 6.81 K/uL (4.8-10.8) Red Blood Count 3.74 M/uL (4.2-5.4) Hemoglobin 11.1 g/dL (12.0-16.0) Hematocrit 33.7 % (37-47) Mean Corpuscular Volume 90.1 fL (80-100) Mean Corpuscular Hemoglobin 29.7 pg (25-34) Mean Corpuscular Hemoglobin Concent 32.9 g/dl (32-36) Platelet Count 233 K/uL (130-400) Mean Platelet Volume 9.1 fL (7.4-10.4) Neutrophils (%) (Auto) 61.4 % Lymphocytes (%) (Auto) 28.8 % Monocytes (%) (Auto) 6.8 % Eosinophils (%) (Auto) 2.6 % Basophils (%) (Auto) 0.3 % Neutrophils # (Auto) 4.18 K/uL (1.4-6.5) Lymphocytes # (Auto) 1.96 K/uL (1.2-3.4) Monocytes # (Auto) 0.46 K/uL (0.11-0.59) Eosinophils # (Auto) 0.18 K/uL (0-0.5) Basophils # (Auto) 0.02 K/uL (0-0.2) RDW Standard Deviation 44.3 fL (36.4-46.3) RDW Coefficient of Variation 13.4 % (11.5-14.5) Immature Granulocyte % (Auto) 0.1 % Immature Granulocyte # (Auto) 0.01 K/uL (0.00-0.02) Prothrombin Time 10.2 SECONDS (9.0-12.0) Prothromb Time International Ratio 1.0 (0.9-1.1) Activated Partial Thromboplast Time 26.4 SECONDS (21.0-31.0) Partial Thromboplastin Ratio 1.0 Anion Gap 7.0 mmol/L (3-11) Est Creatinine Clear Calc Drug Dose 139.3 ml/min Estimated GFR () 114.7 Estimated GFR (Non- 98.9 BUN/Creatinine Ratio 8.1 (10-20) Calcium Level 8.6 mg/dl (8.5-10.1) Magnesium Level 2.1 mg/dl (1.8-2.4) Total Bilirubin 0.4 mg/dl (0.2-1) Aspartate Amino Transf (AST/SGOT) 14 U/L (15-37) Alanine Aminotransferase (ALT/SGPT) 24 U/L (12-78) Alkaline Phosphatase 115 U/L (45-117) Total Protein 7.3 gm/dl (6.4-8.2) Albumin 3.5 gm/dl (3.4-5.0) Globulin 3.8 gm/dl (2.5-4.0) Albumin/Globulin Ratio 0.9 (0.9-2) Lyme Disease IgG Antibody NEG (NEG) Lyme Disease IgM Antibody NEG (NEG) Urine Color YELLOW Urine Appearance CLEAR (CLEAR) Urine pH 5.5 (4.5-7.5) Urine Specific [place] 1.019 (1.000-1.030) Urine Protein NEG (NEG) Urine Glucose (UA) NEG (NEG) Urine Ketones NEG (NEG) Urine Occult Blood 1+ (NEG) Urine Nitrite NEG (NEG) Urine Bilirubin NEG (NEG) Urine Urobilinogen NEG (NEG) Urine Leukocyte Esterase MODERATE (NEG) Urine WBC (Auto) 10-30 /hpf (0-5) Urine RBC (Auto) 0-4 /hpf (0-4) Urine Hyaline Casts (Auto) 5-10 /lpf (0-5) Urine Epithelial Cells (Auto) 20-30 /lpf (0-5) Urine Bacteria (Auto) NEG (NEG) Urine Test NEG (NEG) Medications Administered Medications (Trade) Dose Ordered Sig/Theodore Route Start Time Stop Time Status Last Admin Dose Admin Sodium Chloride 1,000 ml @ 999 mls/hr Q1H1M STAT IV 02/14/18 23:19 02/15/18 00:19 DC 02/14/18 23:41 999 MLS/HR Ketorolac Tromethamine (Toradol Inj) 30 mg NOW STAT IV 02/14/18 23:19 02/14/18 23:21 DC 02/14/18 23:41 30 MG Prochlorperazine Edisylate (Compazine Inj) 10 mg NOW STAT IV 02/14/18 23:19 02/14/18 23:21 DC 02/14/18 23:41 10 MG Magnesium Sulfate 100 ml @ 100 mls/hr NOW STAT IV 02/15/18 00:32 02/15/18 01:31 DC 02/15/18 01:03 100 MLS/HR Dexamethasone Sodium Phosphate (Decadron Inj) 10 mg STK-MED ONCE .ROUTE 02/15/18 00:59 02/15/18 01:00 DC 02/15/18 01:03 8 MG Ziprasidone (Geodon Cap) 80 mg NOW STAT PO 02/15/18 01:15 02/15/18 01:17 DC 02/15/18 02:01 80 MG Mirtazapine (Remeron Tab) 15 mg NOW STAT PO 02/15/18 01:15 02/15/18 01:17 DC 02/15/18 02:01 15 MG Departure Information Impression Primary Impression: Migraine Dispostion Home / Self-Care Condition GOOD Referrals Lisa Casanova DO (PCP) Patient Instructions ED Headache Migraine, My [facility] Additional Instructions DO NOT drive, drink alcohol, operate machinery, or perform dangerous activities today. You were given medications in the ER that can affect your ability to safely function or operate a vehicle. Rest today in a quiet, peaceful, dark environment and get a full 8-10 hrs of sleep tonight. Avoid loud noises, smoke/smoking, alcohol, bright lights, stress, or physical exertion today to minimize the chance the headache may return. Continue current medications as prescribed. You have been prescribed Prednisone. This is a steroid which will help decrease your inflammation, redness, and itch. Take this medicine as prescribed. Take the ENTIRE 9 day course. It is best to take steroids early in the morning as PM dosing can affect your sleeping patterns. Ibuprofen(Motrin, Advil) may be used for fever or pain. Use 600mg every six hours as needed. Take with food. Avoid using more than 2400mg in a 24 hour period. Do not use 2400mg per day for more than three consecutive days without physician direction. Prolonged inappropriate use can lead to stomach upset or ulcers. (AND/OR) Acetaminophen(Tylenol) may be used for fever or pain. Use 1000mg every six hours as needed. Avoid using more than 3000mg in a 24 hour period. Return to the ER for passing out, worsening headache, vision problems, neck stiffness/pain, fevers, vomiting, worsening of your condition, or as needed. Follow up with your primary physician in 2-3 days for a recheck of your current condition. Problem Qualifiers Primary Impression: Migraine Migraine type: without aura Status migrainosus presence: with status migrainosus Intractability: intractable Qualified Codes: G43.011 - Migraine without aura, intractable, with status migrainosus
[2018-02-15] MEDS ORDERED: ZIPRASIDONE 80 MG CAP PO STA (01:15)
[2018-02-15] MEDS ORDERED: MIRTAZAPINE TAB 15 MG TAB PO STA (01:15)
[2018-02-15 02:30] VITALS: BP 131/80; PULSE 78; O2SAT 96
--- NOTE | 2018-02-15 06:21 | EMERGENCY ROOM VISIT NOTE ---
ED Visit Note First contact with patient: 01:10 Patient case was assumed from Fanny Briscoe PA-C, at the time of shift change. Please see Ms. Briscoe's dictation for full history of present illness emergency department course outside of this note. In short, the patient has a long-standing history of migraine headaches. She is experiencing a recurrent severe migraine headache. At the time of shift change we were awaiting urine and Lyme testing. The patient has had otherwise normal labs and a normal CT scan of her head. She just received her evening dose of normal medications, and has otherwise been feeling improved compared to arrival. On evaluation the patient was sitting upright very comfortably in her ER bed watching television. She does not appear toxic. The patient urine is without significant findings and her Lyme is negative. She reportedly feels markedly improved after IV medication and fluids. She does have neurology services, and is following with them next week. The patient is comfortable with discharge home which appears reasonable. She was given discharge instructions as below and discharged home under the care of a male electrical estimator who is acting as the road train driver today. Problem List Medical Problems: (1) Acute bronchitis Status: Resolved (2) Anxiety Status: Chronic (3) Benzodiazepine abuse Status: Chronic (4) Bipolar disorder Status: Chronic (5) Chronic GERD Status: Chronic (6) Contusion of right hip Status: Resolved (7) Fall due to slipping on ice or snow Status: Resolved (8) MAXIMUS (generalized anxiety disorder) Status: Chronic (9) Headache Status: Chronic (10) Low back strain Status: Resolved (11) Migraine Status: Chronic (12) Migraines Status: Chronic (13) Occipital neuralgia Status: Resolved (14) Opiate misuse Status: Chronic (15) Shortness of breath Status: Resolved Surgical Problems: (1) Hx of cholecystectomy Status: Resolved Current/Historical Medications Scheduled Atorvastatin (Lipitor), 20 MG PO DAILY Fluoxetine HCl (Fluoxetine HCl), 20 MG PO AFTERNOON Fluoxetine Hcl (Prozac), 40 MG PO QAM Gabapentin (Neurontin), 600 MG PO BID Lamotrigine (Lamictal), 100 MG PO BID Melatonin-Pyridoxine (Melatonin), 10 MG PO HS Meloxicam (Meloxicam), 15 MG PO DAILY Mirtazapine (Mirtazapine), 15 MG PO HS Pantoprazole (Pantoprazole Sodium), 30 MG PO DAILY Ziprasidone (Ziprasidone HCl), 80 MG PO QPM Scheduled PRN Albuterol Hfa (Ventolin Hfa), 2 PUFFS INH Q4H PRN for SOB/Wheezing Ubuanjzugx-Htabcnikrylth-Bdkpd (Butalbital/APAP/Caffeine 50-300-40 mg), 1 CAP PO Q4-6HRS PRN for Migraine Clonazepam (Klonopin), 1 TAB PO UD PRN for Migraine Cyclobenzaprine HCl (Cyclobenzaprine HCl), 5 MG PO TID PRN for Muscle Spasm Hydroxyzine Pamoate (Vistaril), 25 MG PO DAILY PRN for Anxiety Methocarbamol (Methocarbamol), 500 MG PO UD PRN for Muscle Spasm Allergies Coded Allergies: Cephalosporins (Verified Allergy, Intermediate, HIVES, 02/15/18) Sumatriptan (Verified Allergy, Intermediate, RASH, 02/15/18) INJ OF IMITREX, RASH @ INJECTION SITE Cephalexin (Verified Allergy, Unknown, HIVES, 02/15/18) Metoclopramide (Verified Allergy, Unknown, ANXIETY, 02/15/18) Diazepam (Verified Adverse Reaction, Unknown, EXTREME ANGER, 02/15/18) Levofloxacin (Verified Adverse Reaction, Unknown, INTERACTS BADLY WITHN PSYCH DRUGS, 02/15/18) Vital Signs Date Time Temp Pulse Resp B/P (MAP) Pulse Ox O2 Delivery O2 Flow Rate FiO2 02/15/18 02:30 78 18 131/80 96 02/15/18 02:01 76 18 128/77 96 Room Air 02/14/18 23:44 71 20 148/92 97 Room Air 74 144/90 85 155/91 02/14/18 23:01 36.7 87 18 132/85 97 Room Air Laboratory Results 02/14/18 23:36 Red Blood Count 3.74, Mean Corpuscular Volume 90.1, Mean Corpuscular Hemoglobin 29.7, Mean Corpuscular Hemoglobin Concent 32.9, Mean Platelet Volume 9.1, Neutrophils (%) (Auto) 61.4, Lymphocytes (%) (Auto) 28.8, Monocytes (%) (Auto) 6.8, Eosinophils (%) (Auto) 2.6, Basophils (%) (Auto) 0.3, Neutrophils # (Auto) 4.18, Lymphocytes # (Auto) 1.96, Monocytes # (Auto) 0.46, Eosinophils # (Auto) 0.18, Basophils # (Auto) 0.02 02/14/18 23:36 Test 02/14/18 23:36 02/15/18 00:00 White Blood Count 6.81 K/uL (4.8-10.8) Red Blood Count 3.74 M/uL (4.2-5.4) Hemoglobin 11.1 g/dL (12.0-16.0) Hematocrit 33.7 % (37-47) Mean Corpuscular Volume 90.1 fL (80-100) Mean Corpuscular Hemoglobin 29.7 pg (25-34) Mean Corpuscular Hemoglobin Concent 32.9 g/dl (32-36) Platelet Count 233 K/uL (130-400) Mean Platelet Volume 9.1 fL (7.4-10.4) Neutrophils (%) (Auto) 61.4 % Lymphocytes (%) (Auto) 28.8 % Monocytes (%) (Auto) 6.8 % Eosinophils (%) (Auto) 2.6 % Basophils (%) (Auto) 0.3 % Neutrophils # (Auto) 4.18 K/uL (1.4-6.5) Lymphocytes # (Auto) 1.96 K/uL (1.2-3.4) Monocytes # (Auto) 0.46 K/uL (0.11-0.59) Eosinophils # (Auto) 0.18 K/uL (0-0.5) Basophils # (Auto) 0.02 K/uL (0-0.2) RDW Standard Deviation 44.3 fL (36.4-46.3) RDW Coefficient of Variation 13.4 % (11.5-14.5) Immature Granulocyte % (Auto) 0.1 % Immature Granulocyte # (Auto) 0.01 K/uL (0.00-0.02) Prothrombin Time 10.2 SECONDS (9.0-12.0) Prothromb Time International Ratio 1.0 (0.9-1.1) Activated Partial Thromboplast Time 26.4 SECONDS (21.0-31.0) Partial Thromboplastin Ratio 1.0 Anion Gap 7.0 mmol/L (3-11) Est Creatinine Clear Calc Drug Dose 139.3 ml/min Estimated GFR () 114.7 Estimated GFR (Non- 98.9 BUN/Creatinine Ratio 8.1 (10-20) Calcium Level 8.6 mg/dl (8.5-10.1) Magnesium Level 2.1 mg/dl (1.8-2.4) Total Bilirubin 0.4 mg/dl (0.2-1) Aspartate Amino Transf (AST/SGOT) 14 U/L (15-37) Alanine Aminotransferase (ALT/SGPT) 24 U/L (12-78) Alkaline Phosphatase 115 U/L (45-117) Total Protein 7.3 gm/dl (6.4-8.2) Albumin 3.5 gm/dl (3.4-5.0) Globulin 3.8 gm/dl (2.5-4.0) Albumin/Globulin Ratio 0.9 (0.9-2) Lyme Disease IgG Antibody NEG (NEG) Lyme Disease IgM Antibody NEG (NEG) Urine Color YELLOW Urine Appearance CLEAR (CLEAR) Urine pH 5.5 (4.5-7.5) Urine Specific [place] 1.019 (1.000-1.030) Urine Protein NEG (NEG) Urine Glucose (UA) NEG (NEG) Urine Ketones NEG (NEG) Urine Occult Blood 1+ (NEG) Urine Nitrite NEG (NEG) Urine Bilirubin NEG (NEG) Urine Urobilinogen NEG (NEG) Urine Leukocyte Esterase MODERATE (NEG) Urine WBC (Auto) 10-30 /hpf (0-5) Urine RBC (Auto) 0-4 /hpf (0-4) Urine Hyaline Casts (Auto) 5-10 /lpf (0-5) Urine Epithelial Cells (Auto) 20-30 /lpf (0-5) Urine Bacteria (Auto) NEG (NEG) Urine Test NEG (NEG) Medications Administered Medications (Trade) Dose Ordered Sig/Theodore Route Start Time Stop Time Status Last Admin Dose Admin Sodium Chloride 1,000 ml @ 999 mls/hr Q1H1M STAT IV 02/14/18 23:19 02/15/18 00:19 DC 02/14/18 23:41 999 MLS/HR Ketorolac Tromethamine (Toradol Inj) 30 mg NOW STAT IV 02/14/18 23:19 02/14/18 23:21 DC 02/14/18 23:41 30 MG Prochlorperazine Edisylate (Compazine Inj) 10 mg NOW STAT IV 02/14/18 23:19 02/14/18 23:21 DC 02/14/18 23:41 10 MG Magnesium Sulfate 100 ml @ 100 mls/hr NOW STAT IV 02/15/18 00:32 02/15/18 01:31 DC 02/15/18 01:03 100 MLS/HR Dexamethasone Sodium Phosphate (Decadron Inj) 10 mg STK-MED ONCE .ROUTE 02/15/18 00:59 02/15/18 01:00 DC 02/15/18 01:03 8 MG Ziprasidone (Geodon Cap) 80 mg NOW STAT PO 02/15/18 01:15 02/15/18 01:17 DC 02/15/18 02:01 80 MG Mirtazapine (Remeron Tab) 15 mg NOW STAT PO 02/15/18 01:15 02/15/18 01:17 DC 02/15/18 02:01 15 MG Departure Information Impression Primary Impression: Migraine Dispostion Home / Self-Care Condition GOOD Referrals Lisa Casanova DO (PCP) Forms HOME CARE DOCUMENTATION FORM, IMPORTANT VISIT INFORMATION Patient Instructions [facility], ED Headache Migraine Additional Instructions DO NOT drive, drink alcohol, operate machinery, or perform dangerous activities today. You were given medications in the ER that can affect your ability to safely function or operate a vehicle. Rest today in a quiet, peaceful, dark environment and get a full 8-10 hrs of sleep tonight. Avoid loud noises, smoke/smoking, alcohol, bright lights, stress, or physical exertion today to minimize the chance the headache may return. Continue current medications as prescribed. You have been prescribed Prednisone. This is a steroid which will help decrease your inflammation, redness, and itch. Take this medicine as prescribed. Take the ENTIRE 9 day course. It is best to take steroids early in the morning as PM dosing can affect your sleeping patterns. Ibuprofen(Motrin, Advil) may be used for fever or pain. Use 600mg every six hours as needed. Take with food. Avoid using more than 2400mg in a 24 hour period. Do not use 2400mg per day for more than three consecutive days without physician direction. Prolonged inappropriate use can lead to stomach upset or ulcers. (AND/OR) Acetaminophen(Tylenol) may be used for fever or pain. Use 1000mg every six hours as needed. Avoid using more than 3000mg in a 24 hour period. Return to the ER for passing out, worsening headache, vision problems, neck stiffness/pain, fevers, vomiting, worsening of your condition, or as needed. Follow up with your primary physician in 2-3 days for a recheck of your current condition.
--- NOTE | 2018-02-15 06:34 | DIAGNOSTIC IMAGING REPORT ---
HEAD WITHOUT CONTRAST (CT) CLINICAL HISTORY: 32 years-old Female with acute headache. Acute headache TECHNIQUE: Multiple axial CT images of the head were obtained without contrast. A dose lowering technique was utilized adhering to the principles of ALARA. CT DOSE: 537.48 mGy.cm COMPARISON: CT head 01/04/2018. FINDINGS: No acute intracranial hemorrhage, midline shift, intracranial mass, hydrocephalus, territorial ischemia or abnormal extra-axial collection. The calvarium is intact. The paranasal sinuses, mastoid air cells, and middle ear cavities are clear. IMPRESSION: No acute intracranial abnormality. The above report was generated using voice recognition software. It may contain grammatical, syntax or spelling errors. Electronically signed by: Familia Lew M.D. 02/15/2018 6:33 AM Dictated Date/Time: 02/15/2018 6:31 AM
== END 2018-02-15 02:32 | disposition home or self-care (01) ==
LOC: C.EDB 22:55
DX: G43.011 Migraine without aura, intractable, with status migrainosus (principal); Z88.1 Allergy status to other antibiotic agents; Z88.8 Allergy status to other drugs, medicaments and biological substances; Z79.899 Other long term (current) drug therapy; E78.5 Hyperlipidemia, unspecified; F41.9 Anxiety disorder, unspecified; F31.9 Bipolar disorder, unspecified; K21.9 Gastro-esophageal reflux disease without esophagitis; F11.10 Opioid abuse, uncomplicated; Z90.49 Acquired absence of other specified parts of digestive tract

== ENCOUNTER 2022-06-04 18:21 | Observation (INO) ==
[2022-06-04 19:59] LABS: Basophils # (auto) 0.03 K/uL (0-0.2); Basophils % (auto) 0.3 %; Eosinophils # (auto) 0.04 K/uL (0-0.50); Eosinophils % (auto) 0.3 %; Hematocrit (blood only) 36.3 % (34.1-44.9); Hemoglobin 12.4 g/dl (12.0-16.0); Immature Granulocytes # (auto) 0.05 K/uL (0.00-0.02); Immature Granulocytes % (auto) 0.4 %; Lymphocytes # (auto) 1.18 K/uL (1.2-3.4); Lymphocytes % (auto) 10.1 %; Mean Corpuscular Hemoglobin 30.4 pg (25.0-34.0); Mean Corpuscular Hgb Conc 34.2 g/dL (32.0-36.0); Mean Platelet Volume 9.3 fL (9.4-12.3); Monocytes # (auto) 0.53 K/uL (0.24-0.82); Monocytes % (auto) 4.5 %; Neutrophils % (auto) 84.4 %; Platelet Count 242 K/uL (130-400); RDW Coefficient of Variation 11.9 % (11.5-14.5); RDW Standard Deviation 38.4 fL (36.4-46.3); Red Blood Count 4.08 M/uL (3.93-5.22); White Blood Count 11.73 K/ul (4.8-10.8)
[2022-06-04 20:11] LABS: INR 1.1 (0.9-1.1); Partial Thromboplastin Time 28.8 Seconds (21.0-31.0); Prothrombin Time 11.2 Seconds (9.0-12.0)
[2022-06-04 20:20] LABS: Alanine Aminotransferase 11 U/L (7-52); Albumin Globulin Ratio 1.6 (0.9-2); Albumin Level 4.5 gm/dl (3.4-5.0); Alkaline Phosphatase 82 U/L (34-104); Anion Gap 7 (3-11); Aspartate Aminotransferase 12 U/L (13-39); Bilirubin,Total 0.6 mg/dl (0.2-1.0); Blood Urea Nitrogen 8 mg/dl (6-23); Calcium 8.6 mg/dl (8.5-10.1); Carbon Dioxide 27 mmol/L (21-32); Chloride 103 mmol/L (98-107); Est GFR (African American) 124.5 ml/min; Est GFR (Non-African American) 107.5 ml/min; Globulin 2.8 gm/dl (2.5-4.0); Glucose 92 mg/dl (70-99(Fasting)); Magnesium 1.8 mg/dl (1.7-2.4); Potassium 3.3 mmol/L (3.5-5.1); Sodium 137 mmol/L (136-145); Total Protein 7.3 gm/dl (6.0-8.3)
[2022-06-05 00:04] LABS: Appearance Urine Clear (Clear); Bacteria Urine Automated Negative (Negative); Bilirubin Urine Negative (Negative); Blood Urine 3+ (Negative); Color Urine Orange; Epithelial Cell Urine Auto 20-30 /lpf (0-5); Glucose Urine UA Negative (Negative); Ketones Urine Negative (Negative); Leukocyte Esterase Urine 1+ (Negative); Nitrite Urine Negative (Negative); Protein Urine 1+ (Negative); RBC Urine Automated >30 /hpf (0-4); Specific Gravity Urine 1.014 (1.000-1.030); Urobilinogen Urine Negative (Negative); WBC Urine Automated >30 /hpf (0-5); pH Urine 6.5 (4.5-7.5)
[2022-06-05 00:26] LABS: Amphetamines+Metham, Urine Neg (Neg); Barbiturates, Urine Neg (Neg); Benzodiazepine, Urine Neg (Neg); Cocaine, Urine Neg (Neg); MDMA (Ecstacy), Urine Neg (Neg); Methadone, Urine Neg (Neg); Opiate, Urine Neg (Neg); Phencyclidine, Urine Neg (Neg)
--- NOTE | 2022-06-05 01:09 | Emergency Department Note ---
History of Present Illness General Chief complaint: Altered Mental Status Stated complaint: DIZZINESS, LOSS OF MEMORY, NAUSEA Time Seen by Provider: 06/05/22 00:35 History of Present Illness Maximum Pain Intensity: 6 Home Medications Medication Instructions Recorded Confirmed Type melatonin 5 mg tablet 5 mg PO HS 03/19/19 05/04/22 History cetirizine 10 mg tablet (Zyrtec) 10 mg PO QAM 10/18/19 05/04/22 History nystatin 100,000 unit/gram topical 1 applic topical BID PRN rash #30 05/01/20 05/04/22 Rx powder grams albuterol sulfate 90 mcg/actuation 2 puff inhalation Q6H PRN Wheezing 10/15/20 05/04/22 Rx aerosol inhaler (Ventolin HFA) #18 grams lorazepam 1 mg tablet 1 mg PO BID PRN Anxiety 12/05/20 05/04/22 History cholecalciferol (vitamin D3) 25 2,000 unit PO QAM 07/20/21 05/04/22 History mcg (1,000 unit) capsule hydroxyzine HCl 50 mg tablet 25 - 50 mg PO HS PRN Sleep 08/05/21 05/04/22 History trazodone 50 mg tablet 75 - 100 mg PO HS 08/05/21 05/04/22 History cyclobenzaprine 5 mg tablet 5 mg PO TID PRN Muscle Spasm #10 02/08/22 05/04/22 Rx tabs atogepant 60 mg tablet (Qulipta) 60 mg PO DAILY #30 tabs 03/24/22 05/04/22 Rx ondansetron 8 mg disintegrating 8 mg PO Q8H PRN Nausea #30 tabs 03/24/22 05/04/22 Rx tablet rizatriptan 10 mg disintegrating 10 mg PO .COMPLEX PRN Migraine 03/24/22 05/04/22 Rx tablet Headache #9 tabs atorvastatin 20 mg tablet (Lipitor) 20 mg PO QAM #30 tabs 04/02/22 05/04/22 Rx fluoxetine 20 mg capsule (Prozac) 20 mg PO DAILY #90 caps 05/04/22 05/04/22 Rx lamotrigine 100 mg tablet 100 mg PO PM #90 tabs 05/04/22 05/04/22 Rx trazodone 50 mg tablet 75 mg PO DAILY 3 months #135 tabs 05/04/22 05/04/22 Rx Allergies Allergy/AdvReac Type Severity Reaction Status Date / Time Cephalosporins Allergy Intermediate Hives Verified 05/04/22 09:10 buspirone Allergy Unknown Unknown Verified 05/04/22 09:10 diazepam AdvReac Severe Extreme Verified 05/04/22 09:10 anger levofloxacin AdvReac Severe "Bad" Verified 05/04/22 09:10 interactions with psych medications metoclopramide AdvReac Intermediate Anxiety Verified 05/04/22 09:10 sumatriptan AdvReac Intermediate Rash Verified 05/04/22 09:10 Past Med/Surg History Medical History Asthma Bipolar disorder Chronic back pain Chronic GERD Common migraine without aura Depression Dyslipidemia MAXIMUS (generalized anxiety disorder) History of COVID-19 Iron deficiency PMS (premenstrual syndrome) Snoring Syncope Surgical History History of appendectomy History of section History of colonoscopy History of esophagogastroduodenoscopy (EGD) History of exploratory laparotomy History of laparoscopy History of ovarian cystectomy History of tooth extraction Hx of cholecystectomy Hx of tubal ligation S/P arthroscopy of shoulder Family History Grandmother (Maternal) Family history of diabetes mellitus Stroke Myocardial infarction Father Family history of esophageal cancer Prostate cancer Mother Hypertension Thyroid disease Ovarian cancer Other Blood clot in vein Denies family history of Colon cancer Breast cancer Social History Smoking Status: Never smoker Second Hand Exposure: Yes (PARENTS SMOKED); Hx Alcohol Use: Yes Alcohol type: other Alcohol Intake Frequency: Monthly or L ess Hx Substance Use: No (listed h/o benzo & opiate misuse-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 both-states was mix up) Preferred Language: Uzbek Communication Ability: Effective Visual Impairment: No Limitations Hearing Ability: Normal 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[employer] Meats Required: No Beliefs That Will Affect Care: None marital status: Current Living Situation: Family Current Living Situation Comment: 2 CHILDREN-MOTHER WILL HELP POST OP current occupational status: unemployed 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 How many Children do You have: 2 Feels Safe at Home: Yes Childhood Exposure to Second-Hand Smoke: Yes (both parents) caffeine: Yes during the past year weight has: increased > 10 lbs Dental Care, Regularly: Yes Physical Activity Frequency: 5-6 Times per Week Seatbelt Use: always Sunscreen Use: Yes Assistive Devices: Glasses Physical Exam Vital Signs Vital Signs - 24 hr 06/04/22 18:47 06/04/22 23:49 06/05/22 00:08 Temperature 37.5 C 38.3 C H Temperature Source Temporal Artery Scan Oral Pulse Rate 111 H Pulse Rate [Apical] 83 Respiratory Rate 16 18 Blood Pressure 128/85 Blood Pressure [Right Arm] 130/83 Blood Pressure Mean 99 Blood Pressure Mean [Right Arm] 98 Blood Pressure Position Sitting Pulse Oximetry 100 96 Oxygen Delivery Method Room Air Room Air Room Air Sepsis Recent Fever Within 48 Hours No Sepsis New/Unexplained Change in Mental Status No Sepsis Action Taken by Nursing No Action Required 06/05/22 00:08 06/05/22 01:02 06/05/22 03:34 Temperature 37.2 C Temperature Source Oral Pulse Rate Pulse Rate [Apical] 95 H 95 H Respiratory Rate 20 16 Blood Pressure Blood Pressure [Right Arm] 126/76 142/86 H Blood Pressure Mean Blood Pressure Mean [Right Arm] 92 104 Blood Pressure Position Pulse Oximetry 100 99 98 Oxygen Delivery Method Room Air Room Air Room Air Sepsis Recent Fever Within 48 Hours Sepsis New/Unexplained Change in Mental Status Sepsis Action Taken by Nursing GENERAL: Patient is awake alert in no acute distress patient is resting comfortably and showing no signs of anxiety EYES: The conjunctivae are clear. The pupils are round and reactive. EARS, NOSE, MOUTH AND THROAT: The nose is without any evidence of any deformity. Mucous membranes are moist. Tongue is midline. Patient has pharyngeal erythema with exudate NECK: The neck is nontender and supple. RESPIRATORY: Normal respiratory effort is noted there is no evidence of wheezing rhonchi or rales CARDIOVASCULAR: Regular rate and rhythm noted there no murmurs rubs or gallops normal S1 normal S2. GASTROINTESTINAL: The abdomen is soft. Abdomen is nontender. PELVIS: The Pelvis is stable. No tenderness to palpation is noted. BACK: No midline tenderness or or step-off noted range of motion in flexion extension as well as rotation no signs of muscle spasm noted MUSCULOSKELETAL/EXTREMITIES: There is no evidence of gross deformity full range of motion is noted in the hips and shoulders. SKIN: There is no obvious evidence of any rash. There are no petechiae, pallor or cyanosis noted. NEUROLOGIC: Patient is awake alert and oriented x2; patient states that she thinks it is 2011 Course Reevaluation(s) Reevaluation #1: Patient on my repeat examination is sitting upright states that she has a stuffy nose and a sore throat. Patient does state that she knows that she works she states it is 2021 but she felt that it was 2011. I discussed evaluation with the patient the patient's mother at bedside. The patient's mother states that she had an episode similar to this in the summer where she was forgetful and did not realize that she was working. Patient also has a history of kyphoscoliosis in the mother and she shows me an x-ray of the patient's back Time: 01:45 Consultations Consultation #1: [facility]ist for admission Medical Decision Making Medical Records Attestation: I reviewed the patient's medical records. Home Medications Current Medication List: was personally reviewed by me Laboratory Data Attestation: I reviewed the patient's lab results. Result diagrams: 06/04/22 19:40 06/04/22 19:40 Lab Results 06/04/22 06/04/22 06/04/22 Range/Units 19:40 19:40 19:40 WBC 11.73 H (4.8-10.8) K/ul RBC 4.08 (3.93-5.22) M/uL Hgb 12.4 (12.0-16.0) g/dl Hct 36.3 (34.1-44.9) % MCV 89.0 (80.0-100.0) fL MCH 30.4 (25.0-34.0) pg MCHC 34.2 (32.0-36.0) g/dL RDW Std Deviation 38.4 (36.4-46.3) fL RDW Coeff of Samantha 11.9 (11.5-14.5) % Plt Count 242 (130-400) K/uL MPV 9.3 L (9.4-12.3) fL Immature Gran % (Auto) 0.4 % Neut % (Auto) 84.4 % Lymph % (Auto) 10.1 % Mclennan % (Auto) 4.5 % Eos % (Auto) 0.3 % Baso % (Auto) 0.3 % Neut # (Auto) 9.90 H (1.4-6.5) K/uL Lymph # (Auto) 1.18 L (1.2-3.4) K/uL Mclennan # (Auto) 0.53 (0.24-0.82) K/uL Eos # (Auto) 0.04 (0-0.50) K/uL Baso # (Auto) 0.03 (0-0.2) K/uL Immature Gran # (Auto) 0.05 H (0.00-0.02) K/uL PT 11.2 (9.0-12.0) Seconds INR 1.1 (0.9-1.1) APTT 28.8 (21.0-31.0) Seconds PTT Ratio 1.0 Sodium 137 (136-145) mmol/L Potassium 3.3 L (3.5-5.1) mmol/L Chloride 103 (98-107) mmol/L Carbon Dioxide 27 (21-32) mmol/L Anion Gap 7 (3-11) BUN 8 (6-23) mg/dl Creatinine 0.73 (0.6-1.2) mg/dl Est Cr Clr Drug Dosing Not Reportable Est GFR ( Amer) 124.5 ml/min Est GFR (Non-Af Amer) 107.5 ml/min BUN/Creatinine Ratio 11.0 (10-20) Glucose 92 (70-99(Fasting)) mg/dl POC Glucose (70-99) mg/dl Calcium 8.6 (8.5-10.1) mg/dl Magnesium 1.8 (1.7-2.4) mg/dl Total Bilirubin 0.6 (0.2-1.0) mg/dl AST 12 L (13-39) U/L ALT 11 (7-52) U/L Alkaline Phosphatase 82 (34-104) U/L Total Protein 7.3 (6.0-8.3) gm/dl Albumin 4.5 (3.4-5.0) gm/dl Globulin 2.8 (2.5-4.0) gm/dl Albumin/Globulin Ratio 1.6 (0.9-2) TSH (0.300-4.500) uIu/ml Urine Color Urine Appearance (Clear) Urine pH (4.5-7.5) Ur Specific Fork (1.000-1.030) Urine Protein (Negative) Urine Glucose (UA) (Negative) Urine Ketones (Negative) Urine Blood (Negative) Urine Nitrite (Negative) Urine Bilirubin (Negative) Urine Urobilinogen (Negative) Ur Leukocyte Esterase (Negative) Urine WBC (Auto) (0-5) /hpf Urine RBC (Auto) (0-4) /hpf U Hyaline Cast (Auto) (0-5) /lpf U Epithel Cells (Auto) (0-5) /lpf Urine Bacteria (Auto) (Negative) Urine Opiates Screen (Neg) Ur Methadone, Qual (Neg) Urine Barbiturates (Neg) Ur Phencyclidine (PCP) (Neg) U Amphetamin/Meth Scrn (Neg) MDMA (Ecstasy) Screen (Neg) U Benzodiazepines Scrn (Neg) Ur Cocaine Metabolite (Neg) U Marijuana (THC) Screen (Neg) Ethyl Alcohol mg/dL (<10.0) mg/dl Lyme Disease IgG Ab (Negative) Lyme Disease IgM Ab (Negative) SARS-CoV-2 (PCR) (Negative) Monoscreen (Negative) Influenza Type A (PCR) (Neg) Influenza Type B (PCR) (Neg) RSV (RT-PCR) (Neg) 06/04/22 06/04/22 06/04/22 Range/Units 19:40 19:40 23:42 WBC (4.8-10.8) K/ul RBC (3.93-5.22) M/uL Hgb (12.0-16.0) g/dl Hct (34.1-44.9) % MCV (80.0-100.0) fL MCH (25.0-34.0) pg MCHC (32.0-36.0) g/dL RDW Std Deviation (36.4-46.3) fL RDW Coeff of Samantha (11.5-14.5) % Plt Count (130-400) K/uL MPV (9.4-12.3) fL Immature Gran % (Auto) % Neut % (Auto) % Lymph % (Auto) % Mclennan % (Auto) % Eos % (Auto) % Baso % (Auto) % Neut # (Auto) (1.4-6.5) K/uL Lymph # (Auto) (1.2-3.4) K/uL Mclennan # (Auto) (0.24-0.82) K/uL Eos # (Auto) (0-0.50) K/uL Baso # (Auto) (0-0.2) K/uL Immature Gran # (Auto) (0.00-0.02) K/uL PT (9.0-12.0) Seconds INR (0.9-1.1) APTT (21.0-31.0) Seconds PTT Ratio Sodium (136-145) mmol/L Potassium (3.5-5.1) mmol/L Chloride (98-107) mmol/L Carbon Dioxide (21-32) mmol/L Anion Gap (3-11) BUN (6-23) mg/dl Creatinine (0.6-1.2) mg/dl Est Cr Clr Drug Dosing Est GFR ( Amer) ml/min Est GFR (Non-Af Amer) ml/min BUN/Creatinine Ratio (10-20) Glucose (70-99(Fasting)) mg/dl POC Glucose (70-99) mg/dl Calcium (8.5-10.1) mg/dl Magnesium (1.7-2.4) mg/dl Total Bilirubin (0.2-1.0) mg/dl AST (13-39) U/L ALT (7-52) U/L Alkaline Phosphatase (34-104) U/L Total Protein (6.0-8.3) gm/dl Albumin (3.4-5.0) gm/dl Globulin (2.5-4.0) gm/dl Albumin/Globulin Ratio (0.9-2) TSH 0.582 (0.300-4.500) uIu/ml Urine Color [place] Urine Appearance Clear (Clear) Urine pH 6.5 (4.5-7.5) Ur Specific Fork 1.014 (1.000-1.030) Urine Protein 1+ H (Negative) Urine Glucose (UA) Negative (Negative) Urine Ketones Negative (Negative) Urine Blood 3+ H (Negative) Urine Nitrite Negative (Negative) Urine Bilirubin Negative (Negative) Urine Urobilinogen Negative (Negative) Ur Leukocyte Esterase 1+ H (Negative) Urine WBC (Auto) >30 H (0-5) /hpf Urine RBC (Auto) >30 H (0-4) /hpf U Hyaline Cast (Auto) 1-5 (0-5) /lpf U Epithel Cells (Auto) 20-30 H (0-5) /lpf Urine Bacteria (Auto) Negative (Negative) Urine Opiates Screen (Neg) Ur Methadone, Qual (Neg) Urine Barbiturates (Neg) Ur Phencyclidine (PCP) (Neg) U Amphetamin/Meth Scrn (Neg) MDMA (Ecstasy) Screen (Neg) U Benzodiazepines Scrn (Neg) Ur Cocaine Metabolite (Neg) U Marijuana (THC) Screen (Neg) Ethyl Alcohol mg/dL < 10.0 (<10.0) mg/dl Lyme Disease IgG Ab (Negative) Lyme Disease IgM Ab (Negative) SARS-CoV-2 (PCR) (Negative) Monoscreen (Negative) Influenza Type A (PCR) (Neg) Influenza Type B (PCR) (Neg) RSV (RT-PCR) (Neg) 06/04/22 06/05/22 06/05/22 Range/Units 23:42 00:34 01:44 WBC (4.8-10.8) K/ul RBC (3.93-5.22) M/uL Hgb (12.0-16.0) g/dl Hct (34.1-44.9) % MCV (80.0-100.0) fL MCH (25.0-34.0) pg MCHC (32.0-36.0) g/dL RDW Std Deviation (36.4-46.3) fL RDW Coeff of Samantha (11.5-14.5) % Plt Count (130-400) K/uL MPV (9.4-12.3) fL Immature Gran % (Auto) % Neut % (Auto) % Lymph % (Auto) % Mclennan % (Auto) % Eos % (Auto) % Baso % (Auto) % Neut # (Auto) (1.4-6.5) K/uL Lymph # (Auto) (1.2-3.4) K/uL Mclennan # (Auto) (0.24-0.82) K/uL Eos # (Auto) (0-0.50) K/uL Baso # (Auto) (0-0.2) K/uL Immature Gran # (Auto) (0.00-0.02) K/uL PT (9.0-12.0) Seconds INR (0.9-1.1) APTT (21.0-31.0) Seconds PTT Ratio Sodium (136-145) mmol/L Potassium (3.5-5.1) mmol/L Chloride (98-107) mmol/L Carbon Dioxide (21-32) mmol/L Anion Gap (3-11) BUN (6-23) mg/dl Creatinine (0.6-1.2) mg/dl Est Cr Clr Drug Dosing Est GFR ( Amer) ml/min Est GFR (Non-Af Amer) ml/min BUN/Creatinine Ratio (10-20) Glucose (70-99(Fasting)) mg/dl POC Glucose 91 (70-99) mg/dl Calcium (8.5-10.1) mg/dl Magnesium (1.7-2.4) mg/dl Total Bilirubin (0.2-1.0) mg/dl AST (13-39) U/L ALT (7-52) U/L Alkaline Phosphatase (34-104) U/L Total Protein (6.0-8.3) gm/dl Albumin (3.4-5.0) gm/dl Globulin (2.5-4.0) gm/dl Albumin/Globulin Ratio (0.9-2) TSH (0.300-4.500) uIu/ml Urine Color Urine Appearance (Clear) Urine pH (4.5-7.5) Ur Specific Fork (1.000-1.030) Urine Protein (Negative) Urine Glucose (UA) (Negative) Urine Ketones (Negative) Urine Blood (Negative) Urine Nitrite (Negative) Urine Bilirubin (Negative) Urine Urobilinogen (Negative) Ur Leukocyte Esterase (Negative) Urine WBC (Auto) (0-5) /hpf Urine RBC (Auto) (0-4) /hpf U Hyaline Cast (Auto) (0-5) /lpf U Epithel Cells (Auto) (0-5) /lpf Urine Bacteria (Auto) (Negative) Urine Opiates Screen Neg (Neg) Ur Methadone, Qual Neg (Neg) Urine Barbiturates Neg (Neg) Ur Phencyclidine (PCP) Neg (Neg) U Amphetamin/Meth Scrn Neg (Neg) MDMA (Ecstasy) Screen Neg (Neg) U Benzodiazepines Scrn Neg (Neg) Ur Cocaine Metabolite Neg (Neg) U Marijuana (THC) Screen Neg (Neg) Ethyl Alcohol mg/dL (<10.0) mg/dl Lyme Disease IgG Ab (Negative) Lyme Disease IgM Ab (Negative) SARS-CoV-2 (PCR) NEGATIVE (Negative) Monoscreen (Negative) Influenza Type A (PCR) Negative (Neg) Influenza Type B (PCR) Negative (Neg) RSV (RT-PCR) Negative (Neg) 06/05/22 Range/Units 02:45 WBC (4.8-10.8) K/ul RBC (3.93-5.22) M/uL Hgb (12.0-16.0) g/dl Hct (34.1-44.9) % MCV (80.0-100.0) fL MCH (25.0-34.0) pg MCHC (32.0-36.0) g/dL RDW Std Deviation (36.4-46.3) fL RDW Coeff of Samantha (11.5-14.5) % Plt Count (130-400) K/uL MPV (9.4-12.3) fL Immature Gran % (Auto) % Neut % (Auto) % Lymph % (Auto) % Mclennan % (Auto) % Eos % (Auto) % Baso % (Auto) % Neut # (Auto) (1.4-6.5) K/uL Lymph # (Auto) (1.2-3.4) K/uL Mclennan # (Auto) (0.24-0.82) K/uL Eos # (Auto) (0-0.50) K/uL Baso # (Auto) (0-0.2) K/uL Immature Gran # (Auto) (0.00-0.02) K/uL PT (9.0-12.0) Seconds INR (0.9-1.1) APTT (21.0-31.0) Seconds PTT Ratio Sodium (136-145) mmol/L Potassium (3.5-5.1) mmol/L Chloride (98-107) mmol/L Carbon Dioxide (21-32) mmol/L Anion Gap (3-11) BUN (6-23) mg/dl Creatinine (0.6-1.2) mg/dl Est Cr Clr Drug Dosing Est GFR ( Amer) ml/min Est GFR (Non-Af Amer) ml/min BUN/Creatinine Ratio (10-20) Glucose (70-99(Fasting)) mg/dl POC Glucose (70-99) mg/dl Calcium (8.5-10.1) mg/dl Magnesium (1.7-2.4) mg/dl Total Bilirubin (0.2-1.0) mg/dl AST (13-39) U/L ALT (7-52) U/L Alkaline Phosphatase (34-104) U/L Total Protein (6.0-8.3) gm/dl Albumin (3.4-5.0) gm/dl Globulin (2.5-4.0) gm/dl Albumin/Globulin Ratio (0.9-2) TSH (0.300-4.500) uIu/ml Urine Color Urine Appearance (Clear) Urine pH (4.5-7.5) Ur Specific Fork (1.000-1.030) Urine Protein (Negative) Urine Glucose (UA) (Negative) Urine Ketones (Negative) Urine Blood (Negative) Urine Nitrite (Negative) Urine Bilirubin (Negative) Urine Urobilinogen (Negative) Ur Leukocyte Esterase (Negative) Urine WBC (Auto) (0-5) /hpf Urine RBC (Auto) (0-4) /hpf U Hyaline Cast (Auto) (0-5) /lpf U Epithel Cells (Auto) (0-5) /lpf Urine Bacteria (Auto) (Negative) Urine Opiates Screen (Neg) Ur Methadone, Qual (Neg) Urine Barbiturates (Neg) Ur Phencyclidine (PCP) (Neg) U Amphetamin/Meth Scrn (Neg) MDMA (Ecstasy) Screen (Neg) U Benzodiazepines Scrn (Neg) Ur Cocaine Metabolite (Neg) U Marijuana (THC) Screen (Neg) Ethyl Alcohol mg/dL (<10.0) mg/dl Lyme Disease IgG Ab Negative (Negative) Lyme Disease IgM Ab Negative (Negative) SARS-CoV-2 (PCR) (Negative) Monoscreen Negative (Negative) Influenza Type A (PCR) (Neg) Influenza Type B (PCR) (Neg) RSV (RT-PCR) (Neg) Imaging Data Radiologist's Impression: CT brain per radiology negative acute MDM Narrative Medical decision making differential diagnosis viral syndrome upper respiratory tract infection meningitis, metabolic derangement, dehydration, strep; Patient was evaluated for viral syndrome upper respiratory tract symptoms and memory loss. Patient reportedly had memory loss in December according to the mother. The likelihood of meningitis is much lower this patient currently patient is upright does not have the worst headache of her life does not have p hotophobia or neck pain at this time. Patient is being treated with doxycycline for pharyngitis. Patient is alert knows it is 2021, her presentation is strange in nature. If further history it appears that the patient has had memory loss in the past, in my opinion since the potential for meningitis at this time. Impression & Plan Dizziness, Pharyngitis, Episodic memory loss Discharge Plan Visit Data Chief Complaint: Altered Mental Status Stated Complaint: DIZZINESS, LOSS OF MEMORY, NAUSEA ED Provider: Adrian Frost Discharge Problem: Dizziness, Pharyngitis, Episodic memory loss Patient Disposition: Being Evaluated by Hospitalist Discharge Instructions Interventions: ED Discharge Assessment Last Done: 06/05/22 03:31 Forms Stand Alone Forms: My [facility] Prescriptions Prescriptions: No Action cholecalciferol (vitamin D3) 25 mcg (1,000 unit) capsule 2,000 unit PO QAM cyclobenzaprine 5 mg tablet 5 mg PO TID PRN (Reason: Muscle Spasm) Qty: 10 0RF atorvastatin [Lipitor] 20 mg tablet 20 mg PO QAM Qty: 30 4RF cetirizine [Zyrtec] 10 mg tablet 10 mg PO QAM fluoxetine [Prozac] 20 mg capsule 20 mg PO DAILY Qty: 90 0RF lamotrigine 100 mg tablet 100 mg PO PM Qty: 90 0RF trazodone 50 mg tablet 75 mg PO DAILY 90 Days Qty: 135 0RF trazodone 50 mg tablet 75 - 100 mg PO HS albuterol sulfate [Ventolin HFA] 90 mcg/actuation HFA aerosol inhaler 2 puff INHALATION Q6H PRN (Reason: Wheezing) Qty: 18 0RF nystatin 100,000 unit/gram powder 1 applic topical BID PRN (Reason: rash) Qty: 30 1RF Qulipta 60 mg tablet 60 mg PO DAILY Qty: 30 5RF rizatriptan 10 mg tablet,disintegrating 10 mg PO .COMPLEX PRN (Reason: Migraine Headache) Qty: 9 5RF Rx Instructions: 10 mg PO prn migraine, may repeat after 2 hours prn ondansetron 8 mg tablet,disintegrating 8 mg PO Q8H PRN (Reason: Nausea) Qty: 30 1RF melatonin 5 mg Tablet 5 mg PO HS lorazepam 1 mg tablet 1 mg PO BID PRN (Reason: Anxiety) hydroxyzine HCl 50 mg tablet 25 - 50 mg PO HS PRN (Reason: Sleep) Referrals Referrals: Lisa Casanova DO [Primary Care Provider] -
[2022-06-05 01:24] LABS: Influenza A virus by PCR Negative (Neg); Influenza B virus by PCR Negative (Neg); RSV by PCR Negative (Neg); SARS CoV2 RNA(COVID-19) Ceph NEGATIVE (Negative)
--- NOTE | 2022-06-05 02:19 | History & Physical Report ---
Date of Service June 05, 2022 Assessment & Plan (1) Episodic memory loss: Plan: Lisset is a 36 y/o female with PMHx including migraine, HLD, anxiety, depression, and bipolar admitted to [facility] on 06/05/22 due to episodic memory loss, suspected associated with migraine. Episodic memory loss with hx of migraine - Patient does report that current presentation is similar to hx of migraine and episodic amnesia - She thinks that migraines are worsened during her menses (which she is currently on) as well as increased stress - Given that patient continues to have difficulty with memory and sxs started > 8 hours ago, will admit for observation - Head CT on admission negative - Treat w/ Tylenol - Zofran prn - LR at 150 cc/hr x2L - If SALGADO does not improve, can trial rizatriptan as this is an abortive medication that patient uses prn for migraines; she, however, would like to hold on that for now - Will also test for Lyme disease and mono, pending Strep throat - Patient reports + strep test at urgent care this afternoon and presents with rx for doxycycline 100mg po BID - Will continue with doxy 100mg po BID x10 days - Chloraseptic spray prn Hyperlipidemia - Continue home atorvastatin Anxiety/Depression/Bipolar - Continue home fluoxetine, lamotrigine, and trazodone FENGI: Regular diet, IVF as above Dispo: admit to [facility] Code status: Full code (2) Common migraine without aura: (3) Depression: (4) Dyslipidemia: (5) Chronic GERD: (6) MAXIMUS (generalized anxiety disorder): (7) Bipolar disorder: History of Present Illness Primary Care Provider: Lisa Casanova DO Patient is a 36 yo female with PMHx including MAXIMUS, bipolar, depression, GERD, HLD, and migraines who presented to the [facility] ER on 06/04/22 with confusion. History is limited due to clinical condition. Some history is obtained by patient's mother, who is at bedside. Patient's mom states that patient had an acute onset of confusion this afternoon around 4:00pm and at that time she "couldn't remember things." Patient states that she remembers being told to leave work due to dizziness and not feeling well. It is noted that patient's son tested positive for strep throat today and patient subsequently also went to an urgent care and tested positive for strep throat; she was given a rx for doxycycline. After leaving the urgent care is when patient became confused. She is unable to recall the events of today. Patient does note that she has a hx of similar episodes. When asked if confusion is related to her hx of migraines she states "I don't know, but I think so." Patient also feels that current presentation is similar to migraine hx. She does note a generalized SALGADO at this time. Patient denies nausea but notes that her stomach is "upset" because she is hungry and has not eaten today. She complains of + sore throat. Denies urinary s ymptoms including dysuria. Notes that she is currently on menses. Patient is unable to recall the medications that she takes for her migraine hx. Per chart review, patient follows with neurology and as of last neuro visit 03/24/22, patient is on Qulipta 60mg po daily, rizatriptan 10mg po prn migraine, and Zofran 8mg po q8h prn. She does not think that she has taken the abortive migraine medication today. In the ER, labs reveal leukocytosis at 11.73. Mild hypokalemia with K 3.3. Remainder of labs unremarkable including normal TSH 0.582. Head CT negative. Allergies Allergy/AdvReac Type Severity Reaction Status Date / Time Cephalosporins Allergy Intermediate Hives Verified 05/04/22 09:10 buspirone Allergy Unknown Unknown Verified 05/04/22 09:10 diazepam AdvReac Severe Extreme Verified 05/04/22 09:10 anger levofloxacin AdvReac Severe "Bad" Verified 05/04/22 09:10 interactions with psych medications metoclopramide AdvReac Intermediate Anxiety Verified 05/04/22 09:10 sumatriptan AdvReac Intermediate Rash Verified 05/04/22 09:10 Home Medications Medication Instructions Recorded Confirmed Type melatonin 5 mg tablet 5 mg PO HS 03/19/19 05/04/22 History cetirizine 10 mg tablet (Zyrtec) 10 mg PO QAM 10/18/19 05/04/22 History nystatin 100,000 unit/gram topical 1 applic topical BID PRN rash #30 05/01/20 05/04/22 Rx powder grams albuterol sulfate 90 mcg/actuation 2 puff inhalation Q6H PRN Wheezing 10/15/20 05/04/22 Rx aerosol inhaler (Ventolin HFA) #18 grams lorazepam 1 mg tablet 1 mg PO BID PRN Anxiety 12/05/20 05/04/22 History cholecalciferol (vitamin D3) 25 2,000 unit PO QAM 07/20/21 05/04/22 History mcg (1,000 unit) capsule hydroxyzine HCl 50 mg tablet 25 - 50 mg PO HS PRN Sleep 08/05/21 05/04/22 History trazodone 50 mg tablet 75 - 100 mg PO HS 08/05/21 05/04/22 History cyclobenzaprine 5 mg tablet 5 mg PO TID PRN Muscle Spasm #10 02/08/22 05/04/22 Rx tabs atogepant 60 mg tablet (Qulipta) 60 mg PO DAILY #30 tabs 03/24/22 05/04/22 Rx ondansetron 8 mg disintegrating 8 mg PO Q8H PRN Nausea #30 tabs 03/24/22 05/04/22 Rx tablet rizatriptan 10 mg disintegrating 10 mg PO .COMPLEX PRN Migraine 03/24/22 05/04/22 Rx tablet Headache #9 tabs atorvastatin 20 mg tablet (Lipitor) 20 mg PO QAM #30 tabs 04/02/22 05/04/22 Rx fluoxetine 20 mg capsule (Prozac) 20 mg PO DAILY #90 caps 05/04/22 05/04/22 Rx lamotrigine 100 mg tablet 100 mg PO PM #90 tabs 05/04/22 05/04/22 Rx trazodone 50 mg tablet 75 mg PO DAILY 3 months #135 tabs 05/04/22 05/04/22 Rx Past Med/Surg History Medical History Asthma Bipolar disorder Chronic back pain Chronic GERD Common migraine without aura Depression Dyslipidemia MAXIMUS (generalized anxiety disorder) History of COVID-19 Iron deficiency PMS (premenstrual syndrome) Snoring Syncope Surgical History History of appendectomy History of section History of colonoscopy History of esophagogastroduodenoscopy (EGD) History of exploratory laparotomy History of laparoscopy History of ovarian cystectomy History of tooth extraction Hx of cholecystectomy Hx of tubal ligation S/P arthroscopy of shoulder Family History Grandmother (Maternal) Family history of diabetes mellitus Stroke Myocardial infarction Father Family history of esophageal cancer Prostate cancer Mother Hypertension Thyroid disease Ovarian cancer Other Blood clot in vein Denies family history of Colon cancer Breast cancer Social History Smoking Status: Never smoker Second Hand Exposure: Yes (PARENTS SMOKED); Hx Alcohol Use: Yes Alcohol type: other Alcohol Intake Frequency: Monthly or Less Hx Substance Use: No Preferred Language: Bahamian Communication Ability: Effective Visual Impairment: No Limitations Hearing Ability: Normal Stoner Out Required: No Beliefs That Will Affect Care: None marital status: Current Living Situation: Family Current Living Situation Comment: 2 CHILDREN-MOTHER WILL HELP POST OP current occupational status: unemployed 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 Well developed and well nourished. Vital signs reviewed as above. EYES: PERRLA. EOMI. Anicteric sclerae. HENT: Moist mucous membranes. + pharyngeal erythema w/ tonsillar exudate on right. RESPIRATORY: Clear to auscultation bilaterally. No wheezing, rales, or rhonchi. CARDIOVASCULAR: Regular rate and rhythm. No murmurs. No JVD. ABDOMEN: Soft, non-tender and non-distended. Normal bowel sounds. EXTREMITIES: No edema. Non-tender. SKIN: Warm, dry. NEUROLOGIC: A/O x3 but with reported confusion. Normal speech. No focal neurological deficits. CN II-XII grossly intact. PSYCHIATRIC: Cooperative. Appropriate mood and affect. Results & Data Results & Data ([facility]) Vital Signs (Past 12 Hours) Vital Signs Temp Pulse Pulse Resp BP BP Pulse Ox 12/10/22 01:02 37.2 C 95 H 20 126/76 99 06/05/22 00:08 100 06/05/22 00:08 06/04/22 23:49 38.3 C H 83 18 130/83 96 06/04/22 18:47 37.5 C 111 H 16 128/85 100 O2 Del Method 06/05/22 01:02 Room Air 06/05/22 00:08 Room Air 06/05/22 00:08 Room Air 06/04/22 23:49 Room Air 06/04/22 18:47 Room Air Laboratory Results 06/05/22 06/04/22 06/04/22 Range/Units 00:34 23:42 23:42 WBC (4.8-10.8) K/ul RBC (3.93-5.22) M/uL Hgb (12.0-16.0) g/dl Hct (34.1-44.9) % MCV (80.0-100.0) fL MCH (25.0-34.0) pg MCHC (32.0-36.0) g/dL RDW Std Deviation (36.4-46.3) fL RDW Coeff of Samantha (11.5-14.5) % Plt Count (130-400) K/uL MPV (9.4-12.3) fL Immature Gran % (Auto) % Neut % (Auto) % Lymph % (Auto) % Towns % (Auto) % Eos % (Auto) % Baso % (Auto) % Neut # (Auto) (1.4-6.5) K/uL Lymph # (Auto) (1.2-3.4) K/uL Towns # (Auto) (0.24-0.82) K/uL Eos # (Auto) (0-0.50) K/uL Baso # (Auto) (0-0.2) K/uL Immature Gran # (Auto) (0.00-0.02) K/uL PT (9.0-12.0) Seconds INR (0.9-1.1) APTT (21.0-31.0) Seconds PTT Ratio Sodium (136-145) mmol/L Potassium (3.5-5.1) mmol/L Chloride (98-107) mmol/L Carbon Dioxide (21-32) mmol/L Anion Gap (3-11) BUN (6-23) mg/dl Creatinine (0.6-1.2) mg/dl Est Cr Clr Drug Dosing Est GFR ( Amer) ml/min Est GFR (Non-Af Amer) ml/min BUN/Creatinine Ratio (10-20) Glucose (70-99(Fasting)) mg/dl Calcium (8.5-10.1) mg/dl Magnesium (1.7-2.4) mg/dl Total Bilirubin (0.2-1.0) mg/dl AST (13-39) U/L ALT (7-52) U/L Alkaline Phosphatase (34-104) U/L Total Protein (6.0-8.3) gm/dl Albumin (3.4-5.0) gm/dl Globulin (2.5-4.0) gm/dl Albumin/Globulin Ratio (0.9-2) TSH (0.300-4.500) uIu/ml Urine Color [place] Urine Appearance Clear (Clear) Urine pH 6.5 (4.5-7.5) Ur Specific [place] 1.014 (1.000-1.030) Urine Protein 1+ H (Negative) Urine Glucose (UA) Negative (Negative) Urine Ketones Negative (Negative) Urine Blood 3+ H (Negative) Urine Nitrite Negative (Negative) Urine Bilirubin Negative (Negative) Urine Urobilinogen Negative (Negative) Ur Leukocyte Esterase 1+ H (Negative) Urine WBC (Auto) >30 H (0-5) /hpf Urine RBC (Auto) >30 H (0-4) /hpf U Hyaline Cast (Auto) 1-5 (0-5) /lpf U Epithel Cells (Auto) 20-30 H (0-5) /lpf Urine Bacteria (Auto) Negative (Negative) Urine Opiates Screen Neg (Neg) Ur Methadone, Qual Neg (Neg) Urine Barbiturates Neg (Neg) Ur Phencyclidine (PCP) Neg (Neg) U Amphetamin/Meth Scrn Neg (Neg) MDMA (Ecstasy) Screen Neg (Neg) U Benzodiazepines Scrn Neg (Neg) Ur Cocaine Metabolite Neg (Neg) U Marijuana (THC) Screen Neg (Neg) Ethyl Alcohol mg/dL (<10.0) mg/dl SARS-CoV-2 (PCR) NEGATIVE (Negative) Influenza Type A (PCR) Negative (Neg) Influenza Type B (PCR) Negative (Neg) RSV (RT-PCR) Negative (Neg) 06/04/22 06/04/22 06/04/22 Range/Units 19:40 19:40 19:40 WBC (4.8-10.8) K/ul RBC (3.93-5.22) M/uL Hgb (12.0-16.0) g/dl Hct (34.1-44.9) % MCV (80.0-100.0) fL MCH (25.0-34.0) pg MCHC (32.0-36.0) g/dL RDW Std Deviation (36.4-46.3) fL RDW Coeff of Samantha (11.5-14.5) % Plt Count (130-400) K/uL MPV (9.4-12.3) fL Immature Gran % (Auto) % Neut % (Auto) % Lymph % (Auto) % Towns % (Auto) % Eos % (Auto) % Baso % (Auto) % Neut # (Auto) (1.4-6.5) K/uL Lymph # (Auto) (1.2-3.4) K/uL Towns # (Auto) (0.24-0.82) K/uL Eos # (Auto) (0-0.50) K/uL Baso # (Auto) (0-0.2) K/uL Immature Gran # (Auto) (0.00-0.02) K/uL PT (9.0-12.0) Seconds INR (0.9-1.1) APTT (21.0-31.0) Seconds PTT Ratio Sodium 137 (136-145) mmol/L Potassium 3.3 L (3.5-5.1) mmol/L Chloride 103 (98-107) mmol/L Carbon Dioxide 27 (21-32) mmol/L Anion Gap 7 (3-11) BUN 8 (6-23) mg/dl Creatinine 0.73 (0.6-1.2) mg/dl Est Cr Clr Drug Dosing Not Reportable Est GFR ( Amer) 124.5 ml/min Est GFR (Non-Af Amer) 107.5 ml/min BUN/Creatinine Ratio 11.0 (10-20) Glucose 92 (70-99(Fasting)) mg/dl Calcium 8.6 (8.5-10.1) mg/dl Magnesium 1.8 (1.7-2.4) mg/dl Total Bilirubin 0.6 (0.2-1.0) mg/dl AST 12 L (13-39) U/L ALT 11 (7-52) U/L Alkaline Phosphatase 82 (34-104) U/L Total Protein 7.3 (6.0-8.3) gm/dl Albumin 4.5 (3.4-5.0) gm/dl Globulin 2.8 (2.5-4.0) gm/dl Albumin/Globulin Ratio 1.6 (0.9-2) TSH 0.582 (0.300-4.500) uIu/ml Urine Color Urine Appearance (Clear) Urine pH (4.5-7.5) Ur Specific [place] (1.000-1.030) Urine Protein (Negative) Urine Glucose (UA) (Negative) Urine Ketones (Negative) Urine Blood (Negative) Urine Nitrite (Negative) Urine Bilirubin (Negative) Urine Urobilinogen (Negative) Ur Leukocyte Esterase (Negative) Urine WBC (Auto) (0-5) /hpf Urine RBC (Auto) (0-4) /hpf U Hyaline Cast (Auto) (0-5) /lpf U Epithel Cells (Auto) (0-5) /lpf Urine Bacteria (Auto) (Negative) Urine Opiates Screen (Neg) Ur Methadone, Qual (Neg) Urine Barbiturates (Neg) Ur Phencyclidine (PCP) (Neg) U Amphetamin/Meth Scrn (Neg) MDMA (Ecstasy) Screen (Neg) U Benzodiazepines Scrn (Neg) Ur Cocaine Metabolite (Neg) U Marijuana (THC) Screen (Neg) Ethyl Alcohol mg/dL < 10.0 (<10.0) mg/dl SARS-CoV-2 (PCR) (Negative) Influenza Type A (PCR) (Neg) Influenza Type B (PCR) (Neg) RSV (RT-PCR) (Neg) 06/04/22 06/04/22 Range/Units 19:40 19:40 WBC 11.73 H (4.8-10.8) K/ul RBC 4.08 (3.93-5.22) M/uL Hgb 12.4 (12.0-16.0) g/dl Hct 36.3 (34.1-44.9) % MCV 89.0 (80.0-100.0) fL MCH 30.4 (25.0-34.0) pg MCHC 34.2 (32.0-36.0) g/dL RDW Std Deviation 38.4 (36.4-46.3) fL RDW Coeff of Samantha 11.9 (11.5-14.5) % Plt Count 242 (130-400) K/uL MPV 9.3 L (9.4-12.3) fL Immature Gran % (Auto) 0.4 % Neut % (Auto) 84.4 % Lymph % (Auto) 10.1 % Towns % (Auto) 4.5 % Eos % (Auto) 0.3 % Baso % (Auto) 0.3 % Neut # (Auto) 9.90 H (1.4-6.5) K/uL Lymph # (Auto) 1.18 L (1.2-3.4) K/uL Towns # (Auto) 0.53 (0.24-0.82) K/uL Eos # (Auto) 0.04 (0-0.50) K/uL Baso # (Auto) 0.03 (0-0.2) K/uL Immature Gran # (Auto) 0.05 H (0.00-0.02) K/uL PT 11.2 (9.0-12.0) Seconds INR 1.1 (0.9-1.1) APTT 28.8 (21.0-31.0) Seconds PTT Ratio 1.0 Sodium (136-145) mmol/L Potassium (3.5-5.1) mmol/L Chloride (98-107) mmol/L Carbon Dioxide (21-32) mmol/L Anion Gap (3-11) BUN (6-23) mg/dl Creatinine (0.6-1.2) mg/dl Est Cr Clr Drug Dosing Est GFR ( Amer) ml/min Est GFR (Non-Af Amer) ml/min BUN/Creatinine Ratio (10-20) Glucose (70-99(Fasting)) mg/dl Calcium (8.5-10.1) mg/dl Magnesium (1.7-2.4) mg/dl Total Bilirubin (0.2-1.0) mg/dl AST (13-39) U/L ALT (7-52) U/L Alkaline Phosphatase (34-104) U/L Total Protein (6.0-8.3) gm/dl Albumin (3.4-5.0) gm/dl Globulin (2.5-4.0) gm/dl Albumin/Globulin Ratio (0.9-2) TSH (0.300-4.500) uIu/ml Urine Color Urine Appearance (Clear) Urine pH (4.5-7.5) Ur Specific [place] (1.000-1.030) Urine Protein (Negative) Urine Glucose (UA) (Negative) Urine Ketones (Negative) Urine Blood (Negative) Urine Nitrite (Negative) Urine Bilirubin (Negative) Urine Urobilinogen (Negative) Ur Leukocyte Esterase (Negative) Urine WBC (Auto) (0-5) /hpf Urine RBC (Auto) (0-4) /hpf U Hyaline Cast (Auto) (0-5) /lpf U Epithel Cells (Auto) (0-5) /lpf Urine Bacteria (Auto) (Negative) Urine Opiates Screen (Neg) Ur Methadone, Qual (Neg) Urine Barbiturates (Neg) Ur Phencyclidine (PCP) (Neg) U Amphetamin/Meth Scrn (Neg) MDMA (Ecstasy) Screen (Neg) U Benzodiazepines Scrn (Neg) Ur Cocaine Metabolite (Neg) U Marijuana (THC) Screen (Neg) Ethyl Alcohol mg/dL (<10.0) mg/dl SARS-CoV-2 (PCR) (Negative) Influenza Type A (PCR) (Neg) Influenza Type B (PCR) (Neg) RSV (RT-PCR) (Neg) Diagnostic Findings [facility] Patient: LISSET FINCH (Female) : 89 Status: ER Date: 06/05/22 01:04 Room #: History: ams, pt cant remember the last 10 years of her life, no pg Slices: 66 Priors: Tech: Molly Taylor @ [phone] Exams: CT HEAD Contrast: Accession Numbers: [id number] Referring Physician: CALLIE ROWELL Preliminary Findings Only See Final Report For Complete Findings CT HEAD: Comparison is made to a prior study dated 09/21/17. No acute intracranial pathology is seen. There is moderate sinus mucosal disease involving the left maxillary sinus. Radiologist: Vincent Bauman MD Study ready at 01:10 and initial results transmitted at 01:28 *This report constitutes a preliminary interpretation only. Non-acute findings felt to be unrelated to the clinical presentation may not be discussed in this report. The study will be interpreted and a final report will be generated by the local Radiologist the following shift. To reach the [facility] radiology department call [phone]. If a discrepancy is found between the preliminary and final interpretations of this study, please notify us via our Client Portal at [email or web address], under QA Exams. You can also fax this report with a description of the discrepancy, or include the final report, to our daytime fax number [phone]. If faxing, please indicate the severity of discrepancy using one of the following categories: [ ] 1 - Agree/Informational [ ] 2 - Unlikely to Affect Management [ ] 3 - Possible Eventual Change of Management [ ] 4 - Probable Immediate Change of Management For all other patient related information, please fax us at [phone]. [id number] Supervising Physician Co-Signing Physician Notes Attending addendum: I have physically seen this patient, have supervised the medical residents activities, and agree with the H&P unless as otherwise noted. Assessment and Plan: Memory loss/anxiety/depression/bipolar disorder- CT head negative Metabolic work-up laboratories negative Migraine associated Rehydrate with IV fluids as noted Continue fluoxetine, lamotrigine and trazodone Lyme test Consult neurology/psychiatry as needed Strep throat- Doxycycline 100 mg p.o. twice daily Check a monoscreen Resident Activity Tracking Resident Involvement: Resident Care Provided Care Provided: Adult Hospital Medicine (1) Common migraine without aura Intractability: not intractable Status migrainosus presence: without status migrainosus Qualified Code(s): G43.009 - Migraine without aura, not intractable, without status migrainosus
[2022-06-05 03:12] LABS: Monotest Negative (Negative)
[2022-06-05 03:35] LABS: Lyme Ab IgG w/WB Rflx Negative (Negative); Lyme Ab IgM w/WB Rflx Negative (Negative)
[2022-06-05] MEDS ORDERED: ALBUTEROL HFA 8 GM INHALER INH PRN (04:02)
[2022-06-05] MEDS ORDERED: ONDANSETRON INJ 2 MG/ML 2 ML VIAL IV PRN (04:02)
[2022-06-05] MEDS: ACETAMINOPHEN 325 MG TAB PO PRN ×4 (04:42→20:46)
[2022-06-05] MEDS: LACTATED RINGER'S 1,000 ML IV SCH ×2 (06:29→13:27)
[2022-06-05 07:57] LABS: Basophils # (auto) 0.03 K/uL (0-0.2); Basophils % (auto) 0.2 %; Eosinophils # (auto) 0.01 K/uL (0-0.50); Eosinophils % (auto) 0.1 %; Hematocrit (blood only) 31.5 % (34.1-44.9); Hemoglobin 10.7 g/dl (12.0-16.0); Immature Granulocytes # (auto) 0.07 K/uL (0.00-0.02); Immature Granulocytes % (auto) 0.5 %; Lymphocytes # (auto) 1.67 K/uL (1.2-3.4); Lymphocytes % (auto) 11.5 %; Mean Corpuscular Hemoglobin 30.1 pg (25.0-34.0); Mean Corpuscular Volume 88.5 fL (80.0-100.0); Mean Platelet Volume 9.5 fL (9.4-12.3); Monocytes # (auto) 0.74 K/uL (0.24-0.82); Monocytes % (auto) 5.1 %; Neutrophils # (auto) 11.94 K/uL (1.4-6.5); Neutrophils % (auto) 82.6 %; Platelet Count 230 K/uL (130-400); RDW Coefficient of Variation 12.1 % (11.5-14.5); RDW Standard Deviation 39.5 fL (36.4-46.3); Red Blood Count 3.56 M/uL (3.93-5.22); White Blood Count 14.46 K/ul (4.8-10.8)
[2022-06-05] MEDS: DOXYCYCLINE HYCLATE 100 MG CAP PO SCH ×2 (08:01→20:47)
[2022-06-05] MEDS: FLUoxetine HCL 20 MG CAP PO SCH (08:01)
[2022-06-05] MEDS: ATORVASTATIN 20 MG TAB PO SCH (08:01)
[2022-06-05] MEDS: CHLORASEPTIC 1.4% SOLN 180 ML BTL MT PRN ×2 (08:03→18:18)
[2022-06-05 08:32] LABS: BUN Creatinine Ratio 12.5 (10-20); Calcium 7.9 mg/dl (8.5-10.1); Creatinine Clr Calc Pharmacy 180.1 ml/min; Est GFR (Non-African American) 121.7 ml/min
--- NOTE | 2022-06-05 08:40 | CT Scan Report ---
CT OF THE HEAD WITHOUT CONTRAST CLINICAL HISTORY: Altered mental status. COMPARISON STUDY: Head CT February 14, 2022. CT DOSE: 614.27 mGy.cm TECHNIQUE: Helical axial images of the head were obtained without IV contrast. Automated exposure con trol was utilized for the study. A dose lowering technique was utilized adhering to the principles o f ALARA. FINDINGS: No acute intracranial hemorrhage, midline shift or mass effect is present. The ventricular system is unremarkable. The basal cisterns are patent. No extra-axial collections are present. There are no findings to suggest acute dural sinus thrombosis or acute territorial infarct. No significant calvarial abnormalities are present. Mild mucosal thickening and secretions within the left maxillary sinus are present. IMPRESSION: No acute intracranial findings. ACT 112: Negative or not required by law. Electronically signed by: Tushar Vera M.D. 06/05/2022 8:38 AM
[2022-06-05] MEDS ORDERED: KETOROLAC TROMETHAMINE 15 MG/ML VIAL IV ONE ×2 (10:55→18:30)
[2022-06-05] MEDS ORDERED: diphenhydrAMINE 50 MG/ML VIAL IV STA ×2 (10:55→18:30)
--- NOTE | 2022-06-05 16:10 | Hospitalist Progress Note ---
Date of Service June 05, 2022 Assessment & Plan (1) Episodic memory loss: Plan: Lisset is a 36 y/o female with PMHx including migraine, HLD, anxiety, depression, and bipolar admitted to [facility] on 06/05/22 due to episodic memory loss, suspected associated with migraine. - Patient does report that current presentation is similar to hx of migraine and episodic amnesia - She thinks that migraines are worsened during her menses (which she is currently on) as well as increased stress - Given that patient continues to have difficulty with memory and sxs started > 8 hours ago, will admit for observation - Head CT on admission negative - Continue IV fluids, Migraine cocktail (2) Common migraine without aura: Plan: Patient experiencing some headache Usually takes Excederin at home (3) Strep sore throat: Plan: - Patient reports + strep test at urgent care this afternoon and presents with rx for doxycycline 100mg po BID - Will continue with doxy 100mg po BID x10 days - Chloraseptic spray prn (4) Depression: Plan: - Continue home fluoxetine, lamotrigine, and trazodone (5) Dyslipidemia: (6) Chronic GERD: (7) MAXIMUS (generalized anxiety disorder): (8) Bipolar disorder: Plan FENGI: Regular diet, IVF as above Dispo: admit to [facility] Code status: Full code Admission and Anticipated Discharge Date Admission Date: June 05, 2022 Subjective patient seen and examined, still complaining of headache Review of Systems Review of Systems: All systems reviewed are negative, apart from the ones contained in the history. Physical Exam Physical Exam: The patient is awake, alert and oriented 3, well developed and well nourished, normocephalic and atraumatic, lying in bed and in no acute di stress. HEENT--PERRL, EOMI, mucous membranes and oropharynx mildly dry Neck--supple. No JVD. No bruits. Thyroid normal, trachea midline, no adenopathy. Heart--normal S1 and S2. No murmurs, rubs or gallops. Lungs--clear bilaterally, no respiratory distress, no accessory muscle use. Abdomen--normal bowel sounds and soft. Mild epigastric and left sided abdominal pain Extremities--no cyanosis or clubbing. No edema. Dermatologic--normal skin turgor, normal color, no abnormal lymph nodes, no rash. Neurologic--cranial nerves II through XII grossly intact. Rheumatologic--normal range of motion. Psychiatric--normal affect. Results & Data Results & Data ([facility]) Vital Signs (Past 12 Hours) Vital Signs Temp Pulse Resp BP BP Pulse Ox O2 Del Method 06/05/22 14:51 98.8 F 77 16 121/75 96 Room Air 06/05/22 07:46 98.4 F 75 16 109/74 96 Room Air PG Care Time/CCT Total # of Minutes Spent Total Time Spent with Patient: Total time spent is greater than 50% in coordination of care (as documented) at patient's floor/unit and/or counseling patient: Coding Level of Care Code 86067 Subseq Obs Care Lvl 2 Diagnoses Episodic memory loss R41.3 Common migraine without aura G43.009 Status migrainosus presence: without status migrainosus Intractability: not intractable Strep sore throat J02.0 Depression F32.9 Dyslipidemia E78.5 Chronic GERD K21.9 MAXIMUS (generalized anxiety disorder) F41.1 Bipolar disorder F31.9 Time Spent (min) 35 (1) Common migraine without aura Status migrainosus presence: without status migrainosus Intractability: not intractable Qualified Code(s): G43.009 - Migraine without aura, not intractable, without status migrainosus
[2022-06-05] MEDS: lamoTRIgine 100 MG TAB PO SCH (20:46)
[2022-06-05] MEDS: traZODone HCL 50 MG TAB PO SCH (20:47)
--- NOTE | 2022-06-05 22:49 | Billing Data ---
Date of Service June 05, 2022 Coding Level of Care Code INT OBSERVATION CARE 70M LVL 3
[2022-06-06] MEDS: ACETAMINOPHEN 325 MG TAB PO PRN ×4 (01:19→20:30)
[2022-06-06] MEDS ORDERED: MoRPHine SULFATE 2 MG/ML CARP IV STA (01:26)
[2022-06-06 08:14] LABS: Hematocrit (blood only) 31.6 % (34.1-44.9); Hemoglobin 10.6 g/dl (12.0-16.0); Mean Corpuscular Hemoglobin 30.5 pg (25.0-34.0); Mean Corpuscular Hgb Conc 33.5 g/dL (32.0-36.0); Mean Corpuscular Volume 90.8 fL (80.0-100.0); Mean Platelet Volume 9.4 fL (9.4-12.3); Platelet Count 219 K/uL (130-400); RDW Coefficient of Variation 12.1 % (11.5-14.5); Red Blood Count 3.48 M/uL (3.93-5.22); White Blood Count 14.32 K/ul (4.8-10.8)
[2022-06-06] MEDS: DOXYCYCLINE HYCLATE 100 MG CAP PO SCH (08:38)
[2022-06-06] MEDS: ATORVASTATIN 20 MG TAB PO SCH (08:39)
[2022-06-06] MEDS: FLUoxetine HCL 20 MG CAP PO SCH (08:39)
[2022-06-06 08:40] LABS: BUN Creatinine Ratio 14.3 (10-20); Creatinine Clr Calc Pharmacy 205.8 ml/min; Est GFR (African American) 147.3 ml/min; Est GFR (Non-African American) 127.1 ml/min; Potassium 3.3 mmol/L (3.5-5.1)
[2022-06-06] MEDS: AMPICILLIN/SULBACTAM SOD 3,000 MG in 0.9 % SODIUM CHLORIDE 100 ML IV SCH ×3 (11:49→21:44)
--- NOTE | 2022-06-06 15:02 | Hospitalist Progress Note ---
Date of Service June 06, 2022 Assessment & Plan (1) Episodic memory loss: Plan: Lisset is a 36 y/o female with PMHx including migraine, HLD, anxiety, depression, and bipolar admitted to [facility] on 06/05/22 due to episodic memory loss, suspected associated with migraine. - Patient does report that current presentation is similar to hx of migraine and episodic amnesia - She thinks that migraines are worsened during her menses (which she is currently on) as well as increased stress - Head CT on admission negative, only signs of sinus congestion - Continue Migraine cocktail PRN (2) Common migraine without aura: Plan: Patient still experiencing some headache, but much better Usually takes Excederin at home Migraine cocktail PRN (3) Strep sore throat: Plan: - Patient reports + strep test at urgent care and presents with rx for doxycycline 100mg po BID - Initially on doxy 100mg po BID , but symptoms worsening. Will switch to IV Unasyn - Chloraseptic spray prn (4) Sinusitis: Plan: Patient with worsening congestion CT head on 06/05 showed Mild mucosal thickening and secretions within the left maxillary sinus WBC worsening, with ear ache Will switch her Doxycycline to IV Unasyn, mucinex PRN (5) Depression: Plan: - Continue home fluoxetine, lamotrigine, and trazodone (6) Dyslipidemia: (7) Chronic GERD: (8) MAXIMUS (generalized anxiety disorder): (9) Bipolar disorder: Plan FENGI: Regular diet, IVF as above Dispo: Hopefully discharge tomorrow Code status: Full code Admission and Anticipated Discharge Date Admission Date: June 05, 2022 Subjective patient seen and examined, still complaining of headache Review of Systems Review of Systems: All systems reviewed are negative, apart from the ones contained in the history. Physical Exam Physical Exam: The patient is awake, alert and oriented 3, well developed and well nourished, normocephalic and atraumatic, lying in bed and in no acute distress. HEENT--PERRL, EOMI, mucous membranes and oropharynx mildly dry Neck--supple. No JVD. No bruits. Thyroid normal, trachea midline, no adenopathy. Heart--normal S1 and S2. No murmurs, rubs or gallops. Lungs--clear bilaterally, no respiratory distress, no accessory muscle use. Abdomen--normal bowel sounds and soft. Mild epigastric and left sided abdominal pain Extremities--no cyanosis or clubbing. No edema. Dermatologic--normal skin turgor, normal color, no abnormal lymph nodes, no rash. Neurologic--cranial nerves II through XII grossly intact. Rheumatologic--normal range of motion. Psychiatric--normal affect. Results & Data Results & Data ([facility]) Vital Signs (Past 12 Hours) Vital Signs Temp Pulse Resp BP Pulse Ox O2 Del Method 06/06/22 07:29 98.6 F 82 16 120/78 95 Room Air PG Care Time/CCT Total # of Minutes Spent Total Time Spent with Patient: Total time spent is greater than 50% in coordination of care (as documented) at patient's floor/unit and/or counseling patient: Coding Level of Care Code 42637 Subseq Hosp Care Lvl 2 Diagnoses Episodic memory loss R41.3 Common migraine without aura G43.009 Status migrainosus presence: without status migrainosus Intractability: not intractable Strep sore throat J02.0 Sinusitis J32.9 Depression F32.9 Dyslipidemia E78.5 Chronic GERD K21.9 MAXIMUS (generalized anxiety disorder) F41.1 Bipolar disorder F31.9 Time Spent (min) 35 (1) Common migraine without aura Status migrainosus presence: without status migrainosus Intractability: not intractable Qualified Code(s): G43.009 - Migraine without aura, not intractable, without status migrainosus
[2022-06-06] MEDS ORDERED: POTASSIUM CHLORIDE CRTAB 20 MEQ TABCR PO STA (15:12)
[2022-06-06] MEDS ORDERED: diphenhydrAMINE Capsule 25 MG CAP PO ONE ×2 (16:32→20:54)
[2022-06-06] MEDS: guaiFENesin 600 MG TABCR PO SCH (19:51)
[2022-06-06] MEDS ORDERED: KETOROLAC TROMETHAMINE 10 MG TABLET PO STA (20:54)
[2022-06-06] MEDS: traZODone HCL 50 MG TAB PO SCH (21:40)
[2022-06-06] MEDS ORDERED: Nursing to Pharmacy Communication SCH (22:00)
[2022-06-06] MEDS: lamoTRIgine 100 MG TAB PO SCH (22:34)
--- NOTE | 2022-06-06 22:58 | Electrocardiogram Report ---
Test Reason : Blood Pressure : / mmHG Vent. Rate : 098 BPM Atrial Rate : 098 BPM P-R Int : 132 ms QRS Dur : 072 ms QT Int : 356 ms P-R-T Axes : 017 011 012 degrees QTc Int : 454 ms Poor data quality, interpretation may be adversely affected Normal sinus rhythm Nonspecific T wave abnormality When compared with ECG of 14-FEB-2022 20:26, No significant change was found Confirmed by Chuy Garza ([id number]) on 06/06/2022 10:57:37 PM Referred By: REFERRED SELF Confirmed By:Chuy Garza
[2022-06-07] MEDS: AMPICILLIN/SULBACTAM SOD 3,000 MG in 0.9 % SODIUM CHLORIDE 100 ML IV SCH ×2 (05:46→11:25)
[2022-06-07] MEDS: guaiFENesin 600 MG TABCR PO SCH (08:32)
[2022-06-07] MEDS: FLUoxetine HCL 20 MG CAP PO SCH (08:32)
[2022-06-07] MEDS: ATORVASTATIN 20 MG TAB PO SCH (08:32)
[2022-06-07 08:33] LABS: Hematocrit (blood only) 29.5 % (34.1-44.9); Hemoglobin 9.9 g/dl (12.0-16.0); Mean Corpuscular Hemoglobin 30.5 pg (25.0-34.0); Mean Corpuscular Hgb Conc 33.6 g/dL (32.0-36.0); Mean Corpuscular Volume 90.8 fL (80.0-100.0); Mean Platelet Volume 9.4 fL (9.4-12.3); Platelet Count 224 K/uL (130-400); RDW Coefficient of Variation 12.1 % (11.5-14.5); RDW Standard Deviation 39.8 fL (36.4-46.3); Red Blood Count 3.25 M/uL (3.93-5.22); White Blood Count 7.31 K/ul (4.8-10.8)
[2022-06-07] MEDS: ACETAMINOPHEN 325 MG TAB PO PRN (08:33)
[2022-06-07] MEDS ORDERED: lamoTRIgine 100 MG TAB PO SCH (09:00)
[2022-06-07 14:42] LABS: EBV Nuclear Ag Antibody <18.00 U/mL; EBV Virus Capsid Ag IgG Ab >750.00 U/mL; Epstein Barr Virus Early Ag Ab <9.00 U/mL
--- NOTE | 2022-06-07 19:23 | Discharge Summary ---
Date of Service June 07, 2022 Admission HPI Per Admitting Provider Patient is a 36 yo female with PMHx including MAXIMUS, bipolar, depression, GERD, HLD, and migraines who presented to the [facility] ER on 06/04/22 with confusion. History is limited due to clinical condition. Some history is obtained by patient's mother, who is at bedside. Patient's mom states that patient had an acute onset of confusion this afternoon around 4:00pm and at that time she "couldn't remember things." Patient states that she remembers being told to leave work due to dizziness and not feeling well. It is noted that patient's son tested positive for strep throat today and patient subsequently also went to an urgent care and tested positive for strep throat; she was given a rx for doxycycline. After leaving the urgent care is when patient became confused. She is unable to recall the events of today. Patient does note that she has a hx of similar episodes. When asked if confusion is related to her hx of migraines she states "I don't know, but I think so." Patient also feels that current presentation is similar to migraine hx. She does note a generalized SALGADO at this time. Patient denies nausea but notes that her stomach is "upset" because she is hungry and has not eaten today. She complains of + sore throat. Denies urinary symptoms including dysuria. Notes that she is currently on menses. Patient is unable to recall the medications that she takes for her migraine hx. Per chart review, patient follows with neurology and as of last neuro visit 03/24/22, patient is on Qulipta 60mg po daily, rizatriptan 10mg po prn migraine, and Zofran 8mg po q8h prn. She does not think that she has taken the abortive migraine medication today. In the ER, labs reveal leukocytosis at 11.73. Mild hypokalemia with K 3.3. Remainder of labs unremarkable including normal TSH 0.582. Head CT negative. Principal Diagnosis Migraine due to possible sinusitis Confusion associated with migraine Discharge Exam Gen: NAD, oriented, alert and pleasant CV: RRR Resp: CTA b/l Discharge Data Allergies Allergy/AdvReac Type Severity Reaction Status Date / Time Cephalosporins Allergy Intermediate Hives Verified 05/04/22 09:10 buspirone Allergy Unknown Unknown Verified 05/04/22 09:10 diazepam AdvReac Severe Extreme Verified 05/04/22 09:10 anger levofloxacin AdvReac Severe "Bad" Verified 05/04/22 09:10 interactions with psych medications metoclopramide AdvReac Intermediate Anxiety Verified 05/04/22 09:10 sumatriptan AdvReac Intermediate Rash Verified 05/04/22 09:10 Consultations 06/05/22 02:18 ED Decision to Admit Stat Ordered Studies 06/05/22 00:40 CT head/brain wo con Urgent Hospital Course (1) Episodic memory loss: Lisset is a 36 y/o female with PMHx including migraine, HLD, anxiety, depression, and bipolar admitted to [facility] on 06/05/22 due to episodic memory loss, suspected associated with migraine. - Patient does report that current presentation is similar to hx of migraine and episodic amnesia - She thinks that migraines are worsened during her menses (which she is currently on) as well as increased stress - Head CT on admission negative, only signs of sinus congestion - Continue Migraine cocktail PRN - Memory had returned to normal on discharge and headache had resolved. (2) Common migraine without aura: Usually takes Excederin at home Migraine cocktail PRN = Return to normal medications on discharge. (3) Strep sore throat: - Patient reports + strep test at urgent care and presents with rx for doxycycline 100mg po BID - Initially on doxy 100mg po BID , but symptoms worsening. Switched to IV Unasyn, then Augmentin x 7 more days on discharge. (4) Sinusitis: Patient with worsening congestion CT head on 06/05 showed Mild mucosal thickening and secretions within the left maxillary sinus WBC worsening, with ear ache Will switch her Doxycycline to IV Unasyn, mucinex PRN. Reported significant improvement on 06/07. Discharged with oral abx as above. (5) Depression: - Continue home fluoxetine, lamotrigine, and trazodone (6) Dyslipidemia: (7) Chronic GERD: (8) MAXIMUS (generalized anxiety disorder): (9) Bipolar disorder: Total Time Total Time Spent Total Time Spent (In Minutes): 35 Discharge Plan Discharge Items Patient Disposition: Home - Self-Care Reason For Visit: CONFUSION, MIGRAINE Discharge Diagnosis: Migraine with confusion Sinus infection Activity: Resume your previous activity Non-emergency contact: Primary Care Provider Call non-emergency contact if: your temperature is above 101 Follow-up/Referrals: Lisa Casanova, [Primary Care Provider] - 06/15/22 8:00 am (APPT WITH KARYN CUADRA PA-C) Diet: Regular Addtl Attending Provider Instructions: Ms. Coates, You were admitted with a migraine and confusion. We think this was possibly due to a sinus infection. Please take the Augmentin for 1 week. You can also take Tylenol and Mucinex as needed for drainage. Pending Studies at Discharge: No Stand-Alone Forms: My [facility], Smoking Cessation Medications and DC Order Prescriptions: New guaifenesin [Mucinex] 600 mg Tablet Extended Release 12hr 1,200 mg PO Q12 Qty: 0 0RF amoxicillin-pot clavulanate 875-125 mg tablet 1 tab PO BID Qty: 14 0RF Continued cholecalciferol (vitamin D3) 25 mcg (1,000 unit) capsule 2,000 unit PO QAM cyclobenzaprine 5 mg tablet 5 mg PO TID PRN (Reason: Muscle Spasm) Qty: 10 0RF atorvastatin [Lipitor] 20 mg tablet 20 mg PO QAM Qty: 30 4RF cetirizine [Zyrtec] 10 mg tablet 10 mg PO QAM fluoxetine [Prozac] 20 mg capsule 20 mg PO DAILY Qty: 90 0RF lamotrigine 100 mg tablet 100 mg PO PM Qty: 90 0RF trazodone 50 mg tablet 75 mg PO DAILY 90 Days Qty: 135 0RF trazodone 50 mg tablet 75 - 100 mg PO HS albuterol sulfate [Ventolin HFA] 90 mcg/actuation HFA aerosol inhaler 2 puff INHALATION Q6H PRN (Reason: Wheezing) Qty: 18 0RF nystatin 100,000 unit/gram powder 1 applic topical BID PRN (Reason: rash) Qty: 30 1RF Qulipta 60 mg tablet 60 mg PO DAILY Qty: 30 5RF rizatriptan 10 mg tablet,disintegrating 10 mg PO .COMPLEX PRN (Reason: Migraine Headache) Qty: 9 5RF Rx Instructions: 10 mg PO prn migraine, may repeat after 2 hours prn ondansetron 8 mg tablet,disintegrating 8 mg PO Q8H PRN (Reason: Nausea) Qty: 30 1RF melatonin 5 mg Tablet 5 mg PO HS lorazepam 1 mg tablet 1 mg PO BID PRN (Reason: Anxiety) hydroxyzine HCl 50 mg tablet 25 - 50 mg PO HS PRN (Reason: Sleep) Discharge Orders: Discharge Order (Routine); Ordered 06/07/22 Ordered By: Colt Smith Admission Data Admit Date/Time: 06/05/22 02:50 Attending Provider: Colt Smith Admit Provider: Katlin Das Primary Care Provider: Lisa Casanova Other Providers: Jimmy Calle Other Interventions: Discharge Summary Assessment (RN) Last Done: 06/07/22 12:46 Coding Level of Care Code D/C DAY MANAGEMENT >30 MINS Diagnoses Episodic memory loss R41.3 Common migraine without aura G43.009 Status migrainosus presence: without status migrainosus Intractability: not intractable Strep sore throat J02.0 Sinusitis J32.9 Depression F32.9 Dyslipidemia E78.5 Chronic GERD K21.9 MAXIMUS (generalized anxiety disorder) F41.1 Bipolar disorder F31.9
== END 2022-06-07 14:44 | disposition home or self-care (01) ==
LOC: 3N 18:21 → ED 18:21 → SUATTDRO 06-05 02:50 → 3N 06-05 03:31